=== PATIENT | female | born 1940 | race Caucasian/White ===

== ENCOUNTER 2016-07-09 12:47 | Inpatient (IN) | payer OTHER, MEDICARE ==
[2016-07-09 12:55] VITALS: BMI 32.5
--- NOTE | 2016-07-09 14:01 | PDOC ---
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 HISTORY OF PRESENT ILLNESS: The patient is also c/o lower extremity swelling and admits she can no longer lay flat to sleep. She denies ARAGON, dizziness, f/c, cough, hemoptysis, n/v/d, palpitations, CP, abd pain, back pain, hematuria, dysuria. PCP is Dr. Cate Acosta Facilities Plant Engineer is Dr. Allen. Vital signs on arrival are notable for pulse of 102 with O2 sat of 95% on RA. REVIEW OF SYSTEMS: GENERAL/CONSTITUTIONAL: No fever/chills. No weakness. No weight change. HEAD, EYES, EARS, NOSE AND THROAT: No change in vision. No ear pain or discharge. No sore throat. CARDIOVASCULAR: +SOB. No chest pain. RESPIRATORY: No cough, wheezing, or hemoptysis. GASTROINTESTINAL: No abd pain, nausea, vomiting, diarrhea. GENITOURINARY: No dysuria, frequency, or change in urination. MUSCULOSKELETAL: +lower extremity swelling. No neck or back pain. SKIN: No rash or easy bruising. NEUROLOGIC: No headache, vertigo, loss of consciousness, or loss of sensation. PHYSICAL EXAM: GENERAL: The patient is awake, alert, and fully oriented, in no acute distress. She is short of breath as she speaks, speaking 3-4 words per breath. HEAD: Normal with no signs of trauma. ENT: Pupils equal, round and reactive to light, extraocular movements intact, sclera anicteric, conjunctiva clear. Neck supple. LUNGS: expiratory wheezing left posterior tran. No crackles. No rhonchi. Normal excursion. No respiratory distress or use of accessory muscles. CV: RRR, S1/S2, no MRG. Cap refill < 2 sec. ABDOMEN: Soft, non-distended, non-tender even to deep palpation, no hepatomegaly or splenomegaly, no masses. EXTREMITIES: Normal range of motion. 2+ pitting edema b/l LEs. NEUROLOGICAL: Normal speech, normal gait. CN II-XII grossly intact. PSYCH: Normal mood, normal affect. SKIN: Warm, dry, normal turgor, no rashes or lesions noted. Past History - Past Medical History Allergies/Adverse Reactions: Allergies Allergy/AdvReac Type Severity Reaction Status Date / Time No Known Allergies Allergy Verified 07/09/16 12:51 Home Medications: Ambulatory Orders Alprazolam [Xanax] 0.25 mg PO HS PRN #0 tablet 07/05/15 Apixaban [Eliquis] 5 mg PO BID #60 tablet 07/05/15 Ergocalciferol (Vitamin D2) [Vitamin D] 50,000 unit PO DAILY #0 07/05/15 Erlotinib HCl [Tarceva] 150 mg PO DAILY #0 07/05/15 Escitalopram Oxalate [Lexapro -] 5 mg PO DAILY #0 tablet 07/05/15 Eszopiclone [Lunesta -] 3 mg PO DAILY #30 tab 07/05/15 Lisinopril [Prinivil] 2.5 mg PO DAILY #90 tablet 07/05/15 Metoprolol Succinate [Toprol XL -] 25 mg PO DAILY #0 tab.sr.24h 07/05/15 Anemia: No Asthma: No Cancer: Yes (LUNG CA, treated only with by mouth chemotherapy) Cardiac Disorders: Yes (AFib; H/O [place] 2001; rheumatic fever causing mitral valve stenosis that was r) CVA: No COPD: No CHF: No Dementia: No Diabetes: No GI Disorders: No Disorders: No HTN: No Hypercholesterolemia: Yes Liver Disease: No Seizures: No Thyroid Disease: Yes (BENIGN TUMOR) - Surgical History Abdominal Surgery: Yes (HERNIA LEFT INGUINAL REPAIR) Appendectomy: No Cardiac Surgery: Yes (mitral valve "opening") Cholecystectomy: No Lung Surgery: No Neurologic Surgery: No Orthopedic Surgery: No (COMPRESSION FX LUMBAR) - Psycho/Social/Smoking Cessation Hx Anxiety: No Suicidal Ideation: No Smoking Status: No Smoking History: Never smoked Have you smoked in the past 12 months: No Number of Cigarettes Smoked Daily: 0 If you are a former smoker, when did you quit?: 34YRS AGO Information on smoking cessation initiated: No Hx Alcohol Use: No Drug/Substance Use Hx: No Substance Use Type: None Hx Substance Use Treatment: No *Physical Exam - Vital Signs Last Vital Signs Temp Pulse Resp BP Pulse Ox 97.6 F 102 H 18 135/64 95 07/09/16 12:52 07/09/16 12:52 07/09/16 12:52 07/09/16 12:52 07/09/16 12:52 Heart Score/ECG Review - History History: Slightly suspicious - Electrocardiogram EKG: Normal - Age Age: >/= 65 - Risk Factors Risk Factors Heart Score: Yes Hx Hypertension, Yes Hx Diabetes, Yes Smoking History Based on the list above the patient has:: >/=3 risk factors or Hx atherosclerotic disease - Troponin Troponin: </= normal limit - Score Heart Score - Total: 4 - ECG Intrepretation Comment:: Twelve-lead EKG was performed and reviewed by Dr. Gu. There is atrial fibrillation. Impression: Abnormal twelve-lead EKG ED Treatment Course - LABORATORY CBC & Chemistry Diagram: 07/09/16 14:15 07/09/16 14:15 Medical Decision Making - Medical Decision Making A/P: 76 y/o afebrile female with increased SOB on exertion for the past few weeks. Suspect CHF exacerbation. Plan is as follows: 1. Labs 2. EKG 3. CXR 4. Duoneb BNP = 2700 No prior history of CHF. Ordered 40mg IV lasix Will admit for new onset CHF. Patient and family made aware of the plan. Crow Giles, covering for Dr. Cate Acosta, called for admission. Spoke with Dr. Giles who accepts admission. Paged Dr. Allen for Tele admission SPoke with Dr. Delgado and he states he will see the patient *DC/Admit/Observation/Transfer Diagnosis at time of Disposition: CHF exacerbation Qualifiers: Congestive heart failure type: unspecified congestive heart failure type Qualified Code(s): I50.9 - Heart failure, unspecified - Discharge Dispostion Admit: Yes - Referrals Referrals: Cate Acosta MD [Primary Care Provider] -
[2016-07-09] MEDS ORDERED: ALBUTEROL SO4 2.5/IPRATROPIUM 0.5 INH SOL 3 ML VIAL.NEB. NEB ONE ×2 (14:09→15:03)
[2016-07-09 14:28] LABS: BASOPHIL 0.5 % (0-2.0); EOSINOPHIL 1.4 % (0-4.5); MCHC 33.6 g/dl (32.0-36.0); MEAN CELL VOLUME 95.4 fl (80-96); MEAN PLT VOLUME 7.6 fl (7.5-11.1); NEUTROPHILS 71.7 % (42.8-82.8); PLATELET COUNT 251 K/MM3 (134-434); RDW 13.3 % (11.6-15.6); WHITE BLOOD COUNT 7.2 K/mm3 (4.0-10.0)
--- NOTE | 2016-07-09 14:40 | PDOC ---
[id number] 135/64 95 07/09/16 12:52 07/09/16 12:52 07/09/16 12:52 07/09/16 12:52 07/09/16 12:52 ED Treatment Course - LABORATORY CBC & Chemistry Diagram: 07/11/16 05:35 07/12/16 05:35 Medical Decision Making - Medical Decision Making 07/09/16 14:40 Patient seen and evaluated with the nurse practitioner. I agree with the overall evaluation, assessment, and management with the following summary of visit: 76-year-old female with history of lung CA and hypertension presents with progressive shortness of breath. Workup as outlined, likely admission. *DC/Admit/Observation/Transfer Diagnosis at time of Disposition: CHF exacerbation Qualifiers: Congestive heart failure type: systolic Qualified Code(s): I50.23 - Acute on chronic systolic (congestive) heart failure - Discharge Dispostion Disposition: HOME Condition at time of disposition: Improved - Prescriptions
[2016-07-09 14:53] LABS: ALBUMIN 3.6 g/dl (3.4-5.0); ANION GAP 9 (8-16); BILIRUBIN,TOTAL 0.7 mg/dL (0.2-1.0); CALCIUM 8.7 mg/dL (8.5-10.1); CO2 24 mmol/L (21-32); CREATININE 0.6 mg/dL (0.55-1.02); GLUCOSE,RANDOM 92 mg/dL (74-106); SGOT/AST 31 U/L (15-37); SGPT/ALT 42 U/L (12-78); TOT PROT 6.6 g/dl (6.4-8.2)
[2016-07-09 14:56] LABS: ALK PHOS 58 U/L (45-117); TROPONIN I < 0.02 ng/ml (0.00-0.05)
[2016-07-09] MEDS ORDERED: FUROSEMIDE 40 MG/4 ML INJECTABLE VIAL IVPUSH ONE (14:59)
[2016-07-09] MEDS ORDERED: FUROSEMIDE 40 MG/4 ML INJECTABLE VIAL ONE (15:03)
[2016-07-09] MEDS ORDERED: ALPRAZolam 0.25 MG TABLET PO PRN (15:21)
--- NOTE | 2016-07-09 16:11 | EKG ---
Test Reason : Blood Pressure : / mmHG Vent. Rate : 083 BPM Atrial Rate : 064 BPM P-R Int : 000 ms QRS Dur : 090 ms QT Int : 386 ms P-R-T Axes : 000 038 031 degrees QTc Int : 453 ms ATRIAL FIBRILLATION ABNORMAL ECG WHEN COMPARED WITH ECG OF 02-JUL-2015 18:53, NO SIGNIFICANT CHANGE WAS FOUND Confirmed by CHANA PAPPAS MD ([id number]) on 07/09/2016 4:10:38 PM Referred By: Confirmed By:CHANA PAPPAS MD
--- NOTE | 2016-07-09 17:10 | CON.CARD ---
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 HISTORY OF PRESENT ILLNESS: The patient is also c/o lower extremity swelling and admits she can no longer lay flat to sleep. She denies ARAGON, dizziness, f/c, cough, hemoptysis, n/v/d, palpitations, CP, abd pain, back pain, hematuria, dysuria. PCP is Dr. Cate Acosta Stretching Machine Tender Frame is Dr. Allen. PMH coronary angiogram and ?MV balloon valvuloplasty for MS 2007 at [facility] (Dr Rubio) AF; underwent electrical cardioversion ([facility]) bilateral cataracts CHF depression, exacerbated after Dx of lung CA Hx ? 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 No: Alzheimer's, CVA, Dementia, Migraine, Multiple Sclerosis, Peripheral Neuropathy, Parkinson's, Seizure, Syncope, Vertigo, Other Cardio/Vascular: Yes: AFIB, Aortic Insufficiency, HTN, Hyperlipdemia, Mitral Stenosis - Alcohol/Substance Use Hx Alcohol Use: No - Smoking History Smoking history: Never smoked Have you smoked in the past 12 months: No Aproximately how many cigarettes per day: 0 If you are a former smoker, when did you quit?: 34YRS AGO Home Medications - Allergies Allergies/Adverse Reactions: Allergies Allergy/AdvReac Type Severity Reaction Status Date / Time No Known Allergies Allergy Verified 07/09/16 12:51 - Home Medications Home Medications: Ambulatory Orders Alprazolam [Xanax] 0.25 mg PO HS PRN #0 tablet 07/05/15 Apixaban [Eliquis] 5 mg PO BID #60 tablet 07/05/15 Ergocalciferol (Vitamin D2) [Vitamin D] 50,000 unit PO DAILY #0 07/05/15 Erlotinib HCl [Tarceva] 150 mg PO DAILY #0 07/05/15 Escitalopram Oxalate [Lexapro -] 5 mg PO DAILY #0 tablet 07/05/15 Eszopiclone [Lunesta -] 3 mg PO DAILY #30 tab 07/05/15 Lisinopril [Prinivil] 2.5 mg PO DAILY #90 tablet 07/05/15 Metoprolol Succinate [Toprol XL -] 25 mg PO DAILY #0 tab.sr.24h 07/05/15 Review of Systems - Review of Systems Constitutional: reports: No Symptoms Eyes: reports: No Symptoms HENT: reports: No Symptoms Neck: reports: No Symptoms Cardiovascular: reports: No Symptoms Respiratory: reports: SOB, SOB on Exertion Gastrointestinal: reports: No Symptoms Genitourinary: reports: No Symptoms Breasts: reports: No Symptoms Reported Musculoskeletal: reports: No Symptoms Integumentary: reports: No Symptoms Neurological: reports: No Symptoms Endocrine: reports: No Symptoms Hematology/Lymphatic: reports: No Symptoms Psychiatric: reports: No Symptoms Vital Signs: Vital Signs Temperature 97.6 F 07/09/16 12:52 Pulse Rate 102 H 07/09/16 12:52 Respiratory Rate 18 07/09/16 12:52 Blood Pressure 135/64 07/09/16 12:52 O2 Sat by Pulse Oximetry (%) 95 07/09/16 12:52 Constitutional: Yes: Well Nourished, No Distress, Calm Eyes: Yes: WNL, Conjunctiva Clear, EOM Intact HENT: Yes: WNL, Atraumatic, Normocephalic Neck: Yes: WNL, Supple, Trachea Midline Respiratory: Yes: WNL, Regular, CTA Bilaterally Gastrointestinal: Yes: WNL, Normal Bowel Sounds Renal/: Yes: WNL Cardiovascular: Yes: WNL, Regular Rate and Rhythm Musculoskeletal: Yes: WNL Extremities: Yes: WNL Integumentary: Yes: WNL Neurological: Yes: WNL, Alert, Oriented ...Motor Strength: WNL Psychiatric: Yes: WNL, Alert, Oriented Imaging - Results Chest X-ray: Image Reviewed (cm no i/e) EKG: Image Reviewed (af) Assessment/Plan coronary angiogram and ?MV balloon valvuloplasty for MS 2006 at [facility] (Dr Rubio) AF; underwent electrical cardioversion ([facility]) bilateral cataracts CHF depression, exacerbated after Dx of lung CA Hx ? 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
--- NOTE | 2016-07-09 17:10 | HP ---
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 The patient is also c/o lower extremity swelling and admits she can no longer lay flat to sleep. She denies ARAGON, dizziness, f/c, cough, hemoptysis, n/v/d, palpitations, CP, abd pain, back pain, hematuria, dysuria. Pt given lasix in er Pt feels better Being admitted to tele Pt seen in tele Chart reviewed Sitting in chair. denies cp. no abd pain. no headche/ dizziness no u/b trouble. 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 No: Alzheimer's, CVA, Dementia, Migraine, Multiple Sclerosis, Peripheral Neuropathy, Parkinson's, Seizure, Syncope, Vertigo, Other Cardiovascular: Yes: AFIB, Aortic Insufficiency, HTN, Hyperlipdemia, Mitral Stenosis Heme/Onc: Yes: Cancer (lung ca) - Smoking History Smoking history: Never smoked Have you smoked in the past 12 months: No Aproximately how many cigarettes per day: 0 If you are a former smoker, when did you quit?: 34YRS AGO - Alcohol/Substance Use Hx Alcohol Use: No Home Medications - Allergies Allergies/Adverse Reactions: Allergies Allergy/AdvReac Type Severity Reaction Status Date / Time No Known Allergies Allergy Verified 07/09/16 12:51 - Home Medications Home Medications: Ambulatory Orders Alprazolam [Xanax] 0.25 mg PO HS PRN #0 tablet 07/05/15 Apixaban [Eliquis] 5 mg PO BID #60 tablet 07/05/15 Ergocalciferol (Vitamin D2) [Vitamin D] 50,000 unit PO DAILY #0 07/05/15 Erlotinib HCl [Tarceva] 150 mg PO DAILY #0 07/05/15 Escitalopram Oxalate [Lexapro -] 5 mg PO DAILY #0 tablet 07/05/15 Eszopiclone [Lunesta -] 3 mg PO DAILY #30 tab 07/05/15 Lisinopril [Prinivil] 2.5 mg PO DAILY #90 tablet 07/05/15 Metoprolol Succinate [Toprol XL -] 25 mg PO DAILY #0 tab.sr.24h 07/05/15 Family Disease History - Family Disease History Family History: Unremarkable Review of Systems Unable to obtain ROS, reason: see HPI Physical Examination Vital Signs: Vital Signs Temperature 97.6 F 07/09/16 12:52 Pulse Rate 102 H 07/09/16 12:52 Respiratory Rate 18 07/09/16 12:52 Blood Pressure 135/64 07/09/16 12:52 O2 Sat by Pulse Oximetry (%) 95 07/09/16 12:52 Constitutional: Yes: No Distress, Calm Eyes: Yes: Conjunctiva Clear Neck: Yes: Supple Cardiovascular: Yes: Pulse Irregular Respiratory: Yes: Diminished (AT BASES) Gastrointestinal: Yes: Normal Bowel Sounds, Soft Edema: LLE: 2+, RLE: 2+ Neurological: Yes: Alert Psychiatric: Yes: Alert Imaging - Results Chest X-ray: Report Reviewed EKG: Report Reviewed Problem List - Problems (1) Afib Code(s): I48.91 - UNSPECIFIED ATRIAL FIBRILLATION (2) CHF exacerbation Code(s): I50.9 - HEART FAILURE, UNSPECIFIED Qualifiers: Congestive heart failure type: unspecified congestive heart failure type Qualified Code(s): I50.9 - Heart failure, unspecified (3) Lung cancer Code(s): C34.90 - MALIGNANT NEOPLASM OF UNSP PART OF UNSP BRONCHUS OR LUNG Assessment/Plan New Onset Chf Afib. Admit to tele Clinically stable Continue i/v lasix. echo Daily weight Meds reviewed monitor i/o Cardiology to follow Heart rate under control will follow
[2016-07-09] MEDS ORDERED: ZOLPIDEM TARTRATE 5 MG TABLET PO PRN (22:00)
[2016-07-09] MEDS: APIXABAN 5 MG TABLET PO SCH (22:15)
[2016-07-10 08:13] LABS: BASOPHIL 0.5 % (0-2.0); MCHC 33.2 g/dl (32.0-36.0); MEAN CELL VOLUME 96.3 fl (80-96); MEAN PLT VOLUME 7.9 fl (7.5-11.1); NEUTROPHILS 62.6 % (42.8-82.8); PLATELET COUNT 237 K/MM3 (134-434); RDW 13.4 % (11.6-15.6); WHITE BLOOD COUNT 6.4 K/mm3 (4.0-10.0)
[2016-07-10 08:44] LABS: CALCIUM 8.6 mg/dL (8.5-10.1)
[2016-07-10 08:49] LABS: ALBUMIN 3.4 g/dl (3.4-5.0); ALK PHOS 55 U/L (45-117); ANION GAP 6 (8-16); BILIRUBIN,TOTAL 0.9 mg/dL (0.2-1.0); CHOLESTEROL 157 mg/dL (50-200); CO2 29 mmol/L (21-32); CREATININE 0.6 mg/dL (0.55-1.02); GLUCOSE,RANDOM 89 mg/dL (74-106); LDL CHOLESTEROL (ONLY SJRH) 112 mg/dL (5-100); SGOT/AST 22 U/L (15-37); SGPT/ALT 37 U/L (12-78)
[2016-07-10] MEDS ORDERED: ESZOPICLONE 3 MG PO SCH (10:00)
[2016-07-10] MEDS ORDERED: LISINOPRIL 5 MG TABLET (FP) ONE (10:34)
[2016-07-10] MEDS ORDERED: POTASSIUM CHLORIDE TABS 10 MEQ TABLET.ER (FP) ONE (10:34)
[2016-07-10] MEDS ORDERED: METOPROLOL SUCCINATE 50 MG TAB.SR.24H (FP) ONE (10:34)
[2016-07-10] MEDS ORDERED: ESCITALOPRAM OXALATE 10 MG TABLET (FP) ONE (10:35)
[2016-07-10] MEDS ORDERED: FUROSEMIDE 40 MG/4 ML INJECTABLE VIAL ONE (10:35)
[2016-07-10] MEDS: METOPROLOL SUCCINATE 25 MG TAB.SR.24H (FP) PO SCH (10:40)
[2016-07-10] MEDS: POTASSIUM CHLORIDE TABS 10 MEQ TABLET.ER (FP) PO SCH (10:40)
[2016-07-10] MEDS: FUROSEMIDE 40 MG/4 ML INJECTABLE VIAL IVPB SCH (10:40)
[2016-07-10] MEDS: APIXABAN 5 MG TABLET PO SCH ×2 (10:40→21:02)
[2016-07-10] MEDS: ESCITALOPRAM OXALATE 10 MG TABLET (FP) PO SCH (10:40)
--- NOTE | 2016-07-10 10:48 | PN ---
Progress Note, Physician Chief Complaint: Events noted No distress SOB improved - Current Medication List Current Medications: Active Medications Alprazolam (Xanax -) 0.25 mg PO HS PRN PRN Reason: ANXIETY Apixaban (Eliquis -) 5 mg PO BID [facility] Last Admin: 07/09/16 22:15 Dose: 5 mg Ergocalciferol (Drisdol -) 50,000 unit PO DAILY [facility] Escitalopram Oxalate (Lexapro -) 5 mg PO DAILY [facility] Furosemide (Lasix Injection -) 40 mg IVPB DAILY [facility] Lisinopril (Prinivil) 2.5 mg PO DAILY [facility] Metoprolol Succinate (Toprol Xl -) 25 mg PO DAILY [facility] Non-Formulary Medication (Erlotinib Hcl [Tarceva]) 150 mg PO DAILY [facility] Potassium Chloride (K-Dur -) 10 meq PO DAILY [facility] Zolpidem Tartrate (Ambien -) 5 mg PO HS PRN - Objective Vital Signs: Vital Signs Temperature 98.1 F 07/10/16 06:00 Pulse Rate 68 07/10/16 06:00 Respiratory Rate 20 07/10/16 06:00 Blood Pressure 112/71 07/10/16 06:00 O2 Sat by Pulse Oximetry (%) 100 07/10/16 06:00 Constitutional: Yes: No Distress, Calm Cardiovascular: Yes: Pulse Irregular, Murmur Respiratory: Yes: Diminished, Rales Gastrointestinal: Yes: Normal Bowel Sounds, Soft. No: Distention, Tenderness Edema: Yes Edema: LLE: 2+, RLE: 2+ Psychiatric: Yes: Alert, Oriented Labs: CBC, BMP 07/10/16 07:15 07/10/16 07:15 Problem List - Problems (1) Afib Code(s): I48.91 - UNSPECIFIED ATRIAL FIBRILLATION Qualifiers: Atrial fibrillation type: chronic Qualified Code(s): I48.2 - Chronic atrial fibrillation (2) CHF exacerbation Code(s): I50.9 - HEART FAILURE, UNSPECIFIED Qualifiers: Congestive heart failure type: systolic Qualified Code(s): I50.23 - Acute on chronic systolic (congestive) heart failure (3) Lung cancer Code(s): C34.90 - MALIGNANT NEOPLASM OF UNSP PART OF UNSP BRONCHUS OR LUNG Assessment/Plan PLAN -- continue with anticoagulation -- on IV Lasix -- monitor BUN/creat -- Cardiology eval appreciated --check Echo -- OOB -- improving clinically
[2016-07-10] MEDS: LISINOPRIL 5 MG TABLET (FP) PO SCH (11:06)
--- NOTE | 2016-07-10 16:10 | PN ---
Progress Note, Physician Chief Complaint: Pt feels better, but still congest; dyspneic with mild exertion. 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 HISTORY OF PRESENT ILLNESS: The patient is also c/o lower extremity swelling and admits she can no longer lay flat to sleep. She denies ARAGON, dizziness, f/c, cough, hemoptysis, n/v/d, palpitations, CP, abd pain, back pain, hematuria, dysuria. PCP is Dr. Cate Acosta Relay Dispatcher is Dr. Mclain. Vital signs on arrival are notable for pulse of 102 with O2 sat of 95% on RA. - Current Medication List Current Medications: Active Medications Alprazolam (Xanax -) 0.25 mg PO HS PRN PRN Reason: ANXIETY Apixaban (Eliquis -) 5 mg PO BID [facility] Last Admin: 07/10/16 10:40 Dose: 5 mg Ergocalciferol (Drisdol -) 50,000 unit PO DAILY [facility] Escitalopram Oxalate (Lexapro -) 5 mg PO DAILY [facility] Last Admin: 07/10/16 10:40 Dose: 5 mg Furosemide (Lasix Injection -) 40 mg IVPB DAILY [facility] Last Admin: 07/10/16 10:40 Dose: 40 mg Lisinopril (Prinivil) 2.5 mg PO DAILY [facility] Last Admin: 07/10/16 11:06 Dose: Not Given Metoprolol Succinate (Toprol Xl -) 25 mg PO DAILY [facility] Last Admin: 07/10/16 10:40 Dose: 25 mg Non-Formulary Medication (Erlotinib Hcl [Tarceva]) 150 mg PO DAILY [facility] Potassium Chloride (K-Dur -) 10 meq PO DAILY [facility] Last Admin: 07/10/16 10:40 Dose: 10 meq Zolpidem Tartrate (Ambien -) 5 mg PO HS PRN - Objective Vital Signs: Vital Signs Temperature 97.7 F 07/10/16 13:52 Pulse Rate 81 07/10/16 13:52 Respiratory Rate 20 07/10/16 13:52 Blood Pressure 107/78 07/10/16 13:52 O2 Sat by Pulse Oximetry (%) 95 07/10/16 13:58 Constitutional: Yes: Calm Eyes: Yes: WNL HENT: Yes: WNL Neck: Yes: Supple Cardiovascular: Yes: Pulse Irregular, JVD, S1 (varies in intensity) Respiratory: Yes: Diminished Gastrointestinal: Yes: Soft ...Rectal Exam: Yes: Deferred Genitourinary: No: Anuria Breast(s): Yes: WNL Musculoskeletal: Yes: Muscle Weakness Extremities: Yes: Cool Edema: No Peripheral Pulses WNL: Yes Neurological: Yes: Alert, Oriented, Weakness Psychiatric: Yes: Alert, Oriented Labs: CBC, BMP 07/10/16 07:15 07/10/16 07:15 Abnormal Lab Results 07/10/16 07/10/16 07:15 07:15 MCV 96.3 H Chloride 109 H Anion Gap 6 L Total Protein 6.0 L Total LDL Cholesterol 112 H HDL Cholesterol 39 L - ....Imaging Chest X-ray: Image Reviewed (no acute pathology) Cat Scan: Image Reviewed (lesion (malignancy) slightly smaller;) EKG: Image Reviewed (AF) Problem List - Problems (1) Afib Assessment/Plan: On metoprolol ER for HR control. On Apixaban for anticoagulation. Code(s): I48.91 - UNSPECIFIED ATRIAL FIBRILLATION Qualifiers: Atrial fibrillation type: chronic Qualified Code(s): I48.2 - Chronic atrial fibrillation (2) Chronic systolic CHF (congestive heart failure) Assessment/Plan: ECHO: mildly reduced LVEF; severe LAE; moderate ; severe MS (functional: MAC) ; moderately severe MR; moderate TR, with severe pulmonary HTN. 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 Code(s): C34.90 - MALIGNANT NEOPLASM OF UNSP PART OF UNSP BRONCHUS OR LUNG (5) Mitral stenosis Assessment/Plan: severe MS (functional: MAC); moderately severe MR; severe LAE; moderate ; severe pulmonary HTN; mildly reduced LVEF (ECHO 07/10/2016). Mitral stenosis appears to have progressed (moderate MS in 2014). If symptoms persist despite optimization of medications and diet, would need to consider surgical repair or replacement of mitral valve, with evaluation of aortic valve as well (moderate , with reduced LVEF). However, pt's overall health prognosis , especially given known lung CA, needs careful evaluation prior to thinking of this course. Code(s): I05.0 - RHEUMATIC MITRAL STENOSIS
[2016-07-10] MEDS ORDERED: PT OWN MED DRAWER 7, Y5N ONE (17:35)
[2016-07-10] MEDS: TARCEVA PO SCH (18:09)
[2016-07-11 07:03] LABS: MCH 32.3 pg (25.7-33.7); MCHC 33.6 g/dl (32.0-36.0); MEAN CELL VOLUME 96.1 fl (80-96); PLATELET COUNT 234 K/MM3 (134-434); RDW 13.5 % (11.6-15.6); WHITE BLOOD COUNT 6.7 K/mm3 (4.0-10.0)
[2016-07-11 07:46] LABS: CALCIUM 8.4 mg/dL (8.5-10.1); CREATININE 0.7 mg/dL (0.55-1.02); MAGNESIUM 2.1 mg/dL (1.8-2.4)
[2016-07-11] MEDS: APIXABAN 5 MG TABLET PO SCH ×2 (10:03→21:04)
[2016-07-11] MEDS: POTASSIUM CHLORIDE TABS 10 MEQ TABLET.ER (FP) PO SCH (10:03)
[2016-07-11] MEDS: METOPROLOL SUCCINATE 25 MG TAB.SR.24H (FP) PO SCH (10:03)
[2016-07-11] MEDS: FUROSEMIDE 40 MG/4 ML INJECTABLE VIAL IVPB SCH (10:03)
[2016-07-11] MEDS: LISINOPRIL 5 MG TABLET (FP) PO SCH (10:04)
[2016-07-11] MEDS: ESCITALOPRAM OXALATE 10 MG TABLET (FP) PO SCH (10:04)
[2016-07-11] MEDS: TARCEVA PO SCH (10:04)
--- NOTE | 2016-07-11 10:12 | PN ---
Progress Note, Physician Chief Complaint: Events noted No distress SOB improved feeling better gets anxious at times - Current Medication List Current Medications: Active Medications Alprazolam (Xanax -) 0.25 mg PO HS PRN PRN Reason: ANXIETY Apixaban (Eliquis -) 5 mg PO BID [facility] Last Admin: 07/11/16 10:03 Dose: 5 mg Ergocalciferol (Drisdol -) 50,000 unit PO DAILY [facility] Escitalopram Oxalate (Lexapro -) 5 mg PO DAILY [facility] Last Admin: 07/11/16 10:04 Dose: 5 mg Furosemide (Lasix Injection -) 40 mg IVPB DAILY [facility] Last Admin: 07/11/16 10:03 Dose: 40 mg Lisinopril (Prinivil) 2.5 mg PO DAILY [facility] Last Admin: 07/11/16 10:04 Dose: 2.5 mg Metoprolol Succinate (Toprol Xl -) 25 mg PO DAILY [facility] Last Admin: 07/11/16 10:03 Dose: 25 mg Tarceva 100 Mg Tab - (Patient Own Med) 100 mg PO DAILY [facility] Last Admin: 07/11/16 10:04 Dose: 100 mg Potassium Chloride (K-Dur -) 10 meq PO DAILY [facility] Last Admin: 07/11/16 10:03 Dose: 10 meq Zolpidem Tartrate (Ambien -) 5 mg PO HS PRN - Objective Vital Signs: Vital Signs Temperature 98.0 F 07/11/16 06:00 Pulse Rate 78 07/11/16 06:00 Respiratory Rate 20 07/11/16 06:00 Blood Pressure 117/74 07/11/16 06:00 O2 Sat by Pulse Oximetry (%) 96 07/10/16 21:00 Constitutional: Yes: No Distress Cardiovascular: Yes: Pulse Irregular, Murmur Respiratory: Yes: Diminished Gastrointestinal: Yes: Normal Bowel Sounds, Soft. No: Distention, Tenderness Edema: Yes (decreased) Labs: CBC, BMP 07/11/16 05:35 07/11/16 05:35 Problem List - Problems (1) Afib Code(s): I48.91 - UNSPECIFIED ATRIAL FIBRILLATION Qualifiers: Atrial fibrillation type: chronic Qualified Code(s): I48.2 - Chronic atrial fibrillation (2) CHF exacerbation Code(s): I50.9 - HEART FAILURE, UNSPECIFIED Qualifiers: Congestive heart failure type: systolic Qualified Code(s): I50.23 - Acute on chronic systolic (congestive) heart failure (3) Lung cancer Code(s): C34.90 - MALIGNANT NEOPLASM OF UNSP PART OF UNSP BRONCHUS OR LUNG Assessment/Plan PLAN -- continue with anticoagulation -- on IV Lasix -- monitor BUN/creat -- Cardiology eval appreciated -- Echo discussed with pt -- OOB -- improving clinically -- possible dc tomorrow
--- NOTE | 2016-07-11 10:47 | PN ---
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 HISTORY OF PRESENT ILLNESS: The patient is also c/o lower extremity swelling and admits she can no longer lay flat to sleep. She denies ARAGON, dizziness, f/c, cough, hemoptysis, n/v/d, palpitations, CP, abd pain, back pain, hematuria, dysuria. PCP is Dr. Cate Acosta Freelance Interpreter/Translator is Dr. Allen. [facility] coronary angiogram and ?MV balloon valvuloplasty for MS 2007 at [facility] (Dr Rubio) AF; underwent electrical cardioversion ([facility]) bilateral cataracts CHF depression, exacerbated after Dx of lung CA Hx ? 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; on chemotherapy obese osteoporosis; vertebral fracture - Current Medication List Current Medications: Active Medications Alprazolam (Xanax -) 0.25 mg PO HS PRN PRN Reason: ANXIETY Apixaban (Eliquis -) 5 mg PO BID [facility] Last Admin: 07/11/16 10:03 Dose: 5 mg Escitalopram Oxalate (Lexapro -) 5 mg PO DAILY [facility] Last Admin: 07/11/16 10:04 Dose: 5 mg Furosemide (Lasix Injection -) 40 mg IVPB DAILY [facility] Last Admin: 07/11/16 10:03 Dose: 40 mg Lisinopril (Prinivil) 2.5 mg PO DAILY [facility] Last Admin: 07/11/16 10:04 Dose: 2.5 mg Metoprolol Succinate (Toprol Xl -) 25 mg PO DAILY [facility] Last Admin: 07/11/16 10:03 Dose: 25 mg Tarceva 100 Mg Tab - (Patient Own Med) 100 mg PO DAILY [facility] Last Admin: 07/11/16 10:04 Dose: 100 mg Potassium Chloride (K-Dur -) 10 meq PO DAILY [facility] Last Admin: 07/11/16 10:03 Dose: 10 meq Zolpidem Tartrate (Ambien -) 5 mg PO HS PRN - Objective Vital Signs: Vital Signs Temperature 97.8 F 07/11/16 10:00 Pulse Rate 89 07/11/16 10:00 Respiratory Rate 20 07/11/16 10:00 Blood Pressure 129/66 07/11/16 10:00 O2 Sat by Pulse Oximetry (%) 92 L 07/11/16 09:00 Eyes: Yes: WNL, Conjunctiva Clear, EOM Intact HENT: Yes: WNL, Atraumatic, Normocephalic Neck: Yes: WNL, Supple, Trachea Midline Cardiovascular: Yes: WNL, Regular Rate and Rhythm Respiratory: Yes: WNL, Regular, CTA Bilaterally Gastrointestinal: Yes: WNL, Normal Bowel Sounds Genitourinary: Yes: WNL Musculoskeletal: Yes: WNL Extremities: Yes: WNL Edema: No Integumentary: Yes: WNL Neurological: Yes: WNL, Alert, Oriented ...Motor Strength: WNL Psychiatric: Yes: WNL Labs: CBC, BMP 07/11/16 05:35 07/11/16 05:35 Assessment/Plan - Problems (1) Afib Assessment/Plan: On metoprolol ER for HR control. On Apixaban for anticoagulation. Code(s): I48.91 - UNSPECIFIED ATRIAL FIBRILLATION Qualifiers: Atrial fibrillation type: chronic Qualified Code(s): I48.2 - Chronic atrial fibrillation (2) Chronic systolic CHF (congestive heart failure) Assessment/Plan: ECHO: mildly reduced LVEF; severe LAE; moderate ; severe MS (functional: MAC) ; moderately severe MR; moderate TR, with severe pulmonary HTN. Code(s): I50.22 - CHRONIC SYSTOLIC (CONGESTIVE) HEART FAILURE (3) Hyperlipidemia Code(s): E78.5 - HYPERLIPIDEMIA, UNSPECIFIED (4) Lung cancer Assessment/Plan: F/u with die maker trim and oncologist. Code(s): C34.90 - MALIGNANT NEOPLASM OF UNSP PART OF UNSP BRONCHUS OR LUNG (5) Mitral stenosis Assessment/Plan: severe MS (functional: MAC); moderately severe MR; severe LAE; moderate ; severe pulmonary HTN; mildly reduced LVEF (ECHO 07/10/2016). Mitral stenosis appears to have progressed (moderate MS in 2014). If symptoms persist despite optimization of medications and diet, would need to consider surgical repair or replacement of mitral valve, with evaluation of aortic valve as well (moderate , with reduced LVEF). However, pt's overall health prognosis , especially given known lung CA, needs careful evaluation prior to thinking of this course. Code(s): I05.0 - RHEUMATIC MITRAL STENOSIS
[2016-07-11 11:34] LABS: URINE APPEARANCE CLEAR; URINE BILIRUBIN NEGATIVE (NEGATIVE); URINE COLOR COLORLESS; URINE GLUCOSE (UA) NEGATIVE (NEGATIVE); URINE KETONE NEGATIVE (NEGATIVE); URINE LEUK ESTERASE NEGATIVE (NEGATIVE); URINE NITRITE NEGATIVE (NEGATIVE); URINE PROTEIN NEGATIVE (NEGATIVE); URINE UROBILINOGEN NEGATIVE E.U./dl (0.2-1.0)
[2016-07-11 11:35] LABS: URINE BLOOD 2+ (NEGATIVE)
[2016-07-11 11:36] LABS: URINE HYALINE CAST 3 /lpf; URINE RBC <1 /hpf (0-3); URINE WBC 3 /hpf (3-5)
[2016-07-11] MEDS: ERGOCALCIFEROL (VITAMIN D2) 50,000 UNIT CAPSULE (FP) PO SCH (20:54)
[2016-07-12 07:52] LABS: CALCIUM 8.7 mg/dL (8.5-10.1); CREATININE 0.6 mg/dL (0.55-1.02)
[2016-07-12] MEDS: TARCEVA PO SCH (09:08)
[2016-07-12] MEDS: FUROSEMIDE 40 MG/4 ML INJECTABLE VIAL IVPB SCH (09:09)
[2016-07-12] MEDS: APIXABAN 5 MG TABLET PO SCH ×2 (09:09→20:59)
[2016-07-12] MEDS: POTASSIUM CHLORIDE TABS 10 MEQ TABLET.ER (FP) PO SCH (09:09)
[2016-07-12] MEDS: ESCITALOPRAM OXALATE 10 MG TABLET (FP) PO SCH (09:10)
[2016-07-12] MEDS: LISINOPRIL 5 MG TABLET (FP) PO SCH (09:10)
[2016-07-12] MEDS: METOPROLOL SUCCINATE 25 MG TAB.SR.24H (FP) PO SCH (09:10)
[2016-07-12] MEDS: CEFTRIAXONE 50 ML IVPB SCH (10:41)
--- NOTE | 2016-07-12 10:55 | PN ---
Progress Note (short form) - Note Progress Note: No distress feels better No cough or SOB Vital Signs - 24 hr 07/11/16 07/11/16 07/11/16 14:35 18:25 21:00 Temperature 97.5 F L 98.1 F 98.1 F Pulse Rate 90 84 82 Respiratory 20 20 18 Rate Blood Pressure 117/76 113/64 115/72 O2 Sat by Pulse 95 Oximetry (%) 07/12/16 07/12/16 02:17 06:00 Temperature 97.3 F L 97.8 F Pulse Rate 88 64 Respiratory 18 18 Rate Blood Pressure 133/85 121/76 O2 Sat by Pulse Oximetry (%) Current Medications Generic Name Dose Route Start Last Admin Trade Name Freq PRN Reason Stop Dose Admin Alprazolam 0.25 mg 07/09/16 15:21 Xanax - PO HS PRN ANXIETY Apixaban 5 mg 07/09/16 22:00 07/12/16 09:09 Eliquis - PO 5 mg BID [facility] Administration Escitalopram Oxalate 5 mg 07/10/16 10:00 07/12/16 09:10 Lexapro - PO 5 mg DAILY [facility] Administration Furosemide 40 mg 07/10/16 10:00 07/12/16 09:09 Lasix Injection - IVPB 40 mg DAILY [facility] Administration Ceftriaxone Sodium 50 mls @ 100 mls/hr 07/12/16 10:00 07/12/16 10:41 Rocephin 1gm Ivpb (Pre-Docked) IVPB 100 mls/hr DAILY [facility] Administration Lisinopril 2.5 mg 07/10/16 10:00 07/12/16 09:10 Prinivil PO 2.5 mg DAILY [facility] Administration Metoprolol Succinate 25 mg 07/10/16 10:00 07/12/16 09:10 Toprol Xl - PO 25 mg DAILY [facility] Administration Tarceva 100 Mg Tab - 100 mg 07/10/16 16:45 07/12/16 09:08 Patient Own Med PO Not Given DAILY [facility] Potassium Chloride 10 meq 07/10/16 10:00 07/12/16 09:09 K-Dur - PO 10 meq DAILY [facility] Administration Zolpidem Tartrate 5 mg 07/09/16 22:00 Ambien - PO HS PRN Laboratory Results - last 24 hr 07/11/16 07/12/16 10:44 05:35 Sodium 143 Potassium 4.0 Chloride 107 Carbon Dioxide 25 Anion Gap 11 BUN 17 D Creatinine 0.6 Random Glucose 89 Calcium 8.7 Urine Color Colorless Urine Appearance Clear Urine pH 6.0 Ur Specific [place] 1.003 Urine Protein Negative Urine Glucose (UA) Negative Urine Ketones Negative Urine Blood 2+ H Urine Nitrite Negative Urine Bilirubin Negative Urine Urobilinogen Negative Ur Leukocyte Esterase Negative Urine RBC <1 Urine WBC 3 Ur Epithelial Cells Rare Hyaline Casts 3 S1 S2 Irregular Lungs clear Abd- soft, NT Decreased edema, wrinkling skin PLAN -- continue with Lasix -- Urine culture noted- will treat as she has slight burning when she urinates -- renal function stable -- dc planning Problem List - Problems (1) Afib Code(s): I48.91 - UNSPECIFIED ATRIAL FIBRILLATION Qualifiers: Atrial fibrillation type: chronic Qualified Code(s): I48.2 - Chronic atrial fibrillation (2) CHF exacerbation Code(s): I50.9 - HEART FAILURE, UNSPECIFIED Qualifiers: Congestive heart failure type: systolic Qualified Code(s): I50.23 - Acute on chronic systolic (congestive) heart failure (3) Lung cancer Code(s): C34.90 - MALIGNANT NEOPLASM OF UNSP PART OF UNSP BRONCHUS OR LUNG
[2016-07-13] MEDS ORDERED: PT OWN MED DRAWER 7, Y5N ONE (06:05)
[2016-07-13 06:54] VITALS: TEMP 97.9
[2016-07-13] MEDS ORDERED: TARCEVA PO SCH (07:00)
--- NOTE | 2016-07-13 08:54 | PN ---
Progress Note, Physician Chief Complaint: Pt A&Ox3; sitting up at bedside; no chest pain; able to converse without respiratory distress. 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 HISTORY OF PRESENT ILLNESS: The patient is also c/o lower extremity swelling and admits she can no longer lay flat to sleep. She denies ARAGON, dizziness, f/c, cough, hemoptysis, n/v/d, palpitations, CP, abd pain, back pain, hematuria, dysuria. PCP is Dr. Cate Acosta Finishing Room Operator is Dr. Mclain. Vital signs on arrival are notable for pulse of 102 with O2 sat of 95% on RA. - Current Medication List Current Medications: Active Medications Alprazolam (Xanax -) 0.25 mg PO HS PRN PRN Reason: ANXIETY Apixaban (Eliquis -) 5 mg PO BID [facility] Last Admin: 07/12/16 20:59 Dose: 5 mg Escitalopram Oxalate (Lexapro -) 5 mg PO DAILY [facility] Last Admin: 07/12/16 09:10 Dose: 5 mg Furosemide (Lasix Injection -) 40 mg IVPB DAILY [facility] Last Admin: 07/12/16 09:09 Dose: 40 mg Ceftriaxone Sodium (Rocephin 1gm Ivpb (Pre-Docked)) 50 mls @ 100 mls/hr IVPB DAILY [facility] Last Admin: 07/12/16 10:41 Dose: 100 mls/hr Lisinopril (Prinivil) 2.5 mg PO DAILY [facility] Last Admin: 07/12/16 09:10 Dose: 2.5 mg Metoprolol Succinate (Toprol Xl -) 25 mg PO DAILY [facility] Last Admin: 07/12/16 09:10 Dose: 25 mg Tarceva 100 Mg Tab - (Patient Own Med) 100 mg PO DAILY@0700 [facility] Last Admin: 07/13/16 06:01 Dose: 100 mg Potassium Chloride (K-Dur -) 10 meq PO DAILY [facility] Last Admin: 07/12/16 09:09 Dose: 10 meq Zolpidem Tartrate (Ambien -) 5 mg PO HS PRN - Objective Vital Signs: Vital Signs Temperature 97.9 F 07/13/16 06:00 Pulse Rate 71 07/13/16 06:00 Respiratory Rate 18 07/13/16 06:00 Blood Pressure 114/60 07/13/16 06:00 O2 Sat by Pulse Oximetry (%) 96 07/12/16 21:00 Constitutional: Yes: Calm Eyes: Yes: WNL HENT: Yes: WNL Neck: Yes: WNL Cardiovascular: Yes: Pulse Irregular, Murmur (2/6 KADY, RSB-->base), S1 (varies in intensity) Respiratory: Yes: Regular Gastrointestinal: Yes: Soft ...Rectal Exam: Yes: Deferred Genitourinary: No: Anuria Breast(s): Yes: WNL Musculoskeletal: Yes: Muscle Weakness Extremities: Yes: WNL Edema: No Peripheral Pulses WNL: Yes Integumentary: Yes: WNL Neurological: Yes: Alert, Oriented, Weakness Psychiatric: Yes: Alert, Oriented Labs: CBC, BMP 07/11/16 05:35 07/12/16 05:35 Problem List - Problems (1) Afib Assessment/Plan: On metoprolol ER for HR control. On Apixaban for anticoagulation. Code(s): I48.91 - UNSPECIFIED ATRIAL FIBRILLATION Qualifiers: Atrial fibrillation type: chronic Qualified Code(s): I48.2 - Chronic atrial fibrillation (2) Chronic systolic CHF (congestive heart failure) Assessment/Plan: ECHO: mildly reduced LVEF; severe LAE; moderate ; severe MS (functional: MAC) ; moderately severe MR; moderate TR, with severe pulmonary HTN. On metoprolol, lisinopril, and furosemide. F/u BUN/cr, daily weight, Is and Os, electrolytes. Code(s): I50.22 - CHRONIC SYSTOLIC (CONGESTIVE) HEART FAILURE (3) Hyperlipidemia Code(s): E78.5 - HYPERLIPIDEMIA, UNSPECIFIED (4) Lung cancer Assessment/Plan: F/u with straightening press operator and oncologist. Code(s): C34.90 - MALIGNANT NEOPLASM OF UNSP PART OF UNSP BRONCHUS OR LUNG (5) Mitral stenosis Assessment/Plan: severe MS (functional: MAC); moderately severe MR; severe LAE; moderate ; severe pulmonary HTN; mildly reduced LVEF (ECHO 07/10/2016). Mitral stenosis appears to have progressed (moderate MS in 2015). If symptoms persist despite optimization of medications and diet, would need to consider surgical repair or replacement of mitral valve, with evaluation of aortic valve as well (moderate , with reduced LVEF). However, pt's overall health prognosis , especially given known lung CA, needs careful evaluation prior to thinking of this course. Code(s): I05.0 - RHEUMATIC MITRAL STENOSIS
[2016-07-13] MEDS: CEFTRIAXONE 50 ML IVPB SCH (09:10)
[2016-07-13] MEDS: POTASSIUM CHLORIDE TABS 10 MEQ TABLET.ER (FP) PO SCH (09:14)
[2016-07-13] MEDS: FUROSEMIDE 40 MG/4 ML INJECTABLE VIAL IVPB SCH (09:14)
[2016-07-13] MEDS: ESCITALOPRAM OXALATE 10 MG TABLET (FP) PO SCH (09:14)
[2016-07-13] MEDS: APIXABAN 5 MG TABLET PO SCH (09:14)
[2016-07-13] MEDS: METOPROLOL SUCCINATE 25 MG TAB.SR.24H (FP) PO SCH (09:14)
[2016-07-13] MEDS: LISINOPRIL 5 MG TABLET (FP) PO SCH (09:14)
[2016-07-13 09:20] VITALS: BP 118/61; PULSE 81
[2016-07-13] MEDS ORDERED: NITROFURANTOIN MACROCRYSTAL 50 MG CAPSULE (FP) PO SCH ×2 (10:00)
--- NOTE | 2016-07-13 10:54 | DS ---
Physical Examination Vital Signs: Vital Signs Temperature 97.9 F 07/13/16 06:00 Pulse Rate 81 07/13/16 09:20 Respiratory Rate 20 07/13/16 09:20 Blood Pressure 118/61 07/13/16 09:20 O2 Sat by Pulse Oximetry (%) 96 07/12/16 21:00 Labs: CBC, BMP 07/11/16 05:35 07/12/16 05:35 <Jessica Giles - Last Filed: 07/13/16 10:53> Vital Signs: Vital Signs Temperature 97.9 F 07/13/16 06:00 Pulse Rate 81 07/13/16 09:20 Respiratory Rate 20 07/13/16 09:20 Blood Pressure 118/61 07/13/16 09:20 O2 Sat by Pulse Oximetry (%) 96 07/12/16 21:00 Findings/Remarks: Patient feels much better Sitting in the chair Chart reviewed Denies cp or SOB Denies urinary burning Constitutional: Yes: No Distress, Calm Eyes: Yes: Conjunctiva Clear Neck: Yes: Supple Cardiovascular: Yes: Pulse Irregular Respiratory: Yes: CTA Bilaterally Gastrointestinal: Yes: Soft Edema: No Neurological: Yes: Alert Labs: CBC, BMP 07/11/16 05:35 07/12/16 05:35 <Ana Paula Mireles - Last Filed: 07/13/16 11:01> Discharge Summary Reason For Visit: CONGESTIVE HEART FAILURE EXACERBATION Current Active Problems Afib (Acute) CHF exacerbation (Acute) CVA (cerebral vascular accident) (Acute) Chronic systolic CHF (congestive heart failure) (Acute) Hematoma (Acute) Hyperlipidemia (Acute) Lung cancer (Acute) Mitral stenosis (Acute) Subtherapeutic anticoagulation (Acute) Subtherapeutic international normalized ratio (INR) (Acute) TIA (transient ischemic attack) (Acute) - Home Medications Comprehensive Discharge Medication List: Ambulatory Orders Alprazolam [Xanax] 0.25 mg PO HS PRN 07/09/16 Apixaban [Eliquis] 5 mg PO BID 07/09/16 Cholecalciferol (Vitamin D3) [Vitamin D3] 5,000 unit PO DAILY 07/09/16 Erlotinib HCl [Tarceva] 100 mg PO DAILY 07/09/16 Escitalopram Oxalate [Lexapro -] 5 mg PO DAILY 07/09/16 Metoprolol Succinate [Toprol XL -] 50 mg PO DAILY 07/09/16 Furosemide [Lasix] 40 mg PO DAILY #60 tablet 07/12/16 Potassium Chloride 20 meq PO DAILY #60 tablet.er 07/12/16 Apixaban [Eliquis -] 5 mg PO BID tablet 07/13/16 Erlotinib HCl [Tarceva] 100 mg PO DAILY 07/13/16 Escitalopram Oxalate [Lexapro -] 5 mg PO DAILY tablet 07/13/16 Lisinopril [Prinivil] 2.5 mg PO DAILY tablet 07/13/16 Metoprolol Succinate [Toprol XL -] 25 mg PO DAILY tab.sr.24h 07/13/16 Nitrofurantoin Macrocrystal [Macrodantin -] 100 mg PO BID #10 capsule 07/13/16 <Jessica Giles - Last Filed: 07/13/16 10:53> Reason For Visit: SOB Current Active Problems Afib (Acute) CHF exacerbation (Acute) CVA (cerebral vascular accident) (Acute) Chronic systolic CHF (congestive heart failure) (Acute) Hematoma (Acute) Hyperlipidemia (Acute) Lung cancer (Acute) Mitral stenosis (Acute) Subtherapeutic anticoagulation (Acute) Subtherapeutic international normalized ratio (INR) (Acute) TIA (transient ischemic attack) (Acute) Hospital Course: 76 y/o afebrile white female with PMH HTN, lung CA, systolic CHF, 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 coli esbl Patient now stable to be discharged Patient needs close follow up in office by us as well as Dr. Lin She may need matrial valve replacement in near future Patient also need to follow up with her oncologist All above discussed with pt who agrees the same Will dx home today Meds reconciled and updated Abx called into the pharmacy Also discussed with nursing staff Discharge time and examining documented and coordinated here of 30 minutes. - Home Medications Comprehensive Discharge Medication List: Ambulatory Orders Alprazolam [Xanax] 0.25 mg PO HS PRN 07/09/16 Apixaban [Eliquis] 5 mg PO BID 07/09/16 Cholecalciferol (Vitamin D3) [Vitamin D3] 5,000 unit PO DAILY 07/09/16 Erlotinib HCl [Tarceva] 100 mg PO DAILY 07/09/16 Escitalopram Oxalate [Lexapro -] 5 mg PO DAILY 07/09/16 Metoprolol Succinate [Toprol XL -] 50 mg PO DAILY 07/09/16 Furosemide [Lasix] 40 mg PO DAILY #60 tablet 07/12/16 Potassium Chloride 20 meq PO DAILY #60 tablet.er 07/12/16 Apixaban [Eliquis -] 5 mg PO BID tablet 07/13/16 Erlotinib HCl [Tarceva] 100 mg PO DAILY 07/13/16 Escitalopram Oxalate [Lexapro -] 5 mg PO DAILY tablet 07/13/16 Lisinopril [Prinivil] 2.5 mg PO DAILY tablet 07/13/16 Metoprolol Succinate [Toprol XL -] 25 mg PO DAILY tab.sr.24h 07/13/16 Nitrofurantoin Macrocrystal [Macrodantin -] 100 mg PO BID #10 capsule 07/13/16 <Ana Paula Mireles - Last Filed: 07/13/16 11:01> Condition: Improved - Instructions Referrals: Cate Acosta MD [Primary Care Provider] - Disposition: HOME
--- NOTE | 2016-07-13 12:00 | PN ---
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 HISTORY OF PRESENT ILLNESS: The patient is also c/o lower extremity swelling and admits she can no longer lay flat to sleep. She denies ARAGON, dizziness, f/c, cough, hemoptysis, n/v/d, palpitations, CP, abd pain, back pain, hematuria, dysuria. PCP is Dr. Cate Acosta Director Information Security is Dr. Allen. [facility] coronary angiogram and ?MV balloon valvuloplasty for MS 2007 at [facility] (Dr Rubio) AF; underwent electrical cardioversion ([facility]) bilateral cataracts CHF depression, exacerbated after Dx of lung CA Hx ? 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; on chemotherapy obese osteoporosis; vertebral fracture - Current Medication List Current Medications: Active Medications Alprazolam (Xanax -) 0.25 mg PO HS PRN PRN Reason: ANXIETY Apixaban (Eliquis -) 5 mg PO BID [facility] Last Admin: 07/13/16 09:14 Dose: 5 mg Escitalopram Oxalate (Lexapro -) 5 mg PO DAILY [facility] Last Admin: 07/13/16 09:14 Dose: 5 mg Furosemide (Lasix Injection -) 40 mg IVPB DAILY [facility] Last Admin: 07/13/16 09:14 Dose: 40 mg Lisinopril (Prinivil) 2.5 mg PO DAILY [facility] Last Admin: 07/13/16 09:14 Dose: 2.5 mg Metoprolol Succinate (Toprol Xl -) 25 mg PO DAILY [facility] Last Admin: 07/13/16 09:14 Dose: 25 mg Nitrofurantoin Macrocrystals (Macrodantin -) 100 mg PO BID [facility] Tarceva 100 Mg Tab - (Patient Own Med) 100 mg PO DAILY@0700 [facility] Last Admin: 07/13/16 06:01 Dose: 100 mg Potassium Chloride (K-Dur -) 10 meq PO DAILY [facility] Last Admin: 07/13/16 09:14 Dose: 10 meq Zolpidem Tartrate (Ambien -) 5 mg PO HS PRN - Objective Vital Signs: Vital Signs Temperature 97.9 F 07/13/16 06:00 Pulse Rate 81 07/13/16 09:20 Respiratory Rate 20 07/13/16 09:20 Blood Pressure 118/61 07/13/16 09:20 O2 Sat by Pulse Oximetry (%) 96 07/12/16 21:00 Eyes: Yes: WNL, Conjunctiva Clear, EOM Intact HENT: Yes: WNL, Atraumatic, Normocephalic Neck: Yes: WNL, Supple, Trachea Midline Cardiovascular: Yes: Pulse Irregular, S1, S2 Respiratory: Yes: WNL, Regular, CTA Bilaterally Gastrointestinal: Yes: WNL, Normal Bowel Sounds Genitourinary: Yes: WNL Musculoskeletal: Yes: WNL Extremities: Yes: WNL Edema: No Integumentary: Yes: WNL Neurological: Yes: WNL, Alert, Oriented ...Motor Strength: WNL Psychiatric: Yes: WNL Labs: CBC, BMP 07/11/16 05:35 07/12/16 05:35 Assessment/Plan (1) Afib Assessment/Plan: On metoprolol ER for HR control. On Apixaban for anticoagulation. Code(s): I48.91 - UNSPECIFIED ATRIAL FIBRILLATION Qualifiers: Atrial fibrillation type: chronic Qualified Code(s): I48.2 - Chronic atrial fibrillation (2) Chronic systolic CHF (congestive heart failure) Assessment/Plan: ECHO: mildly reduced LVEF; severe LAE; moderate ; severe MS (functional: MAC) ; moderately severe MR; moderate TR, with severe pulmonary HTN. On metoprolol, lisinopril, and furosemide. F/u BUN/cr, daily weight, Is and Os, electrolytes. Code(s): I50.22 - CHRONIC SYSTOLIC (CONGESTIVE) HEART FAILURE (3) Hyperlipidemia Code(s): E78.5 - HYPERLIPIDEMIA, UNSPECIFIED (4) Lung cancer Assessment/Plan: F/u with bundle sorter and oncologist. Code(s): C34.90 - MALIGNANT NEOPLASM OF UNSP PART OF UNSP BRONCHUS OR LUNG (5) Mitral stenosis Assessment/Plan: severe MS (functional: MAC); moderately severe MR; severe LAE; moderate ; severe pulmonary HTN; mildly reduced LVEF (ECHO 07/10/2016). Mitral stenosis appears to have progressed (moderate MS in 2015). If symptoms persist despite optimization of medications and diet, would need to consider surgical repair or replacement of mitral valve, with evaluation of aortic valve as well (moderate , with reduced LVEF). However, pt's overall health prognosis , especially given known lung CA, needs careful evaluation prior to thinking of this course. Code(s): I05.0 - RHEUMATIC MITRAL STENOSIS
== END 2016-07-13 14:21 | disposition home or self-care (01) | DRG 292 ==
LOC: JER 12:47 → JERBED 15:47 → J4S 07-10 13:44
PROVIDERS: ADMIT Internal Medicine; ATTEND Internal Medicine
DX: I11.0 Hypertensive heart disease with heart failure (principal); C34.90 Malignant neoplasm of unspecified part of unspecified bronchus or lung; N39.0 Urinary tract infection, site not specified; I50.23 Acute on chronic systolic (congestive) heart failure; Z79.01 Long term (current) use of anticoagulants; F32.9 Major depressive disorder, single episode, unspecified; M81.0 Age-related osteoporosis without current pathological fracture; H26.9 Unspecified cataract; E66.9 Obesity, unspecified; I48.2 Chronic atrial fibrillation; I35.0 Nonrheumatic aortic (valve) stenosis; I05.0 Rheumatic mitral stenosis; E78.5 Hyperlipidemia, unspecified; Z86.73 Personal history of transient ischemic attack (TIA), and cerebral infarction without residual deficits; I27.2 Other secondary pulmonary hypertension; B96.20 Unspecified Escherichia coli [E. coli] as the cause of diseases classified elsewhere; Z68.32 Body mass index [BMI] 32.0-32.9, adult
CPT/HCPCS: 36415; 71020-TC; 80048; 80053; 80061; 81003; 81015; 82550; 83721; 83735; 83880; 84484; 85025; 85027; 87086; 87186; 93005; 93010; 93306-TC; 94010; 97116-GP; 97161-GP; 99284-25

== ENCOUNTER 2018-03-01 09:50 | Inpatient (IN) | payer OTHER, MEDICARE ==
[2018-03-01 09:56] VITALS: BMI 30.9
--- NOTE | 2018-03-01 10:20 | PDOC ---
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 Patient endorses associated increased leg swelling. Denies recent travel, unilateral leg swelling, history of blood clots. Endorses taking her medications. Denies modifying factors for her chest pain. Endorses anxiety. Past History - Past Medical History Allergies/Adverse Reactions: Allergies Allergy/AdvReac Type Severity Reaction Status Date / Time No Known Allergies Allergy Verified 03/01/18 09:56 Home Medications: Ambulatory Orders Alprazolam [Xanax] 0.125 mg PO HS PRN 07/09/16 Cholecalciferol (Vitamin D3) [Vitamin D3] 5,000 unit PO DAILY 07/09/16 Erlotinib HCl [Tarceva] 100 mg PO DAILY 07/09/16 Apixaban [Eliquis -] 5 mg PO BID tablet 07/13/16 Escitalopram Oxalate [Lexapro -] 5 mg PO DAILY tablet 07/13/16 Metoprolol Succinate [Toprol XL -] 25 mg PO DAILY tab.sr.24h 07/13/16 Spironolactone 12.5 mg PO DAILY 03/01/18 Anemia: No Asthma: No Cancer: Yes (breast/LUNG CA, chemotherapy) Cardiac Disorders: Yes (AFib; H/O VT 2001; rheumatic fever causing mitral valve stenosis that was r) CVA: No COPD: No CHF: No Dementia: No Diabetes: Yes GI Disorders: No Disorders: No HTN: Yes Hypercholesterolemia: Yes Liver Disease: No Seizures: No Thyroid Disease: Yes (BENIGN TUMOR) - Surgical History Abdominal Surgery: Yes (HERNIA LEFT INGUINAL REPAIR) Appendectomy: No Cardiac Surgery: Yes (mitral valve "opening") Cholecystectomy: No Lung Surgery: No Neurologic Surgery: No Orthopedic Surgery: No (COMPRESSION FX LUMBAR) - Suicide/Smoking/Psychosocial Hx Smoking Status: No Smoking History: Former smoker Have you smoked in the past 12 months: No Number of Cigarettes Smoked Daily: 0 If you are a former smoker, when did you quit?: 34YRS AGO Information on smoking cessation initiated: No Hx Alcohol Use: No Drug/Substance Use Hx: No Substance Use Type: None Hx Substance Use Treatment: No Review of Systems - Review of Systems Comments:: 03/01/18 10:53 GENERAL/CONSTITUTIONAL: No fever or chills. No weakness. HEAD, EYES, EARS, NOSE AND THROAT: No change in vision. No sore throat. CARDIOVASCULAR: +chest pain +shortness of breath RESPIRATORY: No cough, wheezing, or hemoptysis. GASTROINTESTINAL: No nausea, vomiting, diarrhea or constipation. GENITOURINARY: No dysuria, frequency, or change in urination. MUSCULOSKELETAL: No joint pain, +leg edema. No neck or back pain. SKIN: No rash NEUROLOGIC: No headache, vertigo, loss of consciousness, or change in strength/ sensation. ENDOCRINE: No increased thirst. No abnormal weight change HEMATOLOGIC/LYMPHATIC: No anemia, easy bleeding, or history of blood clots. ALLERGIC/IMMUNOLOGIC: No hives or skin allergy. *Physical Exam - Vital Signs Last Vital Signs Temp Pulse Resp BP Pulse Ox 98.8 F 101 H 18 116/60 95 03/01/18 09:52 03/01/18 09:52 03/01/18 09:52 03/01/18 09:52 03/01/18 09:52 - Physical Exam Comments: 03/01/18 10:54 GENERAL: Awake, alert, and fully oriented, in no acute distress HEAD: No signs of trauma, normocephalic, atraumatic EYES: PERRLA, EOMI, sclera anicteric, conjunctiva clear ENT: Auricles normal inspection, hearing grossly normal, nares patent, oropharynx clear without exudates. Moist mucosa NECK: Normal ROM, supple, no lymphadenopathy, JVD, or masses LUNGS: No distress, speaks full sentences, clear to auscultation bilaterally HEART: Irregular rate, blowing murmur, tachycardic, peripheral pulses normal and equal bilaterally. ABDOMEN: Soft, nontender, normoactive bowel sounds. No guarding, no rebound. No masses EXTREMITIES: Normal inspection, Normal range of motion, 2+ edema. No clubbing or cyanosis. NEUROLOGICAL: Cranial nerves II through XII grossly intact. Normal speech, normal gait, no focal sensorimotor deficits SKIN: Warm, Dry, normal turgor, no rashes or lesions noted. ED Treatment Course - LABORATORY CBC & Chemistry Diagram: 03/01/18 10:37 03/01/18 10:37 Medical Decision Making - Medical Decision Making 03/01/18 10:55 Patient is 77F with history of HTN, lung ca, afib, MV stenosis, aortic insufficiency, TIA here today with chest pain, leg swelling and shortness of breath. DDx includes, but is not limited to: CHF exacerbation, PE, ACS. Will evaluate with cardiac labs with BNP. Will image with cxr and CTA PE. Likely admission given comorbidities. EKG shows afib with rvr with rate of 101. No st elevations/depressions. Two PVCs. Nonspecific st abnormalities in V4-V6. Normal axis. Normal QRS/QTc intervals. 03/01/18 13:54 CBC, CMP reassuring. BNP elevated. CXR shows similar prior lung mass. CTA shows no clot or pneumonia. Trop undetectable. Placed in tele obs after discussion with Dr Giles. *DC/Admit/Observation/Transfer Diagnosis at time of Disposition: CHF exacerbation - Discharge Dispostion Condition at time of disposition: Stable Decision to Admit order: Yes - Referrals - Patient Instructions - Post Discharge Activity
--- NOTE | 2018-03-01 10:32 | PDOC ---
Attending Attestation - Resident Resident Name: OzzieKyle - ED Attending Attestation I have performed the following: I have examined & evaluated the patient, The case was reviewed & discussed with the resident, I agree w/resident's findings & plan, Exceptions are as noted - HPI HPI: 03/01/18 10:21 77yo F hx lung ca on daily oral chemo, AF on eliquis, MV stenosis 2/2 rHD, TIA, CHF, AI presents with 4 days of progressive SOB, chest pressure, VALDOVINOS. COmpliant with meds. - Physicial Exam PE: 03/01/18 10:22 agree with resident exam - Medical Decision Making 03/01/18 10:32 77yo F MMP including lung ca, CHF, AF, MS, AI presents to the ED with CP, SOB. Vitals with tachycardia, O2 sat 95%. EKG with AF w RVR, no LAMONT. DDx includes PE vs ACS vs CHF exac. Plan -labs -CTA chest -tele -admit 03/01/18 12:56 Case discussed in detail with admitting physician including history, physical exam and ancillary studies. Admitting physician has assumed care for the patient, will follow all pending diagnostics and will complete the evaluation and treatment. Heart Score/ECG Review #1 03/01/18 10:24 Twelve-lead EKG was performed and reviewed by me. Atrial fibrillation with rapid ventricular response, rate 101. Normal axis. No ST elevations. +PVCs
[2018-03-01 10:43] LABS: BASO % 0.5 % (0-2.0); EOS % 1.8 % (0-4.5); HEMATOCRIT 43.8 % (32.4-45.2); HEMOGLOBIN 14.4 GM/dL (10.7-15.3); LYMPH % 13.5 % (8-40); MCH 31.2 pg (25.7-33.7); MCHC 32.9 g/dl (32.0-36.0); MEAN CELL VOLUME 94.8 fl (80-96); MEAN PLT VOLUME 7.4 fl (7.5-11.1); MONO % 5.8 % (3.8-10.2); NEUT % 78.4 % (42.8-82.8); PLATELET COUNT 266 K/MM3 (134-434); RBC 4.62 M/mm3 (3.60-5.2); RDW 13.6 % (11.6-15.6); WHITE BLOOD COUNT 7.1 K/mm3 (4.0-10.0)
[2018-03-01 11:00] LABS: INR 1.69 (0.83-1.09); PROTHROMBIN TIME (PATIENT) 19.1 SEC (9.7-13.0)
[2018-03-01 11:27] LABS: ALBUMIN 3.5 g/dl (3.4-5.0); ANION GAP 8 MMOL/L (8-16); BILIRUBIN,TOTAL 1.5 mg/dL (0.2-1.0); BLOOD UREA NITROGEN 11 mg/dL (7-18); CALCIUM 8.8 mg/dL (8.5-10.1); CHLORIDE 107 mmol/L (98-107); CO2 25 mmol/L (21-32); CREATININE 0.7 mg/dL (0.55-1.3); GLUCOSE,RANDOM 102 mg/dL (74-106); MAGNESIUM 1.9 mg/dL (1.8-2.4); POTASSIUM 3.9 mmol/L (3.5-5.1); SGOT/AST 18 U/L (15-37); SGPT/ALT 22 U/L (13-61); SODIUM 140 mmol/L (136-145); TOT PROT 6.7 g/dl (6.4-8.2)
[2018-03-01 11:30] LABS: ALK PHOS 62 U/L (45-117)
[2018-03-01] MEDS ORDERED: ASPIRIN 81 MG CHEWABLE TABLETS PO ONE (11:55)
[2018-03-01] MEDS ORDERED: ASPIRIN 81 MG CHEWABLE TABLETS ONE (12:02)
[2018-03-01] MEDS ORDERED: ACETAMINOPHEN 325 MG TABLET (FP) PO PRN (14:40)
--- NOTE | 2018-03-01 14:47 | HP ---
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 No: Alzheimer's, CVA, Dementia, Migraine, Multiple Sclerosis, Peripheral Neuropathy, Parkinson's, Seizure, Syncope, Vertigo, Other Cardiovascular: Yes: AFIB, Aortic Insufficiency, HTN, Hyperlipdemia, Mitral Stenosis Heme/Onc: Yes: Cancer (lung ca) - Smoking History Smoking history: Former smoker Have you smoked in the past 12 months: No Aproximately how many cigarettes per day: 0 If you are a former smoker, when did you quit?: 34YRS AGO - Alcohol/Substance Use Hx Alcohol Use: No Home Medications - Allergies Allergies/Adverse Reactions: Allergies Allergy/AdvReac Type Severity Reaction Status Date / Time No Known Allergies Allergy Verified 03/01/18 09:56 - Home Medications Home Medications: Ambulatory Orders Alprazolam [Xanax] 0.125 mg PO HS PRN 07/09/16 Cholecalciferol (Vitamin D3) [Vitamin D3] 5,000 unit PO DAILY 07/09/16 Erlotinib HCl [Tarceva] 100 mg PO DAILY 07/09/16 Apixaban [Eliquis -] 5 mg PO BID tablet 07/13/16 Escitalopram Oxalate [Lexapro -] 5 mg PO DAILY tablet 07/13/16 Metoprolol Succinate [Toprol XL -] 25 mg PO DAILY tab.sr.24h 07/13/16 Spironolactone 12.5 mg PO DAILY 03/01/18 Physical Examination Vital Signs: Vital Signs Temperature 98.2 F 03/01/18 13:58 Pulse Rate 91 H 03/01/18 13:58 Respiratory Rate 17 03/01/18 13:58 Blood Pressure 119/71 03/01/18 13:58 O2 Sat by Pulse Oximetry (%) 95 03/01/18 13:58 Labs: CBC, BMP 03/01/18 10:37 03/01/18 10:37
[2018-03-01] MEDS ORDERED: FUROSEMIDE 40 MG/4 ML INJECTABLE VIAL ONE (15:13)
[2018-03-01] MEDS: FUROSEMIDE 40 MG/4 ML INJECTABLE VIAL IVPUSH SCH (15:19)
--- NOTE | 2018-03-01 18:13 | HP ---
DATE OF ADMISSION: DATE OF DICTATION: 03/01/2018 HISTORY: This patient is a 77-year-old female with extensive past medical history of lung cancer on Tresiba, hypertension, atrial fibrillation, mitral valve stenosis, continued rheumatic fever, TIA, aortic insufficiency, history of left breast cancer status post lumpectomy as well as CHF who is being admitted hospital secondary to shortness of breath. The patient reported getting short of breath for the last 3-4 days slowly worsening and more with lying down. The patient denies any chest pain but complains of substernal chest pressure off and on. The patient denies any recent travel. Denies any fever or chills. MEDICATIONS: At home reviewed. As listed in the emergency room. ALLERGIES: The patient has no known allergies. FAMILY HISTORY: Nothing contributory. PERSONAL HISTORY: The patient does not smoke or drink. REVIEW OF SYSTEMS: As mentioned above. Shortness of breath and positive chest pressure. Denies headache, dizziness, urinary or bowel trouble. PHYSICAL EXAMINATION: General: The patient is seen by me in the emergency room alert, oriented, and comfortable. Mildly short of breath. Denies chest pain. Vital Signs: Stable. Blood pressure 104/78, pulse 80, respirations 14. She is afebrile. Neck: Supple. There is no JVD. Lungs: Diminished at the bases. Heart: Sounds regular. Abdomen: Soft, nontender. Extremities: Have +2 edema. Neurologic: Alert and awake. DIAGNOSTIC DATA: Blood work reviewed. CBC, essentially normal. INR 1.69. Electrolytes essentially okay except total bilirubin 0.5. Troponin negative. BNP 2112. Chest x-ray: Short, questionable right perihilar infiltrate and fullness of the right infrahilar area. Patient also had chest CTA done, which shows no evidence of PE, but it was significant for mediastinal and right hilar lymphadenopathy with extension to right lower lobe. There was no evidence of any acute infiltrate or pleural effusions. Cardiomegaly also noted. ASSESSMENT AND PLAN: Patient is a 77-year-old female with extensive past medical history who is being admitted to telemetry for shortness of breath likely due to congestive heart failure exacerbation. Plan is IV Lasix. Monitor on telemetry. Continue other medications. Cardiology to evaluate. Echocardiogram. Further recommendations will be guided by clinical course. SHALONDA GILBERT M.D. SHAHRIAR/[id number]
[2018-03-01] MEDS: APIXABAN 5 MG TABLET PO SCH (21:52)
[2018-03-01 23:54] LABS: URINE APPEARANCE CLEAR; URINE BILIRUBIN NEGATIVE (<2.0 mg/dL); URINE COLOR LTYELLOW; URINE GLUCOSE (UA) NEGATIVE (NEGATIVE); URINE KETONE NEGATIVE (NEGATIVE); URINE LEUK ESTERASE 2+ (NEGATIVE); URINE NITRITE NEGATIVE (NEGATIVE); URINE PROTEIN NEGATIVE (NEGATIVE); URINE UROBILINOGEN NEGATIVE mg/dL (0.2-1.0)
[2018-03-01 23:56] LABS: EPI CELLS RARE /HPF (FEW); URINE BACTERIA FEW /hpf (NONE SEEN); URINE MUCUS RARE
[2018-03-02] MEDS: ALPRAZolam 0.25 MG TABLET PO PRN ×2 (01:27→22:54)
--- NOTE | 2018-03-02 09:00 | CON.CARD ---
Consult Consult Specialty:: Cardiology - History of Present Illness History of Present Illness: 77yo F MMP including lung ca, CHF, AF, MS, AI presents to the ED with CP, SOB. Vitals with tachycardia, O2 sat 95%. EKG with AF w RVR, no LAMONT. DDx includes PE vs ACS vs CHF exac. 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 AF; underwent electrical cardioversion ([facility]) Mild systolic CHF Severe mitral stenosis (ECHO 09/07/2016 at [facility]: mildly decreased LVEF; mild LVH; severely thickened MV, with severe mitral stenosis (MS); moderately severe MR and AR; moderate ; moderate pulmonary HTN). bilateral cataracts depression, exacerbated after Dx of lung CA; now with deaths of two daughters. Hx ? 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 No: Alzheimer's, CVA, Dementia, Migraine, Multiple Sclerosis, Peripheral Neuropathy, Parkinson's, Seizure, Syncope, Vertigo, Other Cardio/Vascular: Yes: AFIB, Aortic Insufficiency, HTN, Hyperlipdemia, Mitral Stenosis ...: No - Alcohol/Substance Use Hx Alcohol Use: No - Smoking History Smoking history: Former smoker Have you smoked in the past 12 months: No Aproximately how many cigarettes per day: 0 If you are a former smoker, when did you quit?: 34YRS AGO Home Medications - Allergies Allergies/Adverse Reactions: Allergies Allergy/AdvReac Type Severity Reaction Status Date / Time No Known Allergies Allergy Verified 03/01/18 09:56 - Home Medications Home Medications: Ambulatory Orders Alprazolam [Xanax] 0.125 mg PO HS PRN 07/09/16 Cholecalciferol (Vitamin D3) [Vitamin D3] 5,000 unit PO DAILY 07/09/16 Erlotinib HCl [Tarceva] 100 mg PO DAILY 07/09/16 Apixaban [Eliquis -] 5 mg PO BID tablet 07/13/16 Escitalopram Oxalate [Lexapro -] 5 mg PO DAILY tablet 07/13/16 Metoprolol Succinate [Toprol XL -] 25 mg PO DAILY tab.sr.24h 07/13/16 Spironolactone 12.5 mg PO DAILY 03/01/18 Review of Systems - Review of Systems Constitutional: reports: No Symptoms Eyes: reports: No Symptoms HENT: reports: No Symptoms Neck: reports: No Symptoms Cardiovascular: reports: Edema, Shortness of Breath Respiratory: reports: SOB Gastrointestinal: reports: No Symptoms Genitourinary: reports: No Symptoms Breasts: reports: No Symptoms Reported Musculoskeletal: reports: No Symptoms Integumentary: reports: No Symptoms Neurological: reports: No Symptoms Endocrine: reports: No Symptoms Hematology/Lymphatic: reports: No Symptoms Psychiatric: reports: No Symptoms Vital Signs: Vital Signs Temperature 98.1 F 03/02/18 06:00 Pulse Rate 66 03/02/18 06:00 Respiratory Rate 15 03/02/18 06:00 Blood Pressure 119/68 03/02/18 06:00 O2 Sat by Pulse Oximetry (%) 94 L 03/02/18 06:00 Constitutional: Yes: Well Nourished, No Distress, Calm Eyes: Yes: WNL, Conjunctiva Clear, EOM Intact HENT: Yes: WNL, Atraumatic, Normocephalic Neck: Yes: WNL, Supple, Trachea Midline Respiratory: Yes: WNL, Regular, CTA Bilaterally Gastrointestinal: Yes: WNL, Normal Bowel Sounds Renal/: Yes: WNL Cardiovascular: Yes: WNL, Regular Rate and Rhythm Musculoskeletal: Yes: WNL Extremities: Yes: WNL Edema: Yes Integumentary: Yes: WNL Neurological: Yes: WNL, Alert, Oriented ...Motor Strength: WNL Psychiatric: Yes: WNL, Alert, Oriented - Other Data Labs, Other Data: CBC, BMP 03/01/18 10:37 03/01/18 10:37 INR, PTT INR 1.69 (0.83-1.09) H 03/01/18 10:30 Troponin, BNP 03/01/18 10:37 Troponin I < 0.02 B-Natriuretic Peptide 2112.60 H Troponin, BNP 03/01/18 10:37 Troponin I < 0.02 B-Natriuretic Peptide 2112.60 H Imaging - Results Chest X-ray: Image Reviewed (perihilar fullnes) EKG: Image Reviewed (af rep abn) Problem List - Problems (1) CHF exacerbation Code(s): I50.9 - HEART FAILURE, UNSPECIFIED Qualifiers: (2) Afib Code(s): I48.91 - UNSPECIFIED ATRIAL FIBRILLATION Qualifiers: Atrial fibrillation type: chronic Qualified Code(s): I48.2 - Chronic atrial fibrillation (3) CVA (cerebral vascular accident) Code(s): I63.9 - CEREBRAL INFARCTION, UNSPECIFIED (4) Chronic systolic CHF (congestive heart failure) Code(s): I50.22 - CHRONIC SYSTOLIC (CONGESTIVE) HEART FAILURE (5) Hematoma Code(s): T14.8 - OTHER INJURY OF UNSPECIFIED BODY REGION * DO NOT USE * (6) Hyperlipidemia Code(s): E78.5 - HYPERLIPIDEMIA, UNSPECIFIED (7) Lung cancer Code(s): C34.90 - MALIGNANT NEOPLASM OF UNSP PART OF UNSP BRONCHUS OR LUNG (8) Mitral stenosis Code(s): I05.0 - RHEUMATIC MITRAL STENOSIS (9) Sprain of right thumb Code(s): S63.601A - UNSPECIFIED SPRAIN OF RIGHT THUMB, INITIAL ENCOUNTER Qualifiers: Encounter type: initial encounter Qualified Code(s): S63.601A - Unspecified sprain of right thumb, initial encounter (10) Subtherapeutic anticoagulation Code(s): Z51.81 - ENCOUNTER FOR THERAPEUTIC DRUG LEVEL MONITORING; Z79.01 - VALET (CURRENT) USE OF ANTICOAGULANTS (11) Subtherapeutic international normalized ratio (INR) Code(s): R79.1 - ABNORMAL COAGULATION PROFILE (12) TIA (transient ischemic attack) Code(s): G45.9 - TRANSIENT CEREBRAL ISCHEMIC ATTACK, UNSPECIFIED Assessment/Plan lung ca severe MS nl ef AF admitted with decompensated CHF Plan telemetry IV lasix cont AC oncology f/u
[2018-03-02] MEDS: CHOLECALCIFEROL (VITAMIN D3) 1,000 UNIT TABLET (FP) PO SCH (09:50)
[2018-03-02] MEDS: metoPROLOL SUCCINATE 25 MG TAB.SR.24H (FP) PO SCH (09:50)
[2018-03-02] MEDS: APIXABAN 5 MG TABLET PO SCH ×2 (09:51→20:59)
[2018-03-02] MEDS: ESCITALOPRAM OXALATE 10 MG TABLET (FP) PO SCH (09:51)
[2018-03-02] MEDS: ERLOTINIB HCL 100 MG PO SCH (09:51)
[2018-03-02] MEDS: SPIRONOLACTONE 25 MG TABLET (FP) PO SCH (09:52)
[2018-03-02] MEDS: FUROSEMIDE 40 MG/4 ML INJECTABLE VIAL IVPUSH SCH (12:27)
--- NOTE | 2018-03-02 15:15 | PN ---
Progress Note, Physician History of Present Illness: pt seen/ examined in tele feels same no distress still says get sob. cardiology consult noted - Current Medication List Current Medications: Active Medications Acetaminophen (Tylenol -) 650 mg PO Q4H PRN PRN Reason: PAIN LEVEL 6-10 Alprazolam (Xanax -) 0.125 mg PO HS PRN PRN Reason: ANXIETY Last Admin: 03/02/18 01:27 Dose: 0.125 mg Apixaban (Eliquis -) 5 mg PO BID [facility] Last Admin: 03/02/18 09:51 Dose: 5 mg Cholecalciferol (Vitamin D3 -) 5,000 unit PO DAILY [facility] Last Admin: 03/02/18 09:50 Dose: 5,000 unit Escitalopram Oxalate (Lexapro -) 5 mg PO DAILY [facility] Last Admin: 03/02/18 09:51 Dose: 5 mg Furosemide (Lasix Injection -) 40 mg IVPUSH DAILY [facility] Last Admin: 03/02/18 12:27 Dose: 40 mg Metoprolol Succinate (Toprol Xl -) 25 mg PO DAILY [facility] Last Admin: 03/02/18 09:50 Dose: 25 mg Non-Formulary Medication (Erlotinib Hcl [Tarceva]) 100 mg PO DAILY [facility] Last Admin: 03/02/18 09:51 Dose: 100 mg Spironolactone (Aldactone -) 12.5 mg PO DAILY [facility] Last Admin: 03/02/18 09:52 Dose: 12.5 mg - Objective Vital Signs: Vital Signs Temperature 98.2 F 03/02/18 14:01 Pulse Rate 74 03/02/18 14:01 Respiratory Rate 20 03/02/18 14:01 Blood Pressure 125/70 03/02/18 14:01 O2 Sat by Pulse Oximetry (%) 94 L 03/02/18 06:00 Constitutional: Yes: No Distress, Calm Eyes: Yes: Conjunctiva Clear Neck: Yes: Supple Cardiovascular: Yes: Regular Rate and Rhythm, Murmur Respiratory: Yes: Diminished Gastrointestinal: Yes: Soft Edema: LLE: 1+, RLE: 1+ Neurological: Yes: Alert Psychiatric: Yes: Alert Labs: CBC, BMP 03/01/18 10:37 03/01/18 10:37 INR, PTT INR 1.69 (0.83-1.09) H 03/01/18 10:30 Problem List - Problems (1) Breast cancer Code(s): C50.919 - MALIGNANT NEOPLASM OF UNSP SITE OF UNSPECIFIED FEMALE BREAST (2) CHF exacerbation Code(s): I50.9 - HEART FAILURE, UNSPECIFIED Qualifiers: (3) Afib Code(s): I48.91 - UNSPECIFIED ATRIAL FIBRILLATION Qualifiers: Atrial fibrillation type: chronic Qualified Code(s): I48.2 - Chronic atrial fibrillation (4) Chronic systolic CHF (congestive heart failure) Code(s): I50.22 - CHRONIC SYSTOLIC (CONGESTIVE) HEART FAILURE (5) Lung cancer Code(s): C34.90 - MALIGNANT NEOPLASM OF UNSP PART OF UNSP BRONCHUS OR LUNG Assessment/Plan continue present care i/v lasix monitor on tele echo will follow
--- NOTE | 2018-03-02 21:37 | EKG ---
Test Reason : Blood Pressure : / mmHG Vent. Rate : 101 BPM Atrial Rate : 136 BPM P-R Int : 000 ms QRS Dur : 082 ms QT Int : 354 ms P-R-T Axes : 000 042 049 degrees QTc Int : 459 ms ATRIAL FIBRILLATION WITH RAPID VENTRICULAR RESPONSE WITH PREMATURE VENTRICULAR OR ABERRANTLY CONDUCTED COMPLEXES NONSPECIFIC ST AND T WAVE ABNORMALITY ABNORMAL ECG WHEN COMPARED WITH ECG OF 09-JUL-2016 14:26, NO SIGNIFICANT CHANGE WAS FOUND Confirmed by ERNESTINA SHUKLA MD ([id number]) on 03/02/2018 9:37:35 PM Referred By: Confirmed By:ERNESTINA SHUKLA MD
[2018-03-03 06:34] LABS: BASO % 0.7 % (0-2.0); EOS % 5.5 % (0-4.5); HEMATOCRIT 41.8 % (32.4-45.2); HEMOGLOBIN 13.8 GM/dL (10.7-15.3); LYMPH % 26.2 % (8-40); MCH 31.2 pg (25.7-33.7); MEAN CELL VOLUME 94.7 fl (80-96); MEAN PLT VOLUME 7.7 fl (7.5-11.1); NEUT % 58.6 % (42.8-82.8); PLATELET COUNT 234 K/MM3 (134-434); RBC 4.42 M/mm3 (3.60-5.2); RDW 13.4 % (11.6-15.6); WHITE BLOOD COUNT 6.7 K/mm3 (4.0-10.0)
[2018-03-03 06:52] LABS: ALBUMIN 3.2 g/dl (3.4-5.0); ALK PHOS 50 U/L (45-117); ANION GAP 9 MMOL/L (8-16); BILIRUBIN,TOTAL 0.9 mg/dL (0.2-1.0); BLOOD UREA NITROGEN 14 mg/dL (7-18); CALCIUM 8.7 mg/dL (8.5-10.1); CHLORIDE 106 mmol/L (98-107); CHOLESTEROL 154 mg/dL (50-200); CO2 27 mmol/L (21-32); CREATININE 0.5 mg/dL (0.55-1.3); GLUCOSE,RANDOM 90 mg/dL (74-106); HDL CHOLESTEROL 40 mg/dL (40-60); POTASSIUM 3.8 mmol/L (3.5-5.1); SGOT/AST 19 U/L (15-37); SGPT/ALT 20 U/L (13-61); SODIUM 142 mmol/L (136-145); TRIGLYCERIDES 79 mg/dL (0-150)
[2018-03-03] MEDS: SPIRONOLACTONE 25 MG TABLET (FP) PO SCH (09:47)
[2018-03-03] MEDS: CHOLECALCIFEROL (VITAMIN D3) 1,000 UNIT TABLET (FP) PO SCH (09:48)
[2018-03-03] MEDS: ESCITALOPRAM OXALATE 10 MG TABLET (FP) PO SCH (09:48)
[2018-03-03] MEDS: metoPROLOL SUCCINATE 25 MG TAB.SR.24H (FP) PO SCH (09:48)
[2018-03-03] MEDS: FUROSEMIDE 40 MG/4 ML INJECTABLE VIAL IVPUSH SCH (09:51)
[2018-03-03] MEDS: APIXABAN 5 MG TABLET PO SCH ×2 (09:51→21:38)
[2018-03-03] MEDS: ERLOTINIB HCL 100 MG PO SCH ×2 (09:51→09:53)
--- NOTE | 2018-03-03 11:18 | PN ---
Progress Note, Physician History of Present Illness: 77yo F MMP including lung ca, CHF, AF, MS, AI presents to the ED with CP, SOB. Vitals with tachycardia, O2 sat 95%. EKG with AF w RVR, no LAMONT. DDx includes PE vs ACS vs CHF exac. 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 AF; underwent electrical cardioversion ([facility]) Mild systolic CHF Severe mitral stenosis (ECHO 09/07/2016 at [facility]: mildly decreased LVEF; mild LVH; severely thickened MV, with severe mitral stenosis (MS); moderately severe MR and AR; moderate ; moderate pulmonary HTN). bilateral cataracts depression, exacerbated after Dx of lung CA; now with deaths of two daughters. Hx ? rheumatic heart disease as a "little girl"; started acting up in her 60s [place] 2001 obese osteoporosis; vertebral fracture Social History: occasional acloholic drink sedentary for the past 2 years Risk Factors: hyperlipidemia hypertension lung CA postmenopausal smoking (former) Past Medications: digoxin 125 mcg Tab 125 mcg Oral Tablet qd 01/19/14 Tarceva 150 mg Tab 150 mg Oral Tablet qd 10/01/12 Toprol XL 50 mg Tab 50 mg Oral Tablet Extended Release qd 04/28/13 - Current Medication List Current Medications: Active Medications Acetaminophen (Tylenol -) 650 mg PO Q4H PRN PRN Reason: PAIN LEVEL 6-10 Alprazolam (Xanax -) 0.125 mg PO HS PRN PRN Reason: ANXIETY Last Admin: 03/02/18 22:54 Dose: 0.125 mg Apixaban (Eliquis -) 5 mg PO BID [facility] Last Admin: 03/03/18 09:51 Dose: 5 mg Cholecalciferol (Vitamin D3 -) 5,000 unit PO DAILY [facility] Last Admin: 03/03/18 09:48 Dose: 5,000 unit Escitalopram Oxalate (Lexapro -) 5 mg PO DAILY [facility] Last Admin: 03/03/18 09:48 Dose: 5 mg Furosemide (Lasix Injection -) 40 mg IVPUSH DAILY [facility] Last Admin: 03/03/18 09:51 Dose: 40 mg Metoprolol Succinate (Toprol Xl -) 25 mg PO DAILY [facility] Last Admin: 03/03/18 09:48 Dose: 25 mg Non-Formulary Medication (Erlotinib Hcl [Tarceva]) 100 mg PO DAILY [facility] Last Admin: 03/03/18 09:53 Dose: 100 mg Spironolactone (Aldactone -) 12.5 mg PO DAILY [facility] Last Admin: 03/03/18 09:47 Dose: 12.5 mg - Objective Vital Signs: Vital Signs Temperature 98.1 F 03/03/18 05:00 Pulse Rate 77 03/03/18 05:00 Respiratory Rate 16 03/03/18 05:00 Blood Pressure 111/69 03/03/18 05:00 O2 Sat by Pulse Oximetry (%) 96 03/02/18 20:30 Eyes: Yes: WNL, Conjunctiva Clear, EOM Intact HENT: Yes: WNL, Atraumatic, Normocephalic Neck: Yes: WNL, Supple, Trachea Midline Cardiovascular: Yes: WNL, Regular Rate and Rhythm Respiratory: Yes: WNL, Regular, CTA Bilaterally Gastrointestinal: Yes: WNL, Normal Bowel Sounds Genitourinary: Yes: WNL Musculoskeletal: Yes: WNL Extremities: Yes: WNL Edema: Yes Integumentary: Yes: WNL Neurological: Yes: WNL, Alert, Oriented ...Motor Strength: WNL Psychiatric: Yes: WNL Labs: CBC, BMP 03/03/18 05:30 03/03/18 05:30 INR, PTT INR 1.69 (0.83-1.09) H 03/01/18 10:30 Problem List - Problems (1) CHF exacerbation Code(s): I50.9 - HEART FAILURE, UNSPECIFIED Qualifiers: (2) Afib Code(s): I48.91 - UNSPECIFIED ATRIAL FIBRILLATION Qualifiers: Atrial fibrillation type: chronic Qualified Code(s): I48.2 - Chronic atrial fibrillation (3) CVA (cerebral vascular accident) Code(s): I63.9 - CEREBRAL INFARCTION, UNSPECIFIED (4) Chronic systolic CHF (congestive heart failure) Code(s): I50.22 - CHRONIC SYSTOLIC (CONGESTIVE) HEART FAILURE (5) Hematoma Code(s): T14.8 - OTHER INJURY OF UNSPECIFIED BODY REGION * DO NOT USE * (6) Hyperlipidemia Code(s): E78.5 - HYPERLIPIDEMIA, UNSPECIFIED (7) Lung cancer Code(s): C34.90 - MALIGNANT NEOPLASM OF UNSP PART OF UNSP BRONCHUS OR LUNG (8) Mitral stenosis Code(s): I05.0 - RHEUMATIC MITRAL STENOSIS (9) Sprain of right thumb Code(s): S63.601A - UNSPECIFIED SPRAIN OF RIGHT THUMB, INITIAL ENCOUNTER Qualifiers: Encounter type: initial encounter Qualified Code(s): S63.601A - Unspecified sprain of right thumb, initial encounter (10) Subtherapeutic anticoagulation Code(s): Z51.81 - ENCOUNTER FOR THERAPEUTIC DRUG LEVEL MONITORING; Z79.01 - AIRLINE MANAGER (CURRENT) USE OF ANTICOAGULANTS (11) Subtherapeutic international normalized ratio (INR) Code(s): R79.1 - ABNORMAL COAGULATION PROFILE (12) TIA (transient ischemic attack) Code(s): G45.9 - TRANSIENT CEREBRAL ISCHEMIC ATTACK, UNSPECIFIED Assessment/Plan lung ca severe MS nl ef AF admitted with decompensated CHF Plan telemetry IV lasix cont AC oncology f/u
--- NOTE | 2018-03-03 13:17 | PN ---
Progress Note (short form) - Note Progress Note: pt seen/ examined awake / comfortable anxious no distress but says not 100 percent better denies cp afebrile no u/b trouble Vital Signs Temp 98.1 F 03/03/18 05:00 Pulse 77 03/03/18 05:00 Resp 16 03/03/18 05:00 BP 111/69 03/03/18 05:00 Pulse Ox 96 03/02/18 20:30 Intake & Output 03/02/18 03/03/18 03/03/18 23:59 11:59 23:59 Intake Total 610 160 Balance 610 160 Intake: IV 10 10 Saline lock 10 10 Oral 600 150 Other: Voiding Method Toilet # Unmeasured Voids Void 2 1 Bowel Movement No Active Medications Acetaminophen (Tylenol -) 650 mg PO Q4H PRN PRN Reason: PAIN LEVEL 6-10 Alprazolam (Xanax -) 0.125 mg PO HS PRN PRN Reason: ANXIETY Last Admin: 03/02/18 22:54 Dose: 0.125 mg Apixaban (Eliquis -) 5 mg PO BID [facility] Last Admin: 03/03/18 09:51 Dose: 5 mg Cholecalciferol (Vitamin D3 -) 5,000 unit PO DAILY [facility] Last Admin: 03/03/18 09:48 Dose: 5,000 unit Escitalopram Oxalate (Lexapro -) 5 mg PO DAILY [facility] Last Admin: 03/03/18 09:48 Dose: 5 mg Furosemide (Lasix Injection -) 40 mg IVPUSH DAILY [facility] Last Admin: 03/03/18 09:51 Dose: 40 mg Metoprolol Succinate (Toprol Xl -) 25 mg PO DAILY [facility] Last Admin: 03/03/18 09:48 Dose: 25 mg Non-Formulary Medication (Erlotinib Hcl [Tarceva]) 100 mg PO DAILY [facility] Last Admin: 03/03/18 09:53 Dose: 100 mg Spironolactone (Aldactone -) 12.5 mg PO DAILY [facility] Last Admin: 03/03/18 09:47 Dose: 12.5 mg CBC, BMP 03/03/18 05:30 03/03/18 05:30 Microbiology 03/01/18 23:41 Urine Culture - Preliminary Urine - Urine Clean Catch Non Lactose Fermenting Gnb physical Exam Constitutional: Yes: No Distress, Anxious Eyes: Yes: Conjunctiva Clear Neck: Yes: Supple Cardiovascular: Yes: Regular Rate and Rhythm, Murmur Respiratory: Yes: Diminished Gastrointestinal: Yes: Soft Edema:Trace Neurological: Yes: Alert/ non focal . Psychiatric: Yes: Alert Assessment/Plan clinically better continue present care i/v lasix cardiology following anticipate d/c by tomorrow-- Dont want to go today u/c - growing gm -ve -- likley colonization -- will not treat discussed with nursing staff also Problem List - Problems (1) Breast cancer Code(s): C50.919 - MALIGNANT NEOPLASM OF UNSP SITE OF UNSPECIFIED FEMALE BREAST (2) CHF exacerbation Code(s): I50.9 - HEART FAILURE, UNSPECIFIED Qualifiers: (3) Afib Code(s): I48.91 - UNSPECIFIED ATRIAL FIBRILLATION Qualifiers: Atrial fibrillation type: chronic Qualified Code(s): I48.2 - Chronic atrial fibrillation (4) Chronic systolic CHF (congestive heart failure) Code(s): I50.22 - CHRONIC SYSTOLIC (CONGESTIVE) HEART FAILURE (5) Lung cancer Code(s): C34.90 - MALIGNANT NEOPLASM OF UNSP PART OF UNSP BRONCHUS OR LUNG
--- NOTE | 2018-03-03 13:25 | ECHO ---
Name: MARY ELLEN WILLARD Exam:Adult Echocardiogram Study Date: 03/03/2018 08:42 AM Age: 77 yrs Reason For Study: CHF Height: 64 in Weight: 180 lb BSA: 1.9 m2 MMode/2D Measurements & Calculations IVSd: 1.1 cm Ao root diam: 2.9 cm LVIDd: 5.7 cm LA dimension: 6.2 cm LVIDs: 3.2 cm LVPWd: 0.97 cm EDV(Teich): 163.1 ml LVOT diam: 2.0 cm ESV(Teich): 40.6 ml LAV (MOD-bp): 233.0 ml Doppler Measurements & Calculations Ao V2 max: 258.4 cm/sec AI max kain: 461.5 cm/sec Ao max P.7 mmHg AI max P.2 mmHg Ao V2 mean: 188.1 cm/sec Ao mean P.2 mmHg AI dec slope: 300.7 cm/sec2 Ao V2 VTI: 58.1 cm BRETT(I,D): 0.64 cm2 AI P1/2t: 449.5 msec BRETT(V,D): 0.79 cm2 LV V1 max P.6 mmHg MR max kain: 627.1 cm/sec LV V1 mean P.91 mmHg MR max P.8 mmHg LV V1 max: 64.0 cm/sec LV V1 mean: 44.1 cm/sec LV V1 VTI: 11.7 cm SV(LVOT): 37.0 ml TR max kain: 279.4 cm/sec TR max P.3 mmHg Med Peak E' Kain: 4.5 cm/sec Lat Peak E' Kain: 5.2 cm/sec Procedure A complete two-dimensional transthoracic echocardiogram was performed (2D, M-mode, Doppler and color flow Doppler). Left Ventricle The left ventricle is normal in size. Left ventricular systolic function is mildly reduced. Ejection Fraction = 45-50%. There is mild anterior wall hypokinesis. There is basal anterolateral wall mild hypokinesis . There is mid to mid anterolateral wall mild hypokinesis. There is apical lateral wall mild hypokinesis. The re are regional wall motion abnormalities as specified. Right Ventricle The right ventricle is not well visualized. Atria The left atrium is severely dilated. The right atrium is mildly dilated. Mitral Valve There is mild mitral annular calcification. There is mild mitral valve prolapse. Prolapse of the ante rior mitral leaflet. There is moderate mitral regurgitation. Tricuspid Valve The tricuspid valve is normal in structure and function. There is moderate tricuspid regurgitation. P ulmonary artery systolic pressure is at least 44 mmHg assuming RA pressure of 8 mmHg. Aortic Valve There is moderate aortic valve thickening. Moderate to severe valvular aortic stenosis. DI (dimension less index) is 0.21. The calculated aortic valve area using the continuity equation is 0.8 cm2. Mild aorti c regurgitation. Pulmonic Valve The pulmonic valve is not well visualized. Great Vessels The aortic root is normal size. Pericardium/Pleura There is no pericardial effusion. Interpretation Summary The left ventricle is normal in size. Left ventricular systolic function is mildly reduced. There are regional wall motion abnormalities as specified. Ejection Fraction = 45-50%. The left atrium is severely dilated. The right atrium is mildly dilated. There is mild mitral annular calcification. There is mild mitral valve prolapse. Prolapse of the anterior mitral leaflet. There is moderate mitral regurgitation. There is moderate tricuspid regurgitation. Pulmonary artery systolic pressure is at least 44 mmHg assuming RA pressure of 8 mmHg There is moderate aortic valve thickening. Moderate to severe valvular aortic stenosis. DI (dimensionless index) is 0.21 The calculated aortic valve area using the continuity equation is 0.8 cm2. Mild aortic regurgitation. There is no pericardial effusion. Chapito Carranza MD 03/03/2018 01:25 PM
[2018-03-03] MEDS: ALPRAZolam 0.25 MG TABLET PO PRN (23:55)
--- NOTE | 2018-03-04 10:16 | PN ---
Progress Note, Physician History of Present Illness: Patient is a 77 white woman with history of lung ca (on Tarceva), HTN, afib (on eliquis), MV stenosis 2/2 rheumatic fever-->balloon valvuloplasty in ?2009, [place] ;aortic insufficiency, systolic (mild) CHF, TIA, here today complaining of shortness of breath with associated of substernal chest "pressure ". Patient endorses associated increased leg swelling. Denies recent travel, unilateral leg swelling, or history of blood clots. Endorses taking her medications. Denies modifying factors for her chest pain. Endorses anxiety. - Current Medication List Current Medications: Active Medications Acetaminophen (Tylenol -) 650 mg PO Q4H PRN PRN Reason: PAIN LEVEL 6-10 Alprazolam (Xanax -) 0.125 mg PO HS PRN PRN Reason: ANXIETY Last Admin: 03/03/18 23:55 Dose: 0.125 mg Apixaban (Eliquis -) 5 mg PO BID [facility] Last Admin: 03/03/18 21:38 Dose: 5 mg Cholecalciferol (Vitamin D3 -) 5,000 unit PO DAILY [facility] Last Admin: 03/03/18 09:48 Dose: 5,000 unit Escitalopram Oxalate (Lexapro -) 5 mg PO DAILY [facility] Last Admin: 03/03/18 09:48 Dose: 5 mg Furosemide (Lasix Injection -) 40 mg IVPUSH DAILY [facility] Last Admin: 03/03/18 09:51 Dose: 40 mg Metoprolol Succinate (Toprol Xl -) 25 mg PO DAILY [facility] Last Admin: 03/03/18 09:48 Dose: 25 mg Non-Formulary Medication (Erlotinib Hcl [Tarceva]) 100 mg PO DAILY [facility] Last Admin: 03/03/18 09:53 Dose: 100 mg Spironolactone (Aldactone -) 12.5 mg PO DAILY [facility] Last Admin: 03/03/18 09:47 Dose: 12.5 mg - Objective Vital Signs: Vital Signs Temperature 98.9 F 03/03/18 22:00 Pulse Rate 77 03/03/18 22:00 Respiratory Rate 17 03/03/18 22:00 Blood Pressure 141/82 03/03/18 22:00 O2 Sat by Pulse Oximetry (%) 97 03/03/18 22:00 Constitutional: Yes: Anxious Eyes: Yes: WNL HENT: Yes: WNL Labs: CBC, BMP 03/03/18 05:30 03/03/18 05:30 INR, PTT INR 1.69 (0.83-1.09) H 03/01/18 10:30 Problem List - Problems (1) Breast cancer Code(s): C50.919 - MALIGNANT NEOPLASM OF UNSP SITE OF UNSPECIFIED FEMALE BREAST (2) Afib Code(s): I48.91 - UNSPECIFIED ATRIAL FIBRILLATION Qualifiers: Atrial fibrillation type: chronic Qualified Code(s): I48.2 - Chronic atrial fibrillation (3) Chronic systolic CHF (congestive heart failure) Code(s): I50.22 - CHRONIC SYSTOLIC (CONGESTIVE) HEART FAILURE (4) Hyperlipidemia Code(s): E78.5 - HYPERLIPIDEMIA, UNSPECIFIED (5) Mitral stenosis Assessment/Plan: s/p MV balloon valvuloplasty ?2008. ECHO mildly reduced LVEF; moderate mS; moderately severe . Pt expressed reluctance to be seen for possible further repair (or replacement) of mitral valve, and possible aortic valve replacement. She has now agreed to be reevaluated at [facility]. Upon discharge, she will be followed up at our office next Saturday, and tentatively planned for coronary angiogram and study by valvuar team later in the week at [facility] (discussed with Dr. Field, interventionjalist ). Code(s): I05.0 - RHEUMATIC MITRAL STENOSIS (6) Aortic stenosis Assessment/Plan: moderately severe on ECHO, with Code(s): I35.0 - NONRHEUMATIC AORTIC (VALVE) STENOSIS
[2018-03-04] MEDS: FUROSEMIDE 40 MG/4 ML INJECTABLE VIAL IVPUSH SCH (10:17)
[2018-03-04] MEDS: CHOLECALCIFEROL (VITAMIN D3) 1,000 UNIT TABLET (FP) PO SCH (10:17)
[2018-03-04] MEDS: SPIRONOLACTONE 25 MG TABLET (FP) PO SCH (10:17)
[2018-03-04] MEDS: ERLOTINIB HCL 100 MG PO SCH (10:18)
[2018-03-04] MEDS: ESCITALOPRAM OXALATE 10 MG TABLET (FP) PO SCH (10:18)
[2018-03-04] MEDS: metoPROLOL SUCCINATE 25 MG TAB.SR.24H (FP) PO SCH (10:18)
[2018-03-04] MEDS: APIXABAN 5 MG TABLET PO SCH (10:18)
--- NOTE | 2018-03-04 10:24 | DS ---
Physical Examination Vital Signs: Vital Signs Temperature 98.9 F 03/03/18 22:00 Pulse Rate 77 03/03/18 22:00 Respiratory Rate 17 03/03/18 22:00 Blood Pressure 141/82 03/03/18 22:00 O2 Sat by Pulse Oximetry (%) 97 03/03/18 22:00 Constitutional: Yes: No Distress, Calm Cardiovascular: Yes: Regular Rate and Rhythm, Murmur Respiratory: Yes: CTA Bilaterally Gastrointestinal: Yes: Normal Bowel Sounds, Soft. No: Tenderness Edema: No Labs: CBC, BMP 03/03/18 05:30 03/03/18 05:30 Discharge Summary Reason For Visit: ACUTE CHF Current Active Problems Breast cancer (Acute) CHF exacerbation (Acute) Hospital Course: Admitted for CHF decompensation - has severe Seen by Cardiology received IV lasix UA and culture noted-- colonized likely Pt is stable for dc home-- she will be following with Cardiology as outpt for EP studies for plan for valvuloplasty Condition: Stable - Instructions Referrals: Cate Acosta MD [Primary Care Provider] - Disposition: HOME - Home Medications Comprehensive Discharge Medication List: Ambulatory Orders Alprazolam [Xanax] 0.125 mg PO HS PRN 07/09/16 Cholecalciferol (Vitamin D3) [Vitamin D3] 5,000 unit PO DAILY 07/09/16 Erlotinib HCl [Tarceva] 100 mg PO DAILY 07/09/16 Apixaban [Eliquis -] 5 mg PO BID tablet 07/13/16 Escitalopram Oxalate [Lexapro -] 5 mg PO DAILY tablet 07/13/16 Metoprolol Succinate [Toprol XL -] 25 mg PO DAILY tab.sr.24h 07/13/16 Spironolactone 12.5 mg PO DAILY 03/01/18
[2018-03-04 12:22] VITALS: BP 141/74; PULSE 84; TEMP 98.7
== END 2018-03-04 16:34 | disposition home or self-care (01) | DRG 292 ==
LOC: JER 09:50 → JERBED 12:52 → J4W 15:50 → OBSVTOIN 03-03 13:00
PROVIDERS: ADMIT Internal Medicine; ATTEND Internal Medicine
DX: I11.0 Hypertensive heart disease with heart failure (principal); C34.92 Malignant neoplasm of unspecified part of left bronchus or lung; C34.91 Malignant neoplasm of unspecified part of right bronchus or lung; I50.23 Acute on chronic systolic (congestive) heart failure; Z79.01 Long term (current) use of anticoagulants; Z86.73 Personal history of transient ischemic attack (TIA), and cerebral infarction without residual deficits; Z87.891 Personal history of nicotine dependence; I05.0 Rheumatic mitral stenosis; C50.919 Malignant neoplasm of unspecified site of unspecified female breast; I27.20 Pulmonary hypertension, unspecified; I48.2 Chronic atrial fibrillation; I35.0 Nonrheumatic aortic (valve) stenosis
CPT/HCPCS: 36415; 71045-TC-FY; 71275-TC; 80053; 80061; 81003; 81015; 82550; 83721; 83735; 83880; 84443; 84484; 85025; 85610; 87086; 87186; 93005; 93010; 93306-TC; 99285-25; G0378

== ENCOUNTER 2018-04-19 08:01 | Emergency (ER) | payer OTHER, MEDICARE ==
[2018-04-19 08:13] VITALS: BP 142/80; PULSE 100; TEMP 98.5; BMI 30.9
[2018-04-19 09:09] LABS: BASO % 0.5 % (0-2.0); EOS % 2.2 % (0-4.5); HEMATOCRIT 43.5 % (32.4-45.2); HEMOGLOBIN 14.7 GM/dL (10.7-15.3); LYMPH % 11.4 % (8-40); MCH 31.9 pg (25.7-33.7); MCHC 33.8 g/dl (32.0-36.0); MEAN CELL VOLUME 94.2 fl (80-96); MEAN PLT VOLUME 7.8 fl (7.5-11.1); MONO % 6.2 % (3.8-10.2); NEUT % 79.7 % (42.8-82.8); PLATELET COUNT 299 K/MM3 (134-434); RBC 4.62 M/mm3 (3.60-5.2); RDW 13.6 % (11.6-15.6); WHITE BLOOD COUNT 7.7 K/mm3 (4.0-10.0)
--- NOTE | 2018-04-19 09:16 | PDOC ---
History of Present Illness - General Chief Complaint: Lightheaded Stated Complaint: WEAKNESS & SOB Time Seen by Provider: 04/19/18 08:35 History Source: Patient Exam Limitations: No Limitations - History of Present Illness Initial Comments: 04/19/18 09:10 77 yo female pmh lung cancer (on oral chemo) A fib on eliquis, MV stenosis secondary to RHD, multiple TIA/strokes, and CHF presents to the ED with sudden onset dizziness that began last night at 7 pm. Pt states while resting at home she became dizzy and felt as though the room was spinning around her with associated nausea no vomiting. Profound dizziness lasted 2 hours and currently symptoms are resolving. Pt states she recently saw Dr. Soto (ENT) for ear pain and also had a viral illness. Denies ARAGON, changes in vision current N/V/F/C, one sided weakness or sensory changes. Past History - Past Medical History Allergies/Adverse Reactions: Allergies Allergy/AdvReac Type Severity Reaction Status Date / Time No Known Allergies Allergy Verified 03/01/18 09:56 Home Medications: Ambulatory Orders Alprazolam [Xanax] 0.125 mg PO HS PRN 07/09/16 Cholecalciferol (Vitamin D3) [Vitamin D3] 5,000 unit PO DAILY 07/09/16 Erlotinib HCl [Tarceva] 100 mg PO DAILY 07/09/16 Apixaban [Eliquis -] 5 mg PO BID tablet 07/13/16 Escitalopram Oxalate [Lexapro -] 5 mg PO DAILY tablet 07/13/16 Metoprolol Succinate [Toprol XL -] 25 mg PO DAILY tab.sr.24h 07/13/16 Furosemide [Lasix] 40 mg PO DAILY #60 tablet 03/04/18 Potassium Chloride 20 meq PO DAILY #30 tablet.er 03/04/18 Meclizine HCl [Antivert -] 12.5 mg PO TID #21 tablet 04/19/18 Anemia: No Asthma: No Cancer: Yes (breast/LUNG CA, chemotherapy) Cardiac Disorders: Yes (AFib; H/O [place] 2001; rheumatic fever causing mitral valve stenosis that was r) CVA: No COPD: No CHF: No Dementia: No Diabetes: Yes GI Disorders: No Disorders: No HTN: Yes Hypercholesterolemia: Yes Liver Disease: No Seizures: No Thyroid Disease: Yes (BENIGN TUMOR) - Surgical History Abdominal Surgery: Yes (HERNIA LEFT INGUINAL REPAIR) Appendectomy: No Cardiac Surgery: Yes (mitral valve "opening") Cholecystectomy: No Lung Surgery: No Neurologic Surgery: No Orthopedic Surgery: No (COMPRESSION FX LUMBAR) - Suicide/Smoking/Psychosocial Hx Smoking Status: No Smoking History: Former smoker Have you smoked in the past 12 months: No Number of Cigarettes Smoked Daily: 0 If you are a former smoker, when did you quit?: 34YRS AGO Information on smoking cessation initiated: No Hx Alcohol Use: No Drug/Substance Use Hx: No Substance Use Type: None Hx Substance Use Treatment: No Review of Systems - Review of Systems Constitutional: No: Chills, Fever Respiratory: No: Shortness of Breath Cardiac (ROS): Yes: Edema (chronic), Lightheadedness (resolving). No: Chest Pain ABD/GI: No: Constipated, Diarrhea, Nausea, Vomiting : No: Burning, Dysuria Musculoskeletal: No: Back Pain Neurological: Yes: Unsteady Gait (resolving), Dizziness (resolving). No: Headache, Numbness, Paresthesia, Weakness *Physical Exam - Vital Signs Last Vital Signs Temp Pulse Resp BP Pulse Ox 98.5 F 100 H 20 142/80 95 04/19/18 08:06 04/19/18 08:06 04/19/18 08:06 04/19/18 08:06 04/19/18 08:06 - Physical Exam General Appearance: Yes: Nourished, Appropriately Dressed. No: Apparent Distress HEENT: positive: EOMI, AIYANA. negative: TM Bulging Respiratory/Chest: positive: Lungs Clear, Normal Breath Sounds. negative: Crackles, Rales, Rhonchi, Wheezing Cardiovascular: positive: Regular Rhythm, S1, S2, Edema (chronic non pitting). negative: JVD, Murmur Vascular Pulses: Dorsalis-Pedis (R): 3+, Doralis-Pedis (L): 3+ Gastrointestinal/Abdominal: positive: Normal Bowel Sounds, Flat, Soft. negative : Pulsatile Mass, Guarding, Rebound, Tenderness Extremity: positive: Normal Capillary Refill Integumentary: positive: Normal Color, Dry, Warm Neurologic: positive: foil operator II-XII NML intact, Fully Oriented, Alert, Normal Mood/ Affect, Normal Response, Motor Strength 5/5, Other. negative: Facial Droop, Sensory Deficit, Confused, Disoriented ED Treatment Course - LABORATORY CBC & Chemistry Diagram: 04/19/18 08:56 04/19/18 08:56 - RADIOLOGY Radiology Studies Ordered: Category Date Time Status CHEST PA & LAT [RAD] Stat Radiology 04/19/18 08:55 Ordered Medical Decision Making - Medical Decision Making 04/19/18 11:05 77 yo female pmh multiple TAS and strokes presents to the ED with sudden onset dizziness which is resolving currently. Described as room spinning around her. Not reproducible with position change DDX: BP vertigo, stroke/tia Head CT negative for acute intracranial path 04/19/18 11:[address] Cate Acosta due to pts hx of strokes and a fib and she agrees the pts presentation fits vertigo rather than stroke ad would like her sent home on meclizine 12.5 mg daily and a follow up in office on Saturday. *DC/Admit/Observation/Transfer Diagnosis at time of Disposition: Vertigo - Discharge Dispostion Disposition: HOME Condition at time of disposition: Stable Decision to Admit order: No - Referrals Referrals: Cate Acosta MD [Primary Care Provider] - - Patient Instructions Printed Discharge Instructions: DI for Vertigo Additional Instructions: Please follow up with your Primary Care Doctor on Saturday. Please return to the emergency room for new or worsening symptoms including but not limited to: changes in vision, changes in speech, one sided numbness or weakness. Please take meclizine 12.5 mg 3 times a day for the next week. Thank you - Post Discharge Activity
[2018-04-19 09:30] LABS: ALBUMIN 3.5 g/dl (3.4-5.0); ALK PHOS 69 U/L (45-117); ANION GAP 11 MMOL/L (8-16); BILIRUBIN,TOTAL 2.2 mg/dL (0.2-1); BLOOD UREA NITROGEN 14 mg/dL (7-18); CALCIUM 9.2 mg/dL (8.5-10.1); CHLORIDE 106 mmol/L (98-107); CO2 23 mmol/L (21-32); CREATININE 0.6 mg/dL (0.55-1.3); GLUCOSE,RANDOM 103 mg/dL (74-106); SGOT/AST 18 U/L (15-37); SGPT/ALT 24 U/L (13-61); SODIUM 141 mmol/L (136-145); TOT PROT 6.7 g/dl (6.4-8.2)
[2018-04-19 09:33] LABS: INR 1.34 (0.83-1.09); PROTHROMBIN TIME (PATIENT) 15.9 SEC (9.7-13.0)
[2018-04-19 09:36] LABS: ACTIVATED PTT 33.6 SECONDS (25.2-36.5)
[2018-04-19 10:07] LABS: URINE APPEARANCE CLEAR; URINE BILIRUBIN NEGATIVE (<2.0 mg/dL); URINE COLOR LTYELLOW; URINE GLUCOSE (UA) NEGATIVE (NEGATIVE); URINE KETONE TRACE (NEGATIVE); URINE LEUK ESTERASE TRACE (NEGATIVE); URINE NITRITE NEGATIVE (NEGATIVE); URINE PROTEIN NEGATIVE (NEGATIVE); URINE UROBILINOGEN NEGATIVE mg/dL (0.2-1.0)
[2018-04-19 10:18] LABS: URINE MUCUS RARE
--- NOTE | 2018-04-19 12:34 | EKG ---
Test Reason : Blood Pressure : / mmHG Vent. Rate : 087 BPM Atrial Rate : 092 BPM P-R Int : 000 ms QRS Dur : 084 ms QT Int : 372 ms P-R-T Axes : 000 057 052 degrees QTc Int : 447 ms ATRIAL FIBRILLATION NONSPECIFIC ST ABNORMALITY ABNORMAL ECG WHEN COMPARED WITH ECG OF 01-MAR-2018 10:04, NONSPECIFIC T WAVE ABNORMALITY NO LONGER EVIDENT IN ANTERIOR LEADS Confirmed by RODNEY BAUM MD ([id number]) on 04/19/2018 12:33:42 PM Referred By: Confirmed By:RODNEY BAUM MD
== END 2018-04-19 12:24 | disposition home or self-care (01) ==
LOC: JER 08:01
DX: H81.10 Benign paroxysmal vertigo, unspecified ear (principal); I25.2 Old myocardial infarction; I48.91 Unspecified atrial fibrillation; Z79.01 Long term (current) use of anticoagulants; I05.0 Rheumatic mitral stenosis; I50.9 Heart failure, unspecified; Z86.73 Personal history of transient ischemic attack (TIA), and cerebral infarction without residual deficits; Z85.3 Personal history of malignant neoplasm of breast; Z85.118 Personal history of other malignant neoplasm of bronchus and lung
CPT/HCPCS: 36415; 70450-TC; 71046-TC-FY; 80053; 81003; 81015; 82550; 84484; 85025; 85610; 85730; 87086; 93005; 93010; 99284-25

== ENCOUNTER 2018-06-28 07:49 | Emergency (ER) | payer OTHER, MEDICARE ==
[2018-06-28 07:58] VITALS: BP 126/66; PULSE 115; TEMP 97.6; BMI 28.3
[2018-06-28] MEDS ORDERED: ONDANSETRON 4 MG/2 ML VIAL ONE (08:35)
[2018-06-28 09:16] LABS: BASO % 0.5 % (0-2.0); EOS % 1.6 % (0-4.5); HEMATOCRIT 40.7 % (32.4-45.2); LYMPH % 10.4 % (8-40); MCHC 34.3 g/dl (32.0-36.0); MEAN CELL VOLUME 93.2 fl (80-96); MEAN PLT VOLUME 8.7 fl (7.5-11.1); MONO % 6.7 % (3.8-10.2); NEUT % 80.8 % (42.8-82.8); PLATELET COUNT 197 K/MM3 (134-434); RBC 4.37 M/mm3 (3.60-5.2); RDW 13.9 % (11.6-15.6); WHITE BLOOD COUNT 7.8 K/mm3 (4.0-10.0)
[2018-06-28] MEDS ORDERED: FAMOTIDINE 20 MG/50 ML IVPB 20 MG/50 ML MG IVPB ONE ×2 (09:23→09:40)
[2018-06-28] MEDS ORDERED: MAG HYDROX/AL HYDROX/SIMETH 30 ML UNIT-DOSE CUP PO ONE (09:23)
[2018-06-28] MEDS ORDERED: ACETAMINOPHEN 1000 MG/100 ML VIAL (NON FORMULARY) IVPB ONE (09:23)
--- NOTE | 2018-06-28 09:27 | PDOC ---
History of Present Illness - General Chief Complaint: Pain, Acute Stated Complaint: ABDOMINAL PAIN Time Seen by Provider: 06/28/18 08:16 History Source: Patient Exam Limitations: No Limitations - History of Present Illness Initial Comments: 06/28/18 09:22 78 year old female with past medical history of lung cancer on daily oral chemotherapy, CHF, afib on eliquis, , MV stenosis, TIA, diverticulosis, L abd/ groin hernia repair p/w L sided abdominal pain and nausea x 4 days. Reports that she has been having this constant pressure pain in the LUQ and LLQ aquadrant. No fevers or vomiting. However, with nausea and decreased appetite. States eating makes symptoms worse. No diarrhea, dysuria. Pt does not remember last time she had diverticulitis. However, because pain is persistent, pt came into the ER for an evaluation. Past History - Past Medical History Allergies/Adverse Reactions: Allergies Allergy/AdvReac Type Severity Reaction Status Date / Time No Known Allergies Allergy Verified 06/28/18 07:54 Home Medications: Ambulatory Orders Alprazolam [Xanax] 0.125 mg PO HS PRN 07/09/16 Cholecalciferol (Vitamin D3) [Vitamin D3] 5,000 unit PO DAILY 07/09/16 Erlotinib HCl [Tarceva] 100 mg PO DAILY 07/09/16 Apixaban [Eliquis -] 5 mg PO BID tablet 07/13/16 Escitalopram Oxalate [Lexapro -] 5 mg PO DAILY tablet 07/13/16 Metoprolol Succinate [Toprol XL -] 25 mg PO DAILY tab.sr.24h 07/13/16 Furosemide [Lasix] 40 mg PO DAILY #60 tablet 03/04/18 Potassium Chloride 20 meq PO DAILY #30 tablet.er 03/04/18 Meclizine HCl [Antivert -] 12.5 mg PO TID #21 tablet 04/19/18 Famotidine [Pepcid] 20 mg PO BID PRN #20 tablet 06/28/18 Ondansetron HCl [Zofran] 4 mg PO Q8H PRN #15 tablet 06/28/18 Anemia: No Asthma: No Cancer: Yes (breast/LUNG CA, chemotherapy) Cardiac Disorders: Yes (AFib; H/O [place] 2001; rheumatic fever causing mitral valve stenosis that was r) CVA: No COPD: No CHF: No Dementia: No Diabetes: Yes GI Disorders: No Disorders: No HTN: Yes Hypercholesterolemia: Yes Liver Disease: No Seizures: No Thyroid Disease: Yes (BENIGN TUMOR) - Surgical History Abdominal Surgery: Yes (HERNIA LEFT INGUINAL REPAIR) Appendectomy: No Cardiac Surgery: Yes (mitral valve "opening") Cholecystectomy: No Lung Surgery: No Neurologic Surgery: No Orthopedic Surgery: No (COMPRESSION FX LUMBAR) - Suicide/Smoking/Psychosocial Hx Smoking Status: No Smoking History: Never smoked Have you smoked in the past 12 months: No Number of Cigarettes Smoked Daily: 0 If you are a former smoker, when did you quit?: 34YRS AGO Information on smoking cessation initiated: No Hx Alcohol Use: No Drug/Substance Use Hx: No Substance Use Type: None Hx Substance Use Treatment: No Review of Systems - Review of Systems Able to Perform ROS?: Yes Comments:: 06/28/18 09:25 GENERAL/CONSTITUTIONAL: [No fever or chills. No weakness. No weight change.] HEAD, EYES, EARS, NOSE AND THROAT: [No change in vision. No ear pain or discharge. No sore throat.] CARDIOVASCULAR: [No chest pain or shortness of breath.] RESPIRATORY: [No cough, wheezing, or hemoptysis.] GASTROINTESTINAL: [No vomiting, diarrhea or constipation. No rectal bleeding.] + nausea and left sided abdominal pain GENITOURINARY: [No dysuria, frequency, or change in urination.] MUSCULOSKELETAL: [No joint or muscle swelling or pain. No neck or back pain.] SKIN AND BREASTS: [No rash or easy bruising.] NEUROLOGIC: [No headache, vertigo, loss of consciousness, or loss of sensation.] PSYCHIATRIC: [No depression or anxiety.] ENDOCRINE: [No increased thirst. No abnormal weight change.] HEMATOLOGIC/LYMPHATIC: [No anemia, easy bleeding, or history of blood clots.] ALLERGIC/IMMUNOLOGIC: [No hives or skin allergy. No latex allergy.] *Physical Exam - Vital Signs Last Vital Signs Temp Pulse Resp BP Pulse Ox 97.6 F 115 H 17 126/66 94 L 06/28/18 07:55 06/28/18 07:55 06/28/18 07:55 06/28/18 07:55 06/28/18 07:55 - Physical Exam Comments: 06/28/18 09:27 GENERAL: Awake, alert, and fully oriented, in no acute distress HEAD: No signs of trauma EYES: EOMI, sclera anicteric, conjunctiva clear ENT: Auricles normal inspection, hearing grossly normal, nares patent, Moist mucosa NECK: Normal ROM, supple LUNGS: Breath sounds equal, clear to auscultation bilaterally. No wheezes, and no crackles HEART: Irregularly irregular, normal S1 and S2, no murmurs, rubs or gallops ABDOMEN: Soft, No guarding, no rebound. No masses. TTP LUQ, Left mid, LLQ. EXTREMITIES: Normal range of motion, no edema. No clubbing or cyanosis. No cords, erythema, or tenderness NEUROLOGICAL: Cranial nerves II through XII grossly intact. Normal speech SKIN: Warm, Dry, normal turgor, no rashes or lesions noted. Moderate Sedation - Procedure Monitoring Vital Signs: Procedure Monitoring Vital Signs Temperature 97.6 F 06/28/18 07:55 Pulse Rate 115 H 06/28/18 07:55 Respiratory Rate 17 06/28/18 07:55 Blood Pressure 126/66 06/28/18 07:55 O2 Sat by Pulse Oximetry (%) 94 L 06/28/18 07:55 Heart Score/ECG Review #1 ECG reviewed & interpreted by me at: 09:10 06/28/18 09:40 afib 100, no std/brain, normal axis, normal intervals, QTC 459 msec ED Treatment Course - LABORATORY CBC & Chemistry Diagram: 06/28/18 09:00 06/28/18 09:00 Medical Decision Making - Medical Decision Making 06/28/18 09:35 Vital Signs Temp Pulse Resp BP Pulse Ox 97.6 F 115 H 17 126/66 94 L 06/28/18 07:55 06/28/18 07:55 06/28/18 07:55 06/28/18 07:55 06/28/18 07:55 Left sided abdominal pain. R/o diverticulitis, colitis, bowel obstruction, gastritis, gastroenteritis, cystitis. Labs, UA, CT abdomen and pelvis. Reassess. 06/28/18 11:49 CBC, BMP 06/28/18 09:00 06/28/18 09:00 CMP Sodium 138 mmol/L (136-145) 06/28/18 09:00 Potassium 4.0 mmol/L (3.5-5.1) 06/28/18 09:00 Chloride 106 mmol/L (98-107) 06/28/18 09:00 Carbon Dioxide 22 mmol/L (21-32) 06/28/18 09:00 Anion Gap 10 MMOL/L (8-16) 06/28/18 09:00 BUN 11 mg/dL (7-18) 06/28/18 09:00 Creatinine 0.6 mg/dL (0.55-1.3) 06/28/18 09:00 Creat Clearance w eGFR > 60 (>60) 06/28/18 09:00 Random Glucose 107 mg/dL (74-106) H 06/28/18 09:00 Calcium 9.4 mg/dL (8.5-10.1) 06/28/18 09:00 Total Bilirubin 1.2 mg/dL (0.2-1) H 06/28/18 09:00 AST 22 U/L (15-37) 06/28/18 09:00 ALT 25 U/L (13-61) 06/28/18 09:00 Alkaline Phosphatase 60 U/L (45-117) 06/28/18 09:00 Creatine Kinase 39 IU/L (26-192) 06/28/18 09:00 Troponin I < 0.02 ng/ml (0.00-0.05) 06/28/18 09:00 Total Protein 6.5 g/dl (6.4-8.2) 06/28/18 09:00 Albumin 3.3 g/dl (3.4-5.0) L 06/28/18 09:00 Lipase 142 U/L (73-393) 06/28/18 09:00 UA not sent, but patient denies dysuria. CT scan shows gallstones but no other findings. Pt reports feeling significant relief from GERD medicatoins. I suspect that this is gastritis. I did inform the patient of her "probable gallstones" diagnosis. Pt had no RUQ pain. I do not think that this is acute cholecystitis. Instructed her to follow up with General surgery, GI, and her PMD. Pt verbalizes understanding and agrees with plan. I discussed the physical exam findings, ancillary test results and final diagnoses with the patient. I answered all of the patient's questions. The patient was satisfied with the care received and felt comfortable with the discharge plan and treatment plan. The patient will call their primary care physician within 24 hours to arrange follow-up and will return to the Emergency Department with any new, persistant or worsening symptoms. *DC/Admit/Observation/Transfer Diagnosis at time of Disposition: Gastritis Qualifiers: Gastritis type: unspecified gastritis Chronicity: acute Gastritis bleeding: without bleeding Qualified Code(s): K29.00 - Acute gastritis without bleeding - Discharge Dispostion Disposition: HOME Condition at time of disposition: Improved Decision to Admit order: No - Prescriptions Prescriptions: Famotidine [Pepcid] 20 mg PO BID PRN #20 tablet PRN Reason: GERD Ondansetron HCl [Zofran] 4 mg PO Q8H PRN #15 tablet PRN Reason: Nausea - Referrals Referrals: Cate Acosta MD [Primary Care Provider] - Dannie Casey DO [Staff Physician] - Nima Mar [Staff Physician] - - Patient Instructions Printed Discharge Instructions: [place] Diet, DI for Gastritis Additional Instructions: Please follow up with your doctor. You have probable gallstones. This will need to be followed up by a general surgeon. We think that this might be gastritis. Take pepcid every 12 hours as needed for GERD. You may take a tablet of zofran every 8 hours as needed. Follow up with your doctor. - Post Discharge Activity
[2018-06-28 09:28] LABS: ALBUMIN 3.3 g/dl (3.4-5.0); ALK PHOS 60 U/L (45-117); ANION GAP 10 MMOL/L (8-16); BILIRUBIN,TOTAL 1.2 mg/dL (0.2-1); BLOOD UREA NITROGEN 11 mg/dL (7-18); CALCIUM 9.4 mg/dL (8.5-10.1); CHLORIDE 106 mmol/L (98-107); CO2 22 mmol/L (21-32); CREATININE 0.6 mg/dL (0.55-1.3); GLUCOSE,RANDOM 107 mg/dL (74-106); LIPASE 142 U/L (73-393); SGOT/AST 22 U/L (15-37); SGPT/ALT 25 U/L (13-61); SODIUM 138 mmol/L (136-145); TOT PROT 6.5 g/dl (6.4-8.2)
[2018-06-28] MEDS ORDERED: ONDANSETRON 4 MG/2 ML VIAL IVPB ONE (09:38)
[2018-06-28] MEDS ORDERED: ACETAMINOPHEN INJECTION 100 ML IVPB ONE (09:39)
[2018-06-28] MEDS ORDERED: MAG HYDROX/AL HYDROX/SIMETH 30 ML UNIT-DOSE CUP ONE (09:39)
[2018-06-28 09:41] LABS: INR 1.96 (0.83-1.09); PROTHROMBIN TIME (PATIENT) 23.3 SEC (9.7-13.0)
[2018-06-28 09:43] LABS: ACTIVATED PTT 43.3 SECONDS (25.2-36.5)
--- NOTE | 2018-06-28 10:29 | EKG ---
Test Reason : Blood Pressure : / mmHG Vent. Rate : 100 BPM Atrial Rate : 102 BPM P-R Int : 000 ms QRS Dur : 080 ms QT Int : 356 ms P-R-T Axes : 000 048 033 degrees QTc Int : 459 ms POOR DATA QUALITY, INTERPRETATION MAY BE ADVERSELY AFFECTED ATRIAL FIBRILLATION ABNORMAL ECG WHEN COMPARED WITH ECG OF 19-APR-2018 08:29, T WAVE AMPLITUDE HAS DECREASED IN ANTEROLATERAL LEADS Confirmed by ALLEY SMITH, JESSICA ([id number]) on 06/28/2018 10:29:30 AM Referred By: Confirmed By:JESSICA HAGER MD
--- NOTE | 2018-06-28 10:31 | CON.CARD ---
Consult Consult Specialty:: Cardiology Reason for Consultation:: af - History of Present Illness History of Present Illness: 78 year old female with past medical history of lung cancer on daily oral chemotherapy, CHF, afib on eliquis, , MV stenosis, TIA, diverticulosis, L abd/ groin hernia repair p/w L sided abdominal pain and nausea x 4 days. Reports that she has been having this constant pressure pain in the LUQ and LLQ aquadrant. No fevers or vomiting. However, with nausea and decreased appetite. States eating makes symptoms worse. No diarrhea, dysuria. Pt does not remember last time she had diverticulitis. However, because pain is persistent, pt came into the ER for an evaluation. PMH Former Smoker: quit (as of 2011) 34 yrs ago Surgical History: coronary angiogram and MV balloon valvuloplasty for MS [address] 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 AF; underwent electrical cardioversion ([facility]) Mild systolic CHF Severe mitral stenosis (ECHO 09/07/2016 at [place]: mildly decreased LVEF; mild LVH; severely thickened MV, with severe mitral stenosis (MS); moderately severe MR and AR; moderate ; moderate pulmonary HTN). bilateral cataracts depression, exacerbated after Dx of lung CA; now with deaths of two daughters. Hx ? 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 No: Alzheimer's, CVA, Dementia, Migraine, Multiple Sclerosis, Peripheral Neuropathy, Parkinson's, Seizure, Syncope, Vertigo, Other Cardio/Vascular: Yes: AFIB, Aortic Insufficiency, HTN, Hyperlipdemia, Mitral Stenosis - Alcohol/Substance Use Hx Alcohol Use: No - Smoking History Smoking history: Never smoked Have you smoked in the past 12 months: No Aproximately how many cigarettes per day: 0 If you are a former smoker, when did you quit?: 34YRS AGO Home Medications - Allergies Allergies/Adverse Reactions: Allergies Allergy/AdvReac Type Severity Reaction Status Date / Time No Known Allergies Allergy Verified 06/28/18 07:54 - Home Medications Home Medications: Ambulatory Orders Alprazolam [Xanax] 0.125 mg PO HS PRN 07/09/16 Cholecalciferol (Vitamin D3) [Vitamin D3] 5,000 unit PO DAILY 07/09/16 Erlotinib HCl [Tarceva] 100 mg PO DAILY 07/09/16 Apixaban [Eliquis -] 5 mg PO BID tablet 07/13/16 Escitalopram Oxalate [Lexapro -] 5 mg PO DAILY tablet 07/13/16 Metoprolol Succinate [Toprol XL -] 25 mg PO DAILY tab.sr.24h 07/13/16 Furosemide [Lasix] 40 mg PO DAILY #60 tablet 03/04/18 Potassium Chloride 20 meq PO DAILY #30 tablet.er 03/04/18 Meclizine HCl [Antivert -] 12.5 mg PO TID #21 tablet 04/19/18 Review of Systems - Review of Systems Constitutional: reports: No Symptoms Eyes: reports: No Symptoms HENT: reports: No Symptoms Neck: reports: No Symptoms Cardiovascular: reports: No Symptoms Respiratory: reports: No Symptoms Gastrointestinal: reports: Abdominal Pain Genitourinary: reports: No Symptoms Breasts: reports: No Symptoms Reported Musculoskeletal: reports: No Symptoms Integumentary: reports: No Symptoms Neurological: reports: No Symptoms Endocrine: reports: No Symptoms Hematology/Lymphatic: reports: No Symptoms Psychiatric: reports: No Symptoms Vital Signs: Vital Signs Temperature 97.6 F 06/28/18 07:55 Pulse Rate 115 H 06/28/18 07:55 Respiratory Rate 17 06/28/18 07:55 Blood Pressure 126/66 06/28/18 07:55 O2 Sat by Pulse Oximetry (%) 94 L 06/28/18 07:55 Constitutional: Yes: Well Nourished, No Distress, Calm Eyes: Yes: WNL, Conjunctiva Clear, EOM Intact HENT: Yes: WNL, Atraumatic, Normocephalic Neck: Yes: WNL, Supple, Trachea Midline Respiratory: Yes: WNL, Regular, CTA Bilaterally Gastrointestinal: Yes: WNL, Normal Bowel Sounds Renal/: Yes: WNL Cardiovascular: Yes: Pulse Irregular Musculoskeletal: Yes: WNL Extremities: Yes: WNL Integumentary: Yes: WNL Neurological: Yes: WNL, Alert, Oriented ...Motor Strength: WNL Psychiatric: Yes: WNL, Alert, Oriented - Other Data Labs, Other Data: CBC, BMP 06/28/18 09:00 06/28/18 09:00 INR, PTT INR 1.96 (0.83-1.09) H 06/28/18 09:00 Troponin, BNP 06/28/18 09:00 Troponin I < 0.02 Troponin, BNP 06/28/18 09:00 Troponin I < 0.02 Imaging - Results Chest X-ray: Pending EKG: Image Reviewed (af rep abn) Problem List - Problems (1) Afib Code(s): I48.91 - UNSPECIFIED ATRIAL FIBRILLATION Qualifiers: (2) Aortic stenosis Code(s): I35.0 - NONRHEUMATIC AORTIC (VALVE) STENOSIS (3) Breast cancer Code(s): C50.919 - MALIGNANT NEOPLASM OF UNSP SITE OF UNSPECIFIED FEMALE BREAST (4) CHF exacerbation Code(s): I50.9 - HEART FAILURE, UNSPECIFIED Qualifiers: (5) CVA (cerebral vascular accident) Code(s): I63.9 - CEREBRAL INFARCTION, UNSPECIFIED (6) Chronic systolic CHF (congestive heart failure) Code(s): I50.22 - CHRONIC SYSTOLIC (CONGESTIVE) HEART FAILURE (7) Hematoma Code(s): T14.8 - OTHER INJURY OF UNSPECIFIED BODY REGION * DO NOT USE * (8) Hyperlipidemia Code(s): E78.5 - HYPERLIPIDEMIA, UNSPECIFIED (9) Lung cancer Code(s): C34.90 - MALIGNANT NEOPLASM OF UNSP PART OF UNSP BRONCHUS OR LUNG (10) Mitral stenosis Code(s): I05.0 - RHEUMATIC MITRAL STENOSIS (11) Sprain of right thumb Code(s): S63.601A - UNSPECIFIED SPRAIN OF RIGHT THUMB, INITIAL ENCOUNTER (12) Subtherapeutic anticoagulation Code(s): Z51.81 - ENCOUNTER FOR THERAPEUTIC DRUG LEVEL MONITORING; Z79.01 - HORTICULTURAL AGENT (CURRENT) USE OF ANTICOAGULANTS (13) Subtherapeutic international normalized ratio (INR) Code(s): R79.1 - ABNORMAL COAGULATION PROFILE (14) TIA (transient ischemic attack) Code(s): G45.9 - TRANSIENT CEREBRAL ISCHEMIC ATTACK, UNSPECIFIED (15) Vertigo Code(s): R42 - DIZZINESS AND GIDDINESS Assessment/Plan ABD pain r/o diverticulitis Lung cancer (non-small cell adenocarcinoma of bilateral lungs; underwent chemotherapy; on Tarsiva). AF; underwent electrical cardioversion ([facility]) Mild systolic CHF Severe mitral stenosis (ECHO 09/07/2016 at [place]: mildly decreased LVEF; mild LVH; severely thickened MV, with severe mitral stenosis (MS); moderately severe MR and AR; moderate ; moderate pulmonary HTN). bilateral cataracts depression, exacerbated after Dx of lung CA; now with deaths of two daughters. Hx ? rheumatic heart disease as a "little girl"; started acting up in her 60s [place] 2001 obese Plan GI eval AF cont ac and rate controll chf stable will f/u
== END 2018-06-28 12:16 | disposition home or self-care (01) ==
LOC: JER 07:49
PROC: 3E033GC Introduction of Other Therapeutic Substance into Peripheral Vein, Percutaneous Approach (ICD-10-PCS; principal; 2018-06-28)
PROC: 3E033GC Introduction of Other Therapeutic Substance into Peripheral Vein, Percutaneous Approach (ICD-10-PCS; 2018-06-28)
PROC: 3E033NZ Introduction of Analgesics, Hypnotics, Sedatives into Peripheral Vein, Percutaneous Approach (ICD-10-PCS; 2018-06-28)
DX: K29.70 Gastritis, unspecified, without bleeding (principal); I48.91 Unspecified atrial fibrillation; I35.0 Nonrheumatic aortic (valve) stenosis; I50.9 Heart failure, unspecified; I50.22 Chronic systolic (congestive) heart failure; E78.5 Hyperlipidemia, unspecified; C50.919 Malignant neoplasm of unspecified site of unspecified female breast; C34.90 Malignant neoplasm of unspecified part of unspecified bronchus or lung; I05.0 Rheumatic mitral stenosis; Z51.81 Encounter for therapeutic drug level monitoring; Z79.01 Long term (current) use of anticoagulants; Z86.73 Personal history of transient ischemic attack (TIA), and cerebral infarction without residual deficits; I11.0 Hypertensive heart disease with heart failure
CPT/HCPCS: 36415; 74177-TC; 80053; 82550; 83690; 84484; 85025; 85610; 85730; 93005; 93010; 96365; 96375; 99283-25; J0131

== ENCOUNTER 2018-10-22 10:58 | Emergency (ER) | payer OTHER, MEDICARE ==
[2018-10-22 11:10] VITALS: BMI 30.2
[2018-10-22 12:23] VITALS: PULSE 92
[2018-10-22 13:09] LABS: BASO % 0.4 % (0-2.0); EOS % 0.8 % (0-4.5); HEMATOCRIT 41.7 % (32.4-45.2); HEMOGLOBIN 13.8 GM/dL (10.7-15.3); MCH 30.9 pg (25.7-33.7); MCHC 33.2 g/dl (32.0-36.0); MEAN CELL VOLUME 93.1 fl (80-96); MEAN PLT VOLUME 7.7 fl (7.5-11.1); MONO % 4.5 % (3.8-10.2); NEUT % 82.3 % (42.8-82.8); PLATELET COUNT 230 K/MM3 (134-434); RBC 4.48 M/mm3 (3.60-5.2); WHITE BLOOD COUNT 7.9 K/mm3 (4.0-10.0)
[2018-10-22 13:37] LABS: ALBUMIN 3.5 g/dl (3.4-5.0); ALK PHOS 67 U/L (45-117); ANION GAP 6 MMOL/L (8-16); BILIRUBIN,TOTAL 1.1 mg/dL (0.2-1); BLOOD UREA NITROGEN 9 mg/dL (7-18); CALCIUM 9.1 mg/dL (8.5-10.1); CHLORIDE 105 mmol/L (98-107); CO2 24 mmol/L (21-32); CREATININE 0.6 mg/dL (0.55-1.3); GLUCOSE,RANDOM 99 mg/dL (74-106); N-TERMINAL BNP 2293.6 pg/ml (5-450); POTASSIUM 4.1 mmol/L (3.5-5.1); SGOT/AST 16 U/L (15-37); SGPT/ALT 22 U/L (13-61); SODIUM 135 mmol/L (136-145); TOT PROT 6.8 g/dl (6.4-8.2)
--- NOTE | 2018-10-22 14:02 | PDOC ---
History of Present Illness - General Chief Complaint: Blood Pressure Problem Stated Complaint: HYPERTENSION Time Seen by Provider: 10/22/18 12:18 History Source: Patient Exam Limitations: Clinical Condition - History of Present Illness Initial Comments: 10/22/18 13:54 Patient with history of hypertension, mitral valve stenosis, A. fib and CHF present with complaint of " with feeling all over the body"for 3 days. Patient reported going to urgent care today for symptoms and was feeling anxious and started having elevated blood pressure at the urgent an was told by urgent care to come to the ER. Patient reported feeling of malaise and fatigue.Patient denies chest pain, shortness of breath, dizziness, palpitation, abdominal pain, nausea or vomiting. Denies any other symptoms Timing/Duration: other (3 days) Past History - Past Medical History Allergies/Adverse Reactions: Allergies Allergy/AdvReac Type Severity Reaction Status Date / Time No Known Allergies Allergy Verified 10/22/18 11:06 Home Medications: Ambulatory Orders Alprazolam [Xanax] 0.125 mg PO HS PRN 07/09/16 Cholecalciferol (Vitamin D3) [Vitamin D3] 5,000 unit PO DAILY 07/09/16 Erlotinib HCl [Tarceva] 100 mg PO DAILY 07/09/16 Apixaban [Eliquis -] 5 mg PO BID tablet 07/13/16 Escitalopram Oxalate [Lexapro -] 5 mg PO DAILY tablet 07/13/16 Metoprolol Succinate [Toprol XL -] 25 mg PO DAILY tab.sr.24h 07/13/16 Furosemide [Lasix] 40 mg PO DAILY #60 tablet 03/04/18 Potassium Chloride 20 meq PO DAILY #30 tablet.er 03/04/18 Meclizine HCl [Antivert -] 12.5 mg PO TID #21 tablet 04/19/18 Famotidine [Pepcid] 20 mg PO BID PRN #20 tablet 06/28/18 Anemia: No Asthma: No Cancer: Yes (breast/LUNG CA, chemotherapy) Cardiac Disorders: Yes (AFib; H/O [place] 2001; rheumatic fever causing mitral valve stenosis that was r) CVA: No COPD: No CHF: No Dementia: No Diabetes: Yes GI Disorders: No Disorders: No HTN: Yes Hypercholesterolemia: Yes Liver Disease: No Seizures: No Thyroid Disease: Yes (BENIGN TUMOR) - Surgical History Abdominal Surgery: Yes (HERNIA LEFT INGUINAL REPAIR) Appendectomy: No Cardiac Surgery: Yes (mitral valve "opening") Cholecystectomy: No Lung Surgery: No Neurologic Surgery: No Orthopedic Surgery: No (COMPRESSION FX LUMBAR) - Suicide/Smoking/Psychosocial Hx Smoking Status: No Smoking History: Never smoked Have you smoked in the past 12 months: No Number of Cigarettes Smoked Daily: 0 If you are a former smoker, when did you quit?: 34YRS AGO Hx Alcohol Use: No Drug/Substance Use Hx: No Substance Use Type: None Hx Substance Use Treatment: No Review of Systems - Review of Systems Able to Perform ROS?: Yes Is the patient limited Bengali proficient: No Constitutional: Yes: Malaise. No: Chills, Fever, Weakness HEENTM: No: Symptoms Reported, See HPI, Eye Pain, Blurred Vision, Tearing, Recent change in vision, Double Vision, Cataracts, Ear Pain, Ocular Prothesis, Ear Discharge, Nose Pain, Nose Congestion, Tinnitus, Nose Bleeding, Hearing Loss , Throat Pain, Throat Swelling, Mouth Pain, Dental Problems, Difficulty Swallowing, Mouth Swelling, Other Respiratory: No: Symptoms reported, See HPI, Cough, Orthopnea, Shortness of Breath, SOB with Exertion, SOB at Rest, Stridor, Wheezing, Productive cough, Hemoptysis, Other Cardiac (ROS): No: Symptoms Reported, See HPI, Chest Pain, Edema, Irregular Heart Rate, Lightheadedness, Palpitations, Syncope, Chest Tightness, Other ABD/GI: No: Symptoms Reported, See HPI, Abdominal Distended, Abd. Pain w/ defecation, Blood Streaked Bowels, Constipated, Diarrhea, Difficulty Swallowing , Nausea, Poor Appetite, Poor Fluid Intake, Rectal Bleeding, Vomiting, Indigestion, Abdominal cramping, Tarry Stools, Other Neurological: Yes: Weakness. No: Headache, Numbness, Paresthesia, Dizziness All Other Systems: Reviewed and Negative *Physical Exam - Vital Signs Last Vital Signs Temp Pulse Resp BP Pulse Ox 98.1 F 92 H 20 104/72 95 10/22/18 11:06 10/22/18 12:22 10/22/18 11:06 10/22/18 11:06 10/22/18 12:22 - Physical Exam Comments: 10/22/18 14:03 GENERAL: Well developed, well nourished. Awake and alert. No acute distress. HEENT: Normocephalic, atraumatic. PERRLA, EOMI. No conjunctival pallor. Sclera are non-icteric. Moist mucous membranes. Oropharynx is clear. NECK: Supple. Full ROM. CARDIOVASCULAR: Regular rate and rhythm. No murmurs, rubs, or gallops. Distal pulses are 2+ and symmetric. PULMONARY: No evidence of respiratory distress. Lungs clear to auscultation bilaterally. No wheezing, rales or rhonchi. ABDOMINAL: Soft. Non-tender. Non-distended. No rebound or guarding. No organomegaly. Normoactive bowel sounds. MUSCULOSKELETAL Normal range of motion at all joints. EXTREMITIES: No cyanosis. No clubbing. mild b/l peripheral edema. No calf tenderness. SKIN: Warm and dry. Normal capillary refill. No rashes. . NEUROLOGICAL: Alert, awake, appropriate. Gait is normal without ataxia. PSYCHIATRIC: Cooperative. Good eye contact. Appropriate mood General Appearance: Yes: Nourished, Appropriately Dressed. No: Apparent Distress ED Treatment Course - LABORATORY CBC & Chemistry Diagram: 10/22/18 13:00 10/22/18 13:00 - ADDITIONAL ORDERS Additional order review: Laboratory Results 10/22/18 13:00 Sodium 135 L Potassium 4.1 Chloride 105 Carbon Dioxide 24 Anion Gap 6 L BUN 9 Creatinine 0.6 Est GFR (CKD-EPI)AfAm 100.48 Est GFR (CKD-EPI)NonAf 86.69 Random Glucose 99 Calcium 9.1 Total Bilirubin 1.1 H AST 16 ALT 22 Alkaline Phosphatase 67 Creatine Kinase 27 Troponin I < 0.02 B-Natriuretic Peptide 2293.6 H Total Protein 6.8 Albumin 3.5 10/22/18 13:00 RBC 4.48 MCV 93.1 MCHC 33.2 RDW 14.0 MPV 7.7 Neutrophils % 82.3 Lymphocytes % 12.0 Monocytes % 4.5 Eosinophils % 0.8 Basophils % 0.4 - RADIOLOGY Radiology Studies Ordered: Category Date Time Status CHEST PA & LAT [RAD] Stat Radiology 10/22/18 12:41 Taken Medical Decision Making - Medical Decision Making 10/22/18 13:58 Patient with history of hypertension, mitral valve stenosis, A. fib and CHF present with complaint of " with feeling all over the body"for 3 days. Patient reported going to urgent care today for symptoms and was feeling anxious and started having elevated blood pressure at the urgent an was told by urgent care to come to the ER. Patient reported feeling of malaise and fatigue.Patient denies chest pain, shortness of breath, dizziness, palpitation, abdominal pain, nausea or vomiting. Denies any other symptoms Exam unremarkable with normal BPs in ED. normal cardio and abdominal exam. lungs CTAB. Symptoms likely from CHF exacerbations, vs anemia vs malaise from inadequate sleep CBC,CMP , BNP labs ordered. CXR ordered. UA, UCx ordered. reassess after labs and imaging 10/22/18 15:19 CBC and CMP lab with no acute findings. BNP of 2200, no previous lab to compare to. CXR shows chest mass which patient is aware and being followed up in [facility]. Patient being followed up cardialogist for CHF. Patient with no acute symptoms now and stable for outpatient follow-up for CHF management. CXR shows no effusion. Patient called cardiology office and will follow-up. Case discussed with Dr. Mcguire who agrees with plan *DC/Admit/Observation/Transfer Diagnosis at time of Disposition: Chronic systolic CHF (congestive heart failure), Malaise and fatigue Mitral stenosis Qualifiers: Cardiac valve disease etiology: rheumatic Qualified Code(s): I05.0 - Rheumatic mitral stenosis Afib Qualifiers: Atrial fibrillation type: chronic Qualified Code(s): I48.2 - Chronic atrial fibrillation - Discharge Dispostion Disposition: HOME Condition at time of disposition: Stable Decision to Admit order: No - Referrals Referrals: Cate Acosta MD [Primary Care Provider] - - Patient Instructions Printed Discharge Instructions: DI for Heart Failure, DI for Mitral Stenosis, How to Monitor Your Blood Pressure at Home Additional Instructions: Your labs and chest x-rays shows no acute finding. no fluid in lungs on x-ray. Follow-up with [facility] as scheduled for cancer management. Follow-up with your tobacco sweeper as soon as possible for possible worsening congestive heart failure management - Post Discharge Activity
[2018-10-22 15:09] VITALS: BP 125/78; TEMP 98.4
--- NOTE | 2018-10-22 15:36 | EKG ---
Test Reason : Blood Pressure : / mmHG Vent. Rate : 088 BPM Atrial Rate : 084 BPM P-R Int : 000 ms QRS Dur : 102 ms QT Int : 388 ms P-R-T Axes : 000 066 059 degrees QTc Int : 469 ms ATRIAL FIBRILLATION ABNORMAL ECG WHEN COMPARED WITH ECG OF 28-JUN-2018 09:08, NO SIGNIFICANT CHANGE WAS FOUND Confirmed by JESSICA HAGER MD ([id number]) on 10/22/2018 3:36:04 PM Referred By: Confirmed By:JESSICA HAGER MD
[2018-10-22 15:37] LABS: PH,URINE 6.5 (5.0-8.0); URINE APPEARANCE CLEAR; URINE BILIRUBIN NEGATIVE (NEGATIVE); URINE COLOR YELLOW; URINE GLUCOSE (UA) NEGATIVE (NEGATIVE); URINE KETONE NEGATIVE (NEGATIVE); URINE LEUK ESTERASE 1+ (NEGATIVE); URINE NITRITE NEGATIVE (NEGATIVE); URINE PROTEIN NEGATIVE (NEGATIVE); URINE UROBILINOGEN 0.2 mg/dL (0.2-1.0)
--- NOTE | 2018-10-22 15:40 | CON.CARD ---
Consult Consult Specialty:: Cardiology - History of Present Illness History of Present Illness: Patient with history of hypertension, mitral valve stenosis, A. fib and CHF present with complaint of " with feeling all over the body"for 3 days. Patient reported going to urgent care today for symptoms and was feeling anxious and started having elevated blood pressure at the urgent an was told by urgent care to come to the ER. Patient reported feeling of malaise and fatigue.Patient denies chest pain, shortness of breath, dizziness, palpitation, abdominal pain, nausea or vomiting. Denies any other symptoms Timing/Duration: other (3 days) PMH Former Smoker: quit (as of 2011) 34 yrs ago Surgical History: coronary angiogram and MV balloon valvuloplasty for MS 2006 at [facility] (Dr Rubio) Left breast surgery AF: s/p ablation Rx Medical History: Lung cancer (non-small cell adenocarcinoma of bilateral lungs; underwent chemotherapy; on Tarsiva). AF; underwent electrical cardioversion ([facility]) Mild systolic CHF Severe mitral stenosis (ECHO 09/07/2016 at [place]: mildly decreased LVEF; mild LVH; severely thickened MV, with severe mitral stenosis (MS); moderately severe MR and AR; moderate ; moderate pulmonary HTN). bilateral cataracts depression, exacerbated after Dx of lung CA; now with deaths of two daughters. Hx ? 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 No: Alzheimer's, CVA, Dementia, Migraine, Multiple Sclerosis, Peripheral Neuropathy, Parkinson's, Seizure, Syncope, Vertigo, Other Cardio/Vascular: Yes: AFIB, Aortic Insufficiency, HTN, Hyperlipdemia, Mitral Stenosis - Alcohol/Substance Use Hx Alcohol Use: No - Smoking History Smoking history: Never smoked Have you smoked in the past 12 months: No Aproximately how many cigarettes per day: 0 If you are a former smoker, when did you quit?: 34YRS AGO Home Medications - Allergies Allergies/Adverse Reactions: Allergies Allergy/AdvReac Type Severity Reaction Status Date / Time No Known Allergies Allergy Verified 10/22/18 11:06 - Home Medications Home Medications: Ambulatory Orders Alprazolam [Xanax] 0.125 mg PO HS PRN 07/09/16 Cholecalciferol (Vitamin D3) [Vitamin D3] 5,000 unit PO DAILY 07/09/16 Erlotinib HCl [Tarceva] 100 mg PO DAILY 07/09/16 Apixaban [Eliquis -] 5 mg PO BID tablet 07/13/16 Escitalopram Oxalate [Lexapro -] 5 mg PO DAILY tablet 07/13/16 Metoprolol Succinate [Toprol XL -] 25 mg PO DAILY tab.sr.24h 07/13/16 Furosemide [Lasix] 40 mg PO DAILY #60 tablet 03/04/18 Potassium Chloride 20 meq PO DAILY #30 tablet.er 03/04/18 Meclizine HCl [Antivert -] 12.5 mg PO TID #21 tablet 04/19/18 Famotidine [Pepcid] 20 mg PO BID PRN #20 tablet 06/28/18 Review of Systems - Review of Systems Constitutional: reports: No Symptoms Eyes: reports: No Symptoms HENT: reports: No Symptoms Neck: reports: No Symptoms Cardiovascular: reports: No Symptoms Gastrointestinal: reports: No Symptoms Genitourinary: reports: No Symptoms Breasts: reports: No Symptoms Reported Musculoskeletal: reports: No Symptoms Integumentary: reports: No Symptoms Neurological: reports: No Symptoms Endocrine: reports: No Symptoms Hematology/Lymphatic: reports: No Symptoms Psychiatric: reports: No Symptoms Vital Signs: Vital Signs Temperature 98.4 F 10/22/18 15:06 Pulse Rate 92 H 10/22/18 15:06 Respiratory Rate 20 10/22/18 15:06 Blood Pressure 125/78 10/22/18 15:06 O2 Sat by Pulse Oximetry (%) 95 10/22/18 12:22 Constitutional: Yes: Well Nourished, No Distress, Calm Eyes: Yes: WNL, Conjunctiva Clear, EOM Intact HENT: Yes: WNL, Atraumatic, Normocephalic Neck: Yes: WNL, Supple, Trachea Midline Respiratory: Yes: WNL, Regular, CTA Bilaterally Gastrointestinal: Yes: WNL, Normal Bowel Sounds Renal/: Yes: WNL Cardiovascular: Yes: WNL, Regular Rate and Rhythm Musculoskeletal: Yes: WNL Extremities: Yes: WNL Integumentary: Yes: WNL Neurological: Yes: WNL, Alert, Oriented ...Motor Strength: WNL Psychiatric: Yes: WNL, Alert, Oriented - Other Data Labs, Other Data: CBC, BMP 10/22/18 13:00 10/22/18 13:00 Troponin, BNP 10/22/18 13:00 Troponin I < 0.02 B-Natriuretic Peptide 2293.6 H Troponin, BNP 10/22/18 13:00 Troponin I < 0.02 B-Natriuretic Peptide 2293.6 H Imaging - Results Chest X-ray: Image Reviewed (no i/e) EKG: Image Reviewed (af rep abn) Problem List - Problems (1) Afib Code(s): I48.91 - UNSPECIFIED ATRIAL FIBRILLATION Qualifiers: Atrial fibrillation type: chronic Qualified Code(s): I48.2 - Chronic atrial fibrillation (2) Aortic stenosis Code(s): I35.0 - NONRHEUMATIC AORTIC (VALVE) STENOSIS (3) Breast cancer Code(s): C50.919 - MALIGNANT NEOPLASM OF UNSP SITE OF UNSPECIFIED FEMALE BREAST (4) CHF exacerbation Code(s): I50.9 - HEART FAILURE, UNSPECIFIED Qualifiers: (5) CVA (cerebral vascular accident) Code(s): I63.9 - CEREBRAL INFARCTION, UNSPECIFIED (6) Chronic systolic CHF (congestive heart failure) Code(s): I50.22 - CHRONIC SYSTOLIC (CONGESTIVE) HEART FAILURE (7) Gastritis Code(s): K29.70 - GASTRITIS, UNSPECIFIED, WITHOUT BLEEDING Qualifiers: Gastritis type: unspecified gastritis Chronicity: acute Gastritis bleeding: without bleeding Qualified Code(s): K29.00 - Acute gastritis without bleeding (8) Hematoma Code(s): T14.8 - OTHER INJURY OF UNSPECIFIED BODY REGION * DO NOT USE * (9) Hyperlipidemia Code(s): E78.5 - HYPERLIPIDEMIA, UNSPECIFIED (10) Lung cancer Code(s): C34.90 - MALIGNANT NEOPLASM OF UNSP PART OF UNSP BRONCHUS OR LUNG (11) Malaise and fatigue Code(s): R53.81 - OTHER MALAISE; R53.83 - OTHER FATIGUE (12) Mitral stenosis Code(s): I05.0 - RHEUMATIC MITRAL STENOSIS Qualifiers: Cardiac valve disease etiology: rheumatic Qualified Code(s): I05.0 - Rheumatic mitral stenosis (13) Sprain of right thumb Code(s): S63.601A - UNSPECIFIED SPRAIN OF RIGHT THUMB, INITIAL ENCOUNTER (14) Subtherapeutic anticoagulation Code(s): Z51.81 - ENCOUNTER FOR THERAPEUTIC DRUG LEVEL MONITORING; Z79.01 - LONGTERM (CURRENT) USE OF ANTICOAGULANTS (15) Subtherapeutic international normalized ratio (INR) Code(s): R79.1 - ABNORMAL COAGULATION PROFILE (16) TIA (transient ischemic attack) Code(s): G45.9 - TRANSIENT CEREBRAL ISCHEMIC ATTACK, UNSPECIFIED (17) Vertigo Code(s): R42 - DIZZINESS AND GIDDINESS Assessment/Plan hypertension, mitral valve stenosis, A. fib and CHF present with complaint of " with feeling all over the body"for 3 days cardiac bryant stable will f/u as outp
[2018-10-22 19:10] LABS: URINE RBC 0-2 /hpf (0-4)
[2018-10-22 19:11] LABS: EPI CELLS RARE /HPF (0-5/HPF); URINE BACTERIA RARE /hpf (NEGATIVE); URINE CRYSTALS RARE CALCIUM OXALATE /hpf
[2018-10-22 19:12] LABS: URINE CASTS NONE SEEN /lpf (0-8)
== END 2018-10-22 15:00 | disposition home or self-care (01) ==
LOC: JER 10:58
DX: R53.83 Other fatigue (principal); I25.10 Atherosclerotic heart disease of native coronary artery without angina pectoris; I11.0 Hypertensive heart disease with heart failure; I50.22 Chronic systolic (congestive) heart failure; I48.2 Chronic atrial fibrillation; Z79.01 Long term (current) use of anticoagulants; I05.0 Rheumatic mitral stenosis; R79.1 Abnormal coagulation profile; Z51.81 Encounter for therapeutic drug level monitoring; Z86.73 Personal history of transient ischemic attack (TIA), and cerebral infarction without residual deficits
CPT/HCPCS: 36415; 71046-TC-FY; 80053; 81003; 82550; 83880; 84484; 85025; 87086; 93005; 93010; 99283-25

== ENCOUNTER 2019-03-15 14:58 | Inpatient (IN) | payer OTHER, MEDICARE ==
--- NOTE | 2019-03-15 16:49 | PDOC ---
Attending Attestation - Resident Resident Name: Johnnie Chavarria - ED Attending Attestation I have performed the following: I have examined & evaluated the patient, The case was reviewed & discussed with the resident, I agree w/resident's findings & plan, Exceptions are as noted - HPI HPI: 03/15/19 17:12 78yo female with hx of lung ca recently stopped chemo and transferring to our oncology team with increasing sob. No cough. NO fevers. No wt loss. NO cp. States she feels sob at home, but in the ER states symptoms have improved. Pt speaking in full sentences. NAD. Pt also with hx of chf and states legs have been swollen with nonpitting edema since December. No calf pain. - Physicial Exam PE: 03/15/19 17:14 Gen: aaox3, nad heart: +s1s2 reg lungs: wheezing to b/l lower lung tran, no rales or rhonchi abd: soft, nt/nd +bs ext: swelling that is nonpitting to the LE, no calf ttp - Medical Decision Making 03/15/19 17:14 a/p: 78yo female with hx of lung ca with sob -currently asymptomatic in the ER -pt without cp -no cough -slight wheeze -lung ultrasound does not show b lines -will send labs, bnp, trop -will obtain ekg, cxr -will monitor and reassess -pulse ox 97% RA in the room 03/15/19 18:06 bnp 3000 cxr does not show acute infiltrate or pna or pleural effusion trop neg will give xopenex and iv dose lasix 03/15/19 18:17 pt desat with ambulation pt with elevated bnp will admit for CHF and copd exacerbation 03/15/19 18:[address] Acosta microblog sent to [facility] for admission 03/15/19 18:33 resident discussed the case with [facility] who accepts pt to service for copd and chf Heart Score/ECG Review - ECG Intrepretation Comment:: 03/15/19 17:26 afib at 76, nl axis, no acute st/t wave findings
--- NOTE | 2019-03-15 17:18 | PDOC ---
History of Present Illness - General Chief Complaint: Shortness of Breath Stated Complaint: SOB Time Seen by Provider: 03/15/19 16:24 - History of Present Illness Initial Comments: The pt is a 78F w/ a history of lung cancer who recently DCed CTX, a-fib ( eliquis), HF, s/p heart valve dilation (does not recall which valve) who presents for evaluation of 2 days of shortness of breath that started at rest, has been exertional, feels improved today/resolved in the ED, was not associated with fever, cough, or chest pain. The pt also reports BLE swelling that has been present/stable since December. 03/15/19 17:10 Past History - Past Medical History Allergies/Adverse Reactions: Allergies Allergy/AdvReac Type Severity Reaction Status Date / Time No Known Allergies Allergy Verified 03/15/19 15:03 Home Medications: Ambulatory Orders Alprazolam [Xanax] 0.125 mg PO HS PRN 07/09/16 Cholecalciferol (Vitamin D3) [Vitamin D3] 5,000 unit PO DAILY 07/09/16 Apixaban [Eliquis -] 5 mg PO BID tablet 07/13/16 Escitalopram Oxalate [Lexapro -] 5 mg PO DAILY tablet 07/13/16 Metoprolol Succinate [Toprol XL -] 25 mg PO DAILY tab.sr.24h 07/13/16 Meclizine HCl [Antivert -] 12.5 mg PO TID #21 tablet 04/19/18 Famotidine [Pepcid] 20 mg PO BID PRN #20 tablet 06/28/18 Anemia: No Asthma: No Cancer: Yes (breast/LUNG CA, chemotherapy) Cardiac Disorders: Yes (AFib; H/O CA 2001; rheumatic fever causing mitral valve stenosis that was r) CVA: No COPD: No CHF: No Dementia: No Diabetes: Yes GI Disorders: No Disorders: No HTN: Yes Hypercholesterolemia: Yes Liver Disease: No Seizures: No Thyroid Disease: Yes (BENIGN TUMOR) - Surgical History Abdominal Surgery: Yes (HERNIA LEFT INGUINAL REPAIR) Appendectomy: No Cardiac Surgery: Yes (mitral valve "opening") Cholecystectomy: No Lung Surgery: No Neurologic Surgery: No Orthopedic Surgery: No (COMPRESSION FX LUMBAR) - Psycho Social/Smoking Cessation Hx Smoking Status: No Smoking History: Never smoked Have you smoked in the past 12 months: No Number of Cigarettes Smoked Daily: 0 If you are a former smoker, when did you quit?: 34YRS AGO Hx Alcohol Use: No Drug/Substance Use Hx: No Substance Use Type: None Hx Substance Use Treatment: No Review of Systems - Review of Systems Able to Perform ROS?: Yes Comments:: GENERAL/CONSTITUTIONAL: No fever or chills. No weakness HEAD, EYES, EARS, NOSE AND THROAT: No change in vision. No change in hearing. No sore throat CARDIOVASCULAR: No chest pain RESPIRATORY: Denies cough GASTROINTESTINAL: No nausea, vomiting, diarrhea or constipation GENITOURINARY: No dysuria, frequency MUSCULOSKELETAL: No joint or muscle swelling or pain. No neck or back pain SKIN: No rash NEUROLOGIC: No headache, vertigo, loss of consciousness, or change in strength/ sensation ENDOCRINE: No increased thirst. No abnormal weight change HEMATOLOGIC/LYMPHATIC: No anemia, +Eliquis ALLERGIC/IMMUNOLOGIC: No hives or skin allergy 03/15/19 17:28 Is the patient limited Turkish proficient: No *Physical Exam - Vital Signs Last Vital Signs Temp Pulse Resp BP Pulse Ox 97.7 F 80 20 124/83 96 03/15/19 15:00 03/15/19 16:52 03/15/19 16:52 03/15/19 16:52 03/15/19 16:54 - Physical Exam Comments: GENERAL: Awake, alert, and oriented to person/place/time, in no acute distress HEAD: No signs of trauma, normocephalic, atraumatic EYES: PERRLA, EOMI, sclera anicteric, conjunctiva clear ENT: Hearing grossly normal, nares patent, oropharynx clear without exudates. Moist mucosa LUNGS: No distress, speaks in full sentences, mild expiratory wheezing appreciated b/l at mid and bases HEART: Regular rate and rhythm, normal S1 and S2, no murmurs appreciated, peripheral pulses normal and equal bilaterally ABDOMEN: Soft, nontender, normoactive bowel sounds. No guarding, no rebound EXTREMITIES: Normal inspection, Normal range of motion. BLE non-pitting edema NEUROLOGICAL: Cranial nerves II through XII grossly intact. Normal speech, normal gait, no focal sensorimotor deficits SKIN: Warm, Dry 03/15/19 17:18 ED Treatment Course - LABORATORY CBC & Chemistry Diagram: 03/15/19 17:00 03/15/19 17:00 - RADIOLOGY Radiology Studies Ordered: Category Date Time Status CHEST PA & LAT [RAD] Stat Radiology 03/15/19 16:51 Ordered Medical Decision Making - Medical Decision Making The pt is a 78F w/ a history of lung cancer, reported HF, s/p heart valve dilation who presents for evaluation of 2 days of improving SOB and VALDOVINOS w/o fever/cough/chest pain Ddx: HF/HF exacerbation, worsening tumor burden, consider but not likely PNA, PE , not likely PNX ED Course Pt saturating well on RA IV placed POCUS w/o b-lines -Pt refuses nebs for wheezing given SE of palpitations and increased anxiety CXR ECG Will reassess 03/15/19 17:20 No anemia No leukocytosis Lytes wnl No TIMI Trop I neg BNP elevated Will given Lasix and Xopenex for CHF and wheeze respectively Plan for admission for CHF and COPD exacerbation Pt signed out to [facility] admitting Dispo: Admit 03/15/19 19:08 Discharge - Discharge Information Problems reviewed: Yes Clinical Impression/Diagnosis: CHF exacerbation Qualifiers: Heart failure type: systolic Qualified Code(s): I50.23 - Acute on chronic systolic (congestive) heart failure Aortic stenosis Qualifiers: Cardiac valve disease etiology: etiology unspecified Qualified Code(s): I35.0 - Nonrheumatic aortic (valve) stenosis Afib Qualifiers: Atrial fibrillation type: chronic Qualified Code(s): I48.2 - Chronic atrial fibrillation COPD (chronic obstructive pulmonary disease) Qualifiers: COPD type: unspecified COPD Qualified Code(s): J44.9 - Chronic obstructive pulmonary disease, unspecified Condition: Stable - Admission Yes - Follow up/Referral Referrals: Cate Acosta MD [Primary Care Provider] - - Patient Discharge Instructions - Post Discharge Activity
[2019-03-15 17:31] LABS: BASO % 0.6 % (0-2.0); EOS % 1.4 % (0-4.5); HEMOGLOBIN 14.5 GM/dL (10.7-15.3); LYMPH % 18.7 % (8-40); MCH 31.7 pg (25.7-33.7); MCHC 33.7 g/dl (32.0-36.0); MEAN CELL VOLUME 93.9 fl (80-96); MEAN PLT VOLUME 8.1 fl (7.5-11.1); MONO % 7.6 % (3.8-10.2); NEUT % 71.7 % (42.8-82.8); PLATELET COUNT 276 K/MM3 (134-434); RBC 4.58 M/mm3 (3.60-5.2); RDW 14.3 % (11.6-15.6); WHITE BLOOD COUNT 8.8 K/mm3 (4.0-10.0)
[2019-03-15 17:44] LABS: INR 1.55 (0.83-1.09); PROTHROMBIN TIME (PATIENT) 18.4 SEC (9.7-13.0)
[2019-03-15 17:50] LABS: EPI CELLS 0.6 /HPF (0-5/HPF); HYALINE CASTS 0 /lpf (0-8); URINE APPEARANCE CLEAR; URINE BACTERIA 0.7 /hpf (NEGATIVE); URINE BILIRUBIN NEGATIVE (NEGATIVE); URINE COLOR YELLOW; URINE GLUCOSE (UA) NEGATIVE (NEGATIVE); URINE KETONE NEGATIVE (NEGATIVE); URINE LEUK ESTERASE TRACE (NEGATIVE); URINE NITRITE NEGATIVE (NEGATIVE); URINE PROTEIN NEGATIVE (NEGATIVE); URINE RBC 0 /hpf (0-4); URINE UROBILINOGEN 0.2 mg/dL (0.2-1.0); URINE WBC 3 /hpf (0-5)
[2019-03-15] MEDS ORDERED: LEVALBUTEROL HCL 0.31 MG/3 ML VIAL.NEB IH ONE (17:53)
[2019-03-15 18:02] LABS: ALBUMIN 3.6 g/dl (3.4-5.0); ALK PHOS 75 U/L (45-117); ANION GAP 8 MMOL/L (8-16); BILIRUBIN,TOTAL 1.5 mg/dL (0.2-1); BLOOD UREA NITROGEN 14.3 mg/dL (7-18); CALCIUM 8.8 mg/dL (8.5-10.1); CHLORIDE 107 mmol/L (98-107); CO2 24 mmol/L (21-32); CREATININE 0.6 mg/dL (0.55-1.3); GLUCOSE,RANDOM 99 mg/dL (74-106); MAGNESIUM 2.1 mg/dL (1.8-2.4); POTASSIUM 4.9 mmol/L (3.5-5.1); SGOT/AST 39 U/L (15-37); SGPT/ALT 43 U/L (13-61); SODIUM 139 mmol/L (136-145); TOT PROT 6.8 g/dl (6.4-8.2)
[2019-03-15] MEDS ORDERED: FUROSEMIDE 40 MG/4 ML INJECTABLE VIAL IVPUSH ONE (18:17)
[2019-03-15] MEDS ORDERED: FUROSEMIDE 40 MG/4 ML INJECTABLE VIAL ONE (18:26)
--- NOTE | 2019-03-15 20:03 | HP ---
Admitting History and Physical - Primary Care Physician PCP: Cate Acosta - Admission Chief Complaint: SOB, B/L LE Edema History of Present Illness: This is a 78 y/o woman with a PMHx of Afib (on Eliquis), CHF (EF 50%), NE (2001) , Mitral Stenosis (s/p Balloon Valvulopathy), HLD, Lung Ca (Stopped Chemo), Breast Ca, OA, Vertebral Fx, Former Smoker. Who presents to the ED with progressive SOB at rest and VALDOVINOS x 2 days. Patient reports having increased difficulty at home due to her increased SOB. Patient also reports bilateral lower extremity swelling since last December. Patient denies CP, palpitations, calf tenderness. 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 No: Alzheimer's, CVA, Dementia, Migraine, Multiple Sclerosis, Peripheral Neuropathy, Parkinson's, Seizure, Syncope, Vertigo, Other Cardiovascular: Yes: AFIB, Aortic Insufficiency, CHF, HTN, Hyperlipdemia, NE, Mitral Stenosis Pulmonary: Yes: Cancer Gastrointestinal: Yes: Gastritis Reproductive: Yes: Other (Breast cCa) Heme/Onc: Yes: Cancer (lung ca) Musculoskeletal: Yes: Osteoarthritis - Past Surgical History Past Surgical History: Yes: Hernia Repair Additional Past Surgical History: MV Balloon Valvulopasty Breast Biopsy Partial Thyroidectomy Coronary Angiogram Vein Sx s/p Ablation for Afib - Smoking History Smoking history: Former smoker Have you smoked in the past 12 months: No Aproximately how many cigarettes per day: 0 If you are a former smoker, when did you quit?: 34YRS AGO - Alcohol/Substance Use Hx Alcohol Use: No History of Substance Use: reports: None - Social History Usual Living Arrangement: Yes: Alone Do you think of yourself as: Straight/Heterosexual ADL: Independent History of Recent Travel: No Home Medications - Allergies Allergies/Adverse Reactions: Allergies Allergy/AdvReac Type Severity Reaction Status Date / Time No Known Allergies Allergy Verified 03/15/19 15:03 - Home Medications Home Medications: Ambulatory Orders Alprazolam [Xanax] 0.125 mg PO HS PRN 07/09/16 Cholecalciferol (Vitamin D3) [Vitamin D3] 5,000 unit PO DAILY 07/09/16 Apixaban [Eliquis -] 5 mg PO BID tablet 07/13/16 Escitalopram Oxalate [Lexapro -] 5 mg PO DAILY tablet 07/13/16 Metoprolol Succinate [Toprol XL -] 25 mg PO DAILY tab.sr.24h 07/13/16 Meclizine HCl [Antivert -] 12.5 mg PO TID #21 tablet 04/19/18 Famotidine [Pepcid] 20 mg PO BID PRN #20 tablet 06/28/18 Family Medical History Family Hx Cardiac Disorders: Mother Family Hx Diabetes: Mother, Brother Review of Systems - Review of Systems Constitutional: reports: No Symptoms Eyes: reports: No Symptoms HENT: reports: No Symptoms Neck: reports: No Symptoms Cardiovascular: reports: Edema, Shortness of Breath Respiratory: reports: SOB, SOB on Exertion Gastrointestinal: reports: No Symptoms Genitourinary: reports: No Symptoms Breasts: reports: No Symptoms Reported Musculoskeletal: reports: No Symptoms Integumentary: reports: No Symptoms Neurological: reports: No Symptoms Endocrine: reports: No Symptoms Hematology/Lymphatic: reports: No Symptoms Psychiatric: reports: No Symptoms Pain Intensity: 0 Physical Examination Vital Signs: Vital Signs Temperature 98.3 F 03/15/19 19:20 Pulse Rate 77 03/15/19 19:20 Respiratory Rate 17 03/15/19 19:20 Blood Pressure 120/88 03/15/19 19:20 O2 Sat by Pulse Oximetry (%) 97 03/15/19 19:20 Constitutional: Yes: Well Nourished, No Distress, Calm, Obese Eyes: Yes: WNL, Conjunctiva Clear, EOM Intact, PERRL HENT: Yes: WNL, Atraumatic, Normocephalic Neck: Yes: WNL, Supple, Trachea Midline Cardiovascular: Yes: Pulse Irregular, S1, S2 Respiratory: Yes: Diminished, SOB, SOB on Exertion Gastrointestinal: Yes: WNL, Normal Bowel Sounds, Soft, Abdomen, Obese ...Rectal Exam: Yes: Deferred Renal/: Yes: WNL Breast(s): Yes: WNL Musculoskeletal: Yes: WNL Extremities: Yes: WNL Edema: Yes Edema: LLE: 1+, RLE: 1+ Peripheral Pulses WNL: Yes Integumentary: Yes: WNL Neurological: Yes: WNL, Alert, Oriented, Cran Nerves II-XII Intact ...Motor Strength: WNL Psychiatric: Yes: WNL, Alert, Oriented Labs: CBC, BMP 03/15/19 17:00 03/15/19 17:00 Laboratory Results - last 24 hr 03/15/19 03/15/19 03/15/19 17:00 17:00 17:00 WBC 8.8 RBC 4.58 Hgb 14.5 Hct 43.0 MCV 93.9 MCH 31.7 MCHC 33.7 RDW 14.3 Plt Count 276 MPV 8.1 Absolute Neuts (auto) 6.3 Neutrophils % 71.7 Lymphocytes % 18.7 D Monocytes % 7.6 Eosinophils % 1.4 Basophils % 0.6 Nucleated RBC % 0 PT with INR INR Sodium 139 Potassium 4.9 Chloride 107 Carbon Dioxide 24 Anion Gap 8 BUN 14.3 Creatinine 0.6 Est GFR (CKD-EPI)AfAm 100.48 Est GFR (CKD-EPI)NonAf 86.69 Random Glucose 99 Calcium 8.8 Magnesium 2.1 Total Bilirubin 1.5 H AST 39 H ALT 43 Alkaline Phosphatase 75 Troponin I < 0.02 B-Natriuretic Peptide 3116.4 H Total Protein 6.8 Albumin 3.6 Urine Color Urine Appearance Urine pH Ur Specific [place] Urine Protein Urine Glucose (UA) Urine Ketones Urine Blood Urine Nitrite Urine Bilirubin Urine Urobilinogen Ur Leukocyte Esterase Urine WBC (Auto) Urine RBC (Auto) Urine Casts (Auto) U Epithel Cells (Auto) Urine Bacteria (Auto) 03/15/19 03/15/19 17:00 17:00 WBC RBC Hgb Hct MCV MCH MCHC RDW Plt Count MPV Absolute Neuts (auto) Neutrophils % Lymphocytes % Monocytes % Eosinophils % Basophils % Nucleated RBC % PT with INR 18.40 H INR 1.55 H Sodium Potassium Chloride Carbon Dioxide Anion Gap BUN Creatinine Est GFR (CKD-EPI)AfAm Est GFR (CKD-EPI)NonAf Random Glucose Calcium Magnesium Total Bilirubin AST ALT Alkaline Phosphatase Troponin I B-Natriuretic Peptide Total Protein Albumin Urine Color Yellow Urine Appearance Clear Urine pH 6.0 Ur Specific [place] 1.009 L Urine Protein Negative Urine Glucose (UA) Negative Urine Ketones Negative Urine Blood Negative Urine Nitrite Negative Urine Bilirubin Negative Urine Urobilinogen 0.2 Ur Leukocyte Esterase Trace Urine WBC (Auto) 3 Urine RBC (Auto) 0 Urine Casts (Auto) 0 U Epithel Cells (Auto) 0.6 Urine Bacteria (Auto) 0.7 Intake & Output 03/12/19 03/13/19 03/14/19 03/15/19 23:59 23:59 23:59 23:59 Weight 80.286 kg Current Medications Generic Name Dose Route Start Last Admin Trade Name Freq PRN Reason Stop Dose Admin Alprazolam 0.125 mg 03/15/19 21:18 Xanax - PO DAILY PRN ANXIETY Apixaban 5 mg 03/16/19 10:00 Eliquis - PO BID PALAK Cholecalciferol 1,000 unit 03/16/19 10:00 Vitamin D3 - PO DAILY APLAK Escitalopram Oxalate 5 mg 03/16/19 10:00 Lexapro - PO DAILY PALAK Furosemide 40 mg 03/16/19 10:00 Lasix Injection - IVPUSH DAILY PALAK Levalbuterol HCl 0.31 mg 03/15/19 21:24 Xopenex IH Q8H PRN ASTHMA Metoprolol Succinate 25 mg 03/16/19 10:00 Toprol Xl - PO DAILY PALAK Non-Formulary Medication 20 mg 03/15/19 21:18 Famotidine [Pepcid] PO BID PRN GERD Imaging - Results Chest X-ray: Image Reviewed EKG: Image Reviewed Problem List - Problems (1) CHF exacerbation Assessment/Plan: Admit to Telemetry Continue Cardiac monitoring Troponin neg Chest Xray image- pulm vascular congestion, increased interstitial markings Lasix given in ED, will continue Strict INOs Daily weights Appreciate Cardiology consult Code(s): I50.9 - HEART FAILURE, UNSPECIFIED Qualifiers: Heart failure type: systolic Qualified Code(s): I50.23 - Acute on chronic systolic (congestive) heart failure (2) COPD (chronic obstructive pulmonary disease) Assessment/Plan: Former smoker Chest Xray image reviewed Xopenex neb given in ED with improvement, will continue Patient adamantly declines Albuterol neb due to tachycardia Solumederol ordered, will continue with taper Appreciate Pulmonology consult O2 Code(s): J44.9 - CHRONIC OBSTRUCTIVE PULMONARY DISEASE, UNSPECIFIED Qualifiers: COPD type: unspecified COPD Qualified Code(s): J44.9 - Chronic obstructive pulmonary disease, unspecified (3) Afib Assessment/Plan: s/p Ablation EKG reviewed- Afib rate control [id number] Continue Eliquis Code(s): I48.91 - UNSPECIFIED ATRIAL FIBRILLATION Qualifiers: Atrial fibrillation type: chronic Qualified Code(s): I48.2 - Chronic atrial fibrillation (4) Osteoarthritis Assessment/Plan: Continue Vitamin D3 Tylenol prn Code(s): M19.90 - UNSPECIFIED OSTEOARTHRITIS, UNSPECIFIED SITE (5) Mitral stenosis Assessment/Plan: s/p Balloon Valvuloplasty Code(s): I05.0 - RHEUMATIC MITRAL STENOSIS Qualifiers: Cardiac valve disease etiology: rheumatic Qualified Code(s): I05.0 - Rheumatic mitral stenosis (6) Lung cancer Assessment/Plan: s/p Chemotherapy f/u with Oncology upon d/c Code(s): C34.90 - MALIGNANT NEOPLASM OF UNSP PART OF UNSP BRONCHUS OR LUNG (7) TIA (transient ischemic attack) Assessment/Plan: Stable Continue Eliquis Code(s): G45.9 - TRANSIENT CEREBRAL ISCHEMIC ATTACK, UNSPECIFIED (8) Hyperlipidemia Assessment/Plan: Continue Low Cholesterol Diet Code(s): E78.5 - HYPERLIPIDEMIA, UNSPECIFIED (9) Anxiety Assessment/Plan: stable Continue Xanax Code(s): F41.9 - ANXIETY DISORDER, UNSPECIFIED Assessment/Plan This is a 78 y/o woman with a PMHx of Afib (on Eliquis), CHF (EF 50%), NE (2001) , Mitral Stenosis (s/p Balloon Valvulopathy), HLD, Lung Ca (Stopped Chemo), Breast Ca, OA, Vertebral Fx, Former Smoker. Admitted to Telemetry for Acute on Chronic CHF Exacerbation, COPD for further evaluation of their emergent condition. Plan: See Problem List FEN Fluid Restriction 1L Replete lytes prn Low Na Diet DVT ppx OOB SCDs Continue Eliquis Dispo: Requires Inpatient Care Visit type - Emergency Visit Emergency Visit: Yes ED Registration Date: 03/15/19 Care time: The patient presented to the Emergency Department on the above date and was hospitalized for further evaluation of their emergent condition. - New Patient This patient is new to me today: Yes Date on this admission: 03/15/19 - Critical Care Critical Care patient: No
[2019-03-15] MEDS ORDERED: PATIENT'S OWN MEDICATION (NON-FORMULARY) (Famotidine [Pepcid] 20 MG) PO PRN (21:18)
[2019-03-15] MEDS ORDERED: methylPREDNISolone NA SUCC 125 MG/2 ML VIAL IVPUSH ONE (21:30)
[2019-03-15 21:39] VITALS: BMI 29.7
[2019-03-16] MEDS: ALPRAZolam 0.25 MG TABLET PO PRN (02:06)
[2019-03-16 08:18] LABS: BASO % 0.2 % (0-2.0); HEMATOCRIT 41.5 % (32.4-45.2); LYMPH % 12.5 % (8-40); MCH 31.3 pg (25.7-33.7); MCHC 33.7 g/dl (32.0-36.0); MEAN CELL VOLUME 92.8 fl (80-96); MEAN PLT VOLUME 7.9 fl (7.5-11.1); MONO % 1.2 % (3.8-10.2); NEUT % 86.1 % (42.8-82.8); PLATELET COUNT 257 K/MM3 (134-434); RBC 4.48 M/mm3 (3.60-5.2); RDW 14.5 % (11.6-15.6); WHITE BLOOD COUNT 4.6 K/mm3 (4.0-10.0)
--- NOTE | 2019-03-16 08:26 | CON.CARD ---
Consult Consult Specialty:: Cardiology Reason for Consultation:: sob - History of Present Illness History of Present Illness: This is a 78 y/o woman with a PMHx of Afib (on Eliquis), CHF (EF 50%), [place] (2001) , Mitral Stenosis (s/p Balloon Valvulopathy), HLD, Lung Ca (Stopped Chemo), Breast Ca, OA, Vertebral Fx, Former Smoker. Who presents to the ED with progressive SOB at rest and VALDOVINOS x 2 days. Patient reports having increased difficulty at home due to her increased SOB. Patient also reports bilateral lower extremity swelling since last December. Patient denies CP, palpitations, calf tenderness. 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 No: Alzheimer's, CVA, Dementia, Migraine, Multiple Sclerosis, Peripheral Neuropathy, Parkinson's, Seizure, Syncope, Vertigo, Other Cardio/Vascular: Yes: AFIB, Aortic Insufficiency, CHF, HTN, Hyperlipdemia, SD, Mitral Stenosis Pulmonary: Yes: Cancer Gastrointestinal: Yes: Gastritis ...: No Musculoskeletal: Yes: Osteoarthritis Endocrine: Yes: Diabetes Mellitus - Past Surgical History Past Surgical History: Yes: Hernia Repair - Alcohol/Substance Use Hx Alcohol Use: No History of Substance Use: reports: None - Smoking History Smoking history: Former smoker Have you smoked in the past 12 months: No Aproximately how many cigarettes per day: 0 If you are a former smoker, when did you quit?: 34YRS AGO - Social History ADL: Independent History of Recent Travel: No Home Medications - Allergies Allergies/Adverse Reactions: Allergies Allergy/AdvReac Type Severity Reaction Status Date / Time No Known Allergies Allergy Verified 03/15/19 15:03 - Home Medications Home Medications: Ambulatory Orders Alprazolam [Xanax] 0.125 mg PO HS PRN 07/09/16 Cholecalciferol (Vitamin D3) [Vitamin D3] 5,000 unit PO DAILY 07/09/16 Apixaban [Eliquis -] 5 mg PO BID tablet 07/13/16 Escitalopram Oxalate [Lexapro -] 5 mg PO DAILY tablet 07/13/16 Metoprolol Succinate [Toprol XL -] 25 mg PO DAILY tab.sr.24h 07/13/16 Meclizine HCl [Antivert -] 12.5 mg PO TID #21 tablet 04/19/18 Famotidine [Pepcid] 20 mg PO BID PRN #20 tablet 06/28/18 Review of Systems - Review of Systems Constitutional: reports: No Symptoms Eyes: reports: No Symptoms HENT: reports: No Symptoms Neck: reports: No Symptoms Cardiovascular: reports: Edema, Shortness of Breath Respiratory: reports: SOB, SOB on Exertion Gastrointestinal: reports: No Symptoms Genitourinary: reports: No Symptoms Breasts: reports: No Symptoms Reported Musculoskeletal: reports: No Symptoms Integumentary: reports: No Symptoms Neurological: reports: No Symptoms Endocrine: reports: No Symptoms Hematology/Lymphatic: reports: No Symptoms Psychiatric: reports: No Symptoms Vital Signs: Vital Signs Temperature 98.0 F 03/16/19 06:00 Pulse Rate 83 03/16/19 06:00 Respiratory Rate 18 03/16/19 06:00 Blood Pressure 115/63 03/16/19 06:00 O2 Sat by Pulse Oximetry (%) 95 03/15/19 21:00 Constitutional: Yes: Well Nourished, No Distress, Calm Eyes: Yes: WNL, Conjunctiva Clear, EOM Intact HENT: Yes: WNL, Atraumatic, Normocephalic Neck: Yes: WNL, Supple, Trachea Midline Respiratory: Yes: WNL, Regular, CTA Bilaterally Gastrointestinal: Yes: WNL, Normal Bowel Sounds Renal/: Yes: WNL Cardiovascular: Yes: Pulse Irregular Musculoskeletal: Yes: WNL Extremities: Yes: WNL Edema: Yes Edema: LLE: 2+, RLE: 2+ Integumentary: Yes: WNL Neurological: Yes: WNL, Alert, Oriented ...Motor Strength: WNL Psychiatric: Yes: WNL, Alert, Oriented - Other Data Labs, Other Data: INR, PTT INR 1.55 (0.83-1.09) H 03/15/19 17:00 Troponin, BNP 03/15/19 03/15/19 17:00 17:00 Troponin I < 0.02 B-Natriuretic Peptide 3116.4 H Troponin, BNP 03/15/19 03/15/19 17:00 17:00 Troponin I < 0.02 B-Natriuretic Peptide 3116.4 H Imaging - Results Chest X-ray: Image Reviewed (no i/e) EKG: Image Reviewed (af) Problem List - Problems (1) Afib Code(s): I48.91 - UNSPECIFIED ATRIAL FIBRILLATION Qualifiers: Atrial fibrillation type: chronic Qualified Code(s): I48.2 - Chronic atrial fibrillation (2) Anxiety Code(s): F41.9 - ANXIETY DISORDER, UNSPECIFIED (3) Aortic stenosis Code(s): I35.0 - NONRHEUMATIC AORTIC (VALVE) STENOSIS Qualifiers: Cardiac valve disease etiology: etiology unspecified Qualified Code(s): I35.0 - Nonrheumatic aortic (valve) stenosis (4) CHF exacerbation Code(s): I50.9 - HEART FAILURE, UNSPECIFIED Qualifiers: Heart failure type: systolic Qualified Code(s): I50.23 - Acute on chronic systolic (congestive) heart failure (5) COPD (chronic obstructive pulmonary disease) Code(s): J44.9 - CHRONIC OBSTRUCTIVE PULMONARY DISEASE, UNSPECIFIED Qualifiers: COPD type: unspecified COPD Qualified Code(s): J44.9 - Chronic obstructive pulmonary disease, unspecified (6) Diabetes mellitus Code(s): E11.9 - TYPE 2 DIABETES MELLITUS WITHOUT COMPLICATIONS (7) Osteoarthritis Code(s): M19.90 - UNSPECIFIED OSTEOARTHRITIS, UNSPECIFIED SITE (8) Breast cancer Code(s): C50.919 - MALIGNANT NEOPLASM OF UNSP SITE OF UNSPECIFIED FEMALE BREAST (9) CVA (cerebral vascular accident) Code(s): I63.9 - CEREBRAL INFARCTION, UNSPECIFIED (10) Chronic systolic CHF (congestive heart failure) Code(s): I50.22 - CHRONIC SYSTOLIC (CONGESTIVE) HEART FAILURE (11) Gastritis Code(s): K29.70 - GASTRITIS, UNSPECIFIED, WITHOUT BLEEDING Qualifiers: Gastritis type: unspecified gastritis Chronicity: acute Gastritis bleeding: without bleeding Qualified Code(s): K29.00 - Acute gastritis without bleeding (12) Hematoma Code(s): T14.8 - OTHER INJURY OF UNSPECIFIED BODY REGION * DO NOT USE * (13) Hyperlipidemia Code(s): E78.5 - HYPERLIPIDEMIA, UNSPECIFIED (14) Lung cancer Code(s): C34.90 - MALIGNANT NEOPLASM OF UNSP PART OF UNSP BRONCHUS OR LUNG (15) Malaise and fatigue Code(s): R53.81 - OTHER MALAISE; R53.83 - OTHER FATIGUE (16) Mitral stenosis Code(s): I05.0 - RHEUMATIC MITRAL STENOSIS Qualifiers: Cardiac valve disease etiology: rheumatic Qualified Code(s): I05.0 - Rheumatic mitral stenosis (17) Sprain of right thumb Code(s): S63.601A - UNSPECIFIED SPRAIN OF RIGHT THUMB, INITIAL ENCOUNTER (18) Subtherapeutic anticoagulation Code(s): Z51.81 - ENCOUNTER FOR THERAPEUTIC DRUG LEVEL MONITORING; 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 Who presents to the ED with progressive SOB at rest and VALDOVINOS x 2 days. Plan agree with IV lasix cont AC cont rate control and telemetry
[2019-03-16 08:58] LABS: BLOOD UREA NITROGEN 16.9 mg/dL (7-18); CREATININE 0.6 mg/dL (0.55-1.3); POTASSIUM 4.2 mmol/L (3.5-5.1)
[2019-03-16] MEDS: APIXABAN 5 MG TABLET PO SCH ×2 (09:29→21:37)
[2019-03-16] MEDS: ESCITALOPRAM OXALATE 10 MG TABLET (FP) PO SCH (09:30)
[2019-03-16] MEDS: RANITIDINE HCL 150 MG TABLET (FP) PO SCH ×2 (09:31→21:37)
[2019-03-16] MEDS: metoPROLOL SUCCINATE 25 MG TAB.SR.24H (FP) PO SCH (09:32)
[2019-03-16] MEDS: CHOLECALCIFEROL (VIT D3) 1,000 UNIT (25 MCG) TABLET PO SCH (09:32)
[2019-03-16] MEDS: FUROSEMIDE 40 MG/4 ML INJECTABLE VIAL IVPUSH SCH (09:32)
--- NOTE | 2019-03-16 09:41 | CONSULT ---
Consult Consult Specialty:: Pulmonology Referred by:: Nidhi Barcenas Reason for Consultation:: COPD - History of Present Illness Chief Complaint: Worsening SOB and VALDOVINOS x 2 days History of Present Illness: Pt is is a 78 y/o woman with a PMHx of Afib (on Eliquis), CHF (EF 50%), [place] ( 2001), Mitral Stenosis (s/p Balloon Valvulopathy), HTN, TIA, DM, gastritis, HLD , Lung Ca (Stopped Chemo), Breast Ca, OA, Vertebral Fx, Former Smoke presenting with SOB and VALDOVINOS for 2 days. Pt reports gradual VALDOVINOS for the past 6 months with b /l LE edema, and orthopnea and PND. Pt does not use oxygen at home and denies prior COPD hx. Reports PNA about 7 years ago prior to her diagnosis of lung cancer. No chest pain, no nasal congestion, no fevers, no sore throat. Pt denies sick contact, up to date on vaccination, received flu vaccine last week. Pt denies increased salt intake or change in diet, cooks for herself at home. She communicated with her PCP Dr Cate Acosta and was asked to come to hospital. In ED- found to have BNP- in 3000s last BNP in , CXR-showed vascular congestive changes. Received diuretics in ED with good urinary output and has improvement in her breathing- was off NC when I saw her. 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 No: Alzheimer's, CVA, Dementia, Migraine, Multiple Sclerosis, Peripheral Neuropathy, Parkinson's, Seizure, Syncope, Vertigo, Other Cardio/Vascular: Yes: AFIB, Aortic Insufficiency, CHF, HTN, Hyperlipdemia, [place], Mitral Stenosis Pulmonary: Yes: Cancer Gastrointestinal: Yes: Gastritis ...: No Musculoskeletal: Yes: Osteoarthritis Endocrine: Yes: Diabetes Mellitus - Past Surgical History Past Surgical History: Yes: Hernia Repair - Alcohol/Substance Use Hx Alcohol Use: No History of Substance Use: reports: None - Smoking History Smoking history: Former smoker Have you smoked in the past 12 months: No Aproximately how many cigarettes per day: 0 If you are a former smoker, when did you quit?: 34YRS AGO - Social History ADL: Independent History of Recent Travel: No Home Medications - Allergies Allergies/Adverse Reactions: Allergies Allergy/AdvReac Type Severity Reaction Status Date / Time No Known Allergies Allergy Verified 03/15/19 15:03 - Home Medications Home Medications: Ambulatory Orders Alprazolam [Xanax] 0.125 mg PO HS PRN 07/09/16 Cholecalciferol (Vitamin D3) [Vitamin D3] 5,000 unit PO DAILY 07/09/16 Apixaban [Eliquis -] 5 mg PO BID tablet 07/13/16 Escitalopram Oxalate [Lexapro -] 5 mg PO DAILY tablet 07/13/16 Metoprolol Succinate [Toprol XL -] 25 mg PO DAILY tab.sr.24h 07/13/16 Meclizine HCl [Antivert -] 12.5 mg PO TID #21 tablet 04/19/18 Famotidine [Pepcid] 20 mg PO BID PRN #20 tablet 06/28/18 Family Medical History Family Hx Cancer: Daughter Review of Systems - Review of Systems Constitutional: denies: Chills, Diaphoresis, Fever, Loss of Appetite HENT: denies: Throat Pain Neck: denies: Stiffness Cardiovascular: reports: Edema, Shortness of Breath. denies: Chest Pain, Palpitations Respiratory: reports: SOB, SOB on Exertion. denies: Cough, Wheezing Gastrointestinal: denies: Abdominal Pain Genitourinary: reports: Dysuria. denies: Burning Musculoskeletal: reports: Back Pain Neurological: denies: Change in LOC, Change in Speech, Confusion, Dizziness, Tremors Physical Exam Vital Signs: Vital Signs Temperature 98.0 F 03/16/19 06:00 Pulse Rate 83 03/16/19 06:00 Respiratory Rate 18 03/16/19 06:00 Blood Pressure 115/63 03/16/19 06:00 O2 Sat by Pulse Oximetry (%) 95 03/15/19 21:00 Constitutional: Yes: No Distress, Calm Eyes: Yes: Conjunctiva Clear, EOM Intact. No: Sclera Icterus HENT: No: Nasal Congestion, Thrush Neck: Yes: Supple Cardiovascular: Yes: Pulse Irregular, Murmur (RSB, LSB, 3/6, non radiating), S1 , S2 Respiratory: Yes: Diminished. No: SOB Gastrointestinal: Yes: Normal Bowel Sounds. No: Tenderness Musculoskeletal: No: Joint Stiffness, Joint Swelling Edema: Yes Edema: LLE: 2+, RLE: 2+ Neurological: Yes: Alert, Oriented. No: Aphasia, Asterixis, Confusion, Lethargy , Seizure, Tremors ...Motor Strength: WNL Psychiatric: Yes: Alert, Oriented Labs: CBC, BMP 03/16/19 06:52 03/16/19 06:52 Imaging - Results Chest X-ray: Report Reviewed, Image Reviewed Assessment/Plan Ambulatory Orders Alprazolam [Xanax] 0.125 mg PO HS PRN 07/09/16 Cholecalciferol (Vitamin D3) [Vitamin D3] 5,000 unit PO DAILY 07/09/16 Apixaban [Eliquis -] 5 mg PO BID tablet 07/13/16 Escitalopram Oxalate [Lexapro -] 5 mg PO DAILY tablet 07/13/16 Metoprolol Succinate [Toprol XL -] 25 mg PO DAILY tab.sr.24h 07/13/16 Meclizine HCl [Antivert -] 12.5 mg PO TID #21 tablet 04/19/18 Famotidine [Pepcid] 20 mg PO BID PRN #20 tablet 06/28/18 Current Medications Alprazolam (Xanax -) 0.125 mg PO DAILY PRN PRN Reason: ANXIETY Last Admin: 03/16/19 02:06 Dose: 0.125 mg Apixaban (Eliquis -) 5 mg PO BID [facility] Last Admin: 03/16/19 09:29 Dose: 5 mg Cholecalciferol (Vitamin D3 -) 1,000 unit PO DAILY [facility] Last Admin: 03/16/19 09:32 Dose: Not Given Escitalopram Oxalate (Lexapro -) 5 mg PO DAILY [facility] Last Admin: 03/16/19 09:30 Dose: 5 mg Furosemide (Lasix Injection -) 40 mg IVPUSH DAILY [facility] Last Admin: 03/16/19 09:32 Dose: 40 mg Levalbuterol HCl (Xopenex) 0.31 mg IH RTID PRN PRN Reason: ASTHMA Methylprednisolone Sodium Succinate (Solu-Medrol -) 40 mg IVPUSH Q8H-IV [facility] Last Admin: 03/16/19 09:33 Dose: 40 mg Metoprolol Succinate (Toprol Xl -) 25 mg PO DAILY [facility] Last Admin: 03/16/19 09:32 Dose: 25 mg Ranitidine HCl (Zantac -) 150 mg PO BID [facility] Last Admin: 03/16/19 09:31 Dose: Not Given Zolpidem Tartrate (Ambien -) 5 mg PO HS PRN PRN Reason: INSOMNIA ECHO: 02/2018- EF 45-50%, Mod- severe , Mild AR, LA severe diation, RA mildly dilated, Mild MV prolapse, Ant mitral leaflet prolapse, mod MR, mod TR, [id number] Assessment/Plan Pt is is a 78 y/o woman with a PMHx of Afib (on Eliquis), CHF (EF 50%), [place] ( 2001), Mitral Stenosis (s/p Balloon Valvulopathy), HTN, TIA, DM, gastritis, HLD , Lung Ca (Stopped Chemo), Breast Ca, OA, Vertebral Fx, Former Smoke presenting with SOB and VALDOVINOS, found to have congestive changes on CXR, responding to diuretic therapy Afib (on Eliquis), CHF (EF 45- 50%), [place] (2001), Mitral Stenosis (s/p Balloon Valvulopathy), HLD, Lung Ca s/p Chemo, L Breast Ca s/p lumpectomy , OA, Vertebral/pelvic Fx s/p osteoporosis, Former Smoke PH SOB and VALDOVINOS Plan: Acute hypoxic respiratory failure secondary to acute HFrEF, pt improving with diuresis Salt restriction Strict ins and Outs Cont diuresis with Lasix Cont oxygen therapy as needed to keep sats >90% Cont levalbuterol Stop solumed Start PO prednisone 40mg daily for a short course (5 day stop) to prevent extra sodium retention and worsening CHF exacerbation Cont other mx per primary team D/W Dr Momo Nava MD PGY 3 Visit type - Emergency Visit Emergency Visit: Yes ED Registration Date: 03/15/19 Care time: The patient presented to the Emergency Department on the above date and was hospitalized for further evaluation of their emergent condition. - New Patient This patient is new to me today: Yes Date on this admission: 03/16/19 - Critical Care Critical Care patient: No ATTENDING PHYSICIAN STATEMENT I saw and evaluated the patient. I reviewed the resident's note and discussed the case with the resident. I agree with the resident's findings and plan as documented. SUBJECTIVE: OBJECTIVE: ASSESSMENT AND PLAN:
[2019-03-16] MEDS ORDERED: methylPREDNISolone NA SUCC 40 MG/1 ML VIAL IVPUSH SCH (10:00)
[2019-03-16] MEDS ORDERED: predniSONE 20 MG TABLET (UD) PO SCH (12:00)
--- NOTE | 2019-03-16 12:15 | PN ---
Teaching Attending Note Name of Resident: Ignacia Nava ATTENDING PHYSICIAN STATEMENT I saw and evaluated the patient. I reviewed the resident's note and discussed the case with the resident. I agree with the resident's findings and plan as documented. SUBJECTIVE: 78 F, Afib (on Eliquis), CHF (EF 50%), [place] (2001), Mitral Stenosis (s/p Balloon Valvulopathy), HTN, TIA, DM, gastritis, HLD, Lung CA, (details unclear) Breast CA, OA, Vertebral Fx, and former smoker. Admitted via the ER due to progressive SOB and VALDOVINOS for 2 days. She does also report gradual VALDOVINOS for the past 6 months with bilateral LE edema, orthopnea, and PND. No clear history consistent with OSAS. No travel history or sick contacts. Intake & Output 03/13/19 03/14/19 03/15/19 03/16/19 23:59 23:59 23:59 23:59 Intake Total 120 720 Balance 120 720 Weight 173 lb 8 oz 173 lb 4.992 oz Last Vital Signs Temp Pulse Resp BP Pulse Ox 97.7 F 98 H 18 110/69 96 03/16/19 09:45 03/16/19 09:45 03/16/19 09:45 03/16/19 09:45 03/16/19 09:46 Active Medications Alprazolam (Xanax -) 0.125 mg PO DAILY PRN PRN Reason: ANXIETY Last Admin: 03/16/19 02:06 Dose: 0.125 mg Apixaban (Eliquis -) 5 mg PO BID [facility] Last Admin: 03/16/19 09:29 Dose: 5 mg Cholecalciferol (Vitamin D3 -) 1,000 unit PO DAILY [facility] Last Admin: 03/16/19 09:32 Dose: Not Given Escitalopram Oxalate (Lexapro -) 5 mg PO DAILY [facility] Last Admin: 03/16/19 09:30 Dose: 5 mg Furosemide (Lasix Injection -) 40 mg IVPUSH DAILY [facility] Last Admin: 03/16/19 09:32 Dose: 40 mg Levalbuterol HCl (Xopenex) 0.31 mg IH RTID PRN PRN Reason: ASTHMA Metoprolol Succinate (Toprol Xl -) 25 mg PO DAILY [facility] Last Admin: 03/16/19 09:32 Dose: 25 mg Prednisone (Deltasone -) 40 mg PO DAILY [facility] Ranitidine HCl (Zantac -) 150 mg PO BID [facility] Last Admin: 03/16/19 09:31 Dose: Not Given Zolpidem Tartrate (Ambien -) 5 mg PO HS PRN PRN Reason: INSOMNIA Constitutional: Yes: No Distress Eyes: Yes: Conjunctiva Clear, EOM Intact. No: Sclera Icterus HENT: No: Nasal Congestion, Thrush Neck: Yes: Supple Cardiovascular: Yes: Pulse Irregular, Murmur (RSB, LSB, 3/6, non radiating), S1 , S2 Respiratory: Yes: Diminished. No: SOB Gastrointestinal: Yes: Normal Bowel Sounds. No: Tenderness Musculoskeletal: No: Joint Stiffness, Joint Swelling Edema: Yes Edema: LLE: 2+, RLE: 2+ Neurological: Yes: Alert, Oriented. No: Aphasia, Asterixis, Confusion, Lethargy , Seizure, Tremors ...Motor Strength: WNL Psychiatric: Yes: Alert, Oriented Labs: Assessment/Plan Suspected CHF Low clinical suspicion of AE of COPD R/O COPD Do not suspect PNA Afib (on Eliquis), CHF (EF 45- 50%), [place] (2001), Mitral Stenosis (s/p Balloon Valvulopathy), HLD, Lung Ca s/p Chemo, L Breast Ca s/p lumpectomy , OA, Vertebral/pelvic Fx s/p osteoporosis, Former Smoke PH Plan: Lasix Salt restriction Strict I & O Daily weights Supplemental O2 as needed PFTs as an outpatient BD TX PRN No smoking Short course of Prednisone Will follow Dr Barr
--- NOTE | 2019-03-16 13:01 | PN ---
Progress Note (short form) - Note Progress Note: pt seen/ examined chart reviewed sitting in chair feels better decreased sob denies cp denies cough Vital Signs Temp 97.7 F 03/16/19 09:45 Pulse 98 H 03/16/19 09:45 Resp 18 03/16/19 09:45 BP 110/69 03/16/19 09:45 Pulse Ox 96 03/16/19 09:46 Intake & Output 03/15/19 03/16/19 03/16/19 23:59 11:59 23:59 Intake Total 120 720 Balance 120 720 Weight 173 lb 8 oz 173 lb 4.992 oz Intake: IV 0 Saline Lock 0 IVPB 0 Oral 120 720 Other: Voiding Method Toilet Toilet # Unmeasured Voids Void 3 Bowel Movement No No Height 5 ft 4 in Body Mass Index (BMI) 29.7 Weight Measurement Method Standing Scale Active Medications Alprazolam (Xanax -) 0.125 mg PO DAILY PRN PRN Reason: ANXIETY Last Admin: 03/16/19 02:06 Dose: 0.125 mg Apixaban (Eliquis -) 5 mg PO BID [facility] Last Admin: 03/16/19 09:29 Dose: 5 mg Cholecalciferol (Vitamin D3 -) 1,000 unit PO DAILY [facility] Last Admin: 03/16/19 09:32 Dose: Not Given Escitalopram Oxalate (Lexapro -) 5 mg PO DAILY [facility] Last Admin: 03/16/19 09:30 Dose: 5 mg Furosemide (Lasix Injection -) 40 mg IVPUSH DAILY [facility] Last Admin: 03/16/19 09:32 Dose: 40 mg Levalbuterol HCl (Xopenex) 0.31 mg IH RTID PRN PRN Reason: ASTHMA Metoprolol Succinate (Toprol Xl -) 25 mg PO DAILY [facility] Last Admin: 03/16/19 09:32 Dose: 25 mg Prednisone (Deltasone -) 40 mg PO DAILY [facility] Last Admin: 03/16/19 12:33 Dose: Not Given Ranitidine HCl (Zantac -) 150 mg PO BID [facility] Last Admin: 03/16/19 09:31 Dose: Not Given Zolpidem Tartrate (Ambien -) 5 mg PO HS PRN PRN Reason: INSOMNIA CBC, BMP 03/16/19 06:52 03/16/19 06:52 Abnormal Lab Results 03/15/19 03/15/19 03/15/19 17:00 17:00 17:00 Neutrophils % Monocytes % PT with INR 18.40 H INR 1.55 H Chloride Random Glucose Total Bilirubin 1.5 H AST 39 H B-Natriuretic Peptide 3116.4 H Ur Specific [place] 03/15/19 03/16/19 03/16/19 17:00 06:52 06:52 Neutrophils % 86.1 H D Monocytes % 1.2 L D PT with INR INR Chloride 108 H Random Glucose 134 H Total Bilirubin AST B-Natriuretic Peptide Ur Specific [place] 1.009 L Physical Exam Awake/ comfortable S1 S2 Irregular lungs -- Diminished at bases Abd-soft, no edema PLAN Exam consistent with chf exac. No evidence of copd exac continue i/v lasix d/c prednisone monitor lytes cardiology to follow monitor bgm will follow Problem List - Problems (1) Afib Code(s): I48.91 - UNSPECIFIED ATRIAL FIBRILLATION Qualifiers: Atrial fibrillation type: chronic Qualified Code(s): I48.2 - Chronic atrial fibrillation (2) Anxiety Code(s): F41.9 - ANXIETY DISORDER, UNSPECIFIED (3) Aortic stenosis Code(s): I35.0 - NONRHEUMATIC AORTIC (VALVE) STENOSIS Qualifiers: Cardiac valve disease etiology: etiology unspecified Qualified Code(s): I35.0 - Nonrheumatic aortic (valve) stenosis (4) CHF exacerbation Code(s): I50.9 - HEART FAILURE, UNSPECIFIED Qualifiers: Heart failure type: systolic Qualified Code(s): I50.23 - Acute on chronic systolic (congestive) heart failure (5) Diabetes mellitus Code(s): E11.9 - TYPE 2 DIABETES MELLITUS WITHOUT COMPLICATIONS (6) Lung cancer Code(s): C34.90 - MALIGNANT NEOPLASM OF UNSP PART OF UNSP BRONCHUS OR LUNG
--- NOTE | 2019-03-16 13:16 | EKG ---
Test Reason : Blood Pressure : / mmHG Vent. Rate : 077 BPM Atrial Rate : 084 BPM P-R Int : 000 ms QRS Dur : 088 ms QT Int : 396 ms P-R-T Axes : 000 055 048 degrees QTc Int : 448 ms ATRIAL FIBRILLATION WITH PREMATURE VENTRICULAR OR ABERRANTLY CONDUCTED COMPLEXES ABNORMAL ECG WHEN COMPARED WITH ECG OF 22-OCT-2018 12:01, PREMATURE VENTRICULAR COMPLEXES NOW SEEN Confirmed by ANGIE DAVIS MD ([id number]) on 03/16/2019 1:16:17 PM Referred By: Confirmed By:ANGIE DAVIS MD
[2019-03-16] MEDS ORDERED: ZOLPIDEM TARTRATE 5 MG TABLET PO PRN (22:00)
[2019-03-17] MEDS ORDERED: PT OWN MED DRAWER 7, Y5N ONE (08:05)
[2019-03-17] MEDS: LEVALBUTEROL HCL 0.31 MG/3 ML VIAL.NEB IH PRN (08:23)
[2019-03-17] MEDS: ESCITALOPRAM OXALATE 10 MG TABLET (FP) PO SCH (09:10)
[2019-03-17] MEDS: metoPROLOL SUCCINATE 25 MG TAB.SR.24H (FP) PO SCH (09:11)
[2019-03-17] MEDS: RANITIDINE HCL 150 MG TABLET (FP) PO SCH ×2 (09:11→21:34)
[2019-03-17] MEDS: FUROSEMIDE 40 MG/4 ML INJECTABLE VIAL IVPUSH SCH (09:12)
[2019-03-17] MEDS: CHOLECALCIFEROL (VIT D3) 1,000 UNIT (25 MCG) TABLET PO SCH (09:12)
[2019-03-17] MEDS: APIXABAN 5 MG TABLET PO SCH ×2 (09:12→21:33)
[2019-03-17] MEDS ORDERED: predniSONE 20 MG TABLET (UD) PO SCH (10:00)
--- NOTE | 2019-03-17 11:07 | PN ---
Progress Note (short form) - Note Progress Note: breathing better has leg swelling no pain Vital Signs - 24 hr 03/16/19 03/16/19 03/16/19 14:48 17:59 21:00 Temperature 98.7 F 98.1 F Pulse Rate 87 78 Respiratory 16 18 18 Rate Blood Pressure 123/80 122/67 O2 Sat by Pulse 96 Oximetry (%) 03/16/19 03/17/19 03/17/19 21:40 02:00 06:00 Temperature 98.1 F 98.1 F 98.2 F Pulse Rate 85 72 75 Respiratory 18 18 16 Rate Blood Pressure 130/54 L 106/52 L 115/70 O2 Sat by Pulse Oximetry (%) 03/17/19 03/17/19 08:50 09:00 Temperature Pulse Rate 85 Respiratory 18 Rate Blood Pressure 120/87 O2 Sat by Pulse 96 Oximetry (%) Current Medications Generic Name Dose Route Start Last Admin Trade Name Freq PRN Reason Stop Dose Admin Alprazolam 0.125 mg 03/15/19 21:18 03/16/19 02:06 Xanax - PO 0.125 mg DAILY PRN Administration ANXIETY Apixaban 5 mg 03/16/19 10:00 03/17/19 09:12 Eliquis - PO 5 mg BID [facility] Administration Cholecalciferol 1,000 unit 03/16/19 10:00 03/17/19 09:12 Vitamin D3 - PO 1,000 unit DAILY [facility] Administration Escitalopram Oxalate 5 mg 03/16/19 10:00 03/17/19 09:10 Lexapro - PO 5 mg DAILY [facility] Administration Furosemide 40 mg 03/16/19 10:00 03/17/19 09:12 Lasix Injection - IVPUSH 40 mg DAILY [facility] Administration Levalbuterol HCl 0.31 mg 03/15/19 20:00 03/17/19 08:23 Xopenex IH 0.31 mg RTID PRN Administration ASTHMA Metoprolol Succinate 25 mg 03/16/19 10:00 03/17/19 09:11 Toprol Xl - PO 25 mg DAILY [facility] Administration Ranitidine HCl 150 mg 03/16/19 10:00 03/17/19 09:11 Zantac - PO Not Given BID [facility] Zolpidem Tartrate 5 mg 03/16/19 22:00 Ambien - PO HS PRN INSOMNIA Intake & Output 03/14/19 03/15/19 03/16/19 03/17/19 23:59 23:59 23:59 23:59 Intake Total 120 1340 450 Balance 120 1340 450 Weight 173 lb 8 oz 173 lb 4.992 oz 175 lb 2 oz S1 S2 Irregular Lungs decreased no crackles+ Abd- soft, NT 2 + edema B/L PLAN IV lasix monitor renal function daily advised fluid restriction nebs as needed daily OOB continue with Eliquis Problem List - Problems (1) Afib Code(s): I48.91 - UNSPECIFIED ATRIAL FIBRILLATION Qualifiers: Atrial fibrillation type: chronic Qualified Code(s): I48.2 - Chronic atrial fibrillation (2) Anxiety Code(s): F41.9 - ANXIETY DISORDER, UNSPECIFIED (3) Aortic stenosis Code(s): I35.0 - NONRHEUMATIC AORTIC (VALVE) STENOSIS Qualifiers: Cardiac valve disease etiology: etiology unspecified Qualified Code(s): I35.0 - Nonrheumatic aortic (valve) stenosis (4) CHF exacerbation Code(s): I50.9 - HEART FAILURE, UNSPECIFIED Qualifiers: Heart failure type: systolic Qualified Code(s): I50.23 - Acute on chronic systolic (congestive) heart failure (5) COPD (chronic obstructive pulmonary disease) Code(s): J44.9 - CHRONIC OBSTRUCTIVE PULMONARY DISEASE, UNSPECIFIED Qualifiers: COPD type: unspecified COPD Qualified Code(s): J44.9 - Chronic obstructive pulmonary disease, unspecified (6) Diabetes mellitus Code(s): E11.9 - TYPE 2 DIABETES MELLITUS WITHOUT COMPLICATIONS
[2019-03-17] MEDS ORDERED: IPRATROPIUM BR 0.02% 0.5 MG/2.5 ML VIAL.NEB. NEB PRN (11:08)
--- NOTE | 2019-03-17 11:58 | PN ---
Progress Note, Physician History of Present Illness: PULMONARY ALERT,OOB-CHAIR, FEELING BETTER LESS DYSPNEIC - Current Medication List Current Medications: Active Medications Alprazolam (Xanax -) 0.125 mg PO DAILY PRN PRN Reason: ANXIETY Last Admin: 03/16/19 02:06 Dose: 0.125 mg Apixaban (Eliquis -) 5 mg PO BID [facility] Last Admin: 03/17/19 09:12 Dose: 5 mg Cholecalciferol (Vitamin D3 -) 1,000 unit PO DAILY [facility] Last Admin: 03/17/19 09:12 Dose: 1,000 unit Escitalopram Oxalate (Lexapro -) 5 mg PO DAILY [facility] Last Admin: 03/17/19 09:10 Dose: 5 mg Furosemide (Lasix Injection -) 40 mg IVPUSH DAILY [facility] Last Admin: 03/17/19 09:12 Dose: 40 mg Ipratropium [place] (Atrovent 0.02% Nebulizer -) 1 amp NEB Q6H PRN PRN Reason: DYSPEPSIA Stop: 03/24/19 11:08 Levalbuterol HCl (Xopenex) 0.31 mg IH RTID PRN PRN Reason: ASTHMA Last Admin: 03/17/19 08:23 Dose: 0.31 mg Metoprolol Succinate (Toprol Xl -) 25 mg PO DAILY [facility] Last Admin: 03/17/19 09:11 Dose: 25 mg Ranitidine HCl (Zantac -) 150 mg PO BID [facility] Last Admin: 03/17/19 09:11 Dose: Not Given Zolpidem Tartrate (Ambien -) 5 mg PO HS PRN PRN Reason: INSOMNIA - Objective Vital Signs: Vital Signs Temperature 98.2 F 03/17/19 06:00 Pulse Rate 85 03/17/19 08:50 Respiratory Rate 18 03/17/19 08:50 Blood Pressure 120/87 03/17/19 08:50 O2 Sat by Pulse Oximetry (%) 96 03/17/19 09:00 Constitutional: Yes: Well Nourished, Calm Eyes: Yes: WNL HENT: Yes: WNL Neck: Yes: WNL Cardiovascular: Yes: Pulse Irregular, S1, S2 Respiratory: Yes: Rales (BIBASAILR RALES) Gastrointestinal: Yes: Normal Bowel Sounds, Soft Extremities: Yes: WNL Edema: Yes Labs: CBC, BMP Problem List - Problems (1) Afib Code(s): I48.91 - UNSPECIFIED ATRIAL FIBRILLATION Qualifiers: Atrial fibrillation type: chronic Qualified Code(s): I48.2 - Chronic atrial fibrillation (2) Aortic stenosis Code(s): I35.0 - NONRHEUMATIC AORTIC (VALVE) STENOSIS Qualifiers: Cardiac valve disease etiology: etiology unspecified Qualified Code(s): I35.0 - Nonrheumatic aortic (valve) stenosis (3) CHF exacerbation Code(s): I50.9 - HEART FAILURE, UNSPECIFIED Qualifiers: Heart failure type: systolic Qualified Code(s): I50.23 - Acute on chronic systolic (congestive) heart failure (4) COPD (chronic obstructive pulmonary disease) Code(s): J44.9 - CHRONIC OBSTRUCTIVE PULMONARY DISEASE, UNSPECIFIED Qualifiers: COPD type: unspecified COPD Qualified Code(s): J44.9 - Chronic obstructive pulmonary disease, unspecified (5) Breast cancer Code(s): C50.919 - MALIGNANT NEOPLASM OF UNSP SITE OF UNSPECIFIED FEMALE BREAST (6) CVA (cerebral vascular accident) Code(s): I63.9 - CEREBRAL INFARCTION, UNSPECIFIED (7) Lung cancer Code(s): C34.90 - MALIGNANT NEOPLASM OF UNSP PART OF UNSP BRONCHUS OR LUNG Assessment/Plan Assessment/Plan Suspected CHF Low clinical suspicion of AE of COPD R/O COPD Do not suspect PNA Afib (on Eliquis), CHF (EF 45- 50%), [place] (2001), Mitral Stenosis (s/p Balloon Valvulopathy), HLD, Lung Ca s/p Chemo, L Breast Ca s/p lumpectomy , OA, Vertebral/pelvic Fx s/p osteoporosis, Former Smoke Plan: Lasix Salt restriction Strict I & O Daily weights Supplemental O2 as needed PFTs as an outpatient BD [place] PRN No smoking DR MANUEL
--- NOTE | 2019-03-17 18:34 | PN ---
Progress Note, Physician Chief Complaint: Pt A&OX3; sitting in chair; no chest pain, dyspnea, dizziness, or palpitations. Anxious. History of Present Illness: Ms. Bob is a 78 yr old white female with PM hx of lung ca (recently stopped chemotherapy), systolic/diastolic CHF with severe mitral stenosis, moderate aortic stenosis, moderate MR and TR, markedly dilated LA (s/p coronary angiogram and balloon mitral vavluloplasty at [facility] 2006 ; pt has repeatedly refused further valve procedures or angiograms), PAF, who is now admitted with increasing sob. No cough. No fevers. No wt loss. No chest pain. States she feels sob at home, but in the ER states symptoms have improved. Pt speaking in full sentences. She is not in acute distress. Pt also with hx of chf and states legs have been swollen with nonpitting edema since December. No calf pain. - Current Medication List Current Medications: Active Medications Alprazolam (Xanax -) 0.125 mg PO DAILY PRN PRN Reason: ANXIETY Last Admin: 03/16/19 02:06 Dose: 0.125 mg Apixaban (Eliquis -) 5 mg PO BID [facility] Last Admin: 03/17/19 09:12 Dose: 5 mg Cholecalciferol (Vitamin D3 -) 1,000 unit PO DAILY [facility] Last Admin: 03/17/19 09:12 Dose: 1,000 unit Escitalopram Oxalate (Lexapro -) 5 mg PO DAILY [facility] Last Admin: 03/17/19 09:10 Dose: 5 mg Furosemide (Lasix Injection -) 40 mg IVPUSH DAILY [facility] Last Admin: 03/17/19 09:12 Dose: 40 mg Ipratropium [place] (Atrovent 0.02% Nebulizer -) 1 amp NEB Q6H PRN PRN Reason: DYSPEPSIA Stop: 03/24/19 11:08 Levalbuterol HCl (Xopenex) 0.31 mg IH RTID PRN PRN Reason: ASTHMA Last Admin: 03/17/19 08:23 Dose: 0.31 mg Metoprolol Succinate (Toprol Xl -) 25 mg PO DAILY [facility] Last Admin: 03/17/19 09:11 Dose: 25 mg Ranitidine HCl (Zantac -) 150 mg PO BID [facility] Last Admin: 03/17/19 09:11 Dose: Not Given Zolpidem Tartrate (Ambien -) 5 mg PO HS PRN PRN Reason: INSOMNIA - Objective Vital Signs: Vital Signs Temperature 98.9 F 03/17/19 13:40 Pulse Rate 61 03/17/19 13:40 Respiratory Rate 18 03/17/19 13:40 Blood Pressure 107/68 03/17/19 13:40 O2 Sat by Pulse Oximetry (%) 96 03/17/19 09:00 Constitutional: Yes: Anxious Eyes: Yes: WNL HENT: Yes: WNL Cardiovascular: Yes: S1, S2 Respiratory: Yes: Regular Gastrointestinal: Yes: Soft ...Rectal Exam: Yes: Deferred Genitourinary: No: Anuria Breast(s): Yes: WNL Musculoskeletal: Yes: Muscle Weakness Extremities: Yes: Cool Edema: Yes Edema: LLE: 1+, RLE: 1+ Peripheral Pulses WNL: Yes Integumentary: Yes: Venous Stasis Changes Neurological: Yes: Alert, Oriented, Weakness Psychiatric: Yes: Alert, Oriented, Other (anxiety) Labs: CBC, BMP 03/16/19 06:52 03/16/19 06:52 INR, PTT INR 1.55 (0.83-1.09) H 03/15/19 17:00 - ....Imaging Chest X-ray: Image Reviewed (no acute pathology) EKG: Image Reviewed (AF) Problem List - Problems (1) Anxiety Assessment/Plan: on alprazolam Code(s): F41.9 - ANXIETY DISORDER, UNSPECIFIED (2) Aortic stenosis Code(s): I35.0 - NONRHEUMATIC AORTIC (VALVE) STENOSIS Qualifiers: Cardiac valve disease etiology: etiology unspecified Qualified Code(s): I35.0 - Nonrheumatic aortic (valve) stenosis (3) Diabetes mellitus Code(s): E11.9 - TYPE 2 DIABETES MELLITUS WITHOUT COMPLICATIONS (4) Mitral stenosis Assessment/Plan: Pt has been resistant to further evaluation of valve abnormalities or coronary angiogram. The possible relation of worsening dyspnea, CHF to valve status was discussed again; she will consider seeing TAVR team at [facility] as outpatient. F/u ECHO for LVEF, valve status, chamber sizes, regional wall motion. Code(s): I05.0 - RHEUMATIC MITRAL STENOSIS Qualifiers: Cardiac valve disease etiology: rheumatic Qualified Code(s): I05.0 - Rheumatic mitral stenosis (5) Afib Assessment/Plan: On metoprolol ER for HR control. On apixaban for anticoagulation. F/u ECHO for LVEF, chamber sizes, valve status. Code(s): I48.91 - UNSPECIFIED ATRIAL FIBRILLATION Qualifiers: Atrial fibrillation type: chronic (6) CHF (congestive heart failure) Assessment/Plan: No JVD Elevatd BNP; chronic bilateral LE edema now decreasing in severity. CXR: no acute pathology. Not dyspneic. On metoprolol, spironolactone; presently on IV furosemide F/u ECHO for LVEF (hx reduced LVEF noted in 2017 ECHO that has shown improvement to low-normal), chamber sizes, valve status (hx AF, significant aortic and mitral stenoses/regurgitation). F/u BUN/Cr, electrolytes, daily weight, Is and Os. Code(s): I50.9 - HEART FAILURE, UNSPECIFIED (7) Hyperlipidemia Assessment/Plan: f/u lipid profile Code(s): E78.5 - HYPERLIPIDEMIA, UNSPECIFIED (8) Lung cancer Assessment/Plan: f/u with PMD, oncologist Code(s): C34.90 - MALIGNANT NEOPLASM OF UNSP PART OF UNSP BRONCHUS OR LUNG
[2019-03-17] MEDS ORDERED: SENNOSIDES 8.6MG TABLET (FP) PO PRN (20:55)
[2019-03-18 07:37] LABS: BASO % 0.2 % (0-2.0); EOS % 0.9 % (0-4.5); HEMATOCRIT 43.1 % (32.4-45.2); HEMOGLOBIN 13.9 GM/dL (10.7-15.3); LYMPH % 15.7 % (8-40); MCH 30.6 pg (25.7-33.7); MCHC 32.3 g/dl (32.0-36.0); MEAN CELL VOLUME 94.9 fl (80-96); MEAN PLT VOLUME 8.1 fl (7.5-11.1); MONO % 8.5 % (3.8-10.2); NEUT % 74.7 % (42.8-82.8); PLATELET COUNT 281 K/MM3 (134-434); RBC 4.54 M/mm3 (3.60-5.2); RDW 14.7 % (11.6-15.6)
[2019-03-18 08:10] LABS: CALCIUM 8.9 mg/dL (8.5-10.1); CREATININE 0.7 mg/dL (0.55-1.3); POTASSIUM 4.1 mmol/L (3.5-5.1)
[2019-03-18] MEDS: LEVALBUTEROL HCL 0.31 MG/3 ML VIAL.NEB IH PRN (08:53)
[2019-03-18] MEDS: ESCITALOPRAM OXALATE 10 MG TABLET (FP) PO SCH (09:00)
[2019-03-18] MEDS: metoPROLOL SUCCINATE 25 MG TAB.SR.24H (FP) PO SCH (09:01)
[2019-03-18] MEDS: FUROSEMIDE 40 MG/4 ML INJECTABLE VIAL IVPUSH SCH (09:01)
[2019-03-18] MEDS: APIXABAN 5 MG TABLET PO SCH ×2 (09:01→21:45)
[2019-03-18] MEDS: CHOLECALCIFEROL (VIT D3) 1,000 UNIT (25 MCG) TABLET PO SCH (09:01)
[2019-03-18] MEDS: RANITIDINE HCL 150 MG TABLET (FP) PO SCH ×2 (09:07→22:00)
--- NOTE | 2019-03-18 10:57 | PN ---
Progress Note, Physician History of Present Illness: This is a 78 y/o woman with a PMHx of Afib (on Eliquis), CHF (EF 50%), [place] (2001) , Mitral Stenosis (s/p Balloon Valvulopathy), HLD, Lung Ca (Stopped Chemo), Breast Ca, OA, Vertebral Fx, Former Smoker. Who presents to the ED with progressive SOB at rest and VALDOVINOS x 2 days. Patient reports having increased difficulty at home due to her increased SOB. Patient also reports bilateral lower extremity swelling since last December. Patient denies CP, palpitations, calf tenderness. Patient denies fever, chills, dizziness, ARAGON, AP, N/V/D, constipation , dysuria ER course was noted for: (1) BNP 3116 (2) Chest Xray image- pulm vascular congestion, increased interstitial markings - Current Medication List Current Medications: Active Medications Alprazolam (Xanax -) 0.125 mg PO DAILY PRN PRN Reason: ANXIETY Last Admin: 03/16/19 02:06 Dose: 0.125 mg Apixaban (Eliquis -) 5 mg PO BID [facility] Last Admin: 03/18/19 09:01 Dose: 5 mg Cholecalciferol (Vitamin D3 -) 1,000 unit PO DAILY [facility] Last Admin: 03/18/19 09:01 Dose: 1,000 unit Escitalopram Oxalate (Lexapro -) 5 mg PO DAILY [facility] Last Admin: 03/18/19 09:00 Dose: 5 mg Furosemide (Lasix Injection -) 40 mg IVPUSH DAILY [facility] Last Admin: 03/18/19 09:01 Dose: 40 mg Ipratropium [place] (Atrovent 0.02% Nebulizer -) 1 amp NEB Q6H PRN PRN Reason: DYSPEPSIA Stop: 03/24/19 11:08 Levalbuterol HCl (Xopenex) 0.31 mg IH RTID PRN PRN Reason: ASTHMA Last Admin: 03/18/19 08:53 Dose: 0.31 mg Metoprolol Succinate (Toprol Xl -) 25 mg PO DAILY [facility] Last Admin: 03/18/19 09:01 Dose: 25 mg Ranitidine HCl (Zantac -) 150 mg PO BID [facility] Last Admin: 03/18/19 09:07 Dose: Not Given Senna (Senna -) 2 tab PO HS PRN PRN Reason: CONSTIPATION Last Admin: 03/17/19 21:34 Dose: 2 tab Zolpidem Tartrate (Ambien -) 5 mg PO HS PRN PRN Reason: INSOMNIA - Objective Vital Signs: Vital Signs Temperature 98.0 F 03/18/19 07:45 Pulse Rate 74 03/18/19 07:45 Respiratory Rate 18 03/18/19 07:45 Blood Pressure 104/58 L 03/18/19 07:45 O2 Sat by Pulse Oximetry (%) 96 03/17/19 09:00 Eyes: Yes: WNL, Conjunctiva Clear, EOM Intact HENT: Yes: WNL, Atraumatic, Normocephalic Neck: Yes: WNL, Supple, Trachea Midline Cardiovascular: Yes: Pulse Irregular, Murmur, S1, S2 Respiratory: Yes: WNL, Regular, CTA Bilaterally Gastrointestinal: Yes: WNL, Normal Bowel Sounds Genitourinary: Yes: WNL Musculoskeletal: Yes: WNL Extremities: Yes: WNL Edema: No Integumentary: Yes: WNL Neurological: Yes: WNL, Alert, Oriented ...Motor Strength: WNL Psychiatric: Yes: WNL Labs: CBC, BMP 03/18/19 06:28 03/18/19 06:45 INR, PTT INR 1.55 (0.83-1.09) H 03/15/19 17:00 Problem List - Problems (1) Afib Code(s): I48.91 - UNSPECIFIED ATRIAL FIBRILLATION Qualifiers: Atrial fibrillation type: chronic (2) Anxiety Code(s): F41.9 - ANXIETY DISORDER, UNSPECIFIED (3) Aortic stenosis Code(s): I35.0 - NONRHEUMATIC AORTIC (VALVE) STENOSIS Qualifiers: Cardiac valve disease etiology: etiology unspecified Qualified Code(s): I35.0 - Nonrheumatic aortic (valve) stenosis (4) CHF exacerbation Code(s): I50.9 - HEART FAILURE, UNSPECIFIED Qualifiers: Heart failure type: systolic Qualified Code(s): I50.23 - Acute on chronic systolic (congestive) heart failure (5) COPD (chronic obstructive pulmonary disease) Code(s): J44.9 - CHRONIC OBSTRUCTIVE PULMONARY DISEASE, UNSPECIFIED Qualifiers: COPD type: unspecified COPD Qualified Code(s): J44.9 - Chronic obstructive pulmonary disease, unspecified (6) Diabetes mellitus Code(s): E11.9 - TYPE 2 DIABETES MELLITUS WITHOUT COMPLICATIONS (7) Osteoarthritis Code(s): M19.90 - UNSPECIFIED OSTEOARTHRITIS, UNSPECIFIED SITE (8) Breast cancer Code(s): C50.919 - MALIGNANT NEOPLASM OF UNSP SITE OF UNSPECIFIED FEMALE BREAST (9) CVA (cerebral vascular accident) Code(s): I63.9 - CEREBRAL INFARCTION, UNSPECIFIED (10) Chronic systolic CHF (congestive heart failure) Code(s): I50.22 - CHRONIC SYSTOLIC (CONGESTIVE) HEART FAILURE (11) Gastritis Code(s): K29.70 - GASTRITIS, UNSPECIFIED, WITHOUT BLEEDING Qualifiers: Gastritis type: unspecified gastritis Chronicity: acute Gastritis bleeding: without bleeding Qualified Code(s): K29.00 - Acute gastritis without bleeding (12) Hematoma Code(s): T14.8 - OTHER INJURY OF UNSPECIFIED BODY REGION * DO NOT USE * (13) Hyperlipidemia Code(s): E78.5 - HYPERLIPIDEMIA, UNSPECIFIED (14) Lung cancer Code(s): C34.90 - MALIGNANT NEOPLASM OF UNSP PART OF UNSP BRONCHUS OR LUNG (15) Malaise and fatigue Code(s): R53.81 - OTHER MALAISE; R53.83 - OTHER FATIGUE (16) Mitral stenosis Code(s): I05.0 - RHEUMATIC MITRAL STENOSIS Qualifiers: Cardiac valve disease etiology: rheumatic Qualified Code(s): I05.0 - Rheumatic mitral stenosis (17) Sprain of right thumb Code(s): S63.601A - UNSPECIFIED SPRAIN OF RIGHT THUMB, INITIAL ENCOUNTER (18) Subtherapeutic anticoagulation Code(s): Z51.81 - ENCOUNTER FOR THERAPEUTIC DRUG LEVEL MONITORING; Z79.01 - ORCHESTRA DIRECTOR (CURRENT) USE OF ANTICOAGULANTS (19) Subtherapeutic international normalized ratio (INR) Code(s): R79.1 - ABNORMAL COAGULATION PROFILE (20) TIA (transient ischemic attack) Code(s): G45.9 - TRANSIENT CEREBRAL ISCHEMIC ATTACK, UNSPECIFIED (21) Vertigo Code(s): R42 - DIZZINESS AND GIDDINESS Assessment/Plan - Problems (1) Anxiety Assessment/Plan: on alprazolam Code(s): F41.9 - ANXIETY DISORDER, UNSPECIFIED (2) Aortic stenosis Code(s): I35.0 - NONRHEUMATIC AORTIC (VALVE) STENOSIS Qualifiers: Cardiac valve disease etiology: etiology unspecified Qualified Code(s): I35.0 - Nonrheumatic aortic (valve) stenosis (3) Diabetes mellitus Code(s): E11.9 - TYPE 2 DIABETES MELLITUS WITHOUT COMPLICATIONS (4) Mitral stenosis Assessment/Plan: Pt has been resistant to further evaluation of valve abnormalities or coronary angiogram. The possible relation of worsening dyspnea, CHF to valve status was discussed again; she will consider seeing TAVR team at [facility] as outpatient. F/u ECHO for LVEF, valve status, chamber sizes, regional wall motion. Code(s): I05.0 - RHEUMATIC MITRAL STENOSIS Qualifiers: Cardiac valve disease etiology: rheumatic Qualified Code(s): I05.0 - Rheumatic mitral stenosis (5) Afib Assessment/Plan: On metoprolol ER for HR control. On apixaban for anticoagulation. F/u ECHO for LVEF, chamber sizes, valve status. Code(s): I48.91 - UNSPECIFIED ATRIAL FIBRILLATION Qualifiers: Atrial fibrillation type: chronic (6) CHF (congestive heart failure) Assessment/Plan: No JVD Elevatd BNP; chronic bilateral LE edema now decreasing in severity. CXR: no acute pathology. Not dyspneic. On metoprolol, spironolactone; presently on IV furosemide F/u ECHO for LVEF (hx reduced LVEF noted in 2017 ECHO that has shown improvement to low-normal), chamber sizes, valve status (hx AF, significant aortic and mitral stenoses/regurgitation). F/u BUN/Cr, electrolytes, daily weight, Is and Os. Code(s): I50.9 - HEART FAILURE, UNSPECIFIED (7) Hyperlipidemia Assessment/Plan: f/u lipid profile Code(s): E78.5 - HYPERLIPIDEMIA, UNSPECIFIED (8) Lung cancer Assessment/Plan: f/u with PMD, oncologist Code(s): C34.90 - MALIGNANT NEOPLASM OF UNSP PART OF UNSP BRONCHUS OR LUNG
--- NOTE | 2019-03-18 11:35 | PN ---
Progress Note (short form) - Note Progress Note: breathing better leg edema improving Vital Signs - 24 hr 03/17/19 03/17/19 03/17/19 13:40 18:00 22:00 Temperature 98.9 F 98.3 F 98.6 F Pulse Rate 61 63 88 Respiratory 18 18 18 Rate Blood Pressure 107/68 121/73 111/58 L 03/18/19 03/18/19 03/18/19 01:38 06:00 07:45 Temperature 98.4 F 98.0 F Pulse Rate 78 90 74 Respiratory 18 18 18 Rate Blood Pressure 111/58 L 125/82 104/58 L Current Medications Generic Name Dose Route Start Last Admin Trade Name Freq PRN Reason Stop Dose Admin Alprazolam 0.125 mg 03/15/19 21:18 03/16/19 02:06 Xanax - PO 0.125 mg DAILY PRN Administration ANXIETY Apixaban 5 mg 03/16/19 10:00 03/18/19 09:01 Eliquis - PO 5 mg BID [facility] Administration Cholecalciferol 1,000 unit 03/16/19 10:00 03/18/19 09:01 Vitamin D3 - PO 1,000 unit DAILY [facility] Administration Escitalopram Oxalate 5 mg 03/16/19 10:00 03/18/19 09:00 Lexapro - PO 5 mg DAILY [facility] Administration Furosemide 40 mg 03/16/19 10:00 03/18/19 09:01 Lasix Injection - IVPUSH 40 mg DAILY [facility] Administration Ipratropium [place] 1 amp 03/17/19 11:08 Atrovent 0.02% Nebulizer - NEB 03/24/19 11:08 Q6H PRN DYSPEPSIA Levalbuterol HCl 0.31 mg 03/15/19 20:00 03/18/19 08:53 Xopenex IH 0.31 mg RTID PRN Administration ASTHMA Metoprolol Succinate 25 mg 03/16/19 10:00 03/18/19 09:01 Toprol Xl - PO 25 mg DAILY [facility] Administration Ranitidine HCl 150 mg 03/16/19 10:00 03/18/19 09:07 Zantac - PO Not Given BID [facility] Senna 2 tab 03/17/19 20:55 03/17/19 21:34 Senna - PO 2 tab HS PRN Administration CONSTIPATION Zolpidem Tartrate 5 mg 03/16/19 22:00 Ambien - PO HS PRN INSOMNIA Laboratory Results - last 24 hr 03/18/19 03/18/19 06:28 06:45 WBC 9.0 RBC 4.54 Hgb 13.9 Hct 43.1 MCV 94.9 MCH 30.6 MCHC 32.3 RDW 14.7 Plt Count 281 MPV 8.1 Absolute Neuts (auto) 6.7 Neutrophils % 74.7 Lymphocytes % 15.7 D Monocytes % 8.5 D Eosinophils % 0.9 D Basophils % 0.2 Nucleated RBC % 0 Sodium 142 Potassium 4.1 Chloride 107 Carbon Dioxide 28 Anion Gap 6 L BUN 25.0 H Creatinine 0.7 Est GFR (CKD-EPI)AfAm 95.51 Est GFR (CKD-EPI)NonAf 82.41 Random Glucose 93 Calcium 8.9 S1 S2 Irregular Lungs decreased no crackles+ Abd- soft, NT 2 + edema B/L PLAN IV lasix monitor renal function daily advised fluid restriction nebs as needed daily OOB continue with Eliquis echo done today Problem List - Problems (1) Afib Code(s): I48.91 - UNSPECIFIED ATRIAL FIBRILLATION Qualifiers: Atrial fibrillation type: chronic (2) Anxiety Code(s): F41.9 - ANXIETY DISORDER, UNSPECIFIED (3) Aortic stenosis Code(s): I35.0 - NONRHEUMATIC AORTIC (VALVE) STENOSIS Qualifiers: Cardiac valve disease etiology: etiology unspecified Qualified Code(s): I35.0 - Nonrheumatic aortic (valve) stenosis (4) CHF exacerbation Code(s): I50.9 - HEART FAILURE, UNSPECIFIED Qualifiers: Heart failure type: systolic Qualified Code(s): I50.23 - Acute on chronic systolic (congestive) heart failure (5) COPD (chronic obstructive pulmonary disease) Code(s): J44.9 - CHRONIC OBSTRUCTIVE PULMONARY DISEASE, UNSPECIFIED Qualifiers: COPD type: unspecified COPD Qualified Code(s): J44.9 - Chronic obstructive pulmonary disease, unspecified (6) Diabetes mellitus Code(s): E11.9 - TYPE 2 DIABETES MELLITUS WITHOUT COMPLICATIONS
--- NOTE | 2019-03-18 12:35 | PN ---
Progress Note, Physician History of Present Illness: pulmonary alert,feeling better,less dyspneic - Current Medication List Current Medications: Active Medications Alprazolam (Xanax -) 0.125 mg PO DAILY PRN PRN Reason: ANXIETY Last Admin: 03/16/19 02:06 Dose: 0.125 mg Apixaban (Eliquis -) 5 mg PO BID [facility] Last Admin: 03/18/19 09:01 Dose: 5 mg Cholecalciferol (Vitamin D3 -) 1,000 unit PO DAILY [facility] Last Admin: 03/18/19 09:01 Dose: 1,000 unit Escitalopram Oxalate (Lexapro -) 5 mg PO DAILY [facility] Last Admin: 03/18/19 09:00 Dose: 5 mg Furosemide (Lasix Injection -) 40 mg IVPUSH DAILY [facility] Last Admin: 03/18/19 09:01 Dose: 40 mg Ipratropium [place] (Atrovent 0.02% Nebulizer -) 1 amp NEB Q6H PRN PRN Reason: DYSPEPSIA Stop: 03/24/19 11:08 Levalbuterol HCl (Xopenex) 0.31 mg IH RTID PRN PRN Reason: ASTHMA Last Admin: 03/18/19 08:53 Dose: 0.31 mg Metoprolol Succinate (Toprol Xl -) 25 mg PO DAILY [facility] Last Admin: 03/18/19 09:01 Dose: 25 mg Ranitidine HCl (Zantac -) 150 mg PO BID [facility] Last Admin: 03/18/19 09:07 Dose: Not Given Senna (Senna -) 2 tab PO HS PRN PRN Reason: CONSTIPATION Last Admin: 03/17/19 21:34 Dose: 2 tab Zolpidem Tartrate (Ambien -) 5 mg PO HS PRN PRN Reason: INSOMNIA - Objective Vital Signs: Vital Signs Temperature 98.0 F 03/18/19 07:45 Pulse Rate 74 03/18/19 07:45 Respiratory Rate 18 03/18/19 07:45 Blood Pressure 104/58 L 03/18/19 07:45 O2 Sat by Pulse Oximetry (%) 96 03/17/19 09:00 Constitutional: Yes: Well Nourished, Calm Eyes: Yes: WNL HENT: Yes: Nasal Congestion Neck: Yes: WNL Cardiovascular: Yes: Pulse Irregular, S1, S2 Respiratory: Yes: Diminished Gastrointestinal: Yes: Normal Bowel Sounds, Soft Extremities: Yes: WNL Edema: Yes Labs: CBC, BMP 03/18/19 06:28 03/18/19 06:45 INR, PTT INR 1.55 (0.83-1.09) H 03/15/19 17:00 Problem List - Problems (1) Afib Code(s): I48.91 - UNSPECIFIED ATRIAL FIBRILLATION Qualifiers: Atrial fibrillation type: chronic (2) Aortic stenosis Code(s): I35.0 - NONRHEUMATIC AORTIC (VALVE) STENOSIS Qualifiers: Cardiac valve disease etiology: etiology unspecified Qualified Code(s): I35.0 - Nonrheumatic aortic (valve) stenosis (3) CHF exacerbation Code(s): I50.9 - HEART FAILURE, UNSPECIFIED Qualifiers: Heart failure type: systolic Qualified Code(s): I50.23 - Acute on chronic systolic (congestive) heart failure (4) COPD (chronic obstructive pulmonary disease) Code(s): J44.9 - CHRONIC OBSTRUCTIVE PULMONARY DISEASE, UNSPECIFIED Qualifiers: COPD type: unspecified COPD Qualified Code(s): J44.9 - Chronic obstructive pulmonary disease, unspecified (5) Breast cancer Code(s): C50.919 - MALIGNANT NEOPLASM OF UNSP SITE OF UNSPECIFIED FEMALE BREAST (6) CVA (cerebral vascular accident) Code(s): I63.9 - CEREBRAL INFARCTION, UNSPECIFIED (7) Lung cancer Code(s): C34.90 - MALIGNANT NEOPLASM OF UNSP PART OF UNSP BRONCHUS OR LUNG Assessment/Plan Assessment/Plan Suspected CHF Low clinical suspicion of AE of COPD R/O COPD Do not suspect PNA Afib (on Eliquis), CHF (EF 45- 50%), [place] (2001), Mitral Stenosis (s/p Balloon Valvulopathy), HLD, Lung Ca s/p Chemo, L Breast Ca s/p lumpectomy , OA, Vertebral/pelvic Fx s/p osteoporosis, Former Smoke Plan: Lasix Salt restriction Strict I & O Daily weights Supplemental O2 as needed PFTs as an outpatient BD [place] PRN No smoking DR MANUEL
--- NOTE | 2019-03-18 13:50 | ECHO ---
Name: MARY ELLEN WILLARD Exam:Adult Echocardiogram Study Date: 03/18/2019 10:41 AM Age: 78 yrs Reason For Study: AORTIC AND MITRAL STENOSIS CHF Height: 64 in Weight: 175 lb BSA: 1.8 m2 MMode/2D Measurements & Calculations IVSd: 1.0 cm Ao root diam: 2.6 cm LVIDd: 5.8 cm LA dimension: 6.6 cm LVIDs: 4.4 cm LVPWd: 0.93 cm EDV(Teich): 165.0 ml LVOT diam: 2.0 cm ESV(Teich): 87.0 ml LAV (MOD-bp): 330.0 ml Doppler Measurements & Calculations MV P1/2t max ortiz: 254.2 cm/sec MVA(VTI): 2.8 cm2 MV P1/2t: 226.2 msec MV V2 max: 282.3 cm/sec MV max P.9 mmHg MVA(P1/2t): 0.97 cm2 MV V2 mean: 178.4 cm/sec MV dec slope: 329.1 cm/sec2 MV mean P.2 mmHg MV V2 VTI: 93.6 cm Ao V2 max: 343.7 cm/sec AI max ortiz: 264.0 cm/sec Ao max P.3 mmHg AI max P.3 mmHg Ao V2 mean: 253.2 cm/sec Ao mean P.2 mmHg AI dec slope: 207.8 cm/sec2 Ao V2 VTI: 88.8 cm BRETT(I,D): 2.9 cm2 AI P1/2t: 372.0 msec BRETT(V,D): 3.0 cm2 LV V1 max P.2 mmHg MR max ortiz: 504.1 cm/sec LV V1 mean P.7 mmHg MR max P.6 mmHg LV V1 max: 320.9 cm/sec LV V1 mean: 240.1 cm/sec LV V1 VTI: 81.2 cm SV(LVOT): 258.2 ml TR max ortiz: 275.0 cm/sec TR max P.3 mmHg Procedure A two-dimensional transthoracic echocardiogram with color flow and Doppler was performed. Left Ventricle The left ventricle is mildly dilated. Left ventricular systolic function is mildly reduced. There is mild global hypokinesis of the left ventricle. Regional wall motion abnormalities cannot be excluded due t o limited visualization. Right Ventricle The right ventricle is normal in size and function. Atria The left atrium is severely dilated. The right atrium is severely dilated. The interatrial septum bow s toward right atrium consistent with elevated left atrial pressure. Mitral Valve There is moderate to severe mitral valve thickening. There is severe mitral annular calcification. Th ere is severe mitral stenosis. There is moderate mitral regurgitation. Tricuspid Valve There is mild tricuspid valve thickening. There is no tricuspid stenosis. There is severe tricuspid regurgitation. Right ventricular systolic pressure is normal. Aortic Valve The aortic valve is not well visualized. Moderate to severe valvular aortic stenosis. Mild aortic regurgitation. Pulmonic Valve The pulmonic valve is not well visualized. Great Vessels The aortic root is normal size. Pericardium/Pleura There is no pericardial effusion. Interpretation Summary The left ventricle is mildly dilated. Left ventricular systolic function is mildly reduced. The left atrium is severely dilated. The right atrium is severely dilated. There is moderate to severe mitral valve thickening. There is severe tricuspid regurgitation. Right ventricular systolic pressure is normal. Moderate to severe valvular aortic stenosis. There is severe mitral stenosis. There is severe mitral annular calcification. There is moderate mitral regurgitation. The interatrial septum bows toward right atrium consistent with elevated left atrial pressure. Mild aortic regurgitation. There is mild global hypokinesis of the left ventricle. Regional wall motion abnormalities cannot be excluded due to limited visualization. MD Colton Delgado 03/18/2019 01:49 PM
[2019-03-19] MEDS: metoPROLOL SUCCINATE 25 MG TAB.SR.24H (FP) PO SCH (10:20)
[2019-03-19] MEDS: RANITIDINE HCL 150 MG TABLET (FP) PO SCH ×2 (10:20→22:08)
[2019-03-19] MEDS: ESCITALOPRAM OXALATE 10 MG TABLET (FP) PO SCH (10:21)
[2019-03-19] MEDS: APIXABAN 5 MG TABLET PO SCH ×2 (10:21→22:12)
[2019-03-19] MEDS: FUROSEMIDE 40 MG/4 ML INJECTABLE VIAL IVPUSH SCH (10:22)
[2019-03-19] MEDS: CHOLECALCIFEROL (VIT D3) 1,000 UNIT (25 MCG) TABLET PO SCH (10:22)
--- NOTE | 2019-03-19 10:57 | PN ---
Progress Note (short form) - Note Progress Note: breathing better leg edema improving she is ambulating without SOB Vital Signs - 24 hr 03/18/19 03/18/19 03/18/19 15:00 16:47 21:00 Temperature 98.4 F 98.0 F Pulse Rate 72 71 Respiratory 18 16 16 Rate Blood Pressure 98/58 L 119/63 O2 Sat by Pulse 96 Oximetry (%) 03/18/19 03/19/19 03/19/19 21:49 02:00 06:00 Temperature 97.6 F 97.9 F Pulse Rate 85 79 73 Respiratory 16 18 18 Rate Blood Pressure 106/60 106/68 117/73 O2 Sat by Pulse Oximetry (%) 03/19/19 10:37 Temperature 97.9 F Pulse Rate 73 Respiratory 18 Rate Blood Pressure 119/66 O2 Sat by Pulse Oximetry (%) Current Medications Generic Name Dose Route Start Last Admin Trade Name Freq PRN Reason Stop Dose Admin Alprazolam 0.125 mg 03/15/19 21:18 03/16/19 02:06 Xanax - PO 0.125 mg DAILY PRN Administration ANXIETY Apixaban 5 mg 03/16/19 10:00 03/19/19 10:21 Eliquis - PO 5 mg BID PALAK Administration Cholecalciferol 1,000 unit 03/16/19 10:00 03/19/19 10:22 Vitamin D3 - PO 1,000 unit DAILY PALAK Administration Escitalopram Oxalate 5 mg 03/16/19 10:00 03/19/19 10:21 Lexapro - PO 5 mg DAILY PALAK Administration Furosemide 40 mg 03/16/19 10:00 03/19/19 10:22 Lasix Injection - IVPUSH 40 mg DAILY PALAK Administration Ipratropium [place] 1 amp 03/17/19 11:08 Atrovent 0.02% Nebulizer - NEB 03/24/19 11:08 Q6H PRN DYSPEPSIA Levalbuterol HCl 0.31 mg 03/15/19 20:00 03/18/19 08:53 Xopenex IH 0.31 mg RTID PRN Administration ASTHMA Metoprolol Succinate 25 mg 03/16/19 10:00 03/19/19 10:20 Toprol Xl - PO 25 mg DAILY PALAK Administration Ranitidine HCl 150 mg 03/16/19 10:00 03/19/19 10:20 Zantac - PO Not Given BID PALAK Senna 2 tab 03/17/19 20:55 03/17/19 21:34 Senna - PO 2 tab HS PRN Administration CONSTIPATION Zolpidem Tartrate 5 mg 03/16/19 22:00 Ambien - PO HS PRN INSOMNIA Intake & Output 03/16/19 03/17/19 03/18/19 03/19/19 23:59 23:59 23:59 23:59 Intake Total 1833 826 5357 150 Output Total 300 1700 400 Balance 1340 660 -680 -250 Weight 173 lb 4.992 oz 175 lb 2 oz 175 lb 175 lb 9.6 oz S1 S2 Irregular Lungs clear no crackles+ Abd- soft, NT decreased edema B/L PLAN IV lasix-->change to po torsemide She tell sme that she c/o pain and cramps on po Lasix at home monitor renal function daily advised fluid restriction nebs as needed daily OOB continue with Eliquis echo done --->mildly reduced LV systolic function DC in AM if better Problem List - Problems (1) Afib Code(s): I48.91 - UNSPECIFIED ATRIAL FIBRILLATION (2) Anxiety Code(s): F41.9 - ANXIETY DISORDER, UNSPECIFIED (3) Aortic stenosis Code(s): I35.0 - NONRHEUMATIC AORTIC (VALVE) STENOSIS Qualifiers: Qualified Code(s): I35.0 - Nonrheumatic aortic (valve) stenosis (4) CHF exacerbation Code(s): I50.9 - HEART FAILURE, UNSPECIFIED Qualifiers: Qualified Code(s): I50.23 - Acute on chronic systolic (congestive) heart failure (5) COPD (chronic obstructive pulmonary disease) Code(s): J44.9 - CHRONIC OBSTRUCTIVE PULMONARY DISEASE, UNSPECIFIED Qualifiers: Qualified Code(s): J44.9 - Chronic obstructive pulmonary disease, unspecified (6) Diabetes mellitus Code(s): E11.9 - TYPE 2 DIABETES MELLITUS WITHOUT COMPLICATIONS
--- NOTE | 2019-03-19 11:04 | PN ---
Progress Note (short form) - Note Progress Note: OOB to chair. Breathing feels better. Less SOB. Some improvement in peripheral edema. Intake & Output 03/16/19 03/17/19 03/18/19 03/19/19 23:59 23:59 23:59 23:59 Intake Total 8303 792 5952 150 Output Total 300 1700 400 Balance 1340 660 -680 -250 Weight 173 lb 4.992 oz 175 lb 2 oz 175 lb 175 lb 9.6 oz Last Vital Signs Temp Pulse Resp BP Pulse Ox 97.9 F 73 18 119/66 96 03/19/19 10:37 03/19/19 10:37 03/19/19 10:37 03/19/19 10:37 03/18/19 21:00 Active Medications Alprazolam (Xanax -) 0.125 mg PO DAILY PRN PRN Reason: ANXIETY Last Admin: 03/16/19 02:06 Dose: 0.125 mg Apixaban (Eliquis -) 5 mg PO BID [facility] Last Admin: 03/19/19 10:21 Dose: 5 mg Cholecalciferol (Vitamin D3 -) 1,000 unit PO DAILY [facility] Last Admin: 03/19/19 10:22 Dose: 1,000 unit Escitalopram Oxalate (Lexapro -) 5 mg PO DAILY [facility] Last Admin: 03/19/19 10:21 Dose: 5 mg Furosemide (Lasix Injection -) 40 mg IVPUSH DAILY [facility] Last Admin: 03/19/19 10:22 Dose: 40 mg Ipratropium Calvin (Atrovent 0.02% Nebulizer -) 1 amp NEB Q6H PRN PRN Reason: DYSPEPSIA Stop: 03/24/19 11:08 Levalbuterol HCl (Xopenex) 0.31 mg IH RTID PRN PRN Reason: ASTHMA Last Admin: 03/18/19 08:53 Dose: 0.31 mg Metoprolol Succinate (Toprol Xl -) 25 mg PO DAILY [facility] Last Admin: 03/19/19 10:20 Dose: 25 mg Ranitidine HCl (Zantac -) 150 mg PO BID [facility] Last Admin: 03/19/19 10:20 Dose: Not Given Senna (Senna -) 2 tab PO HS PRN PRN Reason: CONSTIPATION Last Admin: 03/17/19 21:34 Dose: 2 tab Zolpidem Tartrate (Ambien -) 5 mg PO HS PRN PRN Reason: INSOMNIA Constitutional: Yes: Awake and alert, NAD Eyes: Yes: WNL HENT: Yes: Nasal Congestion Neck: Yes: WNL Cardiovascular: Yes: Pulse Irregular, S1, S2 Respiratory: Yes: Diminished Gastrointestinal: Yes: Normal Bowel Sounds, Soft Extremities: Yes: WNL Edema: Yes Labs: Problem List - Problems (1) Afib Code(s): I48.91 - UNSPECIFIED ATRIAL FIBRILLATION Qualifiers: Atrial fibrillation type: chronic (2) Aortic stenosis Code(s): I35.0 - NONRHEUMATIC AORTIC (VALVE) STENOSIS Qualifiers: Cardiac valve disease etiology: etiology unspecified Qualified Code(s): I35.0 - Nonrheumatic aortic (valve) stenosis (3) CHF exacerbation Code(s): I50.9 - HEART FAILURE, UNSPECIFIED Qualifiers: Heart failure type: systolic Qualified Code(s): I50.23 - Acute on chronic systolic (congestive) heart failure (4) COPD (chronic obstructive pulmonary disease) Code(s): J44.9 - CHRONIC OBSTRUCTIVE PULMONARY DISEASE, UNSPECIFIED Qualifiers: COPD type: unspecified COPD Qualified Code(s): J44.9 - Chronic obstructive pulmonary disease, unspecified (5) Breast cancer Code(s): C50.919 - MALIGNANT NEOPLASM OF UNSP SITE OF UNSPECIFIED FEMALE BREAST (6) CVA (cerebral vascular accident) Code(s): I63.9 - CEREBRAL INFARCTION, UNSPECIFIED (7) Lung cancer Code(s): C34.90 - MALIGNANT NEOPLASM OF UNSP PART OF UNSP BRONCHUS OR LUNG Assessment/Plan Suspected CHF Low clinical suspicion of AE of COPD R/O COPD Do not suspect PNA Afib (on Eliquis), CHF (EF 45- 50%), [place] (2001), Mitral Stenosis (s/p Balloon Valvulopathy), HLD, Lung Ca s/p Chemo, L Breast Ca s/p lumpectomy , OA, Vertebral/pelvic Fx s/p osteoporosis, Former Smoke Plan: Lasix Salt restriction Strict I & O Daily weights Supplemental O2 as needed PFTs as an outpatient BD TX PRN No smoking Dr Barr
[2019-03-19] MEDS ORDERED: ACETAMINOPHEN 325 MG TABLET (FP) PO PRN (15:23)
[2019-03-19] MEDS: ALPRAZolam 0.25 MG TABLET PO PRN (22:12)
[2019-03-20] MEDS: RANITIDINE HCL 150 MG TABLET (FP) PO SCH ×2 (02:59→10:28)
[2019-03-20] MEDS ORDERED: TORSEMIDE 20 MG TABLET (FP) PO SCH (10:00)
[2019-03-20] MEDS: ESCITALOPRAM OXALATE 10 MG TABLET (FP) PO SCH (10:27)
--- NOTE | 2019-03-20 10:27 | DS ---
Physical Examination Vital Signs: Vital Signs Temperature 98 F 03/20/19 08:51 Pulse Rate 74 03/20/19 08:51 Respiratory Rate 18 03/20/19 08:51 Blood Pressure 118/64 03/20/19 08:51 O2 Sat by Pulse Oximetry (%) 94 L 03/20/19 08:52 Findings/Remarks: pt seen/ examined chart reviewed awake/ comfortable sitting in chair Breathing stable Denies Cp. Constitutional: Yes: No Distress, Calm Eyes: Yes: Conjunctiva Clear Neck: Yes: Supple Cardiovascular: Yes: Pulse Irregular, Murmur Respiratory: Yes: CTA Bilaterally Gastrointestinal: Yes: Soft Edema: No Neurological: Yes: Alert Psychiatric: Yes: Alert Labs: CBC, BMP 03/18/19 06:28 03/18/19 06:45 Discharge Summary Problems reviewed: Yes Reason For Visit: CHROIC CRISTAL HEART FAILURE/ATRIAL FIB/COPD Current Active Problems Afib (Acute) Anxiety (Acute) Aortic stenosis (Acute) CHF (congestive heart failure) (Acute) CHF exacerbation (Acute) COPD (chronic obstructive pulmonary disease) (Acute) Diabetes mellitus (Acute) Osteoarthritis (Acute) Hospital Course: admitted for chf exac treated with diuretics much better echo-- Severe aortic/ Mitral Valvular disease Cardiology followed Refuses any intervention overall much better stable for d/c but condition gaurded meds reconcilled d/w rn f/u in office one week Pt in agreement Condition: Guarded - Instructions Disposition: HOME - Home Medications Comprehensive Discharge Medication List: Ambulatory Orders Alprazolam [Xanax] 0.125 mg PO HS PRN 07/09/16 Cholecalciferol (Vitamin D3) [Vitamin D3] 5,000 unit PO DAILY 07/09/16 Apixaban [Eliquis -] 5 mg PO BID tablet 07/13/16 Escitalopram Oxalate [Lexapro -] 5 mg PO DAILY tablet 07/13/16 Metoprolol Succinate [Toprol XL -] 25 mg PO DAILY tab.sr.24h 07/13/16 Meclizine HCl [Antivert -] 12.5 mg PO TID #21 tablet 04/19/18 Famotidine [Pepcid] 20 mg PO BID PRN #20 tablet 06/28/18 Acetaminophen [Tylenol .Regular Strength -] 650 mg PO Q6H PRN tablet 03/20/19 Levalbuterol HCl [Xopenex] 0.31 mg IH RTID PRN vial.neb 03/20/19 Sennosides [Senna -] 2 tab PO HS PRN tablet 03/20/19 Torsemide [Demadex -] 60 mg PO DAILY 30 Days #30 tablet 03/20/19
[2019-03-20] MEDS: metoPROLOL SUCCINATE 25 MG TAB.SR.24H (FP) PO SCH (10:29)
[2019-03-20] MEDS: APIXABAN 5 MG TABLET PO SCH (10:29)
[2019-03-20] MEDS: CHOLECALCIFEROL (VIT D3) 1,000 UNIT (25 MCG) TABLET PO SCH (10:29)
--- NOTE | 2019-03-20 10:48 | PN ---
Progress Note (short form) - Note Progress Note: PULMONARY VSS/AFEBRILE NO COMPLAINTS SLATED FOR HOME TODAY OOB TO CHAIR/SPO2 95% R/A ANICTERIC CLEAR B/L LUNG BAEZ S1S2 IRREG BS+ SOFT NONTENDER MINIMAL ANKLE EDEMA LABS/MEDS/NOTES IMAGES REVIEWED CHF improved Low clinical suspicion of AE of COPD Afib (on Eliquis), CHF (EF 45- 50%), [place] (2001), Mitral Stenosis (s/p Balloon Valvulopathy), HLD, Lung Ca s/p Chemo, L Breast Ca s/p lumpectomy , OA, Vertebral/pelvic Fx s/p osteoporosis, Former Smoker Plan: Lasix Salt restriction Daily weights Supplemental O2 as needed PFTs as an outpatient BD TX PRN No smoking No objection to discharge Josh MORELOS MD
[2019-03-20 16:09] VITALS: BP 107/65; PULSE 64; TEMP 98.3
== END 2019-03-20 18:09 | disposition home or self-care (01) | DRG 306 ==
LOC: JER 14:58 → JERBED 18:33 → J4S 20:28
PROVIDERS: ADMIT Internal Medicine; ATTEND Internal Medicine
DX: I08.0 Rheumatic disorders of both mitral and aortic valves (principal); I50.23 Acute on chronic systolic (congestive) heart failure; J44.1 Chronic obstructive pulmonary disease with (acute) exacerbation; C34.90 Malignant neoplasm of unspecified part of unspecified bronchus or lung; I48.20 Chronic atrial fibrillation, unspecified; J44.9 Chronic obstructive pulmonary disease, unspecified; F41.9 Anxiety disorder, unspecified; E78.5 Hyperlipidemia, unspecified; M19.90 Unspecified osteoarthritis, unspecified site; E11.9 Type 2 diabetes mellitus without complications
CPT/HCPCS: 36415; 71046-TC-FY; 80048; 80053; 81003; 81241; 83735; 83880; 84484; 85025; 85610; 93005; 93010; 93306-TC; 97116-GP; 97161-GP; 99285-25

== ENCOUNTER 2019-07-24 23:00 | Inpatient (IN) | payer OTHER, MEDICARE ==
--- NOTE | 2019-07-24 23:48 | PDOC ---
History of Present Illness - General Chief Complaint: Congestive Heart Failure Stated Complaint: SOB Time Seen by Provider: 07/24/19 23:48 History Source: Patient Exam Limitations: No Limitations - History of Present Illness Initial Comments: 07/25/19 00:06 79yF w PMHx lung cancer (completed chemo), a-fib (on eliquis), CHF, aortic/ mitral valve disease presenting w 1d white productive cough, nasal congestion, chills, SOB, and 1w worsening BLE swelling. Didn't take lasix today, been taking amoxicillin at home. Denies fever, nausea/vomiting, chest pain, urinary/ bowel mvmt changes. Past History - Past Medical History Allergies/Adverse Reactions: Allergies Allergy/AdvReac Type Severity Reaction Status Date / Time No Known Allergies Allergy Verified 07/24/19 23:41 Home Medications: Ambulatory Orders Alprazolam [Xanax] 0.125 mg PO HS PRN 07/09/16 Cholecalciferol (Vitamin D3) [Vitamin D3] 5,000 unit PO DAILY 07/09/16 Apixaban [Eliquis -] 5 mg PO BID tablet 07/13/16 Escitalopram Oxalate [Lexapro -] 5 mg PO DAILY tablet 07/13/16 Metoprolol Succinate [Toprol XL -] 25 mg PO DAILY tab.sr.24h 07/13/16 Meclizine HCl [Antivert -] 12.5 mg PO TID #21 tablet 04/19/18 Famotidine [Pepcid] 20 mg PO BID PRN #20 tablet 06/28/18 Acetaminophen [Tylenol .Regular Strength -] 650 mg PO Q6H PRN tablet 03/20/19 Levalbuterol HCl [Xopenex] 0.31 mg IH RTID PRN vial.neb 03/20/19 Sennosides [Senna -] 2 tab PO HS PRN tablet 03/20/19 Torsemide [Demadex -] 60 mg PO DAILY 30 Days #30 tablet 03/20/19 Anemia: No Asthma: No Cancer: Yes (breast/LUNG CA, chemotherapy) Cardiac Disorders: Yes (AFib; H/O RI 2001; rheumatic fever causing mitral valve stenosis that was r) CVA: Yes COPD: Yes CHF: Yes Dementia: No Diabetes: No GI Disorders: Yes (Gastritis) Disorders: No HTN: No Hypercholesterolemia: Yes Liver Disease: No Seizures: No Thyroid Disease: Yes (BENIGN TUMOR) - Surgical History Abdominal Surgery: Yes (HERNIA LEFT INGUINAL REPAIR) Appendectomy: No Cardiac Surgery: Yes (mitral valve "opening") Cholecystectomy: No Lung Surgery: No Neurologic Surgery: No Orthopedic Surgery: No (COMPRESSION FX LUMBAR) - Psycho Social/Smoking Cessation Hx Smoking Status: No Smoking History: Former smoker Have you smoked in the past 12 months: No Number of Cigarettes Smoked Daily: 0 If you are a former smoker, when did you quit?: 40 years ago Information on smoking cessation initiated: No Hx Alcohol Use: No Drug/Substance Use Hx: No Substance Use Type: None Hx Substance Use Treatment: No Review of Systems - Review of Systems Constitutional: Yes: Chills. No: Fever HEENTM: Yes: Nose Congestion. No: Eye Pain, Throat Pain Respiratory: Yes: Cough, Shortness of Breath Cardiac (ROS): No: Chest Pain, Palpitations ABD/GI: No: Abdominal Distended, Constipated, Diarrhea, Nausea, Vomiting : No: Burning, Dysuria Musculoskeletal: No: Back Pain, Joint Pain Integumentary: No: Bruising, Flushing Neurological: No: Headache, Seizure Psychiatric: No: Anxiety, Depression Endocrine: No: Intolerance to Cold, Intolerance to Heat Hematologic/Lymphatic: No: Anemia, Blood Clots *Physical Exam - Vital Signs Last Vital Signs Temp Pulse Resp BP Pulse Ox 98.0 F 98 H 22 H 94/53 L 95 07/24/19 23:36 07/24/19 23:36 07/24/19 23:36 07/24/19 23:36 07/24/19 23:36 - Physical Exam General Appearance: Yes: Nourished, Appropriately Dressed, Mild Distress HEENT: positive: EOMI, AIYANA, Normal Voice, Hearing Grossly Normal. negative: Scleral Icterus (R), Scleral Icterus (L) Respiratory/Chest: positive: Rapid RR, Crackles (uli lower lungs). negative: Chest Tender, Rhonchi, Stridor, Wheezing Cardiovascular: positive: Regular Rhythm, Regular Rate, S1, S2. 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 negative: Confused, Disoriented ED Treatment Course - LABORATORY CBC & Chemistry Diagram: 07/25/19 00:40 07/25/19 00:40 Medical Decision Making - Medical Decision Making 07/25/19 00:07 CXR - uli pulm congestion, possible LLL consolidation EKG - afib w RVR, HR 101, QTc 417, no ST changes WBC 16 w left shift, BNP 2900 --- 79yF w PMHx lung cancer (completed chemo), a-fib (on eliquis), CHF, aortic/ mitral valve disease presenting w 1d white productive cough, nasal congestion, chills, SOB, and 1w worsening BLE swelling d/t CHF exacerbation and LLL CAP. Low concern for flu (neg) vs ACS (neg trop) Given 40 lasix, aizthromycin, rocephin. On 4L NC Admitted tele Dr Ariza for CHF exacerbation, PNA, acute respiratory failure requiring supplemental O2 PCP Dave Discharge - Discharge Information Problems reviewed: Yes Clinical Impression/Diagnosis: CHF exacerbation Qualifiers: Heart failure type: unspecified Qualified Code(s): I50.9 - Heart failure, unspecified CAP (community acquired pneumonia) Qualifiers: Laterality: left Lung location: lower lobe of lung Qualified Code(s): J18.9 - Pneumonia, unspecified organism Acute respiratory failure Qualifiers: Respiratory failure complication: hypoxia Qualified Code(s): J96.01 - Acute respiratory failure with hypoxia Condition: Improved - Follow up/Referral Referrals: Cate Acosta MD [Primary Care Provider] - - Patient Discharge Instructions - Post Discharge Activity
[2019-07-24] MEDS ORDERED: FUROSEMIDE 40 MG/4 ML INJECTABLE VIAL IVPUSH ONE (23:58)
--- NOTE | 2019-07-25 00:07 | PDOC ---
Attending Attestation - Resident Resident Name: WendyEdward - ED Attending Attestation I have performed the following: I have examined & evaluated the patient, The case was reviewed & discussed with the resident, I agree w/resident's findings & plan - HPI HPI: 07/25/19 01:24 Pt comes with sob, she has a hx of CHF. Afebrile but she has been taking amoxicillin at home She has cough and cold and flu like symptoms also. - Physicial Exam PE: 07/25/19 01:25 Lungs decreased BS bilaterally, but air exchange can be appreciated. Heart S1S2 irregularly irregular Abd soft NT ND + BS no flank pain Pt has pitting edema of her legs bilaterally Pt has no neuro deficits. She is able to ambulate to and from the bathroom. - Medical Decision Making 07/25/19 01:06 FLU negative; WBC is 16 with left shift. Pt has no fever, she took amoxil at home. She will be placed on ceftriaxone and zithromax here, as she has increased markings on her CXR. 07/25/19 01:24 BNP 2900s
[2019-07-25] MEDS ORDERED: FUROSEMIDE 40 MG/4 ML INJECTABLE VIAL ONE (00:41)
[2019-07-25 00:49] LABS: BASO % 0.6 % (0-2.0); EOS % 0.3 % (0-4.5); HEMATOCRIT 42.8 % (32.4-45.2); HEMOGLOBIN 14.3 GM/dL (10.7-15.3); LYMPH % 5.6 % (8-40); MCH 31.9 pg (25.7-33.7); MCHC 33.4 g/dl (32.0-36.0); MEAN CELL VOLUME 95.5 fl (80-96); MEAN PLT VOLUME 7.8 fl (7.5-11.1); MONO % 4.1 % (3.8-10.2); NEUT % 89.4 % (42.8-82.8); PLATELET COUNT 264 K/MM3 (134-434); RBC 4.48 M/mm3 (3.60-5.2); RDW 14.1 % (11.6-15.6)
[2019-07-25] MEDS ORDERED: CEFTRIAXONE 1 GM in DEXTROSE 5%-WATER - 100 ML IVPB ONE (00:55)
[2019-07-25] MEDS ORDERED: AZITHROMYCIN IVPB 500 MG in DEXTROSE 5%-WATER - 250 ML IVPB ONE (00:56)
[2019-07-25] MEDS ORDERED: CEFTRIAXONE 1 GM/50 ML BAG ONE (01:06)
[2019-07-25] MEDS ORDERED: AZITHROMYCIN IVPB 500 MG/250 ML BAG IVPB ONE (01:07)
[2019-07-25 01:17] LABS: ALBUMIN 3.5 g/dl (3.4-5.0); BILIRUBIN,TOTAL 0.9 mg/dL (0.2-1); CALCIUM 8.8 mg/dL (8.5-10.1); CREATININE 0.7 mg/dL (0.55-1.3); POTASSIUM 4.4 mmol/L (3.5-5.1); TOT PROT 6.8 g/dl (6.4-8.2)
[2019-07-25 01:19] LABS: N-TERMINAL BNP 2962.9 pg/ml (5-450)
--- NOTE | 2019-07-25 02:32 | HP ---
Admitting History and Physical - Primary Care Physician PCP: Cate Acosta - Admission Chief Complaint: SOB, Cough, Chills, LE Edema History of Present Illness: This is a 79 y/o woman with a significant medical history of Lung Ca (completed chemo >6 mos ago), Afib (on eliquis), CHF, Atrial/Mitral Valve Disease. Who presents to the ED with SOB, productive cough, congestion, chills, and LE edema x 1 week. Patient missed her dose of Lasix., and at times does not take it secondary to feeling dehydrated. Home Appliance Technician: Dr. 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 No: Alzheimer's, CVA, Dementia, Migraine, Multiple Sclerosis, Peripheral Neuropathy, Parkinson's, Seizure, Syncope, Vertigo, Other Cardiovascular: Yes: AFIB, Aortic Insufficiency, CHF, HTN, Hyperlipdemia, [place], Mitral Stenosis Pulmonary: Yes: Cancer Gastrointestinal: Yes: Gastritis Heme/Onc: Yes: Cancer (lung ca) Musculoskeletal: Yes: Osteoarthritis Endocrine: Yes: Diabetes Mellitus - Past Surgical History Past Surgical History: Yes: Hernia Repair - Smoking History Smoking history: Former smoker Have you smoked in the past 12 months: No Aproximately how many cigarettes per day: 0 If you are a former smoker, when did you quit?: 40 years ago - Alcohol/Substance Use Hx Alcohol Use: No History of Substance Use: reports: None - Social History Usual Living Arrangement: Yes: With Child ADL: Independent History of Recent Travel: No Home Medications - Allergies Allergies/Adverse Reactions: Allergies Allergy/AdvReac Type Severity Reaction Status Date / Time No Known Allergies Allergy Verified 07/24/19 23:41 - Home Medications Home Medications: Ambulatory Orders Alprazolam [Xanax] 0.125 mg PO HS PRN 07/09/16 Cholecalciferol (Vitamin D3) [Vitamin D3] 5,000 unit PO DAILY 07/09/16 Apixaban [Eliquis -] 5 mg PO BID tablet 07/13/16 Escitalopram Oxalate [Lexapro -] 5 mg PO DAILY tablet 07/13/16 Metoprolol Succinate [Toprol XL -] 25 mg PO DAILY tab.sr.24h 07/13/16 Meclizine HCl [Antivert -] 12.5 mg PO TID #21 tablet 04/19/18 Famotidine [Pepcid] 20 mg PO BID PRN #20 tablet 06/28/18 Acetaminophen [Tylenol .Regular Strength -] 650 mg PO Q6H PRN tablet 03/20/19 Levalbuterol HCl [Xopenex] 0.31 mg IH RTID PRN vial.neb 03/20/19 Sennosides [Senna -] 2 tab PO HS PRN tablet 03/20/19 Torsemide [Demadex -] 60 mg PO DAILY 30 Days #30 tablet 03/20/19 Family Medical History Family History: Unable to Obtain Review of Systems - Review of Systems Constitutional: reports: Chills, Weakness Eyes: reports: No Symptoms HENT: reports: No Symptoms Neck: reports: No Symptoms Cardiovascular: reports: Edema, Shortness of Breath Respiratory: reports: Cough, SOB, SOB on Exertion Gastrointestinal: reports: No Symptoms Genitourinary: reports: No Symptoms Breasts: reports: No Symptoms Reported Musculoskeletal: reports: No Symptoms Integumentary: reports: No Symptoms Neurological: reports: Weakness Endocrine: reports: No Symptoms Hematology/Lymphatic: reports: No Symptoms Psychiatric: reports: No Symptoms Physical Examination Vital Signs: Vital Signs Temperature 98.0 F 07/24/19 23:36 Pulse Rate 98 H 07/24/19 23:36 Respiratory Rate 22 H 07/24/19 23:36 Blood Pressure 117/43 L 07/25/19 00:46 O2 Sat by Pulse Oximetry (%) 95 07/24/19 23:36 Constitutional: Yes: Anxious, Mild Distress Eyes: Yes: WNL, Conjunctiva Clear, EOM Intact, PERRL HENT: Yes: WNL, Atraumatic, Normocephalic Neck: Yes: WNL, Supple, Trachea Midline Cardiovascular: Yes: Pulse Irregular, Murmur, S1, S2 Respiratory: Yes: Diminished, On Nasal O2, Rhonchi, SOB, SOB on Exertion Gastrointestinal: Yes: WNL, Normal Bowel Sounds, Soft ...Rectal Exam: Yes: Deferred Renal/: Yes: WNL Breast(s): Yes: WNL Musculoskeletal: Yes: WNL Extremities: Yes: WNL Edema: Yes Edema: LLE: 2+, RLE: 2+ Peripheral Pulses WNL: Yes Neurological: Yes: Alert, Oriented, Cran Nerves II-XII Intact ...Motor Strength: WNL Psychiatric: Yes: WNL, Alert, Oriented Labs: CBC, BMP 07/25/19 00:40 07/25/19 00:40 Laboratory Results - last 24 hr 07/25/19 07/25/19 07/25/19 00:04 00:40 00:40 WBC 16.0 H RBC 4.48 Hgb 14.3 Hct 42.8 MCV 95.5 MCH 31.9 MCHC 33.4 RDW 14.1 Plt Count 264 MPV 7.8 Absolute Neuts (auto) 14.3 H Neutrophils % 89.4 H Lymphocytes % 5.6 L D Monocytes % 4.1 Eosinophils % 0.3 Basophils % 0.6 Nucleated RBC % 0 Sodium 141 Potassium 4.4 Chloride 112 H Carbon Dioxide 20 L Anion Gap 9 BUN 19.0 H Creatinine 0.7 Est GFR (CKD-EPI)AfAm 94.84 Est GFR (CKD-EPI)NonAf 81.83 Random Glucose 117 H Calcium 8.8 Total Bilirubin 0.9 AST 32 ALT 30 Alkaline Phosphatase 66 Creatine Kinase Troponin I B-Natriuretic Peptide Total Protein 6.8 Albumin 3.5 Influenza A (Rapid) Negative Influenza B (Rapid) Negative 07/25/19 00:40 WBC RBC Hgb Hct MCV MCH MCHC RDW Plt Count MPV Absolute Neuts (auto) Neutrophils % Lymphocytes % Monocytes % Eosinophils % Basophils % Nucleated RBC % Sodium Potassium Chloride Carbon Dioxide Anion Gap BUN Creatinine Est GFR (CKD-EPI)AfAm Est GFR (CKD-EPI)NonAf Random Glucose Calcium Total Bilirubin AST ALT Alkaline Phosphatase Creatine Kinase 37 Troponin I < 0.02 B-Natriuretic Peptide 2962.9 H Total Protein Albumin Influenza A (Rapid) Influenza B (Rapid) Intake & Output 07/22/19 07/23/19 07/24/19 07/25/19 23:59 23:59 23:59 23:59 Weight 150 kg 78.653 kg Current Medications Generic Name Dose Route Start Last Admin Trade Name Freq PRN Reason Stop Dose Admin Apixaban 5 mg 07/25/19 10:00 Eliquis - PO BID PALAK Escitalopram Oxalate 5 mg 07/25/19 10:00 Lexapro - PO DAILY PALAK Famotidine 20 mg 07/25/19 06:23 Pepcid - PO BID PRN GERD Furosemide 40 mg 07/25/19 10:00 Lasix Injection - IVPUSH DAILY [facility] Azithromycin 500 mg in 250 mls @ 250 mls/hr 07/26/19 10:00 Zithromax 500mg Ivpb (Pre-Docked) IVPB DAILY [facility] Ceftriaxone Sodium 1 gm/ 50 mls @ 200 mls/hr 07/26/19 10:00 Dextrose IVPB DAILY [facility] Protocol Metoprolol Succinate 25 mg 07/25/19 10:00 Toprol Xl - PO DAILY PALAK Senna 2 tab 07/25/19 06:23 Senna - PO HS PRN CONSTIPATION Imaging - Results Chest X-ray: Image Reviewed EKG: Image Reviewed Problem List - Problems (1) Acute on chronic diastolic CHF (congestive heart failure) Assessment/Plan: Likely secondary to missed medications Chest Xray- congestive changes with ?LLL Infiltrate BNP 2962 Lasix given in ED will continue Strict INOs Daily weight Appreciate Cardiology consult Last Echo 03/18/19 report- lv- mildly dilated, lvsf- mildly reduced, la-severely dilated, mod-severe mv thickening, severe tr Continue home meds Monitor CBC, BMP Continue cardiac monitoring Code(s): I50.33 - ACUTE ON CHRONIC DIASTOLIC (CONGESTIVE) HEART FAILURE (2) CAP (community acquired pneumonia) Assessment/Plan: Will treat for CAP CURB65- 3 Blood Cultures-pending Urine Culture-pending Urine Legionella Chest Xray- LLL Infiltrate WBC 16.0 with L shift Rapid Influenza- neg A+B Ceftriaxone, Azithromycin given in ED, will continue Consider ID consult if condition worsens Monitor CBC, BMP Monitor vitals Tylenol prn O2 Code(s): J18.9 - PNEUMONIA, UNSPECIFIED ORGANISM Qualifiers: Laterality: left Lung location: lower lobe of lung Qualified Code(s): J18.9 - Pneumonia, unspecified organism (3) COPD (chronic obstructive pulmonary disease) Assessment/Plan: Will treat for Acute on chronic COPD Flare likely secondary to fluid overload vs pneumonia Chest Xray- reviewed Continue Xopenex Albuterol prn Appreciate Pulm consult O2 Code(s): J44.9 - CHRONIC OBSTRUCTIVE PULMONARY DISEASE, UNSPECIFIED Qualifiers: COPD type: unspecified COPD Qualified Code(s): J44.9 - Chronic obstructive pulmonary disease, unspecified (4) Afib Assessment/Plan: [id number] EKG- reviewed Continue Eliquis, Metoprolol with parameters Monitor vitals Code(s): I48.91 - UNSPECIFIED ATRIAL FIBRILLATION Qualifiers: Atrial fibrillation type: chronic (5) Anxiety Assessment/Plan: Stable Continue Xanax prn Monitor vitals Code(s): F41.9 - ANXIETY DISORDER, UNSPECIFIED (6) Diabetes mellitus Assessment/Plan: stable BGMs ISS No current home meds Monitor BMP Code(s): E11.9 - TYPE 2 DIABETES MELLITUS WITHOUT COMPLICATIONS (7) Lung cancer Assessment/Plan: s/p Chemotherapy completion 6 months ago f/u with Oncology outpatient as indicated Code(s): C34.90 - MALIGNANT NEOPLASM OF UNSP PART OF UNSP BRONCHUS OR LUNG (8) Aortic stenosis Assessment/Plan: stable Continue Lasix, Metoprolol with parameters Monitor vitals Monitor BMP Code(s): I35.0 - NONRHEUMATIC AORTIC (VALVE) STENOSIS Qualifiers: Cardiac valve disease etiology: etiology unspecified Qualified Code(s): I35.0 - Nonrheumatic aortic (valve) stenosis (9) Mitral stenosis Assessment/Plan: s/p mitral balloon valvuloplasty Code(s): I05.0 - RHEUMATIC MITRAL STENOSIS Qualifiers: Cardiac valve disease etiology: rheumatic Qualified Code(s): I05.0 - Rheumatic mitral stenosis Assessment/Plan This is a 79 y/o woman with a significant medical history of Lung Ca (completed chemo >6 mos ago), Afib (on eliquis), CHF, Atrial/Mitral Valve Disease. Admitted to Telemetry for Acute on Chronic CHF, Pneumonia for further evaluation of their emergent condition. Plan: See Problem List FEN Fluid Restriction 1L Replete lytes prn Low Na Diet DVT ppx OOB SCDs Continue Eliquis Dispo: Requires Inpatient Care Visit type - Emergency Visit Emergency Visit: Yes ED Registration Date: 07/25/19 Care time: The patient presented to the Emergency Department on the above date and was hospitalized for further evaluation of their emergent condition. - New Patient This patient is new to me today: Yes Date on this admission: 07/25/19 - Critical Care Critical Care patient: No
[2019-07-25] MEDS ORDERED: FAMOTIDINE 20 MG TABLET PO PRN (06:23)
[2019-07-25] MEDS: metoPROLOL SUCCINATE 25 MG TAB.SR.24H (FP) PO SCH (10:48)
[2019-07-25] MEDS: FUROSEMIDE 40 MG/4 ML INJECTABLE VIAL IVPUSH SCH (10:48)
[2019-07-25] MEDS: APIXABAN 5 MG TABLET PO SCH ×2 (10:48→22:34)
[2019-07-25] MEDS: SENNOSIDES 8.6MG TABLET (FP) PO PRN (10:48)
[2019-07-25] MEDS: ESCITALOPRAM OXALATE 10 MG TABLET PO SCH (10:48)
[2019-07-25] MEDS ORDERED: ALBUTEROL SO4 2.5/IPRATROPIUM 0.5 INH SOL 3 ML VIAL.NEB. NEB PRN (11:02)
--- NOTE | 2019-07-25 11:45 | PN ---
Progress Note (short form) - Note Progress Note: ID consult dictated imp/reccd 2-3 days of cough, runny nose, worsening fatigue brought to ED last night by ambulance wbc 16k cxray- ?retrocardiac infiltrate took amox for one day history afib history lung cancer- has stopped treatment- history breast cancer- s/p lumpectomy probable pneumonia chf exacerbation afib continue rocephin/zithromax cultures urinary antigens chest ct d/w PMD Problem List - Problems (1) CAP (community acquired pneumonia) Code(s): J18.9 - PNEUMONIA, UNSPECIFIED ORGANISM Qualifiers: Laterality: left Lung location: lower lobe of lung Qualified Code(s): J18.9 - Pneumonia, unspecified organism (2) CHF exacerbation Code(s): I50.9 - HEART FAILURE, UNSPECIFIED Qualifiers: Heart failure type: unspecified Qualified Code(s): I50.9 - Heart failure, unspecified (3) Afib Code(s): I48.91 - UNSPECIFIED ATRIAL FIBRILLATION Qualifiers: Atrial fibrillation type: chronic
[2019-07-25] MEDS ORDERED: MAGNESIUM CITRATE 300 ML BOTTLE PO ONE (12:08)
--- NOTE | 2019-07-25 12:08 | PN ---
Progress Note (short form) - Note Progress Note: SOB + Coughing+ feels tired no chest pain events noted Vital Signs - 24 hr 07/24/19 07/25/19 07/25/19 23:36 00:46 04:45 Temperature 98.0 F 99.1 F Pulse Rate 98 H 92 H Respiratory 22 H 20 Rate Blood Pressure 94/53 L 112/66 Blood Pressure 117/43 L [Right Arm] O2 Sat by Pulse 95 96 Oximetry (%) 07/25/19 07/25/19 09:00 10:21 Temperature 98.9 F Pulse Rate 70 Respiratory 20 20 Rate Blood Pressure 102/70 Blood Pressure [Right Arm] O2 Sat by Pulse 93 L Oximetry (%) Current Medications Generic Name Dose Route Start Last Admin Trade Name Freq PRN Reason Stop Dose Admin Albuterol/Ipratropium 1 amp 07/25/19 11:02 Duoneb - NEB Q4H PRN SHORTNESS OF BREATH Apixaban 5 mg 07/25/19 10:00 07/25/19 10:48 Eliquis - PO 5 mg BID PALAK Administration Escitalopram Oxalate 5 mg 07/25/19 10:00 07/25/19 10:48 Lexapro - PO 5 mg DAILY PALAK Administration Famotidine 20 mg 07/25/19 06:23 Pepcid - PO BID PRN GERD Furosemide 40 mg 07/25/19 10:00 07/25/19 10:48 Lasix Injection - IVPUSH 40 mg DAILY PALAK Administration Azithromycin 500 mg in 250 mls @ 250 mls/hr 07/26/19 10:00 Zithromax 500mg Ivpb (Pre-Docked) IVPB DAILY PALAK Ceftriaxone Sodium 1 gm/ 50 mls @ 200 mls/hr 07/26/19 10:00 Dextrose IVPB DAILY [facility] Protocol Meclizine HCl 12.5 mg 07/25/19 12:50 Antivert - PO Q6H PRN VERTIGO Metoprolol Succinate 25 mg 07/25/19 10:00 07/25/19 10:48 Toprol Xl - PO 25 mg DAILY PALAK Administration Senna 2 tab 07/25/19 06:23 07/25/19 10:48 Senna - PO 2 tab HS PRN Administration CONSTIPATION Laboratory Results - last 24 hr 07/25/19 07/25/19 07/25/19 00:04 00:40 00:40 WBC 16.0 H RBC 4.48 Hgb 14.3 Hct 42.8 MCV 95.5 MCH 31.9 MCHC 33.4 RDW 14.1 Plt Count 264 MPV 7.8 Absolute Neuts (auto) 14.3 H Neutrophils % 89.4 H Lymphocytes % 5.6 L D Monocytes % 4.1 Eosinophils % 0.3 Basophils % 0.6 Nucleated RBC % 0 Sodium 141 Potassium 4.4 Chloride 112 H Carbon Dioxide 20 L Anion Gap 9 BUN 19.0 H Creatinine 0.7 Est GFR (CKD-EPI)AfAm 94.84 Est GFR (CKD-EPI)NonAf 81.83 Random Glucose 117 H Calcium 8.8 Total Bilirubin 0.9 AST 32 ALT 30 Alkaline Phosphatase 66 Creatine Kinase Troponin I B-Natriuretic Peptide Total Protein 6.8 Albumin 3.5 Influenza A (Rapid) Negative Influenza B (Rapid) Negative 07/25/19 00:40 WBC RBC Hgb Hct MCV MCH MCHC RDW Plt Count MPV Absolute Neuts (auto) Neutrophils % Lymphocytes % Monocytes % Eosinophils % Basophils % Nucleated RBC % Sodium Potassium Chloride Carbon Dioxide Anion Gap BUN Creatinine Est GFR (CKD-EPI)AfAm Est GFR (CKD-EPI)NonAf Random Glucose Calcium Total Bilirubin AST ALT Alkaline Phosphatase Creatine Kinase 37 Troponin I < 0.02 B-Natriuretic Peptide 2962.9 H Total Protein Albumin Influenza A (Rapid) Influenza B (Rapid) S1 S2 Irregular Lungs crackles + Abd- soft, NT edema++ PLAN ?Pneumonia, bronchitis -- on iv antibiotics -- spoke with ID -- reviewed CXR -- will order CT chest - no contrast -- urine antigens -- Influenza negative Afib -- rate controlled -- on Eliquis CHF -- clinically in failure now -- on lasix iv -- monitor renal function -- spoke with Cardiology Lung CA Breast CA --- she stopped oral chemo about 6 months ago-- does not want to follow up with oncologist at [facility] - she is refusing further chemo for lung CA family aware Problem List - Problems (1) Acute on chronic diastolic CHF (congestive heart failure) Code(s): I50.33 - ACUTE ON CHRONIC DIASTOLIC (CONGESTIVE) HEART FAILURE (2) CAP (community acquired pneumonia) Code(s): J18.9 - PNEUMONIA, UNSPECIFIED ORGANISM Qualifiers: Laterality: left Lung location: lower lobe of lung Qualified Code(s): J18.9 - Pneumonia, unspecified organism (3) Afib Code(s): I48.91 - UNSPECIFIED ATRIAL FIBRILLATION Qualifiers: Atrial fibrillation type: chronic (4) Aortic stenosis Code(s): I35.0 - NONRHEUMATIC AORTIC (VALVE) STENOSIS Qualifiers: Cardiac valve disease etiology: etiology unspecified Qualified Code(s): I35.0 - Nonrheumatic aortic (valve) stenosis (5) CHF (congestive heart failure) Code(s): I50.9 - HEART FAILURE, UNSPECIFIED (6) Lung cancer Code(s): C34.90 - MALIGNANT NEOPLASM OF UNSP PART OF UNSP BRONCHUS OR LUNG
--- NOTE | 2019-07-25 12:18 | CON.CARD ---
Consult Consult Specialty:: cardiology Reason for Consultation:: SOB; hx systolic CHF; severe MS and vavlular disease; AF - History of Present Illness Chief Complaint: Pt A&Ox3; sitting up at bedside; felt weak and was coughing at home; improved now. History of Present Illness: 79 yr old white woman w PMHx lung cancer (completed chemo), a-fib (on eliquis), systolic (mildly reduced LVEF) CHF, severe aortic/mitral valve stenosis (s/p mitral balloon valvuloplasty 2006 at [facility]), anxiety, presenting w 1d white productive cough, nasal congestion, chills, SOB, and 1w worsening BLE swelling. Pt did not take lasix today, been taking amoxicillin at home. Denies fever, nausea/vomiting, chest pain, urinary/bowel mvmt changes. 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 No: Alzheimer's, CVA, Dementia, Migraine, Multiple Sclerosis, Peripheral Neuropathy, Parkinson's, Seizure, Syncope, Vertigo, Other Cardio/Vascular: Yes: AFIB, Aortic Insufficiency, CHF, HTN, Hyperlipdemia, [place], Mitral Stenosis Pulmonary: Yes: Cancer Gastrointestinal: Yes: Gastritis Renal/: No: Renal Failure Reproductive: Yes: Postmenopausal ...: No Heme/Onc: No: Anemia Psych: Yes: Anxiety Musculoskeletal: Yes: Osteoarthritis Endocrine: Yes: Diabetes Mellitus - Past Surgical History Past Surgical History: Yes: Hernia Repair Additional Surgical History: mitral valve balloon valvuloplasty 2006 - Alcohol/Substance Use Hx Alcohol Use: No History of Substance Use: reports: None - Smoking History Smoking history: Former smoker Have you smoked in the past 12 months: No Aproximately how many cigarettes per day: 0 If you are a former smoker, when did you quit?: 40 years ago - Social History ADL: Independent History of Recent Travel: No Home Medications - Allergies Allergies/Adverse Reactions: Allergies Allergy/AdvReac Type Severity Reaction Status Date / Time No Known Allergies Allergy Verified 07/24/19 23:41 - Home Medications Home Medications: Ambulatory Orders Alprazolam [Xanax] 0.125 mg PO HS PRN 07/09/16 Cholecalciferol (Vitamin D3) [Vitamin D3] 5,000 unit PO DAILY 01/23/17 Apixaban [Eliquis -] 5 mg PO BID tablet 07/13/16 Escitalopram Oxalate [Lexapro -] 5 mg PO DAILY tablet 07/13/16 Metoprolol Succinate [Toprol XL -] 25 mg PO DAILY tab.sr.24h 07/13/16 Meclizine HCl [Antivert -] 12.5 mg PO TID #21 tablet 04/19/18 Famotidine [Pepcid] 20 mg PO BID PRN #20 tablet 06/28/18 Acetaminophen [Tylenol .Regular Strength -] 650 mg PO Q6H PRN tablet 03/20/19 Levalbuterol HCl [Xopenex] 0.31 mg IH RTID PRN vial.neb 03/20/19 Sennosides [Senna -] 2 tab PO HS PRN tablet 03/20/19 Torsemide [Demadex -] 60 mg PO DAILY 30 Days #30 tablet 03/20/19 Family Medical History Family History: Denies Review of Systems - Review of Systems Constitutional: reports: No Symptoms Eyes: reports: No Symptoms HENT: reports: No Symptoms Neck: reports: No Symptoms Cardiovascular: reports: No Symptoms, Shortness of Breath Respiratory: reports: SOB Gastrointestinal: reports: No Symptoms Genitourinary: reports: No Symptoms Breasts: reports: No Symptoms Reported Musculoskeletal: reports: No Symptoms Integumentary: reports: No Symptoms Neurological: reports: No Symptoms Endocrine: reports: No Symptoms Hematology/Lymphatic: reports: No Symptoms Psychiatric: reports: Anxiety - Risk Factors Known Risk Factors: Yes: Age, Hypertension, Physical Inactivity, Other (severe mitral and aortic valve stenoses) Vital Signs: Vital Signs Temperature 99.1 F 07/25/19 04:45 Pulse Rate 92 H 07/25/19 04:45 Respiratory Rate 20 07/25/19 04:45 Blood Pressure 112/66 07/25/19 04:45 O2 Sat by Pulse Oximetry (%) 96 07/25/19 04:45 Constitutional: Yes: Calm Eyes: Yes: WNL HENT: Yes: WNL Neck: Yes: WNL Respiratory: Yes: Diminished Gastrointestinal: Yes: WNL Renal/: No: Anuria Cardiovascular: Yes: Tachycardia, Pulse Irregular JVD: No Carotid Bruit: No PMI: Non-Displaced Heart Sounds: Yes: S1 (varies in intensity), S2 Murmur: Yes: Systolic Murmur, Grade 3 Musculoskeletal: Yes: Muscle Weakness Extremities: Yes: Cool Edema: No Peripheral Pulses WNL: Yes Integumentary: Yes: WNL Neurological: Yes: Alert, Oriented, Weakness Psychiatric: Yes: Alert, Oriented - Other Data Labs, Other Data: CBC, BMP 07/25/19 00:40 07/25/19 00:40 Troponin, BNP 07/25/19 00:40 Troponin I < 0.02 B-Natriuretic Peptide 2962.9 H Troponin, BNP 07/25/19 00:40 Troponin I < 0.02 B-Natriuretic Peptide 2962.9 H Ejection Fraction %: LVEF > or = 40 % Imaging - Results Chest X-ray: Image Reviewed EKG: Image Reviewed Problem List - Problems (1) Pneumonia Assessment/Plan: LLL pneumonia. Antibiotics per iD Maintain fluids. Code(s): J18.9 - PNEUMONIA, UNSPECIFIED ORGANISM (2) Acute on chronic diastolic CHF (congestive heart failure) Code(s): I50.33 - ACUTE ON CHRONIC DIASTOLIC (CONGESTIVE) HEART FAILURE (3) Acute respiratory failure Code(s): J96.00 - ACUTE RESPIRATORY FAILURE, UNSP W HYPOXIA OR HYPERCAPNIA Qualifiers: Respiratory failure complication: hypoxia Qualified Code(s): J96.01 - Acute respiratory failure with hypoxia (4) Afib Code(s): I48.91 - UNSPECIFIED ATRIAL FIBRILLATION Qualifiers: Atrial fibrillation type: chronic (5) Anxiety Code(s): F41.9 - ANXIETY DISORDER, UNSPECIFIED (6) Aortic stenosis Assessment/Plan: severe MS; moderately severe ; mildly reduced LVEF on 03/2019 ECHO. Code(s): I35.0 - NONRHEUMATIC AORTIC (VALVE) STENOSIS Qualifiers: Cardiac valve disease etiology: etiology unspecified Qualified Code(s): I35.0 - Nonrheumatic aortic (valve) stenosis (7) Lung cancer Assessment/Plan: F/U with oncologist. Code(s): C34.90 - MALIGNANT NEOPLASM OF UNSP PART OF UNSP BRONCHUS OR LUNG
--- NOTE | 2019-07-25 12:45 | CONS ---
DATE OF CONSULTATION: DATE OF DICTATION: 07/25/2019 This is an 79-year-old woman with a past medical history of lung cancer, atrial fibrillation, and CHF. She presents to the ER with a 2- to 3-day history of cough and runny nose that has been worsening. She developed weakness. She denies having any fevers. She started taking amoxicillin which she has had at home yesterday with no improvement. She called her son, who called EMS and she was brought to the hospital. She notes as well she has had progressive lower extremity edema of her leg. PAST MEDICAL HISTORY: Notable for TIA, atrial fibrillation, aortic insufficiency, CHF, hypertension, hyperlipidemia. She is status post [place], mitral stenosis. She has a history of lung cancer. She was getting on a chemo pill that had stopped working over the summer, and she elected to discontinue her chemotherapy. She has a history of gastritis as well, osteoarthritis, and diabetes. PAST SURGICAL HISTORY: Notable for hernia repair, and she has had a left breast lumpectomy for breast cancer. SOCIAL HISTORY: She is a former smoker. She quit 40 years ago. There is no history of alcohol or substance use. She lives alone. She does not use any oxygen at home. ALLERGIES: She has no known drug allergies. MEDICATIONS: Her medications at home include meclizine, Xopenex inhaler, Pepcid, Lexapro, vitamin D, Eliquis, Xanax, Demadex, senna, and Toprol-XL. She received her influenza vaccine this year, and there is no history of any travel. PHYSICAL EXAMINATION: Vital Signs: Her temperature is 99.1. That is her T-max. Pulse is 92, blood pressure 112/66. Respiratory rate is 20. She is wearing 3 L of oxygen and she is mildly dyspneic. General: She is alert and oriented x3. HEENT: She is normocephalic. Her eyes are anicteric. She has no thrush or pharyngitis. Neck: Supple. Lungs: Her lungs have bibasilar crackles. She has very bronchitic cough with some wheezing when she coughs. Heart: Tachycardic. Abdomen: Soft, nontender. Extremities: Bilateral pretibial edema which is apparently increased from baseline. LABORATORY: Labs are notable for a white count of 16,000, hemoglobin 14.3, platelets of 264. BUN is 19, creatinine 0.7. Urinalysis was not done. Her influenza screen is negative. IMAGING: Chest x-ray is notable for congestive changes with possible left basilar infiltrate. SUMMARY: 1. This is an 79-year-old woman with probable pneumonia in the setting of lung cancer. 2. Congestive heart failure exacerbation. 3. Atrial fibrillation. 4. History of lung cancer. 5. History of breast cancer. She has elected to discontinue any lung cancer treatment per patient. Would continue Rocephin and Zithromax for community-acquired pneumonia. Would follow up cultures, check urinary antigens and obtain a chest CAT scan. This was discussed with Dr. Acosta. KAREN CALDERON M.D. [id number]
[2019-07-25] MEDS ORDERED: MECLIZINE HCL 12.5 MG TABLET PO PRN (12:50)
[2019-07-25] MEDS ORDERED: PT OWN MED DRAWER 7, Y5N ONE (14:08)
--- NOTE | 2019-07-25 14:29 | EKG ---
Test Reason : Blood Pressure : / mmHG Vent. Rate : 101 BPM Atrial Rate : 090 BPM P-R Int : 000 ms QRS Dur : 082 ms QT Int : 322 ms P-R-T Axes : 000 052 041 degrees QTc Int : 417 ms ATRIAL FIBRILLATION WITH RAPID VENTRICULAR RESPONSE MINIMAL VOLTAGE CRITERIA FOR LVH, MAY BE NORMAL VARIANT NONSPECIFIC ST ABNORMALITY ABNORMAL ECG Confirmed by MD ALLAN, HAZEL ([id number]) on 07/25/2019 2:29:17 PM Referred By: Confirmed By:HAZEL LEMUS MD
[2019-07-25 14:30] LABS: PH,URINE 6.5 (5.0-8.0); URINE APPEARANCE CLEAR; URINE BILIRUBIN NEGATIVE (NEGATIVE); URINE COLOR YELLOW; URINE GLUCOSE (UA) NEGATIVE (NEGATIVE); URINE KETONE NEGATIVE (NEGATIVE); URINE LEUK ESTERASE NEGATIVE (NEGATIVE); URINE NITRITE NEGATIVE (NEGATIVE); URINE PROTEIN NEGATIVE (NEGATIVE); URINE UROBILINOGEN 0.2 mg/dL (0.2-1.0)
[2019-07-26 07:00] LABS: BILIRUBIN,TOTAL 0.9 mg/dL (0.2-1); CALCIUM 8.9 mg/dL (8.5-10.1); CREATININE 0.7 mg/dL (0.55-1.3); POTASSIUM 3.7 mmol/L (3.5-5.1); TOT PROT 6.1 g/dl (6.4-8.2)
[2019-07-26 07:02] LABS: BASO % 0.5 % (0-2.0); EOS % 2.8 % (0-4.5); HEMATOCRIT 39.7 % (32.4-45.2); HEMOGLOBIN 13.5 GM/dL (10.7-15.3); LYMPH % 13.3 % (8-40); MCH 32.3 pg (25.7-33.7); MCHC 34.1 g/dl (32.0-36.0); MEAN CELL VOLUME 94.9 fl (80-96); MEAN PLT VOLUME 7.8 fl (7.5-11.1); MONO % 8.2 % (3.8-10.2); NEUT % 75.2 % (42.8-82.8); PLATELET COUNT 243 K/MM3 (134-434); RBC 4.19 M/mm3 (3.60-5.2); WHITE BLOOD COUNT 7.7 K/mm3 (4.0-10.0)
--- NOTE | 2019-07-26 09:26 | PN ---
Progress Note (short form) - Note Progress Note: Coughing+ feels better today Vital Signs - 24 hr 07/25/19 07/25/19 07/26/19 20:49 22:00 01:55 Temperature 98.2 F Pulse Rate 92 H 80 Respiratory 20 20 Rate Blood Pressure 115/65 126/62 O2 Sat by Pulse 97 Oximetry (%) 07/26/19 07/26/19 07/26/19 06:00 09:00 10:00 Temperature 97.8 F Pulse Rate 78 95 H Respiratory 18 18 18 Rate Blood Pressure 122/84 124/88 O2 Sat by Pulse 95 Oximetry (%) 07/26/19 14:00 Temperature 98 F Pulse Rate 85 Respiratory 20 Rate Blood Pressure 113/70 O2 Sat by Pulse Oximetry (%) Current Medications Generic Name Dose Route Start Last Admin Trade Name Freq PRN Reason Stop Dose Admin Albuterol/Ipratropium 1 amp 07/26/19 12:00 07/26/19 20:09 Duoneb - NEB 1 amp RQID PALAK Administration Apixaban 5 mg 07/25/19 10:00 07/26/19 11:04 Eliquis - PO 5 mg BID PALAK Administration Escitalopram Oxalate 5 mg 07/25/19 10:00 07/26/19 11:02 Lexapro - PO 5 mg DAILY [facility] Administration Famotidine 20 mg 07/25/19 06:23 Pepcid - PO BID PRN GERD Furosemide 40 mg 07/25/19 10:00 07/26/19 11:04 Lasix Injection - IVPUSH 40 mg DAILY [facility] Administration Azithromycin 500 mg in 250 mls @ 250 mls/hr 07/26/19 10:00 07/26/19 11:04 Zithromax 500mg Ivpb (Pre-Docked) IVPB 250 mls/hr DAILY [facility] Administration Ceftriaxone Sodium 1 gm/ 50 mls @ 200 mls/hr 07/26/19 10:00 07/26/19 11:04 Dextrose IVPB 200 mls/hr DAILY [facility] Administration Protocol Meclizine HCl 12.5 mg 07/25/19 12:50 07/25/19 14:29 Antivert - PO 12.5 mg Q6H PRN Administration VERTIGO Metoprolol Succinate 25 mg 07/25/19 10:00 07/26/19 11:02 Toprol Xl - PO 25 mg DAILY [facility] Administration Senna 2 tab 02/08/20 06:23 07/25/19 10:48 Senna - PO 2 tab HS PRN Administration CONSTIPATION S1 S2 Irregular Lungs crackles +ronchi B/L Abd- soft, NT edema++ PLAN Pneumoni -- on iv antibiotics -- spoke with ID -- reviewed CXR -- CT chest---LLL pneumonia -- urine antigens negative -- Influenza negative Afib -- rate controlled -- on Eliquis CHF -- clinically in failure now -- on lasix iv -- monitor renal function -- spoke with Cardiology Lung CA Breast CA --- she stopped oral chemo about 6 months ago-- does not want to follow up with oncologist at [facility] - she is refusing further chemo for lung CA family aware Problem List - Problems (1) Acute on chronic diastolic CHF (congestive heart failure) Code(s): I50.33 - ACUTE ON CHRONIC DIASTOLIC (CONGESTIVE) HEART FAILURE (2) CAP (community acquired pneumonia) Code(s): J18.9 - PNEUMONIA, UNSPECIFIED ORGANISM Qualifiers: Laterality: left Lung location: lower lobe of lung Qualified Code(s): J18.9 - Pneumonia, unspecified organism (3) Afib Code(s): I48.91 - UNSPECIFIED ATRIAL FIBRILLATION Qualifiers: Atrial fibrillation type: chronic (4) Aortic stenosis Code(s): I35.0 - NONRHEUMATIC AORTIC (VALVE) STENOSIS Qualifiers: Cardiac valve disease etiology: etiology unspecified Qualified Code(s): I35.0 - Nonrheumatic aortic (valve) stenosis (5) CHF (congestive heart failure) Code(s): I50.9 - HEART FAILURE, UNSPECIFIED (6) Lung cancer Code(s): C34.90 - MALIGNANT NEOPLASM OF UNSP PART OF UNSP BRONCHUS OR LUNG
--- NOTE | 2019-07-26 10:29 | PN ---
Progress Note (short form) - Note Progress Note: Icontinues with harsh congested cough less sob chest ct with LLL infiltrate Vital Signs Period Temp Pulse Resp BP Sys/Cifuentes Pulse Ox Last 24 Hr 98.1 F-98.6 F 78-92 18-20 115-126/62-84 97 cor-rrr lungs bilateral rhonchi and wheeze abd soft,nt ext +edema CBC, BMP 07/26/19 06:09 07/26/19 06:09 Microbiology 07/25/19 12:00 Urine - Urine Clean Catch Urine Culture - Final NO GROWTH OBTAINED 07/25/19 12:00 Urine For Antigen Detection Legionella Antigen - Final 07/25/19 12:00 Urine For Antigen Detection Streptococcus pneumoniae Antigen (M - Final Current Medications Albuterol/Ipratropium (Duoneb -) 1 amp NEB RQID PALAK Apixaban (Eliquis -) 5 mg PO BID [facility] Last Admin: 07/25/19 22:34 Dose: 5 mg Escitalopram Oxalate (Lexapro -) 5 mg PO DAILY [facility] Last Admin: 07/25/19 10:48 Dose: 5 mg Famotidine (Pepcid -) 20 mg PO BID PRN PRN Reason: GERD Furosemide (Lasix Injection -) 40 mg IVPUSH DAILY [facility] Last Admin: 07/25/19 10:48 Dose: 40 mg Azithromycin (Zithromax 500mg Ivpb (Pre-Docked)) 500 mg in 250 mls @ 250 mls/ hr IVPB DAILY [facility] Ceftriaxone Sodium 1 gm/ (Dextrose) 50 mls @ 200 mls/hr IVPB DAILY [facility]; Protocol Meclizine HCl (Antivert -) 12.5 mg PO Q6H PRN PRN Reason: VERTIGO Last Admin: 07/25/19 14:29 Dose: 12.5 mg Metoprolol Succinate (Toprol Xl -) 25 mg PO DAILY [facility] Last Admin: 07/25/19 10:48 Dose: 25 mg Senna (Senna -) 2 tab PO HS PRN PRN Reason: CONSTIPATION Last Admin: 07/25/19 10:48 Dose: 2 tab a/p pneumonia-LLL chf exacerbation afibhistory lung cancer history lumpectomy for breast cancer continue rocephin/zithromax clinically improved Problem List - Problems (1) CAP (community acquired pneumonia) Code(s): J18.9 - PNEUMONIA, UNSPECIFIED ORGANISM Qualifiers: Laterality: left Lung location: lower lobe of lung Qualified Code(s): J18.9 - Pneumonia, unspecified organism (2) CHF exacerbation Code(s): I50.9 - HEART FAILURE, UNSPECIFIED Qualifiers: Heart failure type: unspecified Qualified Code(s): I50.9 - Heart failure, unspecified (3) Afib Code(s): I48.91 - UNSPECIFIED ATRIAL FIBRILLATION Qualifiers: Atrial fibrillation type: chronic
[2019-07-26] MEDS ORDERED: cefTRIAXone SODIUM 1 GM VIAL ONE (10:47)
[2019-07-26] MEDS ORDERED: DEXTROSE 5%-WATER - 50 ML IVPB ONE (10:47)
[2019-07-26] MEDS: ESCITALOPRAM OXALATE 10 MG TABLET PO SCH (11:02)
[2019-07-26] MEDS: metoPROLOL SUCCINATE 25 MG TAB.SR.24H (FP) PO SCH (11:02)
[2019-07-26] MEDS: FUROSEMIDE 40 MG/4 ML INJECTABLE VIAL IVPUSH SCH (11:04)
[2019-07-26] MEDS: AZITHROMYCIN IVPB 500 MG/250 ML BAG IVPB SCH (11:04)
[2019-07-26] MEDS: APIXABAN 5 MG TABLET PO SCH ×2 (11:04→22:41)
[2019-07-26] MEDS: CEFTRIAXONE 1 GM in DEXTROSE 5%-WATER - 50 ML IVPB SCH (11:04)
[2019-07-26] MEDS: ALBUTEROL SO4 2.5/IPRATROPIUM 0.5 INH SOL 3 ML VIAL.NEB. NEB SCH ×3 (11:25→20:09)
--- NOTE | 2019-07-27 08:14 | PN ---
Progress Note, Physician Chief Complaint: Pt A&Ox3; no chest pain; SOB on mild exertion. History of Present Illness: 79 yr old white woman w PMHx lung cancer (completed chemo), a-fib (on eliquis), systolic (mildly reduced LVEF) CHF, severe aortic/mitral valve stenosis (s/p mitral balloon valvuloplasty 2007 at [facility]), anxiety, presenting w 1d white productive cough, nasal congestion, chills, SOB, and 1w worsening BLE swelling. Pt did not take lasix today, been taking amoxicillin at home. Denies fever, nausea/vomiting, chest pain, urinary/bowel mvmt changes. - Current Medication List Current Medications: Active Medications Albuterol/Ipratropium (Duoneb -) 1 amp NEB RQID [facility] Last Admin: 07/26/19 20:09 Dose: 1 amp Apixaban (Eliquis -) 5 mg PO BID [facility] Last Admin: 07/26/19 22:41 Dose: 5 mg Escitalopram Oxalate (Lexapro -) 5 mg PO DAILY [facility] Last Admin: 07/26/19 11:02 Dose: 5 mg Famotidine (Pepcid -) 20 mg PO BID PRN PRN Reason: GERD Furosemide (Lasix Injection -) 40 mg IVPUSH DAILY [facility] Last Admin: 07/26/19 11:04 Dose: 40 mg Azithromycin (Zithromax 500mg Ivpb (Pre-Docked)) 500 mg in 250 mls @ 250 mls/ hr IVPB DAILY [facility] Last Admin: 07/26/19 11:04 Dose: 250 mls/hr Ceftriaxone Sodium 1 gm/ (Dextrose) 50 mls @ 200 mls/hr IVPB DAILY [facility]; Protocol Last Admin: 07/26/19 11:04 Dose: 200 mls/hr Meclizine HCl (Antivert -) 12.5 mg PO Q6H PRN PRN Reason: VERTIGO Last Admin: 07/25/19 14:29 Dose: 12.5 mg Metoprolol Succinate (Toprol Xl -) 25 mg PO DAILY [facility] Last Admin: 07/26/19 11:02 Dose: 25 mg Senna (Senna -) 2 tab PO HS PRN PRN Reason: CONSTIPATION Last Admin: 07/25/19 10:48 Dose: 2 tab - Objective Vital Signs: Vital Signs Temperature 97.9 F 07/27/19 06:00 Pulse Rate 94 H 07/27/19 06:00 Respiratory Rate 20 07/27/19 06:00 Blood Pressure 127/90 07/27/19 06:00 O2 Sat by Pulse Oximetry (%) 98 07/26/19 20:44 Constitutional: Yes: Calm Eyes: Yes: WNL HENT: Yes: WNL Neck: Yes: WNL Cardiovascular: Yes: Pulse Irregular, Murmur (3/6 systolic murmur, RSB-->axilla ; 2/4 diastolic murmur, LSB-->base), S1, S2 Respiratory: Yes: Diminished (left base) Gastrointestinal: Yes: Soft ...Rectal Exam: Yes: Deferred Genitourinary: No: Anuria Musculoskeletal: Yes: Muscle Weakness Extremities: Yes: Cool Edema: No Labs: CBC, BMP 07/26/19 06:09 07/26/19 06:09 Problem List - Problems (1) Pneumonia Assessment/Plan: LLL pneumonia. Antibiotics per iD Maintain fluids. Code(s): J18.9 - PNEUMONIA, UNSPECIFIED ORGANISM (2) Acute on chronic diastolic CHF (congestive heart failure) Code(s): I50.33 - ACUTE ON CHRONIC DIASTOLIC (CONGESTIVE) HEART FAILURE (3) Acute respiratory failure Code(s): J96.00 - ACUTE RESPIRATORY FAILURE, UNSP W HYPOXIA OR HYPERCAPNIA Qualifiers: Respiratory failure complication: hypoxia Qualified Code(s): J96.01 - Acute respiratory failure with hypoxia (4) Afib Code(s): I48.91 - UNSPECIFIED ATRIAL FIBRILLATION Qualifiers: Atrial fibrillation type: chronic (5) Anxiety Code(s): F41.9 - ANXIETY DISORDER, UNSPECIFIED (6) Aortic stenosis Assessment/Plan: severe MS; moderately severe ; mildly reduced LVEF on 03/2019 ECHO. Code(s): I35.0 - NONRHEUMATIC AORTIC (VALVE) STENOSIS Qualifiers: Cardiac valve disease etiology: etiology unspecified Qualified Code(s): I35.0 - Nonrheumatic aortic (valve) stenosis (7) Lung cancer Assessment/Plan: F/U with oncologist. Code(s): C34.90 - MALIGNANT NEOPLASM OF UNSP PART OF UNSP BRONCHUS OR LUNG
[2019-07-27] MEDS: ALBUTEROL SO4 2.5/IPRATROPIUM 0.5 INH SOL 3 ML VIAL.NEB. NEB SCH ×4 (08:18→20:38)
--- NOTE | 2019-07-27 09:13 | PN ---
Progress Note, Physician History of Present Illness: 79 yr old white woman w PMHx lung cancer (completed chemo), a-fib (on eliquis), systolic (mildly reduced LVEF) CHF, severe aortic/mitral valve stenosis (s/p mitral balloon valvuloplasty 2007 at [facility]), anxiety, presenting w 1d white productive cough, nasal congestion, chills, SOB, and 1w worsening BLE swelling. Pt did not take lasix today, been taking amoxicillin at home. Denies fever, nausea/vomiting, chest pain, urinary/bowel mvmt changes. - Current Medication List Current Medications: Active Medications Albuterol/Ipratropium (Duoneb -) 1 amp NEB RQID [facility] Last Admin: 07/27/19 08:18 Dose: 1 amp Apixaban (Eliquis -) 5 mg PO BID [facility] Last Admin: 07/26/19 22:41 Dose: 5 mg Escitalopram Oxalate (Lexapro -) 5 mg PO DAILY [facility] Last Admin: 07/26/19 11:02 Dose: 5 mg Famotidine (Pepcid -) 20 mg PO BID PRN PRN Reason: GERD Furosemide (Lasix Injection -) 40 mg IVPUSH DAILY [facility] Last Admin: 07/26/19 11:04 Dose: 40 mg Azithromycin (Zithromax 500mg Ivpb (Pre-Docked)) 500 mg in 250 mls @ 250 mls/ hr IVPB DAILY [facility] Last Admin: 07/26/19 11:04 Dose: 250 mls/hr Ceftriaxone Sodium 1 gm/ (Dextrose) 50 mls @ 200 mls/hr IVPB DAILY [facility]; Protocol Last Admin: 07/26/19 11:04 Dose: 200 mls/hr Meclizine HCl (Antivert -) 12.5 mg PO Q6H PRN PRN Reason: VERTIGO Last Admin: 07/25/19 14:29 Dose: 12.5 mg Metoprolol Succinate (Toprol Xl -) 25 mg PO DAILY [facility] Last Admin: 07/26/19 11:02 Dose: 25 mg Senna (Senna -) 2 tab PO HS PRN PRN Reason: CONSTIPATION Last Admin: 07/25/19 10:48 Dose: 2 tab - Objective Vital Signs: Vital Signs Temperature 97.9 F 07/27/19 06:00 Pulse Rate 94 H 02/10/20 06:00 Respiratory Rate 20 07/27/19 06:00 Blood Pressure 127/90 07/27/19 06:00 O2 Sat by Pulse Oximetry (%) 98 07/26/19 20:44 Eyes: Yes: WNL, Conjunctiva Clear, EOM Intact HENT: Yes: WNL, Atraumatic, Normocephalic Neck: Yes: WNL, Supple, Trachea Midline Cardiovascular: Yes: WNL, Pulse Irregular, Murmur Respiratory: Yes: WNL, Regular, CTA Bilaterally Gastrointestinal: Yes: WNL, Normal Bowel Sounds Genitourinary: Yes: WNL Musculoskeletal: Yes: WNL Extremities: Yes: WNL Edema: Yes Integumentary: Yes: WNL Neurological: Yes: WNL, Alert, Oriented ...Motor Strength: WNL Psychiatric: Yes: WNL Labs: CBC, BMP 07/26/19 06:09 07/26/19 06:09 Assessment/Plan - Problems (1) Pneumonia Assessment/Plan: LLL pneumonia. Antibiotics per iD Maintain fluids. Code(s): J18.9 - PNEUMONIA, UNSPECIFIED ORGANISM (2) Acute on chronic diastolic CHF (congestive heart failure) Code(s): I50.33 - ACUTE ON CHRONIC DIASTOLIC (CONGESTIVE) HEART FAILURE (3) Acute respiratory failure Code(s): J96.00 - ACUTE RESPIRATORY FAILURE, UNSP W HYPOXIA OR HYPERCAPNIA Qualifiers: Respiratory failure complication: hypoxia Qualified Code(s): J96.01 - Acute respiratory failure with hypoxia (4) Afib Code(s): I48.91 - UNSPECIFIED ATRIAL FIBRILLATION Qualifiers: Atrial fibrillation type: chronic (5) Anxiety Code(s): F41.9 - ANXIETY DISORDER, UNSPECIFIED (6) Aortic stenosis Assessment/Plan: severe MS; moderately severe ; mildly reduced LVEF on 03/2019 ECHO. Code(s): I35.0 - NONRHEUMATIC AORTIC (VALVE) STENOSIS Qualifiers: Cardiac valve disease etiology: etiology unspecified Qualified Code(s): I35.0 - Nonrheumatic aortic (valve) stenosis (7) Lung cancer Assessment/Plan: F/U with oncologist. Code(s): C34.90 - MALIGNANT NEOPLASM OF UNSP PART OF UNSP BRONCHUS OR LUNG
[2019-07-27] MEDS ORDERED: cefTRIAXone SODIUM 1 GM VIAL ONE (09:39)
[2019-07-27] MEDS ORDERED: DEXTROSE 5%-WATER - 50 ML IVPB ONE (09:40)
[2019-07-27] MEDS: FUROSEMIDE 40 MG/4 ML INJECTABLE VIAL IVPUSH SCH (09:56)
[2019-07-27] MEDS: CEFTRIAXONE 1 GM in DEXTROSE 5%-WATER - 50 ML IVPB SCH (09:56)
[2019-07-27] MEDS: metoPROLOL SUCCINATE 25 MG TAB.SR.24H (FP) PO SCH (09:56)
[2019-07-27] MEDS: ESCITALOPRAM OXALATE 10 MG TABLET PO SCH (09:56)
[2019-07-27] MEDS: APIXABAN 5 MG TABLET PO SCH ×2 (09:58→21:11)
--- NOTE | 2019-07-27 11:12 | EKG ---
Test Reason : Blood Pressure : / mmHG Vent. Rate : 095 BPM Atrial Rate : 241 BPM P-R Int : 000 ms QRS Dur : 090 ms QT Int : 354 ms P-R-T Axes : 000 054 048 degrees QTc Int : 444 ms ATRIAL FIBRILLATION WITH PREMATURE VENTRICULAR OR ABERRANTLY CONDUCTED COMPLEXES NONSPECIFIC ST ABNORMALITY ABNORMAL ECG WHEN COMPARED WITH ECG OF 25-JUL-2019 00:21, NO SIGNIFICANT CHANGE WAS FOUND Confirmed by Linda Toro ([id number]) on 07/27/2019 11:11:46 AM Referred By: MAGDALENO ROTH DR Confirmed By:Linda Toro
--- NOTE | 2019-07-27 11:28 | PN ---
Progress Note (short form) - Note Progress Note: pt seen/ examined. chart reviewed. sitting in chair still feels cogested. says had allergic reaction to zithromax--itching--wants to stop it' Vital Signs Temp 97.7 F 07/27/19 09:00 Pulse 101 H 07/27/19 09:00 Resp 20 07/27/19 09:00 BP 116/67 07/27/19 09:00 Pulse Ox 93 L 07/27/19 09:00 Intake & Output 07/26/19 07/26/19 07/27/19 11:59 23:59 11:59 Intake Total 910 Balance 910 Weight 170 lb 3.2 oz 170 lb Intake: IV 20 saline lock 20 IVPB 300 Oral 590 Other: Voiding Method Toilet Toilet Toilet # Unmeasured Voids Void 2 2 3 Bowel Movement No Yes No # Bowel Movements 2 Weight Measurement Method Standing Scale Standing Scale Active Medications Albuterol/Ipratropium (Duoneb -) 1 amp NEB RQID [facility] Last Admin: 07/27/19 08:18 Dose: 1 amp Apixaban (Eliquis -) 5 mg PO BID [facility] Last Admin: 07/27/19 09:58 Dose: 5 mg Escitalopram Oxalate (Lexapro -) 5 mg PO DAILY [facility] Last Admin: 07/27/19 09:56 Dose: 5 mg Famotidine (Pepcid -) 20 mg PO BID PRN PRN Reason: GERD Furosemide (Lasix Injection -) 40 mg IVPUSH DAILY [facility] Last Admin: 07/27/19 09:56 Dose: 40 mg Azithromycin (Zithromax 500mg Ivpb (Pre-Docked)) 500 mg in 250 mls @ 250 mls/ hr IVPB DAILY [facility] Last Admin: 07/26/19 11:04 Dose: 250 mls/hr Ceftriaxone Sodium 1 gm/ (Dextrose) 50 mls @ 200 mls/hr IVPB DAILY [facility]; Protocol Last Admin: 07/27/19 09:56 Dose: 200 mls/hr Meclizine HCl (Antivert -) 12.5 mg PO Q6H PRN PRN Reason: VERTIGO Last Admin: 07/25/19 14:29 Dose: 12.5 mg Metoprolol Succinate (Toprol Xl -) 25 mg PO DAILY [facility] Last Admin: 07/27/19 09:56 Dose: 25 mg Senna (Senna -) 2 tab PO HS PRN PRN Reason: CONSTIPATION Last Admin: 07/25/19 10:48 Dose: 2 tab CBC, BMP 07/26/19 06:09 07/26/19 06:09 ct chest - reviewed Physical Exam awake/ comfortable S1 S2 Irregular Lungs crackles + Abd- soft, NT edema++ PLAN Pneumonia -- on iv antibiotics d/c zithromax Afib -- rate controlled -- on Eliquis CHF -- clinically in failure - Better -- on lasix iv -- monitor renal function -- spoke with Cardiology Lung CA Breast CA --- she stopped oral chemo about 6 months ago-- does not want to follow up with oncologist at [facility] - she is refusing further chemo for lung CA family aware will follow d/w RN also Problem List - Problems (1) Acute on chronic diastolic CHF (congestive heart failure) Code(s): I50.33 - ACUTE ON CHRONIC DIASTOLIC (CONGESTIVE) HEART FAILURE (2) CAP (community acquired pneumonia) Code(s): J18.9 - PNEUMONIA, UNSPECIFIED ORGANISM Qualifiers: Laterality: left Lung location: lower lobe of lung Qualified Code(s): J18.9 - Pneumonia, unspecified organism (3) Afib Code(s): I48.91 - UNSPECIFIED ATRIAL FIBRILLATION Qualifiers: Atrial fibrillation type: chronic (4) Aortic stenosis Code(s): I35.0 - NONRHEUMATIC AORTIC (VALVE) STENOSIS Qualifiers: Cardiac valve disease etiology: etiology unspecified Qualified Code(s): I35.0 - Nonrheumatic aortic (valve) stenosis (5) CHF (congestive heart failure) Code(s): I50.9 - HEART FAILURE, UNSPECIFIED (6) Lung cancer Code(s): C34.90 - MALIGNANT NEOPLASM OF UNSP PART OF UNSP BRONCHUS OR LUNG
--- NOTE | 2019-07-27 17:13 | PN ---
Progress Note (short form) - Note Progress Note: cough intermittently productive reports she got very shaky with zithromax yesterday and it was d/jaime chest ct with LLL infiltrate Vital Signs Period Temp Pulse Resp BP Sys/Cifuentes Pulse Ox Last 24 Hr 97.7 F-98.4 F 75-101 20-20 104-127/60-90 93-98 cor-rrr llungs crackles left base abd soft,nt ext +edema CBC, BMP 07/26/19 06:09 07/26/19 06:09 Microbiology 07/25/19 12:00 Urine - Urine Clean Catch Urine Culture - Final NO GROWTH OBTAINED 07/25/19 12:00 Urine For Antigen Detection Legionella Antigen - Final 07/25/19 12:00 Urine For Antigen Detection Streptococcus pneumoniae Antigen (M - Final Current Medications Albuterol/Ipratropium (Duoneb -) 1 amp NEB RQID [facility] Last Admin: 07/27/19 08:18 Dose: 1 amp Apixaban (Eliquis -) 5 mg PO BID [facility] Last Admin: 07/27/19 09:58 Dose: 5 mg Escitalopram Oxalate (Lexapro -) 5 mg PO DAILY [facility] Last Admin: 07/27/19 09:56 Dose: 5 mg Famotidine (Pepcid -) 20 mg PO BID PRN PRN Reason: GERD Furosemide (Lasix Injection -) 40 mg IVPUSH DAILY [facility] Last Admin: 07/27/19 09:56 Dose: 40 mg Ceftriaxone Sodium 1 gm/ (Dextrose) 50 mls @ 200 mls/hr IVPB DAILY [facility]; Protocol Last Admin: 07/27/19 09:56 Dose: 200 mls/hr Meclizine HCl (Antivert -) 12.5 mg PO Q6H PRN PRN Reason: VERTIGO Last Admin: 07/25/19 14:29 Dose: 12.5 mg Metoprolol Succinate (Toprol Xl -) 25 mg PO DAILY [facility] Last Admin: 07/27/19 09:56 Dose: 25 mg Senna (Senna -) 2 tab PO HS PRN PRN Reason: CONSTIPATION Last Admin: 07/25/19 10:48 Dose: 2 tab a/p pneumonia-LLL chf exacerbation afib history lung cancer history lumpectomy for breast cancer continue rocephin day #3 continue diuresis with lasix Problem List - Problems (1) CAP (community acquired pneumonia) Code(s): J18.9 - PNEUMONIA, UNSPECIFIED ORGANISM Qualifiers: Laterality: left Lung location: lower lobe of lung Qualified Code(s): J18.9 - Pneumonia, unspecified organism (2) CHF exacerbation Code(s): I50.9 - HEART FAILURE, UNSPECIFIED Qualifiers: Heart failure type: unspecified Qualified Code(s): I50.9 - Heart failure, unspecified (3) Afib Code(s): I48.91 - UNSPECIFIED ATRIAL FIBRILLATION Qualifiers: Atrial fibrillation type: chronic
[2019-07-28] MEDS: AZITHROMYCIN IVPB 500 MG/250 ML BAG IVPB SCH (07:57)
[2019-07-28] MEDS: ALBUTEROL SO4 2.5/IPRATROPIUM 0.5 INH SOL 3 ML VIAL.NEB. NEB SCH ×5 (08:47→20:34)
[2019-07-28] MEDS ORDERED: cefTRIAXone SODIUM 1 GM VIAL ONE (09:48)
[2019-07-28] MEDS ORDERED: DEXTROSE 5%-WATER - 50 ML IVPB ONE (09:49)
[2019-07-28] MEDS: CEFTRIAXONE 1 GM in DEXTROSE 5%-WATER - 50 ML IVPB SCH (09:53)
[2019-07-28] MEDS: ESCITALOPRAM OXALATE 10 MG TABLET PO SCH (09:54)
[2019-07-28] MEDS: APIXABAN 5 MG TABLET PO SCH ×2 (09:55→21:07)
[2019-07-28] MEDS: FUROSEMIDE 40 MG/4 ML INJECTABLE VIAL IVPUSH SCH (09:55)
[2019-07-28] MEDS: metoPROLOL SUCCINATE 25 MG TAB.SR.24H (FP) PO SCH (09:55)
[2019-07-28] MEDS: methylPREDNISolone NA SUCC 40 MG/1 ML VIAL IVPUSH SCH ×2 (11:52→18:38)
--- NOTE | 2019-07-28 13:15 | PN ---
Progress Note (short form) - Note Progress Note: Coughing+ sob Vital Signs - 24 hr 07/27/19 07/27/19 07/27/19 14:20 17:00 20:11 Temperature 98.2 F 98.0 F 98.3 F Pulse Rate 91 H 80 84 Respiratory 20 20 20 Rate Blood Pressure 122/75 124/85 125/62 O2 Sat by Pulse 97 Oximetry (%) 07/28/19 07/28/19 07/28/19 01:00 05:00 09:00 Temperature 97.7 F 98.2 F 97.7 F Pulse Rate 89 80 106 H Respiratory 20 20 20 Rate Blood Pressure 139/88 112/68 129/73 O2 Sat by Pulse 98 Oximetry (%) 07/28/19 10:00 Temperature Pulse Rate Respiratory Rate Blood Pressure O2 Sat by Pulse 98 Oximetry (%) Current Medications Generic Name Dose Route Start Last Admin Trade Name Freq PRN Reason Stop Dose Admin Albuterol/Ipratropium 1 amp 07/26/19 12:00 07/28/19 12:25 Duoneb - NEB 1 amp RQID [facility]AK Administration Apixaban 5 mg 07/25/19 10:00 07/28/19 09:55 Eliquis - PO 5 mg BID [facility] Administration Escitalopram Oxalate 5 mg 07/25/19 10:00 07/28/19 09:54 Lexapro - PO 5 mg DAILY [facility] Administration Famotidine 20 mg 07/25/19 06:23 Pepcid - PO BID PRN GERD Furosemide 20 mg 07/28/19 07:45 07/28/19 09:55 Lasix Injection - IVPUSH 20 mg DAILY [facility] Administration Ceftriaxone Sodium 1 gm/ 50 mls @ 200 mls/hr 07/26/19 10:00 07/28/19 09:53 Dextrose IVPB 200 mls/hr DAILY [facility] Administration Protocol Meclizine HCl 12.5 mg 07/25/19 12:50 07/25/19 14:29 Antivert - PO 12.5 mg Q6H PRN Administration VERTIGO Methylprednisolone Sodium Succinate 40 mg 07/28/19 11:00 07/28/19 11:52 Solu-Medrol - IVPUSH 40 mg Q8H-IV [facility] Administration Metoprolol Succinate 25 mg 07/25/19 10:00 07/28/19 09:55 Toprol Xl - PO 25 mg DAILY [facility] Administration Senna 2 tab 07/25/19 06:23 07/25/19 10:48 Senna - PO 2 tab HS PRN Administration CONSTIPATION S1 S2 Irregular Lungs crackles +ronchi B/L Abd- soft, NT edema++ PLAN Pneumonia -- on iv antibiotics -- CT chest---LLL pneumonia -- urine antigens negative -- Influenza negative short course of medrol Afib -- rate controlled -- on Eliquis CHF -- on lasix iv -- monitor renal function Lung CA Breast CA --- she stopped oral chemo about 6 months ago-- does not want to follow up with oncologist at [facility] - she is refusing further chemo for lung CA family aware Problem List - Problems (1) Acute on chronic diastolic CHF (congestive heart failure) Code(s): I50.33 - ACUTE ON CHRONIC DIASTOLIC (CONGESTIVE) HEART FAILURE (2) CAP (community acquired pneumonia) Code(s): J18.9 - PNEUMONIA, UNSPECIFIED ORGANISM Qualifiers: Laterality: left Lung location: lower lobe of lung Qualified Code(s): J18.9 - Pneumonia, unspecified organism (3) Afib Code(s): I48.91 - UNSPECIFIED ATRIAL FIBRILLATION Qualifiers: Atrial fibrillation type: chronic (4) Aortic stenosis Code(s): I35.0 - NONRHEUMATIC AORTIC (VALVE) STENOSIS Qualifiers: Cardiac valve disease etiology: etiology unspecified Qualified Code(s): I35.0 - Nonrheumatic aortic (valve) stenosis (5) CHF (congestive heart failure) Code(s): I50.9 - HEART FAILURE, UNSPECIFIED (6) Lung cancer Code(s): C34.90 - MALIGNANT NEOPLASM OF UNSP PART OF UNSP BRONCHUS OR LUNG
--- NOTE | 2019-07-28 17:42 | PN ---
Progress Note, Physician Chief Complaint: Pt A&Ox3; no chest pain; decreased SOB; c/o dry mouth. History of Present Illness: 79 yr old white woman w PMHx lung cancer (completed chemo), a-fib (on eliquis), systolic (mildly reduced LVEF) CHF, severe aortic/mitral valve stenosis (s/p mitral balloon valvuloplasty 2006 at [facility]), anxiety, presenting w 1d white productive cough, nasal congestion, chills, SOB, and 1w worsening BLE swelling. Pt did not take lasix today, been taking amoxicillin at home. Denies fever, nausea/vomiting, chest pain, urinary/bowel mvmt changes. - Current Medication List Current Medications: Active Medications Albuterol/Ipratropium (Duoneb -) 1 amp NEB RQID [facility] Last Admin: 07/28/19 12:25 Dose: 1 amp Apixaban (Eliquis -) 5 mg PO BID [facility] Last Admin: 07/28/19 09:55 Dose: 5 mg Escitalopram Oxalate (Lexapro -) 5 mg PO DAILY [facility] Last Admin: 07/28/19 09:54 Dose: 5 mg Famotidine (Pepcid -) 20 mg PO BID PRN PRN Reason: GERD Furosemide (Lasix Injection -) 20 mg IVPUSH DAILY [facility] Last Admin: 07/28/19 09:55 Dose: 20 mg Ceftriaxone Sodium 1 gm/ (Dextrose) 50 mls @ 200 mls/hr IVPB DAILY [facility]; Protocol Last Admin: 07/28/19 09:53 Dose: 200 mls/hr Meclizine HCl (Antivert -) 12.5 mg PO Q6H PRN PRN Reason: VERTIGO Last Admin: 07/25/19 14:29 Dose: 12.5 mg Methylprednisolone Sodium Succinate (Solu-Medrol -) 40 mg IVPUSH Q8H-IV [facility] Last Admin: 07/28/19 11:52 Dose: 40 mg Metoprolol Succinate (Toprol Xl -) 25 mg PO DAILY [facility] Last Admin: 07/28/19 09:55 Dose: 25 mg Senna (Senna -) 2 tab PO HS PRN PRN Reason: CONSTIPATION Last Admin: 07/25/19 10:48 Dose: 2 tab - Objective Vital Signs: Vital Signs Temperature 98.5 F 07/28/19 16:02 Pulse Rate 96 H 07/28/19 16:02 Respiratory Rate 20 07/28/19 16:02 Blood Pressure 119/61 07/28/19 16:02 O2 Sat by Pulse Oximetry (%) 98 07/28/19 10:00 Constitutional: Yes: Calm Eyes: Yes: WNL HENT: Yes: WNL Neck: Yes: WNL Cardiovascular: Yes: S1 (varies in intensity), S2 Respiratory: Yes: Regular, Diminished (left base), Rhonchi, SOB on Exertion Gastrointestinal: Yes: Soft ...Rectal Exam: Yes: Deferred Genitourinary: No: Anuria Musculoskeletal: Yes: Muscle Weakness Extremities: Yes: Cool Edema: No Peripheral Pulses WNL: Yes Integumentary: Yes: WNL Neurological: Yes: Alert, Oriented, Weakness Psychiatric: Yes: Alert, Oriented Labs: CBC, BMP 07/26/19 06:09 07/26/19 06:09 - ....Imaging Chest X-ray: Image Reviewed EKG: Image Reviewed Problem List - Problems (1) Pneumonia Assessment/Plan: LLL pneumonia. Antibiotics: on Rocephin. On IV solumedrol. Maintain fluids. Code(s): J18.9 - PNEUMONIA, UNSPECIFIED ORGANISM (2) Acute on chronic diastolic CHF (congestive heart failure) Assessment/Plan: On metoprolol ER. On furosemide (decreased from 40 to 20 mg IVP today). Code(s): I50.33 - ACUTE ON CHRONIC DIASTOLIC (CONGESTIVE) HEART FAILURE (3) Acute respiratory failure Code(s): J96.00 - ACUTE RESPIRATORY FAILURE, UNSP W HYPOXIA OR HYPERCAPNIA Qualifiers: Respiratory failure complication: hypoxia Qualified Code(s): J96.01 - Acute respiratory failure with hypoxia (4) Afib Code(s): I48.91 - UNSPECIFIED ATRIAL FIBRILLATION Qualifiers: Atrial fibrillation type: chronic (5) Anxiety Code(s): F41.9 - ANXIETY DISORDER, UNSPECIFIED (6) Aortic stenosis Code(s): I35.0 - NONRHEUMATIC AORTIC (VALVE) STENOSIS Qualifiers: Cardiac valve disease etiology: etiology unspecified Qualified Code(s): I35.0 - Nonrheumatic aortic (valve) stenosis (7) Lung cancer Code(s): C34.90 - MALIGNANT NEOPLASM OF UNSP PART OF UNSP BRONCHUS OR LUNG
[2019-07-29] MEDS: methylPREDNISolone NA SUCC 40 MG/1 ML VIAL IVPUSH SCH ×3 (03:41→18:05)
[2019-07-29 07:43] LABS: BLOOD UREA NITROGEN 13.1 mg/dL (7-18); CALCIUM 8.8 mg/dL (8.5-10.1); CREATININE 0.6 mg/dL (0.55-1.3); POTASSIUM 3.9 mmol/L (3.5-5.1)
[2019-07-29] MEDS: ALBUTEROL SO4 2.5/IPRATROPIUM 0.5 INH SOL 3 ML VIAL.NEB. NEB SCH ×4 (07:51→20:39)
[2019-07-29] MEDS ORDERED: cefTRIAXone SODIUM 1 GM VIAL ONE (08:26)
[2019-07-29] MEDS ORDERED: DEXTROSE 5%-WATER - 50 ML IVPB ONE (08:26)
[2019-07-29] MEDS: FUROSEMIDE 40 MG/4 ML INJECTABLE VIAL IVPUSH SCH (09:12)
[2019-07-29] MEDS: metoPROLOL SUCCINATE 25 MG TAB.SR.24H (FP) PO SCH (09:12)
[2019-07-29] MEDS: APIXABAN 5 MG TABLET PO SCH ×2 (09:12→21:06)
[2019-07-29] MEDS: CEFTRIAXONE 1 GM in DEXTROSE 5%-WATER - 50 ML IVPB SCH (09:13)
[2019-07-29] MEDS: ESCITALOPRAM OXALATE 10 MG TABLET PO SCH (09:13)
--- NOTE | 2019-07-29 12:21 | PN ---
Progress Note (short form) - Note Progress Note: cough improved on iv steroids Vital Signs Period Temp Pulse Resp BP Sys/Cifuentes Pulse Ox Last 24 Hr 97.7 F-98.6 F 77-96 20-20 105-129/45-70 93-98 cor-rrr lungs crackles left bases abd soft,nt ext no edema CBC, BMP 07/26/19 06:09 07/29/19 05:45 Microbiology 07/25/19 20:59 Blood - Peripheral Venous Blood Culture - Preliminary NO GROWTH OBTAINED AFTER 48 HOURS, INCUBATION TO CONTINUE FOR 3 DAYS. 07/25/19 20:56 Blood - Peripheral Venous Blood Culture - Preliminary NO GROWTH OBTAINED AFTER 48 HOURS, INCUBATION TO CONTINUE FOR 3 DAYS. 07/25/19 12:00 Urine - Urine Clean Catch Urine Culture - Final NO GROWTH OBTAINED 07/25/19 12:00 Urine For Antigen Detection Legionella Antigen - Final 07/25/19 12:00 Urine For Antigen Detection Streptococcus pneumoniae Antigen (M - Final a/p pneumonia-LLL chf exacerbation afib history lung cancer history lumpectomy for breast cancer continue rocephin day #5 improved on steroids/nebs Problem List - Problems (1) CAP (community acquired pneumonia) Code(s): J18.9 - PNEUMONIA, UNSPECIFIED ORGANISM Qualifiers: Laterality: left Lung location: lower lobe of lung Qualified Code(s): J18.9 - Pneumonia, unspecified organism (2) CHF exacerbation Code(s): I50.9 - HEART FAILURE, UNSPECIFIED Qualifiers: Heart failure type: unspecified Qualified Code(s): I50.9 - Heart failure, unspecified (3) Afib Code(s): I48.91 - UNSPECIFIED ATRIAL FIBRILLATION Qualifiers: Atrial fibrillation type: chronic
--- NOTE | 2019-07-29 13:43 | PN ---
Progress Note (short form) - Note Progress Note: Coughing+sounds more dry sob better Vital Signs - 24 hr 07/28/19 07/28/19 07/28/19 16:02 17:00 21:00 Temperature 98.5 F 97.7 F Pulse Rate 96 H 93 H Respiratory 20 20 Rate Blood Pressure 119/61 129/70 O2 Sat by Pulse 98 Oximetry (%) 07/28/19 07/29/19 07/29/19 22:00 02:00 06:00 Temperature 98.1 F 98 F 98 F Pulse Rate 86 80 77 Respiratory 20 20 20 Rate Blood Pressure 123/64 113/68 105/45 L O2 Sat by Pulse Oximetry (%) 07/29/19 07/29/19 09:00 10:00 Temperature 98.6 F Pulse Rate 84 Respiratory 20 20 Rate Blood Pressure 120/58 L O2 Sat by Pulse 93 L Oximetry (%) Current Medications Generic Name Dose Route Start Last Admin Trade Name Freq PRN Reason Stop Dose Admin Albuterol/Ipratropium 1 amp 07/26/19 12:00 07/29/19 07:51 Duoneb - NEB Not Given RQID [facility] Apixaban 5 mg 07/25/19 10:00 07/29/19 09:12 Eliquis - PO 5 mg BID [facility] Administration Escitalopram Oxalate 5 mg 07/25/19 10:00 07/29/19 09:13 Lexapro - PO 5 mg DAILY [facility] Administration Famotidine 20 mg 07/25/19 06:23 Pepcid - PO BID PRN GERD Furosemide 20 mg 07/28/19 07:45 07/29/19 09:12 Lasix Injection - IVPUSH 20 mg DAILY [facility] Administration Ceftriaxone Sodium 1 gm/ 50 mls @ 200 mls/hr 07/26/19 10:00 07/29/19 09:13 Dextrose IVPB 200 mls/hr DAILY [facility] Administration Protocol Meclizine HCl 12.5 mg 07/25/19 12:50 07/25/19 14:29 Antivert - PO 12.5 mg Q6H PRN Administration VERTIGO Methylprednisolone Sodium Succinate 40 mg 07/28/19 11:00 07/29/19 09:12 Solu-Medrol - IVPUSH 40 mg Q8H-IV [facility] Administration Metoprolol Succinate 25 mg 07/25/19 10:00 07/29/19 09:12 Toprol Xl - PO 25 mg DAILY [facility] Administration Senna 2 tab 07/25/19 06:23 07/25/19 10:48 Senna - PO 2 tab HS PRN Administration CONSTIPATION Laboratory Results - last 24 hr 07/29/19 05:45 Sodium 141 Potassium 3.9 Chloride 109 H Carbon Dioxide 25 Anion Gap 7 L BUN 13.1 Creatinine 0.6 Est GFR (CKD-EPI)AfAm 99.77 Est GFR (CKD-EPI)NonAf 86.09 Random Glucose 142 H Calcium 8.8 Intake & Output 07/26/19 07/27/19 07/28/19 07/29/19 23:59 23:59 23:59 23:59 Intake Total 910 570 690 100 Balance 910 570 690 100 Weight 170 lb 3.2 oz 170 lb 171 lb 6.4 oz 172 lb 6.4 oz S1 S2 Irregular Lungs crackles +ronchi B/L Abd- soft, NT edema++ PLAN Pneumonia -- on iv antibiotics -- CT chest---LLL pneumonia -- urine antigens negative -- Influenza negative short course of medrol -- keep same Afib -- rate controlled -- on Eliquis CHF -- on lasix iv -- monitor renal function Lung CA Breast CA --- she stopped oral chemo about 6 months ago-- does not want to follow up with oncologist at [facility] - she is refusing further chemo for lung CA family aware Problem List - Problems (1) Acute on chronic diastolic CHF (congestive heart failure) Code(s): I50.33 - ACUTE ON CHRONIC DIASTOLIC (CONGESTIVE) HEART FAILURE (2) CAP (community acquired pneumonia) Code(s): J18.9 - PNEUMONIA, UNSPECIFIED ORGANISM Qualifiers: Laterality: left Lung location: lower lobe of lung Qualified Code(s): J18.9 - Pneumonia, unspecified organism (3) Afib Code(s): I48.91 - UNSPECIFIED ATRIAL FIBRILLATION Qualifiers: Atrial fibrillation type: chronic (4) Aortic stenosis Code(s): I35.0 - NONRHEUMATIC AORTIC (VALVE) STENOSIS Qualifiers: Cardiac valve disease etiology: etiology unspecified Qualified Code(s): I35.0 - Nonrheumatic aortic (valve) stenosis (5) CHF (congestive heart failure) Code(s): I50.9 - HEART FAILURE, UNSPECIFIED (6) Lung cancer Code(s): C34.90 - MALIGNANT NEOPLASM OF UNSP PART OF UNSP BRONCHUS OR LUNG
--- NOTE | 2019-07-29 13:59 | PN ---
Progress Note, Physician History of Present Illness: 79 yr old white woman w PMHx lung cancer (completed chemo), a-fib (on eliquis), systolic (mildly reduced LVEF) CHF, severe aortic/mitral valve stenosis (s/p mitral balloon valvuloplasty 2007 at [facility]), anxiety, presenting w 1d white productive cough, nasal congestion, chills, SOB, and 1w worsening BLE swelling. Pt did not take lasix today, been taking amoxicillin at home. Denies fever, nausea/vomiting, chest pain, urinary/bowel mvmt changes. - Current Medication List Current Medications: Active Medications Albuterol/Ipratropium (Duoneb -) 1 amp NEB RQID [facility] Last Admin: 07/29/19 07:51 Dose: Not Given Apixaban (Eliquis -) 5 mg PO BID [facility] Last Admin: 07/29/19 09:12 Dose: 5 mg Escitalopram Oxalate (Lexapro -) 5 mg PO DAILY [facility] Last Admin: 07/29/19 09:13 Dose: 5 mg Famotidine (Pepcid -) 20 mg PO BID PRN PRN Reason: GERD Furosemide (Lasix Injection -) 20 mg IVPUSH DAILY [facility] Last Admin: 07/29/19 09:12 Dose: 20 mg Ceftriaxone Sodium 1 gm/ (Dextrose) 50 mls @ 200 mls/hr IVPB DAILY [facility]; Protocol Last Admin: 07/29/19 09:13 Dose: 200 mls/hr Meclizine HCl (Antivert -) 12.5 mg PO Q6H PRN PRN Reason: VERTIGO Last Admin: 07/25/19 14:29 Dose: 12.5 mg Methylprednisolone Sodium Succinate (Solu-Medrol -) 40 mg IVPUSH Q8H-IV [facility] Last Admin: 07/29/19 09:12 Dose: 40 mg Metoprolol Succinate (Toprol Xl -) 25 mg PO DAILY [facility] Last Admin: 07/29/19 09:12 Dose: 25 mg Senna (Senna -) 2 tab PO HS PRN PRN Reason: CONSTIPATION Last Admin: 07/25/19 10:48 Dose: 2 tab Zolpidem Tartrate (Ambien -) 5 mg PO HS PRN PRN Reason: INSOMNIA - Objective Vital Signs: Vital Signs Temperature 98.6 F 07/29/19 10:00 Pulse Rate 84 07/29/19 10:00 Respiratory Rate 20 07/29/19 10:00 Blood Pressure 120/58 L 07/29/19 10:00 O2 Sat by Pulse Oximetry (%) 93 L 07/29/19 09:00 Eyes: Yes: WNL, Conjunctiva Clear, EOM Intact HENT: Yes: WNL, Atraumatic, Normocephalic Neck: Yes: WNL, Supple, Trachea Midline Cardiovascular: Yes: WNL, Regular Rate and Rhythm Respiratory: Yes: Diminished, Rhonchi Gastrointestinal: Yes: WNL, Normal Bowel Sounds Genitourinary: Yes: WNL Musculoskeletal: Yes: WNL Extremities: Yes: WNL Edema: No Integumentary: Yes: WNL Neurological: Yes: WNL, Alert, Oriented ...Motor Strength: WNL Psychiatric: Yes: WNL Labs: CBC, BMP 07/26/19 06:09 07/29/19 05:45 Assessment/Plan - Problems (1) Pneumonia Assessment/Plan: LLL pneumonia. Antibiotics: on Rocephin. On IV solumedrol. Maintain fluids. Code(s): J18.9 - PNEUMONIA, UNSPECIFIED ORGANISM (2) Acute on chronic diastolic CHF (congestive heart failure) Assessment/Plan: On metoprolol ER. On furosemide (decreased from 40 to 20 mg IVP today). Code(s): I50.33 - ACUTE ON CHRONIC DIASTOLIC (CONGESTIVE) HEART FAILURE (3) Acute respiratory failure Code(s): J96.00 - ACUTE RESPIRATORY FAILURE, UNSP W HYPOXIA OR HYPERCAPNIA Qualifiers: Respiratory failure complication: hypoxia Qualified Code(s): J96.01 - Acute respiratory failure with hypoxia (4) Afib Code(s): I48.91 - UNSPECIFIED ATRIAL FIBRILLATION Qualifiers: Atrial fibrillation type: chronic (5) Anxiety Code(s): F41.9 - ANXIETY DISORDER, UNSPECIFIED (6) Aortic stenosis Code(s): I35.0 - NONRHEUMATIC AORTIC (VALVE) STENOSIS Qualifiers: Cardiac valve disease etiology: etiology unspecified Qualified Code(s): I35.0 - Nonrheumatic aortic (valve) stenosis (7) Lung cancer Code(s): C34.90 - MALIGNANT NEOPLASM OF UNSP PART OF UNSP BRONCHUS OR LUNG
--- NOTE | 2019-07-29 16:32 | EKG ---
Test Reason : Blood Pressure : / mmHG Vent. Rate : 082 BPM Atrial Rate : 082 BPM P-R Int : 000 ms QRS Dur : 094 ms QT Int : 396 ms P-R-T Axes : 000 044 044 degrees QTc Int : 462 ms ATRIAL FIBRILLATION WITH PREMATURE VENTRICULAR OR ABERRANTLY CONDUCTED COMPLEXES MINIMAL VOLTAGE CRITERIA FOR LVH, MAY BE NORMAL VARIANT NONSPECIFIC ST ABNORMALITY ABNORMAL ECG WHEN COMPARED WITH ECG OF 27-JUL-2019 09:16, NO SIGNIFICANT CHANGE WAS FOUND Confirmed by MD Bulmaro, Sandeep ([id number]) on 07/29/2019 4:32:18 PM Referred By: Levy CHURCHILL Confirmed By:Sandeep Chamberlain MD
[2019-07-29] MEDS: ZOLPIDEM TARTRATE 5 MG TABLET PO PRN (22:11)
[2019-07-30] MEDS: methylPREDNISolone NA SUCC 40 MG/1 ML VIAL IVPUSH SCH ×3 (01:03→18:37)
[2019-07-30] MEDS: ALBUTEROL SO4 2.5/IPRATROPIUM 0.5 INH SOL 3 ML VIAL.NEB. NEB SCH ×4 (08:00→23:02)
[2019-07-30] MEDS ORDERED: cefTRIAXone SODIUM 1 GM VIAL ONE (09:07)
[2019-07-30] MEDS ORDERED: DEXTROSE 5%-WATER - 50 ML IVPB ONE (09:07)
[2019-07-30] MEDS: FUROSEMIDE 40 MG/4 ML INJECTABLE VIAL IVPUSH SCH (10:04)
[2019-07-30] MEDS: APIXABAN 5 MG TABLET PO SCH ×2 (10:04→22:03)
[2019-07-30] MEDS: CEFTRIAXONE 1 GM in DEXTROSE 5%-WATER - 50 ML IVPB SCH (10:05)
[2019-07-30] MEDS: ESCITALOPRAM OXALATE 10 MG TABLET PO SCH (10:05)
[2019-07-30] MEDS: metoPROLOL SUCCINATE 25 MG TAB.SR.24H (FP) PO SCH (10:05)
--- NOTE | 2019-07-30 13:05 | PN ---
Progress Note (short form) - Note Progress Note: Coughing+ sob better Vital Signs - 24 hr 07/29/19 07/29/19 07/29/19 14:15 17:00 21:00 Temperature 98 F 97.9 F 97.6 F Pulse Rate 89 73 82 Respiratory 20 20 18 Rate Blood Pressure 118/61 116/54 L 124/70 O2 Sat by Pulse 93 L Oximetry (%) 07/29/19 07/30/19 07/30/19 22:00 02:00 06:00 Temperature 98 F 97.8 F Pulse Rate 111 H 88 Respiratory 20 19 Rate Blood Pressure 133/88 142/79 O2 Sat by Pulse 93 L Oximetry (%) 07/30/19 07/30/19 09:00 10:00 Temperature 99.4 F Pulse Rate 102 H Respiratory 20 20 Rate Blood Pressure 133/81 O2 Sat by Pulse 93 L Oximetry (%) Current Medications Generic Name Dose Route Start Last Admin Trade Name Freq PRN Reason Stop Dose Admin Albuterol/Ipratropium 1 amp 07/26/19 12:00 07/30/19 08:00 Duoneb - NEB Not Given RQID [facility] Apixaban 5 mg 07/25/19 10:00 07/30/19 10:04 Eliquis - PO 5 mg BID [facility] Administration Escitalopram Oxalate 5 mg 07/25/19 10:00 07/30/19 10:05 Lexapro - PO 5 mg DAILY [facility] Administration Famotidine 20 mg 07/25/19 06:23 Pepcid - PO BID PRN GERD Furosemide 20 mg 07/28/19 07:45 07/30/19 10:04 Lasix Injection - IVPUSH 20 mg DAILY [facility] Administration Ceftriaxone Sodium 1 gm/ 50 mls @ 200 mls/hr 07/26/19 10:00 07/30/19 10:05 Dextrose IVPB 200 mls/hr DAILY [facility] Administration Protocol Meclizine HCl 12.5 mg 07/25/19 12:50 07/25/19 14:29 Antivert - PO 12.5 mg Q6H PRN Administration VERTIGO Methylprednisolone Sodium Succinate 40 mg 07/28/19 11:00 07/30/19 10:04 Solu-Medrol - IVPUSH 40 mg Q8H-IV [facility] Administration Metoprolol Succinate 25 mg 07/25/19 10:00 07/30/19 10:05 Toprol Xl - PO 25 mg DAILY [facility] Administration Senna 2 tab 07/25/19 06:23 07/25/19 10:48 Senna - PO 2 tab HS PRN Administration CONSTIPATION Zolpidem Tartrate 5 mg 07/29/19 13:43 07/29/19 22:11 Ambien - PO 5 mg HS PRN Administration INSOMNIA S1 S2 Irregular Lungs crackles +ronchi B/L Abd- soft, NT edema++ PLAN Pneumonia -- on iv antibiotics -- CT chest---LLL pneumonia -- urine antigens negative -- Influenza negative short course of medrol --taper add Mucinex Afib -- rate controlled -- on Eliquis CHF -- on lasix iv- decreased -- monitor renal function Lung CA Breast CA --- she stopped oral chemo about 6 months ago-- does not want to follow up with oncologist at [facility] - she is refusing further chemo for lung CA family aware Problem List - Problems (1) Acute on chronic diastolic CHF (congestive heart failure) Code(s): I50.33 - ACUTE ON CHRONIC DIASTOLIC (CONGESTIVE) HEART FAILURE (2) CAP (community acquired pneumonia) Code(s): J18.9 - PNEUMONIA, UNSPECIFIED ORGANISM Qualifiers: Laterality: left Lung location: lower lobe of lung Qualified Code(s): J18.9 - Pneumonia, unspecified organism (3) Afib Code(s): I48.91 - UNSPECIFIED ATRIAL FIBRILLATION Qualifiers: Atrial fibrillation type: chronic (4) Aortic stenosis Code(s): I35.0 - NONRHEUMATIC AORTIC (VALVE) STENOSIS Qualifiers: Cardiac valve disease etiology: etiology unspecified Qualified Code(s): I35.0 - Nonrheumatic aortic (valve) stenosis (5) CHF (congestive heart failure) Code(s): I50.9 - HEART FAILURE, UNSPECIFIED (6) Lung cancer Code(s): C34.90 - MALIGNANT NEOPLASM OF UNSP PART OF UNSP BRONCHUS OR LUNG
--- NOTE | 2019-07-30 18:06 | PN ---
Progress Note (short form) - Note Progress Note: still coughing Vital Signs Period Temp Pulse Resp BP Sys/Cifuentes Pulse Ox Last 24 Hr 97.6 F-99.4 F 82-111 18-20 124-142/70-88 93-93 cor-rrr lungs scattered rhonchi abd soft,nt ext trace pretibial edema CBC, BMP 07/26/19 06:09 07/29/19 05:45 Microbiology 07/25/19 20:59 Blood - Peripheral Venous Blood Culture - Preliminary NO GROWTH OBTAINED AFTER 72 HOURS, INCUBATION TO CONTINUE FOR 2 DAYS. 07/25/19 20:56 Blood - Peripheral Venous Blood Culture - Preliminary NO GROWTH OBTAINED AFTER 72 HOURS, INCUBATION TO CONTINUE FOR 2 DAYS. 07/25/19 12:00 Urine - Urine Clean Catch Urine Culture - Final NO GROWTH OBTAINED 07/25/19 12:00 Urine For Antigen Detection Legionella Antigen - Final 07/25/19 12:00 Urine For Antigen Detection Streptococcus pneumoniae Antigen (M - Final Current Medications Albuterol/Ipratropium (Duoneb -) 1 amp NEB RQID [facility] Last Admin: 07/30/19 16:31 Dose: 1 amp Apixaban (Eliquis -) 5 mg PO BID [facility] Last Admin: 07/30/19 10:04 Dose: 5 mg Escitalopram Oxalate (Lexapro -) 5 mg PO DAILY [facility] Last Admin: 07/30/19 10:05 Dose: 5 mg Famotidine (Pepcid -) 20 mg PO BID PRN PRN Reason: GERD Furosemide (Lasix Injection -) 20 mg IVPUSH DAILY [facility] Last Admin: 07/30/19 10:04 Dose: 20 mg Ceftriaxone Sodium 1 gm/ (Dextrose) 50 mls @ 200 mls/hr IVPB DAILY [facility]; Protocol Last Admin: 07/30/19 10:05 Dose: 200 mls/hr Meclizine HCl (Antivert -) 12.5 mg PO Q6H PRN PRN Reason: VERTIGO Last Admin: 07/25/19 14:29 Dose: 12.5 mg Methylprednisolone Sodium Succinate (Solu-Medrol -) 40 mg IVPUSH Q8H-IV [facility] Last Admin: 07/30/19 10:04 Dose: 40 mg Metoprolol Succinate (Toprol Xl -) 25 mg PO DAILY [facility] Last Admin: 07/30/19 10:05 Dose: 25 mg Senna (Senna -) 2 tab PO HS PRN PRN Reason: CONSTIPATION Last Admin: 07/25/19 10:48 Dose: 2 tab Zolpidem Tartrate (Ambien -) 5 mg PO HS PRN PRN Reason: INSOMNIA Last Admin: 07/29/19 22:11 Dose: 5 mg a/p pneumonia-LLL chf exacerbation afib history lung cancer history lumpectomy for breast cancer continue rocephin day #6 improved on steroids/nebs check labs in am Problem List - Problems (1) CAP (community acquired pneumonia) Code(s): J18.9 - PNEUMONIA, UNSPECIFIED ORGANISM Qualifiers: Laterality: left Lung location: lower lobe of lung Qualified Code(s): J18.9 - Pneumonia, unspecified organism (2) CHF exacerbation Code(s): I50.9 - HEART FAILURE, UNSPECIFIED Qualifiers: Heart failure type: unspecified Qualified Code(s): I50.9 - Heart failure, unspecified (3) Afib Code(s): I48.91 - UNSPECIFIED ATRIAL FIBRILLATION Qualifiers: Atrial fibrillation type: chronic
[2019-07-30] MEDS ORDERED: guaiFENesin 200 MG/10 ML 10 ML UNIT-DOSE CUPS PO ONE (22:44)
--- NOTE | 2019-07-30 23:30 | PN ---
Progress Note, Physician Chief Complaint: Pt A&Ox3; feeling less short of breath; no chest pain. Her legs feel better with compression stockings. History of Present Illness: 79 yr old white woman w PMHx lung cancer (completed chemo), a-fib (on eliquis), systolic (mildly reduced LVEF) CHF, severe aortic/mitral valve stenosis (s/p mitral balloon valvuloplasty 2006 at [facility]), anxiety, presenting w 1d white productive cough, nasal congestion, chills, SOB, and 1w worsening BLE swelling. Pt did not take lasix today, been taking amoxicillin at home. Denies fever, nausea/vomiting, chest pain, urinary/bowel mvmt changes. - Current Medication List Current Medications: Active Medications Albuterol/Ipratropium (Duoneb -) 1 amp NEB RQID [facility] Last Admin: 07/30/19 23:02 Dose: 1 amp Apixaban (Eliquis -) 5 mg PO BID [facility] Last Admin: 07/30/19 22:03 Dose: 5 mg Escitalopram Oxalate (Lexapro -) 5 mg PO DAILY [facility] Last Admin: 07/30/19 10:05 Dose: 5 mg Famotidine (Pepcid -) 20 mg PO BID PRN PRN Reason: GERD Furosemide (Lasix Injection -) 20 mg IVPUSH DAILY [facility] Last Admin: 07/30/19 10:04 Dose: 20 mg Ceftriaxone Sodium 1 gm/ (Dextrose) 50 mls @ 200 mls/hr IVPB DAILY [facility]; Protocol Last Admin: 07/30/19 10:05 Dose: 200 mls/hr Meclizine HCl (Antivert -) 12.5 mg PO Q6H PRN PRN Reason: VERTIGO Last Admin: 07/25/19 14:29 Dose: 12.5 mg Methylprednisolone Sodium Succinate (Solu-Medrol -) 40 mg IVPUSH Q8H-IV [facility] Last Admin: 07/30/19 18:37 Dose: 40 mg Metoprolol Succinate (Toprol Xl -) 25 mg PO DAILY [facility] Last Admin: 07/30/19 10:05 Dose: 25 mg Senna (Senna -) 2 tab PO HS PRN PRN Reason: CONSTIPATION Last Admin: 07/25/19 10:48 Dose: 2 tab Zolpidem Tartrate (Ambien -) 5 mg PO HS PRN PRN Reason: INSOMNIA Last Admin: 07/29/19 22:11 Dose: 5 mg - Objective Vital Signs: Vital Signs Temperature 97.3 F L 07/30/19 17:00 Pulse Rate 100 H 07/30/19 17:00 Respiratory Rate 07/30/19 17:00 Blood Pressure 128/70 07/30/19 17:00 O2 Sat by Pulse Oximetry (%) 93 L 07/30/19 09:00 Constitutional: Yes: Calm Eyes: Yes: WNL HENT: Yes: WNL Neck: Yes: WNL Cardiovascular: Yes: S1 (varies in intensity), S2 Respiratory: Yes: Regular Gastrointestinal: Yes: Soft ...Rectal Exam: Yes: Deferred Genitourinary: No: Anuria Breast(s): Yes: WNL Musculoskeletal: Yes: Muscle Weakness Extremities: Yes: WNL Edema: No Integumentary: Yes: WNL Neurological: Yes: Alert, Oriented, Weakness Psychiatric: Yes: Alert, Oriented Labs: CBC, BMP 07/26/19 06:09 07/29/19 05:45 Problem List - Problems (1) Pneumonia Assessment/Plan: LLL pneumonia. Antibiotics: on Rocephin. On IV solumedrol. Maintain fluids. Code(s): J18.9 - PNEUMONIA, UNSPECIFIED ORGANISM (2) Acute on chronic diastolic CHF (congestive heart failure) Assessment/Plan: On metoprolol ER. Continue furosemide (decreased from 40 to 20 mg IVP). Code(s): I50.33 - ACUTE ON CHRONIC DIASTOLIC (CONGESTIVE) HEART FAILURE (3) Acute respiratory failure Code(s): J96.00 - ACUTE RESPIRATORY FAILURE, UNSP W HYPOXIA OR HYPERCAPNIA Qualifiers: Respiratory failure complication: hypoxia Qualified Code(s): J96.01 - Acute respiratory failure with hypoxia (4) Afib Assessment/Plan: On metoprolol ER 25 mg daily. On apixaban. Code(s): I48.91 - UNSPECIFIED ATRIAL FIBRILLATION Qualifiers: Atrial fibrillation type: chronic (5) Anxiety Code(s): F41.9 - ANXIETY DISORDER, UNSPECIFIED (6) Aortic stenosis Assessment/Plan: severe MS; moderately severe ; mildly reduced LVEF on 03/2019 ECHO. Code(s): I35.0 - NONRHEUMATIC AORTIC (VALVE) STENOSIS Qualifiers: Cardiac valve disease etiology: etiology unspecified Qualified Code(s): I35.0 - Nonrheumatic aortic (valve) stenosis (7) Lung cancer Assessment/Plan: F/U with oncologist. Code(s): C34.90 - MALIGNANT NEOPLASM OF UNSP PART OF UNSP BRONCHUS OR LUNG
[2019-07-30] MEDS ORDERED: metoPROLOL SUCCINATE 25 MG TAB.SR.24H (FP) PO ONE (23:39)
[2019-07-31] MEDS: ZOLPIDEM TARTRATE 5 MG TABLET PO PRN (00:19)
[2019-07-31 01:58] LABS: BLOOD UREA NITROGEN 23.3 mg/dL (7-18); CALCIUM 9.1 mg/dL (8.5-10.1); CREATININE 0.7 mg/dL (0.55-1.3); MAGNESIUM 2.4 mg/dL (1.8-2.4); PHOSPHOROUS 3.1 mg/dL (2.5-4.9); POTASSIUM 4.2 mmol/L (3.5-5.1)
[2019-07-31] MEDS: methylPREDNISolone NA SUCC 40 MG/1 ML VIAL IVPUSH SCH ×3 (02:52→17:31)
[2019-07-31 07:44] LABS: HEMATOCRIT 40.6 % (32.4-45.2); HEMOGLOBIN 13.7 GM/dL (10.7-15.3); MCH 32.1 pg (25.7-33.7); MCHC 33.9 g/dl (32.0-36.0); MEAN CELL VOLUME 94.8 fl (80-96); MEAN PLT VOLUME 7.6 fl (7.5-11.1); PLATELET COUNT 288 K/MM3 (134-434); RBC 4.28 M/mm3 (3.60-5.2); RDW 13.5 % (11.6-15.6); WHITE BLOOD COUNT 9.7 K/mm3 (4.0-10.0)
[2019-07-31] MEDS: ALBUTEROL SO4 2.5/IPRATROPIUM 0.5 INH SOL 3 ML VIAL.NEB. NEB SCH ×4 (08:00→20:30)
[2019-07-31 08:29] LABS: BLOOD UREA NITROGEN 20.6 mg/dL (7-18); CALCIUM 8.9 mg/dL (8.5-10.1); CREATININE 0.6 mg/dL (0.55-1.3); MAGNESIUM 2.5 mg/dL (1.8-2.4); POTASSIUM 4.3 mmol/L (3.5-5.1)
[2019-07-31] MEDS ORDERED: DEXTROSE 5%-WATER - 50 ML IVPB ONE (10:22)
[2019-07-31] MEDS ORDERED: cefTRIAXone SODIUM 1 GM VIAL ONE (10:22)
--- NOTE | 2019-07-31 10:34 | PN ---
Progress Note (short form) - Note Progress Note: pt seen/ examined chart is reviewed awake/sitting in chair still having moist cough still sob denies cp afebrile cxr- Improved congestion Vital Signs Temp 97.3 F L 07/31/19 06:00 Pulse 98 H 07/31/19 06:00 Resp 18 07/31/19 09:00 BP 124/77 07/31/19 06:00 Pulse Ox 92 L 07/31/19 09:00 Intake & Output 07/30/19 07/30/19 07/31/19 11:59 23:59 11:59 Intake Total 270 1390 150 Balance 270 1390 150 Weight 175 lb 175 lb 12.8 oz Intake: IV 30 20 30 saline lock 30 20 30 IVPB 50 Oral 240 1320 120 Other: Voiding Method Toilet Toilet Toilet # Unmeasured Voids Void 2 5 2 Bowel Movement No No No Weight Measurement Method Standing Scale Standing Scale Active Medications Albuterol/Ipratropium (Duoneb -) 1 amp NEB RQID [facility] Last Admin: 07/31/19 08:00 Dose: 1 amp Apixaban (Eliquis -) 5 mg PO BID [facility] Last Admin: 07/30/19 22:03 Dose: 5 mg Escitalopram Oxalate (Lexapro -) 5 mg PO DAILY [facility] Last Admin: 07/30/19 10:05 Dose: 5 mg Famotidine (Pepcid -) 20 mg PO BID PRN PRN Reason: GERD Furosemide (Lasix Injection -) 20 mg IVPUSH DAILY [facility] Last Admin: 07/30/19 10:04 Dose: 20 mg Ceftriaxone Sodium 1 gm/ (Dextrose) 50 mls @ 200 mls/hr IVPB DAILY [facility]; Protocol Last Admin: 07/30/19 10:05 Dose: 200 mls/hr Meclizine HCl (Antivert -) 12.5 mg PO Q6H PRN PRN Reason: VERTIGO Last Admin: 07/25/19 14:29 Dose: 12.5 mg Methylprednisolone Sodium Succinate (Solu-Medrol -) 40 mg IVPUSH Q8H-IV [facility] Last Admin: 07/31/19 02:52 Dose: 40 mg Metoprolol Succinate (Toprol Xl -) 50 mg PO DAILY [facility] Senna (Senna -) 2 tab PO HS PRN PRN Reason: CONSTIPATION Last Admin: 07/25/19 10:48 Dose: 2 tab Zolpidem Tartrate (Ambien -) 5 mg PO HS PRN PRN Reason: INSOMNIA Last Admin: 07/31/19 00:19 Dose: 5 mg CBC, BMP 07/31/19 06:25 07/31/19 06:25 Microbiology 07/25/19 20:59 Blood Culture - Preliminary Blood - Peripheral Venous NO GROWTH OBTAINED AFTER 96 HOURS, INCUBATION TO CONTINUE FOR 1 DAYS. 07/25/19 20:56 Blood Culture - Preliminary Blood - Peripheral Venous NO GROWTH OBTAINED AFTER 96 HOURS, INCUBATION TO CONTINUE FOR 1 DAYS. physical exam S1 S2 Irregular Lungs crackles + Abd- soft, NT edema++ alert and awake PLAN Pneumonia Lung cancer -- iv antibiotics -- CT chest---LLL pneumonia -- urine antigens negative -- Influenza negative short course of medrol -- Afib -- rate controlled -- on Eliquis CHF -- on lasix iv- -- monitor renal function Lung CA Breast CA --- she stopped oral chemo about 6 months ago-- does not want to follow up with oncologist at [facility] - she is refusing further chemo for lung CA family aware Will follow Problem List - Problems (1) Acute on chronic diastolic CHF (congestive heart failure) Code(s): I50.33 - ACUTE ON CHRONIC DIASTOLIC (CONGESTIVE) HEART FAILURE (2) CAP (community acquired pneumonia) Code(s): J18.9 - PNEUMONIA, UNSPECIFIED ORGANISM Qualifiers: Laterality: left Lung location: lower lobe of lung Qualified Code(s): J18.9 - Pneumonia, unspecified organism (3) Afib Code(s): I48.91 - UNSPECIFIED ATRIAL FIBRILLATION Qualifiers: Atrial fibrillation type: chronic (4) Aortic stenosis Code(s): I35.0 - NONRHEUMATIC AORTIC (VALVE) STENOSIS Qualifiers: Cardiac valve disease etiology: etiology unspecified Qualified Code(s): I35.0 - Nonrheumatic aortic (valve) stenosis (5) CHF (congestive heart failure) Code(s): I50.9 - HEART FAILURE, UNSPECIFIED (6) Lung cancer Code(s): C34.90 - MALIGNANT NEOPLASM OF UNSP PART OF UNSP BRONCHUS OR LUNG
[2019-07-31] MEDS: ESCITALOPRAM OXALATE 10 MG TABLET PO SCH (10:47)
[2019-07-31] MEDS: APIXABAN 5 MG TABLET PO SCH ×2 (10:47→21:55)
[2019-07-31] MEDS: FUROSEMIDE 40 MG/4 ML INJECTABLE VIAL IVPUSH SCH ×2 (10:48→11:40)
[2019-07-31] MEDS: CEFTRIAXONE 1 GM in DEXTROSE 5%-WATER - 50 ML IVPB SCH (10:49)
--- NOTE | 2019-07-31 15:08 | EKG ---
Test Reason : Blood Pressure : / mmHG Vent. Rate : 100 BPM Atrial Rate : 394 BPM P-R Int : 000 ms QRS Dur : 088 ms QT Int : 330 ms P-R-T Axes : 000 044 043 degrees QTc Int : 425 ms ATRIAL FIBRILLATION NONSPECIFIC ST ABNORMALITY ABNORMAL ECG WHEN COMPARED WITH ECG OF 29-JUL-2019 15:08, NO SIGNIFICANT CHANGE WAS FOUND Confirmed by RODNEY BAUM MD ([id number]) on 07/31/2019 3:08:17 PM Referred By: Confirmed By:RODNEY BAUM MD
--- NOTE | 2019-07-31 18:28 | PN ---
Progress Note, Physician Chief Complaint: Pt A&Ox3; asymptomatic last night, despite 19 beat run of wide-complex tachycardia. Still with dry mouth. History of Present Illness: 79 yr old white woman w PMHx lung cancer (completed chemo), a-fib (on eliquis), systolic (mildly reduced LVEF) CHF, severe aortic/mitral valve stenosis (s/p mitral balloon valvuloplasty 2006 at [facility]), anxiety, presenting w 1d white productive cough, nasal congestion, chills, SOB, and 1w worsening BLE swelling. Pt did not take lasix today, been taking amoxicillin at home. Denies fever, nausea/vomiting, chest pain, urinary/bowel mvmt changes. - Current Medication List Current Medications: Active Medications Albuterol/Ipratropium (Duoneb -) 1 amp NEB RQID [facility] Last Admin: 07/31/19 16:00 Dose: 1 amp Apixaban (Eliquis -) 5 mg PO BID [facility] Last Admin: 07/31/19 10:47 Dose: 5 mg Escitalopram Oxalate (Lexapro -) 5 mg PO DAILY [facility] Last Admin: 07/31/19 10:47 Dose: 5 mg Famotidine (Pepcid -) 20 mg PO BID PRN PRN Reason: GERD Furosemide (Lasix Injection -) 20 mg IVPUSH DAILY [facility] Last Admin: 07/31/19 11:40 Dose: 20 mg Ceftriaxone Sodium 1 gm/ (Dextrose) 50 mls @ 200 mls/hr IVPB DAILY [facility]; Protocol Last Admin: 07/31/19 10:49 Dose: 200 mls/hr Meclizine HCl (Antivert -) 12.5 mg PO Q6H PRN PRN Reason: VERTIGO Last Admin: 07/25/19 14:29 Dose: 12.5 mg Methylprednisolone Sodium Succinate (Solu-Medrol -) 40 mg IVPUSH Q8H-IV [facility] Last Admin: 07/31/19 17:31 Dose: 40 mg Metoprolol Succinate (Toprol Xl -) 50 mg PO DAILY [facility] Last Admin: 07/31/19 10:47 Dose: 50 mg Senna (Senna -) 2 tab PO HS PRN PRN Reason: CONSTIPATION Last Admin: 07/25/19 10:48 Dose: 2 tab Zolpidem Tartrate (Ambien -) 5 mg PO HS PRN PRN Reason: INSOMNIA Last Admin: 07/31/19 00:19 Dose: 5 mg - Objective Vital Signs: Vital Signs Temperature 97.3 F L 07/31/19 06:00 Pulse Rate 98 H 07/31/19 06:00 Respiratory Rate 18 07/31/19 09:00 Blood Pressure 124/77 07/31/19 06:00 O2 Sat by Pulse Oximetry (%) 92 L 07/31/19 09:00 Constitutional: Yes: Anxious Eyes: Yes: WNL HENT: Yes: WNL Neck: Yes: WNL Cardiovascular: Yes: S1 (varies in intensity), S2 Respiratory: Yes: Regular Gastrointestinal: Yes: Soft ...Rectal Exam: Yes: Deferred Genitourinary: No: Anuria Breast(s): Yes: Other Musculoskeletal: Yes: Muscle Weakness Extremities: Yes: Cool Edema: No Peripheral Pulses WNL: Yes Integumentary: Yes: Venous Stasis Changes Neurological: Yes: Alert, Oriented, Weakness Psychiatric: Yes: Alert, Oriented Labs: CBC, BMP 07/31/19 06:25 07/31/19 06:25 Abnormal Lab Results 07/29/19 07/30/19 07/31/19 05:45 23:45 06:25 Chloride 109 H 108 H Anion Gap 7 L 7 L 6 L BUN 23.3 H 20.6 H Random Glucose 142 H 127 H 127 H Magnesium 2.5 H Total LDL Cholesterol 107 H - ....Imaging Other: Image Reviewed (telemetry: AF with controlled VR (19 beat run wide- complex tachycardia--likely NSVT--overnight) Problem List - Problems (1) Pneumonia Assessment/Plan: LLL pneumonia. Antibiotics: on Rocephin. On IV solumedrol. Maintain fluids. Code(s): J18.9 - PNEUMONIA, UNSPECIFIED ORGANISM (2) Acute respiratory failure Code(s): J96.00 - ACUTE RESPIRATORY FAILURE, UNSP W HYPOXIA OR HYPERCAPNIA Qualifiers: Respiratory failure complication: hypoxia Qualified Code(s): J96.01 - Acute respiratory failure with hypoxia (3) Afib Assessment/Plan: On metoprolol ER; incureased to 50 mg daily after wide-complex tachycardia last night. On apixaban. Code(s): I48.91 - UNSPECIFIED ATRIAL FIBRILLATION Qualifiers: Atrial fibrillation type: chronic (4) Anxiety Code(s): F41.9 - ANXIETY DISORDER, UNSPECIFIED (5) Aortic stenosis Assessment/Plan: severe MS; moderately severe ; mildly reduced LVEF on 03/2019 ECHO. Code(s): I35.0 - NONRHEUMATIC AORTIC (VALVE) STENOSIS Qualifiers: Cardiac valve disease etiology: etiology unspecified Qualified Code(s): I35.0 - Nonrheumatic aortic (valve) stenosis (6) Lung cancer Assessment/Plan: F/U with oncologist. 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 Start lisinopril (systolic CHF; dilated LV). Maintain electrolytes WNL. Code(s): I47.2 - VENTRICULAR TACHYCARDIA (9) Acute on chronic systolic CHF (congestive heart failure) Assessment/Plan: On metoprololr ER (increaed to 50 mg daily after wide-complex tachycardia overnight). Start lisinopril 2.5 mg daily (systolic CHF; dilated LV; arrhytymia). Code(s): I50.23 - ACUTE ON CHRONIC SYSTOLIC (CONGESTIVE) HEART FAILURE
[2019-08-01] MEDS: ZOLPIDEM TARTRATE 5 MG TABLET PO PRN (00:23)
[2019-08-01] MEDS: methylPREDNISolone NA SUCC 40 MG/1 ML VIAL IVPUSH SCH ×3 (01:35→22:11)
[2019-08-01] MEDS: ALBUTEROL SO4 2.5/IPRATROPIUM 0.5 INH SOL 3 ML VIAL.NEB. NEB SCH ×4 (07:49→20:58)
[2019-08-01] MEDS: APIXABAN 5 MG TABLET PO SCH ×2 (10:09→22:11)
[2019-08-01] MEDS: FUROSEMIDE 40 MG/4 ML INJECTABLE VIAL IVPUSH SCH (10:10)
[2019-08-01] MEDS: ESCITALOPRAM OXALATE 10 MG TABLET PO SCH (10:10)
[2019-08-01] MEDS: CEFTRIAXONE 1 GM in DEXTROSE 5%-WATER - 50 ML IVPB SCH (11:28)
[2019-08-01] MEDS ORDERED: cefTRIAXone SODIUM 1 GM VIAL ONE (11:33)
[2019-08-01] MEDS ORDERED: DEXTROSE 5%-WATER - 50 ML IVPB ONE (11:33)
--- NOTE | 2019-08-01 11:35 | PN ---
Progress Note (short form) - Note Progress Note: Patient seen and examined Feels better decreased cough Denies chest pain Afebrile Vital Signs Temp 98.5 F 08/01/19 05:00 Pulse 86 08/01/19 05:00 Resp 18 08/01/19 05:00 BP 110/66 08/01/19 05:00 Pulse Ox 93 L 07/31/19 22:00 Intake & Output 07/31/19 07/31/19 08/01/19 11:59 23:59 11:59 Intake Total 150 100 100 Balance 150 100 100 Weight 175 lb 12.8 oz Intake: IV 30 saline lock 30 Oral 120 100 100 Other: Voiding Method Toilet Toilet # Unmeasured Voids Void 2 2 1 Bowel Movement No Weight Measurement Method Standing Scale Active Medications Albuterol/Ipratropium (Duoneb -) 1 amp NEB RQID [facility] Last Admin: 08/01/19 07:49 Dose: 1 amp Apixaban (Eliquis -) 5 mg PO BID [facility] Last Admin: 08/01/19 10:09 Dose: 5 mg Escitalopram Oxalate (Lexapro -) 5 mg PO DAILY [facility] Last Admin: 08/01/19 10:10 Dose: 5 mg Famotidine (Pepcid -) 20 mg PO BID PRN PRN Reason: GERD Furosemide (Lasix Injection -) 20 mg IVPUSH DAILY [facility] Last Admin: 08/01/19 10:10 Dose: 20 mg Ceftriaxone Sodium 1 gm/ (Dextrose) 50 mls @ 200 mls/hr IVPB DAILY [facility]; Protocol Last Admin: 08/01/19 11:28 Dose: 200 mls/hr Meclizine HCl (Antivert -) 12.5 mg PO Q6H PRN PRN Reason: VERTIGO Last Admin: 07/25/19 14:29 Dose: 12.5 mg Methylprednisolone Sodium Succinate (Solu-Medrol -) 40 mg IVPUSH BID [facility] Metoprolol Succinate (Toprol Xl -) 50 mg PO DAILY [facility] Last Admin: 08/01/19 10:10 Dose: 50 mg Senna (Senna -) 2 tab PO HS PRN PRN Reason: CONSTIPATION Last Admin: 07/25/19 10:48 Dose: 2 tab Zolpidem Tartrate (Ambien -) 5 mg PO HS PRN PRN Reason: INSOMNIA Last Admin: 08/01/19 00:23 Dose: 5 mg CBC, BMP 07/31/19 06:25 07/31/19 06:25 Microbiology 07/25/19 20:59 Blood Culture - Final Blood - Peripheral Venous NO GROWTH AFTER 5 DAYS INCUBATION 07/25/19 20:56 Blood Culture - Final Blood - Peripheral Venous NO GROWTH AFTER 5 DAYS INCUBATION Physical exam S1 S2 Irregular Lungs crackles +---improved Abd- soft, NT edema++--- improved alert and awake PLAN Pneumonia Lung cancer -- iv antibiotics -- CT chest---LLL pneumonia -- urine antigens negative -- Influenza negative short course of medrol --Taper Afib -- rate controlled -- on Eliquis CHF -- on lasix iv- -- monitor renal function -better Lung CA Breast CA --- she stopped oral chemo about 6 months ago-- does not want to follow up with oncologist at [facility] - she is refusing further chemo for lung CA family aware Will follow can DC telemetry----If okay with cardiology Problem List - Problems (1) Acute on chronic diastolic CHF (congestive heart failure) Code(s): I50.33 - ACUTE ON CHRONIC DIASTOLIC (CONGESTIVE) HEART FAILURE (2) CAP (community acquired pneumonia) Code(s): J18.9 - PNEUMONIA, UNSPECIFIED ORGANISM Qualifiers: Laterality: left Lung location: lower lobe of lung Qualified Code(s): J18.9 - Pneumonia, unspecified organism (3) Afib Code(s): I48.91 - UNSPECIFIED ATRIAL FIBRILLATION Qualifiers: Atrial fibrillation type: chronic (4) Aortic stenosis Code(s): I35.0 - NONRHEUMATIC AORTIC (VALVE) STENOSIS Qualifiers: Cardiac valve disease etiology: etiology unspecified Qualified Code(s): I35.0 - Nonrheumatic aortic (valve) stenosis (5) CHF (congestive heart failure) Code(s): I50.9 - HEART FAILURE, UNSPECIFIED (6) Lung cancer Code(s): C34.90 - MALIGNANT NEOPLASM OF UNSP PART OF UNSP BRONCHUS OR LUNG
--- NOTE | 2019-08-01 12:38 | PN ---
Progress Note (short form) - Note Progress Note: Coverage for Dr. Michelle Mclain Chief Complaint: Events noted, notes reviewed, reports persistent dyspnea- clinically improved and cough non productive of sputum, denies any chest discomfort History of Present Illness: Seen and examined on telemetry. Events noted, notes reviewed, reports persistent dyspnea- clinically improved and cough non productive of sputum, denies any chest discomfort Medications: Current Medications Albuterol/Ipratropium (Duoneb -) 1 amp NEB RQID [facility] Last Admin: 08/01/19 11:56 Dose: 1 amp Apixaban (Eliquis -) 5 mg PO BID [facility] Last Admin: 08/01/19 10:09 Dose: 5 mg Escitalopram Oxalate (Lexapro -) 5 mg PO DAILY [facility] Last Admin: 08/01/19 10:10 Dose: 5 mg Famotidine (Pepcid -) 20 mg PO BID PRN PRN Reason: GERD Furosemide (Lasix Injection -) 20 mg IVPUSH DAILY [facility] Last Admin: 08/01/19 10:10 Dose: 20 mg Ceftriaxone Sodium 1 gm/ (Dextrose) 50 mls @ 200 mls/hr IVPB DAILY [facility]; Protocol Last Admin: 08/01/19 11:28 Dose: 200 mls/hr Meclizine HCl (Antivert -) 12.5 mg PO Q6H PRN PRN Reason: VERTIGO Last Admin: 07/25/19 14:29 Dose: 12.5 mg Methylprednisolone Sodium Succinate (Solu-Medrol -) 40 mg IVPUSH BID [facility] Metoprolol Succinate (Toprol Xl -) 50 mg PO DAILY [facility] Last Admin: 08/01/19 10:10 Dose: 50 mg Senna (Senna -) 2 tab PO HS PRN PRN Reason: CONSTIPATION Last Admin: 07/25/19 10:48 Dose: 2 tab Zolpidem Tartrate (Ambien -) 5 mg PO HS PRN PRN Reason: INSOMNIA Last Admin: 08/01/19 00:23 Dose: 5 mg Review of Systems - Review of Systems Constitutional: denies: Chills, Fever Cardiovascular: As noted above Respiratory: reports: Cough denies: Sputum Production Gastrointestinal: reports: Nausea, Vomiting, Diarrhea denies: Constipation or Abdominal Pain Neurological: denies: Headaches Vital Signs: Last Vital Signs Temp Pulse Resp BP Pulse Ox 98.0 F 105 H 18 124/85 93 L 08/01/19 09:00 08/01/19 09:00 08/01/19 09:00 08/01/19 09:00 08/01/19 09:00 Intake & Output 07/29/19 07/30/19 07/31/19 08/01/19 23:59 23:59 23:59 23:59 Intake Total 1710 1660 250 100 Balance 1710 1660 250 100 Weight 172 lb 6.4 oz 175 lb 175 lb 12.8 oz Neck: Supple Negative JVD No Bruit Respiratory: Diminished breath sounds at the bases bilaterally Cardiovascular: S1 S2 Irregular Irregular Gastrointestinal: Soft Benign Normal Bowel Sounds Ext: Trace Edema Labs: CBC, BMP 07/31/19 06:25 07/31/19 06:25 Hepatic Panel Total Bilirubin 0.9 mg/dL (0.2-1) 07/26/19 06:09 AST 16 U/L (15-37) 07/26/19 06:09 ALT 24 U/L (13-61) 07/26/19 06:09 Alkaline Phosphatase 54 U/L (45-117) 07/26/19 06:09 Albumin 3.0 g/dl (3.4-5.0) L 07/26/19 06:09 Assessment/Plan ASSESSMENT: 1. Coronary artery disease coronary artery calcification on CT scan of the chest angina pectoris 2. Systolic/diastolic LV dysfunction with clinical class I-II NYHA classification LV failure, clinically resolving 3. Persistent atrial fibrillation [id number] score of 5 currently on A/C therapy with Eliquis 4. 5. MS history of BMV/mitral balloon valvuloplasty 6. NSVT 7. HTN 8. Hypercholesterolemia 9. COPD exacerbation with pneumonia 10. History of lung carcinoma post chemotherapy PLAN: 1. Continue Toprol XL 2. Continue A/C with Eliquis unless it is absolutely contraindicated 3. Continue Lasix IV for an additional 24-48 hours, then initiate PO therapy 4. Recommend the addition of ACEI or ARBS unless it is absolutely contraindicated with close monitoring of renal function 5. Antibiotics as per the primary team 6. Will discuss with the primary cardiology team further plans in reference to patient's valvular disease for possible intervention including TAVR, issue is mitral valve pathology since patient has had already BMV/mitral balloon valvuloplasty, patient is a high risk for SAVR/SMVR Mariaelena Duke M.D.
[2019-08-02] MEDS: ZOLPIDEM TARTRATE 5 MG TABLET PO PRN (00:28)
[2019-08-02] MEDS: ALBUTEROL SO4 2.5/IPRATROPIUM 0.5 INH SOL 3 ML VIAL.NEB. NEB SCH ×4 (07:30→20:05)
--- NOTE | 2019-08-02 08:22 | PN ---
Progress Note (short form) - Note Progress Note: Coverage for Dr. Michelle Mclain Chief Complaint: Events noted, notes reviewed, reports persistent cough non productive of sputum, reports persistent dyspnea, denies any chest discomfort History of Present Illness: Seen and examined on telemetry. Events noted, notes reviewed, reports persistent cough non productive of sputum, reports persistent dyspnea, denies any chest discomfort Medications: Current Medications Albuterol/Ipratropium (Duoneb -) 1 amp NEB RQID [facility] Last Admin: 08/02/19 07:30 Dose: 1 amp Apixaban (Eliquis -) 5 mg PO BID [facility] Last Admin: 08/01/19 22:11 Dose: 5 mg Escitalopram Oxalate (Lexapro -) 5 mg PO DAILY [facility] Last Admin: 08/01/19 10:10 Dose: 5 mg Famotidine (Pepcid -) 20 mg PO BID PRN PRN Reason: GERD Furosemide (Lasix Injection -) 20 mg IVPUSH DAILY [facility] Last Admin: 08/01/19 10:10 Dose: 20 mg Ceftriaxone Sodium 1 gm/ (Dextrose) 50 mls @ 200 mls/hr IVPB DAILY [facility]; Protocol Last Admin: 08/01/19 11:28 Dose: 200 mls/hr Meclizine HCl (Antivert -) 12.5 mg PO Q6H PRN PRN Reason: VERTIGO Last Admin: 07/25/19 14:29 Dose: 12.5 mg Methylprednisolone Sodium Succinate (Solu-Medrol -) 40 mg IVPUSH BID [facility] Last Admin: 08/01/19 22:11 Dose: 40 mg Metoprolol Succinate (Toprol Xl -) 50 mg PO DAILY [facility] Last Admin: 08/01/19 10:10 Dose: 50 mg Senna (Senna -) 2 tab PO HS PRN PRN Reason: CONSTIPATION Last Admin: 07/25/19 10:48 Dose: 2 tab Zolpidem Tartrate (Ambien -) 5 mg PO HS PRN PRN Reason: INSOMNIA Last Admin: 08/02/19 00:28 Dose: 5 mg Review of Systems - Review of Systems Constitutional: denies: Chills, Fever Cardiovascular: As noted above Respiratory: reports: Cough denies: Sputum Production Gastrointestinal: reports: Nausea, Vomiting, Diarrhea denies: Constipation or Abdominal Pain Neurological: denies: Headaches Vital Signs: Last Vital Signs Temp Pulse Resp BP Pulse Ox 98.4 F 75 18 125/73 95 08/02/19 05:00 08/02/19 05:00 08/02/19 05:00 08/02/19 05:00 08/01/19 21:00 Intake & Output 07/30/19 07/31/19 08/01/19 08/02/19 23:59 23:59 23:59 23:59 Intake Total 1660 250 970 Balance 1660 250 970 Weight 175 lb 175 lb 12.8 oz 176 lb 4 oz Neck: Supple Negative JVD No Bruit Respiratory: Diminished breath sounds at the bases bilaterally Cardiovascular: S1 S2 Irregular Irregular Gastrointestinal: Soft Benign Normal Bowel Sounds Ext: Trace Edema Labs: CBC, BMP 07/31/19 06:25 07/31/19 06:25 Hepatic Panel Total Bilirubin 0.9 mg/dL (0.2-1) 07/26/19 06:09 AST 16 U/L (15-37) 07/26/19 06:09 ALT 24 U/L (13-61) 07/26/19 06:09 Alkaline Phosphatase 54 U/L (45-117) 07/26/19 06:09 Albumin 3.0 g/dl (3.4-5.0) L 07/26/19 06:09 Assessment/Plan ASSESSMENT: 1. Coronary artery disease coronary artery calcification on CT scan of the chest angina pectoris 2. Systolic/diastolic LV dysfunction with clinical class I-II NYHA classification LV failure, clinically resolving 3. Persistent atrial fibrillation [id number] score of 5 currently on A/C therapy with Eliquis 4. 5. MS history of BMV/balloon mitral valvuloplasty 6. NSVT 7. HTN 8. Hypercholesterolemia 9. COPD exacerbation with pneumonia, clinically resolving 10. History of lung carcinoma post chemotherapy PLAN: 1. Continue Toprol XL 2. Continue A/C with Eliquis unless it is absolutely contraindicated 3. Continue Lasix IV for an additional 24-48 hours, then initiate PO therapy 4. As outlined in yesterday's note recommend the addition of ACEI or ARBS unless it is absolutely contraindicated with close monitoring of renal function 5. Antibiotics as per the primary team 6. As outlined in yesterday's note will discuss with the primary cardiology team further plans in reference to patient's valvular disease for possible intervention including TAVR, issue is mitral valve pathology since patient has had already BMV/balloon mitral valvuloplasty, patient is a high risk for SAVR/ SMVR Mariaelena Duke M.D.
[2019-08-02] MEDS: FUROSEMIDE 40 MG/4 ML INJECTABLE VIAL IVPUSH SCH (11:20)
[2019-08-02] MEDS: APIXABAN 5 MG TABLET PO SCH ×2 (11:20→22:34)
[2019-08-02] MEDS: ESCITALOPRAM OXALATE 10 MG TABLET PO SCH (11:20)
[2019-08-02] MEDS: methylPREDNISolone NA SUCC 40 MG/1 ML VIAL IVPUSH SCH ×2 (11:21→22:34)
--- NOTE | 2019-08-02 13:00 | PN ---
Progress Note (short form) - Note Progress Note: Patient seen and examined. Feels better. Complains of back pain----which she reports chronic and--- uses Lidoderm patch at--home--requesting same Denies urinary or bowel trouble Denies chest pain afebrile Decreased shortness of breath Vital Signs Temp 98.4 F 08/02/19 05:00 Pulse 75 08/02/19 05:00 Resp 18 08/02/19 05:00 BP 125/73 08/02/19 05:00 Pulse Ox 95 08/01/19 21:00 Intake & Output 08/01/19 08/02/19 08/02/19 23:59 11:59 23:59 Intake Total 820 240 Balance 820 240 Weight 176 lb 4 oz Intake: IV 40 saline lock 40 Oral 780 240 Other: Voiding Method Toilet Toilet # Unmeasured Voids Void 1 2 2 Bowel Movement Yes Weight Measurement Method Standing Scale Active Medications Albuterol/Ipratropium (Duoneb -) 1 amp NEB RQID [facility] Last Admin: 08/02/19 12:11 Dose: 1 amp Apixaban (Eliquis -) 5 mg PO BID [facility] Last Admin: 08/02/19 11:20 Dose: 5 mg Enalapril Maleate (Vasotec -) 5 mg PO DAILY [facility] Escitalopram Oxalate (Lexapro -) 5 mg PO DAILY [facility] Last Admin: 08/02/19 11:20 Dose: 5 mg Famotidine (Pepcid -) 20 mg PO BID PRN PRN Reason: GERD Furosemide (Lasix Injection -) 20 mg IVPUSH DAILY [facility] Last Admin: 08/02/19 11:20 Dose: 20 mg Lidocaine (Lidoderm Patch -) 1 patch TP DAILY [facility] Meclizine HCl (Antivert -) 12.5 mg PO Q6H PRN PRN Reason: VERTIGO Last Admin: 07/25/19 14:29 Dose: 12.5 mg Methylprednisolone Sodium Succinate (Solu-Medrol -) 40 mg IVPUSH BID [facility] Last Admin: 08/02/19 11:21 Dose: 40 mg Metoprolol Succinate (Toprol Xl -) 50 mg PO DAILY [facility] Last Admin: 08/02/19 11:21 Dose: 50 mg Miscellaneous (Lidoderm Patch Removal) 1 each MC DAILY@2200 [facility] Senna (Senna -) 2 tab PO HS PRN PRN Reason: CONSTIPATION Last Admin: 07/25/19 10:48 Dose: 2 tab Zolpidem Tartrate (Ambien -) 5 mg PO HS PRN PRN Reason: INSOMNIA Last Admin: 08/02/19 00:28 Dose: 5 mg CBC, BMP 07/31/19 06:25 07/31/19 06:25 Physical exam S1 S2 Irregular Lungs crackles +---improved Abd- soft, NT edema++--- improved alert and awake PLAN Pneumonia Lung cancer -- iv antibiotics -- CT chest---LLL pneumonia -- urine antigens negative -- Influenza negative short course of medrol --Taper Afib -- rate controlled -- on Eliquis CHF -- on lasix iv- -- monitor renal function -better -Add VEGA inhibitor Lung CA Breast CA --- she stopped oral chemo about 6 months ago-- does not want to follow up with oncologist at [facility] - she is refusing further chemo for lung CA family aware Will follow Problem List - Problems (1) Acute on chronic diastolic CHF (congestive heart failure) Code(s): I50.33 - ACUTE ON CHRONIC DIASTOLIC (CONGESTIVE) HEART FAILURE (2) CAP (community acquired pneumonia) Code(s): J18.9 - PNEUMONIA, UNSPECIFIED ORGANISM Qualifiers: Laterality: left Lung location: lower lobe of lung Qualified Code(s): J18.9 - Pneumonia, unspecified organism (3) Afib Code(s): I48.91 - UNSPECIFIED ATRIAL FIBRILLATION Qualifiers: Atrial fibrillation type: chronic (4) Aortic stenosis Code(s): I35.0 - NONRHEUMATIC AORTIC (VALVE) STENOSIS Qualifiers: Cardiac valve disease etiology: etiology unspecified Qualified Code(s): I35.0 - Nonrheumatic aortic (valve) stenosis (5) CHF (congestive heart failure) Code(s): I50.9 - HEART FAILURE, UNSPECIFIED (6) Lung cancer Code(s): C34.90 - MALIGNANT NEOPLASM OF UNSP PART OF UNSP BRONCHUS OR LUNG
[2019-08-02] MEDS: LIDOCAINE 5% TOPICAL PATCH TP SCH ×2 (13:48→14:10)
[2019-08-02] MEDS: traMADol HCL 50 MG TABLET PO PRN (19:26)
[2019-08-02] MEDS: LIDOCAINE PATCH REMOVAL MC SCH ×2 (22:34)
[2019-08-03] MEDS: ZOLPIDEM TARTRATE 5 MG TABLET PO PRN (00:38)
[2019-08-03] MEDS: traMADol HCL 50 MG TABLET PO PRN ×2 (06:39→13:55)
--- NOTE | 2019-08-03 07:42 | PN ---
Progress Note (short form) - Note Progress Note: Coverage for Dr. Michelle Mclain Chief Complaint: Events noted, notes reviewed, reports persistent cough non productive of sputum, reports persistent dyspnea, reports weight gain, denies any chest discomfort History of Present Illness: Seen and examined on telemetry. Events noted, notes reviewed, reports persistent cough non productive of sputum, reports persistent dyspnea, reports weight gain, denies any chest discomfort Medications: Current Medications Albuterol/Ipratropium (Duoneb -) 1 amp NEB RQID [facility] Last Admin: 08/02/19 20:05 Dose: 1 amp Apixaban (Eliquis -) 5 mg PO BID [facility] Last Admin: 08/02/19 22:34 Dose: 5 mg Enalapril Maleate (Vasotec -) 5 mg PO DAILY [facility] Escitalopram Oxalate (Lexapro -) 5 mg PO DAILY [facility] Last Admin: 08/02/19 11:20 Dose: 5 mg Famotidine (Pepcid -) 20 mg PO BID PRN PRN Reason: GERD Furosemide (Lasix Injection -) 20 mg IVPUSH DAILY [facility] Last Admin: 08/02/19 11:20 Dose: 20 mg Lidocaine (Lidoderm Patch -) 1 patch TP DAILY [facility] Last Admin: 08/02/19 13:48 Dose: 1 patch Lidocaine (Lidoderm Patch -) 1 patch TP DAILY [facility] Last Admin: 08/02/19 14:10 Dose: 1 patch Meclizine HCl (Antivert -) 12.5 mg PO Q6H PRN PRN Reason: VERTIGO Last Admin: 07/25/19 14:29 Dose: 12.5 mg Methylprednisolone Sodium Succinate (Solu-Medrol -) 40 mg IVPUSH BID [facility] Last Admin: 08/02/19 22:34 Dose: 40 mg Metoprolol Succinate (Toprol Xl -) 50 mg PO DAILY [facility] Last Admin: 08/02/19 11:21 Dose: 50 mg Miscellaneous (Lidoderm Patch Removal) 1 each MC DAILY@2200 [facility] Last Admin: 08/02/19 22:34 Dose: 1 each Miscellaneous (Lidoderm Patch Removal) 1 each MC DAILY@2200 [facility] Last Admin: 08/02/19 22:34 Dose: 1 each Senna (Senna -) 2 tab PO HS PRN PRN Reason: CONSTIPATION Last Admin: 07/25/19 10:48 Dose: 2 tab Tramadol HCl (Ultram -) 50 mg PO Q6H PRN PRN Reason: PAIN LEVEL 4 - 6 Last Admin: 08/03/19 06:39 Dose: 50 mg Zolpidem Tartrate (Ambien -) 5 mg PO HS PRN PRN Reason: INSOMNIA Last Admin: 08/03/19 00:38 Dose: 5 mg Review of Systems - Review of Systems Constitutional: denies: Chills, Fever Cardiovascular: As noted above Respiratory: reports: Cough denies: Sputum Production Gastrointestinal: denies: Nausea, Vomiting, Diarrhea, Constipation or Abdominal Pain Neurological: denies: Headaches Vital Signs: Last Vital Signs Temp Pulse Resp BP Pulse Ox 98.4 F 92 H 18 115/83 96 08/03/19 05:00 08/03/19 05:00 08/03/19 05:00 08/03/19 05:00 08/02/19 21:00 Intake & Output 07/31/19 08/01/19 08/02/19 08/03/19 23:59 23:59 23:59 23:59 Intake Total 400 568 2091 Balance 940 016 8101 Weight 175 lb 12.8 oz 176 lb 4 oz Neck: Supple Negative JVD No Bruit Respiratory: Diminished breath sounds at the bases bilaterally Cardiovascular: S1 S2 Irregular Irregular Gastrointestinal: Soft Benign Normal Bowel Sounds Ext: Edema Labs: CBC, BMP 07/31/19 06:25 07/31/19 06:25 Hepatic Panel Total Bilirubin 0.9 mg/dL (0.2-1) 07/26/19 06:09 AST 16 U/L (15-37) 07/26/19 06:09 ALT 24 U/L (13-61) 07/26/19 06:09 Alkaline Phosphatase 54 U/L (45-117) 07/26/19 06:09 Albumin 3.0 g/dl (3.4-5.0) L 07/26/19 06:09 Assessment/Plan ASSESSMENT: 1. Coronary artery disease coronary artery calcification on CT scan of the chest angina pectoris 2. Systolic/diastolic LV dysfunction with clinical class I-II NYHA classification LV failure, clinically improving but reported weight gain 3. Persistent atrial fibrillation [id number] score of 5 currently on A/C therapy with Eliquis 4. 5. MS history of BMV/balloon mitral valvuloplasty 6. NSVT 7. HTN 8. Hypercholesterolemia 9. COPD exacerbation with pneumonia, clinically resolving 10. History of lung carcinoma post chemotherapy PLAN: 1. Continue Toprol XL 2. Continue A/C with Eliquis unless it is absolutely contraindicated 3. Continue Lasix IV, and give additional dose today- defer PO therapy initiation 4. As outlined in prior notes recommend the addition of ACEI or ARBS unless it is absolutely contraindicated with close monitoring of renal function 5. Antibiotics as per the primary team 6. As outlined in prior notes will discuss with the primary cardiology team further plans in reference to patient's valvular disease for possible intervention including TAVR, issue is mitral valve pathology since patient has had already BMV/balloon mitral valvuloplasty, patient is a high risk for SAVR/ SMVR Mariaelena Duke M.D.
[2019-08-03] MEDS: ALBUTEROL SO4 2.5/IPRATROPIUM 0.5 INH SOL 3 ML VIAL.NEB. NEB SCH ×4 (07:50→20:30)
[2019-08-03] MEDS: APIXABAN 5 MG TABLET PO SCH (10:08)
[2019-08-03] MEDS: FUROSEMIDE 40 MG/4 ML INJECTABLE VIAL IVPUSH SCH (10:08)
[2019-08-03] MEDS: ESCITALOPRAM OXALATE 10 MG TABLET PO SCH (10:08)
[2019-08-03] MEDS: methylPREDNISolone NA SUCC 40 MG/1 ML VIAL IVPUSH SCH ×2 (10:08→21:50)
[2019-08-03] MEDS: ENALAPRIL MALEATE 5 MG TABLET (FP) PO SCH (10:09)
[2019-08-03] MEDS: LIDOCAINE 5% TOPICAL PATCH TP SCH ×2 (10:09)
[2019-08-03] MEDS ORDERED: FUROSEMIDE 40 MG/4 ML INJECTABLE VIAL IVPUSH ONE (10:19)
--- NOTE | 2019-08-03 12:30 | PN ---
Progress Note (short form) - Note Progress Note: Pt seen/ examined feels better still sob denies cp cardiology f/u noted afebrile back pain better off abx Vital Signs Temp 98.4 F 08/03/19 05:00 Pulse 92 H 08/03/19 05:00 Resp 18 08/03/19 05:00 BP 115/83 08/03/19 05:00 Pulse Ox 96 08/02/19 21:00 Intake & Output 08/02/19 08/03/19 08/03/19 23:59 11:59 23:59 Intake Total 1100 240 Balance 1100 240 Weight 177 lb 9.6 oz Intake: IV 30 saline lock 30 Oral 1070 240 Other: Voiding Method Toilet Toilet # Unmeasured Voids Void 2 2 3 Bowel Movement No Weight Measurement Method Standing Scale Active Medications Albuterol/Ipratropium (Duoneb -) 1 amp NEB RQID [facility] Last Admin: 08/03/19 12:09 Dose: 1 amp Apixaban (Eliquis -) 5 mg PO BID [facility] Last Admin: 08/03/19 10:08 Dose: 5 mg Enalapril Maleate (Vasotec -) 5 mg PO DAILY [facility] Last Admin: 08/03/19 10:09 Dose: 5 mg Escitalopram Oxalate (Lexapro -) 5 mg PO DAILY [facility] Last Admin: 08/03/19 10:08 Dose: 5 mg Famotidine (Pepcid -) 20 mg PO BID PRN PRN Reason: GERD Furosemide (Lasix Injection -) 20 mg IVPUSH DAILY [facility] Last Admin: 08/03/19 10:08 Dose: 20 mg Lidocaine (Lidoderm Patch -) 1 patch TP DAILY [facility] Last Admin: 08/03/19 10:09 Dose: 1 patch Lidocaine (Lidoderm Patch -) 1 patch TP DAILY [facility] Last Admin: 08/03/19 10:09 Dose: 1 patch Meclizine HCl (Antivert -) 12.5 mg PO Q6H PRN PRN Reason: VERTIGO Last Admin: 07/25/19 14:29 Dose: 12.5 mg Methylprednisolone Sodium Succinate (Solu-Medrol -) 40 mg IVPUSH BID [facility] Last Admin: 08/03/19 10:08 Dose: 40 mg Metoprolol Succinate (Toprol Xl -) 50 mg PO DAILY [facility] Last Admin: 08/03/19 10:09 Dose: 50 mg Miscellaneous (Lidoderm Patch Removal) 1 each MC DAILY@2200 [facility] Last Admin: 08/02/19 22:34 Dose: 1 each Miscellaneous (Lidoderm Patch Removal) 1 each MC DAILY@2200 [facility] Last Admin: 08/02/19 22:34 Dose: 1 each Senna (Senna -) 2 tab PO HS PRN PRN Reason: CONSTIPATION Last Admin: 07/25/19 10:48 Dose: 2 tab Tramadol HCl (Ultram -) 50 mg PO Q6H PRN PRN Reason: PAIN LEVEL 4 - 6 Last Admin: 08/03/19 06:39 Dose: 50 mg Zolpidem Tartrate (Ambien -) 5 mg PO HS PRN PRN Reason: INSOMNIA Last Admin: 08/03/19 00:38 Dose: 5 mg CBC, BMP 07/31/19 06:25 07/31/19 06:25 Physical exam S1 S2 Irregular Lungs crackles +--- Abd- soft, NT edema++--- improved alert and awake PLAN Pneumonia Lung cancer -- off antibiotics -- CT chest---LLL pneumonia -- urine antigens negative -- Influenza negative f/ u cxr -noted short course of medrol --Taper Afib -- rate controlled -- on Eliquis CHF -- on lasix iv- additional dose today -- monitor renal function -better Lung CA Breast CA --- she stopped oral chemo about 6 months ago-- does not want to follow up with oncologist at [facility] - she is refusing further chemo for lung CA family aware Will follow Problem List - Problems (1) Acute on chronic diastolic CHF (congestive heart failure) Code(s): I50.33 - ACUTE ON CHRONIC DIASTOLIC (CONGESTIVE) HEART FAILURE (2) CAP (community acquired pneumonia) Code(s): J18.9 - PNEUMONIA, UNSPECIFIED ORGANISM Qualifiers: Laterality: left Lung location: lower lobe of lung Qualified Code(s): J18.9 - Pneumonia, unspecified organism (3) Afib Code(s): I48.91 - UNSPECIFIED ATRIAL FIBRILLATION Qualifiers: Atrial fibrillation type: chronic (4) Aortic stenosis Code(s): I35.0 - NONRHEUMATIC AORTIC (VALVE) STENOSIS Qualifiers: Cardiac valve disease etiology: etiology unspecified Qualified Code(s): I35.0 - Nonrheumatic aortic (valve) stenosis (5) CHF (congestive heart failure) Code(s): I50.9 - HEART FAILURE, UNSPECIFIED (6) Lung cancer Code(s): C34.90 - MALIGNANT NEOPLASM OF UNSP PART OF UNSP BRONCHUS OR LUNG
[2019-08-03] MEDS: APIXABAN 2.5 MG TABLET PO SCH (21:52)
[2019-08-03] MEDS: LIDOCAINE PATCH REMOVAL MC SCH ×2 (21:52)
[2019-08-04] MEDS: ZOLPIDEM TARTRATE 5 MG TABLET PO PRN ×2 (01:13→23:17)
[2019-08-04] MEDS: traMADol HCL 50 MG TABLET PO PRN (01:13)
[2019-08-04] MEDS: ALBUTEROL SO4 2.5/IPRATROPIUM 0.5 INH SOL 3 ML VIAL.NEB. NEB SCH ×4 (07:10→21:05)
[2019-08-04] MEDS: methylPREDNISolone NA SUCC 40 MG/1 ML VIAL IVPUSH SCH (09:43)
[2019-08-04] MEDS: ESCITALOPRAM OXALATE 10 MG TABLET PO SCH (09:43)
[2019-08-04] MEDS: LIDOCAINE 5% TOPICAL PATCH TP SCH ×2 (09:43)
[2019-08-04] MEDS: FUROSEMIDE 40 MG/4 ML INJECTABLE VIAL IVPUSH SCH (09:43)
[2019-08-04] MEDS: ENALAPRIL MALEATE 5 MG TABLET (FP) PO SCH (09:44)
[2019-08-04] MEDS: APIXABAN 2.5 MG TABLET PO SCH ×2 (09:46→23:17)
--- NOTE | 2019-08-04 10:18 | PN ---
Progress Note, Physician Chief Complaint: Pt A&Ox3; still with dry cough; abdominal pain ("I pulled the muscles in my stomach from coughing, and now my back and abdomen hurt every time a get up or cough"). No chest pain, palpitations, or dyspnea. History of Present Illness: 79 yr old white woman w PMHx lung cancer (completed chemo), a-fib (on eliquis), systolic (mildly reduced LVEF) CHF, severe aortic/mitral valve stenosis (s/p mitral balloon valvuloplasty 2006 at [facility]), anxiety, presenting w 1d white productive cough, nasal congestion, chills, SOB, and 1w worsening BLE swelling. Pt did not take lasix today, been taking amoxicillin at home. Denies fever, nausea/vomiting, chest pain, urinary/bowel mvmt changes. - Current Medication List Current Medications: Active Medications Albuterol/Ipratropium (Duoneb -) 1 amp NEB RQID [facility] Last Admin: 08/03/19 20:30 Dose: 1 amp Apixaban (Eliquis -) 5 mg PO BID [facility] Last Admin: 08/04/19 09:46 Dose: 5 mg Enalapril Maleate (Vasotec -) 5 mg PO DAILY [facility] Last Admin: 08/04/19 09:44 Dose: 5 mg Escitalopram Oxalate (Lexapro -) 5 mg PO DAILY [facility] Last Admin: 08/04/19 09:43 Dose: 5 mg Famotidine (Pepcid -) 20 mg PO BID PRN PRN Reason: GERD Furosemide (Lasix Injection -) 20 mg IVPUSH DAILY [facility] Last Admin: 08/04/19 09:43 Dose: 20 mg Lidocaine (Lidoderm Patch -) 1 patch TP DAILY [facility] Last Admin: 08/04/19 09:43 Dose: 1 patch Lidocaine (Lidoderm Patch -) 1 patch TP DAILY [facility] Last Admin: 08/04/19 09:43 Dose: 1 patch Meclizine HCl (Antivert -) 12.5 mg PO Q6H PRN PRN Reason: VERTIGO Last Admin: 07/25/19 14:29 Dose: 12.5 mg Methylprednisolone Sodium Succinate (Solu-Medrol -) 20 mg IVPUSH BID [facility] Last Admin: 08/04/19 09:43 Dose: 20 mg Metoprolol Succinate (Toprol Xl -) 50 mg PO DAILY [facility] Last Admin: 08/04/19 09:44 Dose: 50 mg Miscellaneous (Lidoderm Patch Removal) 1 each MC DAILY@2199 [facility] Last Admin: 08/03/19 21:52 Dose: 1 each Miscellaneous (Lidoderm Patch Removal) 1 each MC DAILY@2199 [facility] Last Admin: 08/03/19 21:52 Dose: 1 each Senna (Senna -) 2 tab PO HS PRN PRN Reason: CONSTIPATION Last Admin: 07/25/19 10:48 Dose: 2 tab Tramadol HCl (Ultram -) 50 mg PO Q6H PRN PRN Reason: PAIN LEVEL 4 - 6 Last Admin: 08/04/19 01:13 Dose: 50 mg Zolpidem Tartrate (Ambien -) 5 mg PO HS PRN PRN Reason: INSOMNIA Last Admin: 08/04/19 01:13 Dose: 5 mg - Objective Vital Signs: Vital Signs Temperature 98.4 F 08/04/19 06:00 Pulse Rate 84 08/04/19 06:00 Respiratory Rate 20 08/04/19 06:00 Blood Pressure 126/82 08/04/19 06:00 O2 Sat by Pulse Oximetry (%) 96 08/03/19 20:15 Constitutional: Yes: Anxious Eyes: Yes: WNL HENT: Yes: WNL Neck: Yes: WNL Cardiovascular: Yes: S1 (varies in intensity), S2 Respiratory: Yes: Cough (dry), Diminished Gastrointestinal: Yes: Soft. No: Tenderness ...Rectal Exam: Yes: Deferred Genitourinary: No: Anuria Breast(s): Yes: WNL Musculoskeletal: Yes: Muscle Weakness Extremities: Yes: Cool Edema: Yes Edema: LLE: Trace, RLE: Trace Peripheral Pulses WNL: Yes Integumentary: Yes: WNL Neurological: Yes: Alert, Oriented, Weakness Psychiatric: Yes: Alert, Oriented Labs: CBC, BMP 07/31/19 06:25 07/31/19 06:25 Abnormal Lab Results 08/05/19 08/05/19 05:10 05:10 WBC 19.8 H Hgb 16.0 H Hct 48.8 H D MCV 96.4 H MPV 7.4 L BUN 25.7 H Random Glucose 125 H ALT 82 H Total Protein 6.3 L Albumin 3.2 L - ....Imaging EKG: Image Reviewed Problem List - Problems (1) Pneumonia Assessment/Plan: LLL pneumonia. Antibiotics: on Rocephin. On IV solumedrol. Maintain fluids. Code(s): J18.9 - PNEUMONIA, UNSPECIFIED ORGANISM (2) Acute respiratory failure Code(s): J96.00 - ACUTE RESPIRATORY FAILURE, UNSP W HYPOXIA OR HYPERCAPNIA Qualifiers: Respiratory failure complication: hypoxia Qualified Code(s): J96.01 - Acute respiratory failure with hypoxia (3) Afib Assessment/Plan: On metoprolol ER; incureased to 50 mg daily after wide-complex tachycardia last night. On apixaban. Code(s): I48.91 - UNSPECIFIED ATRIAL FIBRILLATION Qualifiers: Atrial fibrillation type: chronic (4) Anxiety Code(s): F41.9 - ANXIETY DISORDER, UNSPECIFIED (5) Aortic stenosis Assessment/Plan: moderate-severe MS; moderately severe ; mildly reduced LVEF on 03/2019 ECHO. Code(s): I35.0 - NONRHEUMATIC AORTIC (VALVE) STENOSIS Qualifiers: Cardiac valve disease etiology: etiology unspecified Qualified Code(s): I35.0 - Nonrheumatic aortic (valve) stenosis (6) Lung cancer Code(s): C34.90 - MALIGNANT NEOPLASM OF UNSP PART OF UNSP BRONCHUS OR LUNG (7) Mitral stenosis Code(s): I05.0 - RHEUMATIC MITRAL STENOSIS Qualifiers: Cardiac valve disease etiology: rheumatic Qualified Code(s): I05.0 - Rheumatic mitral stenosis (8) NSVT (nonsustained ventricular tachycardia) Code(s): I47.2 - VENTRICULAR TACHYCARDIA (9) Acute on chronic systolic CHF (congestive heart failure) Code(s): I50.23 - ACUTE ON CHRONIC SYSTOLIC (CONGESTIVE) HEART FAILURE
[2019-08-04] MEDS ORDERED: DEXTROMETHORPHAN/PROMETHAZINE 15 MG/6.25 MG/5 ML SYRUP PO PRN (11:49)
--- NOTE | 2019-08-04 17:56 | ECHO ---
Version: 1 Name: MARY ELLEN WILLARD Exam: Adult Echocardiogram Study Date: 08/04/2019, 12:13 PM Age: 79 Years MMode/2D Measurements & Calculations IVSd: 0.73 cm LVIDs: 3.5 cm LVIDd: 5.6 cm LVPWd: 0.75 cm ACS: 1.36 cm Ao root diam: 2.7 cm LVOT diam: 2.03 cm LA dimension: 7.4 cm Doppler Measurements & Calculations MV V2 max: 226.2 cm/sec MV max P.5 mmHg MR max P.0 mmHg Ao max P.8 mmHg BRETT(I,D): 1.15 cm Ao mean P.9 mmHg LV V1 mean: 81.6 cm/sec Ao V2 max: 253.4 cm/sec LV V1 mean P.7 mmHg TR max ortiz: 363.2 cm/sec TR max P.9 mmHg Procedure The study was technically limited with all images being suboptimal in quality. Left Ventricle The left ventricle is normal in size. There is normal left ventricular wall thickness. Left ventricu lar systolic function is low normal. Ejection Fraction = 50%. Right Ventricle The right ventricle is normal in size and function. Atria The left atrium is severely dilated. The right atrium is mildly dilated. Mitral Valve There is moderate to severe mitral annular calcification. There is moderate mitral stenosis. There i s trace to mild mitral regurgitation. Tricuspid Valve The tricuspid valve is not well visualized. There is mild tricuspid regurgitation. Aortic Valve The calculated aortic valve area using the continuity equation is 1.02 cm2. Aortic max pressure grad ient= 14.0. Moderate valvular aortic stenosis. Pulmonic Valve The pulmonic valve is not well visualized. Great Vessels The aortic root is normal size. Normal aortic arch, descending and ascending aorta. Pericardium/Pleura There is no pericardial effusion. Summary Statements The study was technically limited with all images being suboptimal in quality. The left ventricle is normal in size. Left ventricular systolic function is low normal. The right ventricle is normal in size and function. The left atrium is severely dilated. The right atrium is mildly dilated. There is moderate to severe mitral annular calcification. There is moderate mitral stenosis. There is trace to mild mitral regurgitation. The tricuspid valve is not well visualized. There is mild tricuspid regurgitation. Moderate valvular aortic stenosis. Aortic max pressure gradient= 14.0 The calculated aortic valve area using the continuity equation is 1.02 cm2. The pulmonic valve is not well visualized. The aortic root is normal size. Normal aortic arch, descending and ascending aorta There is no pericardial effusion. Randy Demarco 08/04/2019, 5:56 PM Ordering Physician: Humberto Mclain Performed By: Maura Baker
--- NOTE | 2019-08-04 18:23 | PN ---
Progress Note (short form) - Note Progress Note: Coughing+ sob better Vital Signs - 24 hr 08/03/19 08/03/19 08/04/19 18:31 20:15 00:00 Temperature 98.2 F 98.1 F Pulse Rate 87 87 Respiratory 20 20 Rate Blood Pressure 121/75 127/87 O2 Sat by Pulse 94 L 96 Oximetry (%) 08/04/19 08/04/19 08/04/19 06:00 09:00 10:00 Temperature 98.4 F 98.1 F Pulse Rate 84 98 H Respiratory 20 20 20 Rate Blood Pressure 126/82 128/72 O2 Sat by Pulse 96 Oximetry (%) 08/04/19 08/04/19 12:59 14:00 Temperature 98.4 F Pulse Rate 99 H Respiratory 20 Rate Blood Pressure 125/84 O2 Sat by Pulse 93 L Oximetry (%) Current Medications Generic Name Dose Route Start Last Admin Trade Name Freq PRN Reason Stop Dose Admin Albuterol/Ipratropium 1 amp 07/26/19 12:00 08/04/19 16:13 Duoneb - NEB 1 amp RQID [facility] Administration Apixaban 5 mg 08/03/19 21:36 08/04/19 09:46 Eliquis - PO 5 mg BID [facility] Administration Enalapril Maleate 2.5 mg 08/05/19 10:00 Vasotec - PO DAILY [facility] Escitalopram Oxalate 5 mg 07/25/19 10:00 08/04/19 09:43 Lexapro - PO 5 mg DAILY [facility] Administration Famotidine 20 mg 07/25/19 06:23 Pepcid - PO BID PRN GERD Furosemide 20 mg 07/28/19 07:45 08/04/19 09:43 Lasix Injection - IVPUSH 20 mg DAILY [facility] Administration Lidocaine 1 patch 08/02/19 13:00 08/04/19 09:43 Lidoderm Patch - TP 1 patch DAILY [facility] Administration Lidocaine 1 patch 08/02/19 14:00 08/04/19 09:43 Lidoderm Patch - TP 1 patch DAILY [facility] Administration Meclizine HCl 12.5 mg 07/25/19 12:50 07/25/19 14:29 Antivert - PO 12.5 mg Q6H PRN Administration VERTIGO Methylprednisolone Sodium Succinate 20 mg 08/05/19 10:00 Solu-Medrol - IVPUSH DAILY [facility] Metoprolol Succinate 50 mg 07/30/19 23:40 08/04/19 09:44 Toprol Xl - PO 50 mg DAILY [facility] Administration Miscellaneous 1 each 08/02/19 22:00 08/03/19 21:52 Lidoderm Patch Removal MC 1 each DAILY@2200 [facility] Administration Miscellaneous 1 each 08/02/19 22:00 08/03/19 21:52 Lidoderm Patch Removal MC 1 each DAILY@0 [facility] Administration Promethazine HCl/Dextromethorphan 5 ml 08/04/19 11:49 Phenergan-Dm Syrup - PO Q4H PRN COUGH Senna 2 tab 07/25/19 06:23 07/25/19 10:48 Senna - PO 2 tab HS PRN Administration CONSTIPATION Tramadol HCl 50 mg 08/02/19 19:01 08/04/19 01:13 Ultram - PO 50 mg Q6H PRN Administration PAIN LEVEL 4 - 6 Zolpidem Tartrate 5 mg 08/02/19 00:19 08/04/19 01:13 Ambien - PO 5 mg HS PRN Administration INSOMNIA S1 S2 Irregular Lungs crackles +ronchi B/L Abd- soft, NT edema++ PLAN Pneumonia --completed iv antibiotics -- CT chest---LLL pneumonia -- urine antigens negative -- Influenza negative short course of medrol --taper today add phenergan Afib -- rate controlled -- on Eliquis CHF -- on lasix iv- decreased -- monitor renal function Lung CA Breast CA --- she stopped oral chemo about 6 months ago-- does not want to follow up with oncologist at [facility] - she is refusing further chemo for lung CA family aware Problem List - Problems (1) Acute on chronic diastolic CHF (congestive heart failure) Code(s): I50.33 - ACUTE ON CHRONIC DIASTOLIC (CONGESTIVE) HEART FAILURE (2) CAP (community acquired pneumonia) Code(s): J18.9 - PNEUMONIA, UNSPECIFIED ORGANISM Qualifiers: Laterality: left Lung location: lower lobe of lung Qualified Code(s): J18.9 - Pneumonia, unspecified organism (3) Afib Code(s): I48.91 - UNSPECIFIED ATRIAL FIBRILLATION Qualifiers: Atrial fibrillation type: chronic (4) Aortic stenosis Code(s): I35.0 - NONRHEUMATIC AORTIC (VALVE) STENOSIS Qualifiers: Cardiac valve disease etiology: etiology unspecified Qualified Code(s): I35.0 - Nonrheumatic aortic (valve) stenosis (5) CHF (congestive heart failure) Code(s): I50.9 - HEART FAILURE, UNSPECIFIED (6) Lung cancer Code(s): C34.90 - MALIGNANT NEOPLASM OF UNSP PART OF UNSP BRONCHUS OR LUNG
[2019-08-04 20:43] VITALS: BMI 30.7
[2019-08-04] MEDS: LIDOCAINE PATCH REMOVAL MC SCH ×2 (23:17→23:18)
[2019-08-05 06:25] LABS: ALBUMIN 3.2 g/dl (3.4-5.0); BILIRUBIN,TOTAL 0.8 mg/dL (0.2-1); BLOOD UREA NITROGEN 25.7 mg/dL (7-18); CALCIUM 8.7 mg/dL (8.5-10.1); CREATININE 0.8 mg/dL (0.55-1.3); POTASSIUM 4.7 mmol/L (3.5-5.1); TOT PROT 6.3 g/dl (6.4-8.2)
[2019-08-05 06:26] LABS: HEMATOCRIT 48.8 % (32.4-45.2); MCH 31.6 pg (25.7-33.7); MCHC 32.8 g/dl (32.0-36.0); MEAN CELL VOLUME 96.4 fl (80-96); MEAN PLT VOLUME 7.4 fl (7.5-11.1); PLATELET COUNT 321 K/MM3 (134-434); RBC 5.06 M/mm3 (3.60-5.2); RDW 14.2 % (11.6-15.6); WHITE BLOOD COUNT 19.8 K/mm3 (4.0-10.0)
[2019-08-05] MEDS: ALBUTEROL SO4 2.5/IPRATROPIUM 0.5 INH SOL 3 ML VIAL.NEB. NEB SCH ×5 (07:50→20:31)
[2019-08-05] MEDS ORDERED: methylPREDNISolone NA SUCC 40 MG/1 ML VIAL IVPUSH SCH (10:00)
[2019-08-05] MEDS: APIXABAN 2.5 MG TABLET PO SCH ×2 (10:39→23:08)
[2019-08-05] MEDS: ENALAPRIL MALEATE 5 MG TABLET (FP) PO SCH (10:40)
[2019-08-05] MEDS: ESCITALOPRAM OXALATE 10 MG TABLET PO SCH (10:40)
[2019-08-05] MEDS: FUROSEMIDE 40 MG/4 ML INJECTABLE VIAL IVPUSH SCH (10:51)
[2019-08-05] MEDS: LIDOCAINE 5% TOPICAL PATCH TP SCH ×2 (10:51→10:52)
--- NOTE | 2019-08-05 12:11 | PN ---
Progress Note (short form) - Note Progress Note: Coughing+ sob better has pain in back when she coughs Vital Signs - 24 hr 08/04/19 08/04/19 08/04/19 12:59 14:00 18:00 Temperature 98.4 F 97.5 F L Pulse Rate 99 H 86 Respiratory 20 20 Rate Blood Pressure 125/84 134/87 O2 Sat by Pulse 93 L Oximetry (%) 08/04/19 08/05/19 08/05/19 20:00 01:31 06:00 Temperature 97.4 F L 97.8 F 98.1 F Pulse Rate 87 87 82 Respiratory 20 20 20 Rate Blood Pressure 115/73 123/74 128/77 O2 Sat by Pulse 96 Oximetry (%) 08/05/19 08/05/19 08:34 10:00 Temperature Pulse Rate Respiratory 20 20 Rate Blood Pressure O2 Sat by Pulse 96 Oximetry (%) Current Medications Generic Name Dose Route Start Last Admin Trade Name Freq PRN Reason Stop Dose Admin Albuterol/Ipratropium 1 amp 07/26/19 12:00 08/05/19 12:02 Duoneb - NEB 1 amp RQID PALAK Administration Apixaban 5 mg 08/03/19 21:36 08/05/19 10:39 Eliquis - PO 5 mg BID PALAK Administration Enalapril Maleate 2.5 mg 08/05/19 10:00 08/05/19 10:40 Vasotec - PO 2.5 mg DAILY PALAK Administration Escitalopram Oxalate 5 mg 07/25/19 10:00 08/05/19 10:40 Lexapro - PO 5 mg DAILY [facility]AK Administration Famotidine 20 mg 07/25/19 06:23 Pepcid - PO BID PRN GERD Furosemide 20 mg 07/28/19 07:45 08/05/19 10:51 Lasix Injection - IVPUSH 20 mg DAILY [facility] Administration Lidocaine 1 patch 08/02/19 13:00 08/05/19 10:51 Lidoderm Patch - TP 1 patch DAILY [facility]AK Administration Lidocaine 1 patch 08/02/19 14:00 08/05/19 10:52 Lidoderm Patch - TP 1 patch DAILY [facility] Administration Meclizine HCl 12.5 mg 07/25/19 12:50 07/25/19 14:29 Antivert - PO 12.5 mg Q6H PRN Administration VERTIGO Methylprednisolone Sodium Succinate 20 mg 08/05/19 10:00 08/05/19 10:41 Solu-Medrol - IVPUSH 20 mg DAILY [facility] Administration Metoprolol Succinate 50 mg 07/30/19 23:40 08/05/19 10:39 Toprol Xl - PO 50 mg DAILY [facility]AK Administration Miscellaneous 1 each 08/02/19 22:00 08/04/19 23:18 Lidoderm Patch Removal MC 1 each DAILY@0 PALAK Administration Miscellaneous 1 each 08/02/19 22:00 08/04/19 23:17 Lidoderm Patch Removal MC 1 each DAILY@0 [facility]AK Administration Promethazine HCl/Dextromethorphan 5 ml 08/04/19 11:49 Phenergan-Dm Syrup - PO Q4H PRN COUGH Senna 2 tab 07/25/19 06:23 07/25/19 10:48 Senna - PO 2 tab HS PRN Administration CONSTIPATION Tramadol HCl 50 mg 08/02/19 19:01 08/04/19 01:13 Ultram - PO 50 mg Q6H PRN Administration PAIN LEVEL 4 - 6 Laboratory Results - last 24 hr 08/05/19 08/05/19 05:10 05:10 WBC 19.8 H RBC 5.06 Hgb 16.0 H Hct 48.8 H D MCV 96.4 H MCH 31.6 MCHC 32.8 RDW 14.2 Plt Count 321 MPV 7.4 L Sodium 138 Potassium 4.7 Chloride 101 Carbon Dioxide 27 Anion Gap 9 BUN 25.7 H Creatinine 0.8 Est GFR (CKD-EPI)AfAm 80.70 Est GFR (CKD-EPI)NonAf 69.63 Random Glucose 125 H Calcium 8.7 Total Bilirubin 0.8 AST 19 ALT 82 H Alkaline Phosphatase 54 Total Protein 6.3 L Albumin 3.2 L S1 S2 Irregular Lungs crackles +ronchi B/L Abd- soft, NT edema++ PLAN Pneumonia --completed iv antibiotics -- CT chest---LLL pneumonia -- urine antigens negative -- Influenza negative short course of medrol --dc today add phenergan elevated WBC due to steroids possibly add Flexeril for back pain Afib -- rate controlled -- on Eliquis CHF -- on lasix iv- decreased -- monitor renal function Lung CA Breast CA --- she stopped oral chemo about 6 months ago-- does not want to follow up with oncologist at [facility] - she is refusing further chemo for lung CA family aware Problem List - Problems (1) Acute on chronic diastolic CHF (congestive heart failure) Code(s): I50.33 - ACUTE ON CHRONIC DIASTOLIC (CONGESTIVE) HEART FAILURE (2) CAP (community acquired pneumonia) Code(s): J18.9 - PNEUMONIA, UNSPECIFIED ORGANISM Qualifiers: Laterality: left Lung location: lower lobe of lung Qualified Code(s): J18.9 - Pneumonia, unspecified organism (3) Afib Code(s): I48.91 - UNSPECIFIED ATRIAL FIBRILLATION Qualifiers: Atrial fibrillation type: chronic (4) Aortic stenosis Code(s): I35.0 - NONRHEUMATIC AORTIC (VALVE) STENOSIS Qualifiers: Cardiac valve disease etiology: etiology unspecified Qualified Code(s): I35.0 - Nonrheumatic aortic (valve) stenosis (5) CHF (congestive heart failure) Code(s): I50.9 - HEART FAILURE, UNSPECIFIED (6) Lung cancer Code(s): C34.90 - MALIGNANT NEOPLASM OF UNSP PART OF UNSP BRONCHUS OR LUNG
[2019-08-05] MEDS: CYCLOBENZAPRINE HCL 5 MG TABLET PO SCH (12:37)
[2019-08-05] MEDS: traMADol HCL 50 MG TABLET PO PRN (20:28)
[2019-08-05] MEDS: ZOLPIDEM TARTRATE 5 MG TABLET PO PRN (23:08)
[2019-08-05] MEDS: LIDOCAINE PATCH REMOVAL MC SCH ×2 (23:09)
[2019-08-06] MEDS: ENALAPRIL MALEATE 5 MG TABLET (FP) PO SCH (09:04)
[2019-08-06] MEDS: CYCLOBENZAPRINE HCL 5 MG TABLET PO SCH (09:04)
[2019-08-06] MEDS: FUROSEMIDE 40 MG/4 ML INJECTABLE VIAL IVPUSH SCH (09:04)
[2019-08-06] MEDS: APIXABAN 2.5 MG TABLET PO SCH ×2 (09:05→21:32)
[2019-08-06] MEDS: ESCITALOPRAM OXALATE 10 MG TABLET PO SCH (09:05)
[2019-08-06] MEDS: traMADol HCL 50 MG TABLET PO PRN (09:06)
[2019-08-06] MEDS: LIDOCAINE 5% TOPICAL PATCH TP SCH ×2 (09:08)
[2019-08-06] MEDS: ALBUTEROL SO4 2.5/IPRATROPIUM 0.5 INH SOL 3 ML VIAL.NEB. NEB SCH ×4 (09:45→20:31)
--- NOTE | 2019-08-06 12:14 | PN ---
Progress Note (short form) - Note Progress Note: Coughing+ sounds productive sob better has pain in back when she coughs Vital Signs - 24 hr 08/05/19 08/05/19 08/05/19 14:00 18:00 22:00 Temperature 98.2 F 98.1 F 98.3 F Pulse Rate 81 76 88 Respiratory 20 20 20 Rate Blood Pressure 96/63 103/62 112/67 08/06/19 08/06/19 08/06/19 02:00 06:00 09:00 Temperature 98.7 F Pulse Rate 81 83 Respiratory 20 20 20 Rate Blood Pressure 117/74 129/88 08/06/19 10:00 Temperature 97.7 F Pulse Rate 91 H Respiratory 20 Rate Blood Pressure 119/76 Current Medications Generic Name Dose Route Start Last Admin Trade Name Freq PRN Reason Stop Dose Admin Albuterol/Ipratropium 1 amp 07/26/19 12:00 08/06/19 09:45 Duoneb - NEB Not Given RQID PALAK Apixaban 5 mg 08/03/19 21:36 08/06/19 09:05 Eliquis - PO 5 mg BID PALAK Administration Budesonide/Formoterol Fumarate 2 puff 08/06/19 12:15 Symbicort 160/4.5mcg - IH BID PALAK Cyclobenzaprine HCl 5 mg 08/05/19 12:15 08/06/19 09:04 Cyclobenzaprine Hcl PO 5 mg DAILY PALAK Administration Enalapril Maleate 2.5 mg 08/05/19 10:00 08/06/19 09:04 Vasotec - PO 2.5 mg DAILY [facility]AK Administration Escitalopram Oxalate 5 mg 07/25/19 10:00 08/06/19 09:05 Lexapro - PO 5 mg DAILY [facility]AK Administration Famotidine 20 mg 07/25/19 06:23 Pepcid - PO BID PRN GERD Furosemide 20 mg 07/28/19 07:45 08/06/19 09:04 Lasix Injection - IVPUSH 20 mg DAILY [facility]AK Administration Lidocaine 1 patch 08/02/19 13:00 08/06/19 09:08 Lidoderm Patch - TP 1 patch DAILY [facility]AK Administration Lidocaine 1 patch 08/02/19 14:00 08/06/19 09:08 Lidoderm Patch - TP 1 patch DAILY [facility]AK Administration Meclizine HCl 12.5 mg 07/25/19 12:50 07/25/19 14:29 Antivert - PO 12.5 mg Q6H PRN Administration VERTIGO Metoprolol Succinate 50 mg 07/30/19 23:40 08/06/19 09:04 Toprol Xl - PO 50 mg DAILY PALAK Administration Miscellaneous 1 each 08/02/19 22:00 08/05/19 23:09 Lidoderm Patch Removal MC 1 each DAILY@2200 PALAK Administration Miscellaneous 1 each 08/02/19 22:00 08/05/19 23:09 Lidoderm Patch Removal MC 1 each DAILY@2200 PALAK Administration Promethazine HCl/Dextromethorphan 5 ml 08/04/19 11:49 08/05/19 20:29 Phenergan-Dm Syrup - PO 5 ml Q4H PRN Administration COUGH Senna 2 tab 07/25/19 06:23 07/25/19 10:48 Senna - PO 2 tab HS PRN Administration CONSTIPATION Tramadol HCl 50 mg 08/02/19 19:01 08/06/19 09:06 Ultram - PO 50 mg Q6H PRN Administration PAIN LEVEL 4 - 6 Zolpidem Tartrate 5 mg 08/05/19 21:01 08/05/19 23:08 Ambien - PO 5 mg HS PRN Administration INSOMNIA S1 S2 Irregular Lungs crackles +ronchi B/L Abd- soft, NT edema++ PLAN Pneumonia --completed iv antibiotics -- repeat CXR today -- CT chest---LLL pneumonia -- urine antigens negative -- Influenza negative -- Pulmonary eval s/p medrol add Symbicort added phenergan elevated WBC due to steroids possibly Back pain --added Flexeril for back pain --check Xray LS spine Afib -- rate controlled -- on Eliquis CHF -- on lasix iv- decreased -- monitor renal function Lung CA Breast CA --- she stopped oral chemo about 6 months ago-- does not want to follow up with oncologist at [facility] - she is refusing further chemo for lung CA family aware Problem List - Problems (1) Acute on chronic diastolic CHF (congestive heart failure) Code(s): I50.33 - ACUTE ON CHRONIC DIASTOLIC (CONGESTIVE) HEART FAILURE (2) CAP (community acquired pneumonia) Code(s): J18.9 - PNEUMONIA, UNSPECIFIED ORGANISM Qualifiers: Laterality: left Lung location: lower lobe of lung Qualified Code(s): J18.9 - Pneumonia, unspecified organism (3) Afib Code(s): I48.91 - UNSPECIFIED ATRIAL FIBRILLATION Qualifiers: Atrial fibrillation type: chronic (4) Aortic stenosis Code(s): I35.0 - NONRHEUMATIC AORTIC (VALVE) STENOSIS Qualifiers: Cardiac valve disease etiology: etiology unspecified Qualified Code(s): I35.0 - Nonrheumatic aortic (valve) stenosis (5) CHF (congestive heart failure) Code(s): I50.9 - HEART FAILURE, UNSPECIFIED (6) Lung cancer Code(s): C34.90 - MALIGNANT NEOPLASM OF UNSP PART OF UNSP BRONCHUS OR LUNG
--- NOTE | 2019-08-06 13:19 | CON.PULM ---
Consult Consult Specialty:: PULM/CCM Referred by:: YASMINE Reason for Consultation:: SOB / Cough - History of Present Illness Chief Complaint: SOB History of Present Illness: 79 F, former smoker, COPD (not on any maintenance medications), [place] [facility] [place] off[place] and 5 doses of steriotactic radiation, Afib on Eliquis, CHF, and Atrial/Mitral Valve Disease. Admitted via the ER due to SOB, productive cough, chills, and LE edema. Treated for LLL CAP. Developed increase in cough and musculoskeletal brooks. Reports some improvement with BD TX. Remote baseline PFTs. There is no history that would be consistent with [facility]AS. CXR: Bibasilar atelectasis - History Source History Provided By: Patient Limitations to Obtaining History: No Limitations - Past Medical History MAKEUP ARTIST: Yes: TIA. No: Alzheimer's, CVA, Dementia, Migraine, Multiple Sclerosis, Peripheral Neuropathy, Parkinson's, Seizure, Syncope, Vertigo, Other Cardio/Vascular: Yes: AFIB, Aortic Insufficiency, CHF, HTN, Hyperlipdemia, NC, Mitral Stenosis Pulmonary: Yes: Cancer Gastrointestinal: Yes: Gastritis Renal/: No: Renal Failure ...: No Psych: Yes: Anxiety Musculoskeletal: Yes: Osteoarthritis Endocrine: Yes: Diabetes Mellitus - Past Surgical History Past Surgical History: Yes: Hernia Repair Additional Surgical History: mitral valve balloon valvuloplasty 2006 - Alcohol/Substance Use Hx Alcohol Use: No History of Substance Use: reports: None - Smoking History Smoking history: Former smoker Have you smoked in the past 12 months: No Aproximately how many cigarettes per day: 0 If you are a former smoker, when did you quit?: 40 years ago - Social History ADL: Independent History of Recent Travel: No Home Medications - Allergies Allergies/Adverse Reactions: Allergies Allergy/AdvReac Type Severity Reaction Status Date / Time No Known Allergies Allergy Verified 07/24/19 23:41 - Home Medications Home Medications: Ambulatory Orders Alprazolam [Xanax] 0.125 mg PO HS PRN 07/09/16 Cholecalciferol (Vitamin D3) [Vitamin D3] 5,000 unit PO DAILY 07/09/16 Apixaban [Eliquis -] 5 mg PO BID tablet 07/13/16 Escitalopram Oxalate [Lexapro -] 5 mg PO DAILY tablet 07/13/16 Metoprolol Succinate [Toprol XL -] 25 mg PO DAILY tab.sr.24h 07/13/16 Meclizine HCl [Antivert -] 12.5 mg PO TID #21 tablet 04/19/18 Famotidine [Pepcid] 20 mg PO BID PRN #20 tablet 06/28/18 Acetaminophen [Tylenol .Regular Strength -] 650 mg PO Q6H PRN tablet 03/20/19 Levalbuterol HCl [Xopenex] 0.31 mg IH RTID PRN vial.neb 03/20/19 Sennosides [Senna -] 2 tab PO HS PRN tablet 03/20/19 Torsemide [Demadex -] 60 mg PO DAILY 30 Days #30 tablet 03/20/19 Review of Systems - Review of Systems Constitutional: reports: Chills, Fever, Malaise. denies: Night Sweats Eyes: reports: No Symptoms HENT: reports: No Symptoms Neck: reports: No Symptoms Cardiovascular: reports: Chest Pain, Edema, Shortness of Breath. denies: Palpitations Respiratory: reports: Cough, SOB, SOB on Exertion. denies: Hemoptysis, Snoring , Wheezing Gastrointestinal: reports: Abdominal Pain, Vomiting, Vomiting Blood Genitourinary: reports: No Symptoms Breasts: reports: No Symptoms Reported Musculoskeletal: reports: Back Pain, Muscle Cramps Integumentary: reports: No Symptoms Neurological: reports: No Symptoms Endocrine: reports: No Symptoms Hematology/Lymphatic: reports: No Symptoms Psychiatric: reports: No Symptoms Physical Exam Vital Sings: Vital Signs Temperature 97.7 F 08/06/19 10:00 Pulse Rate 91 H 08/06/19 10:00 Respiratory Rate 20 08/06/19 10:00 Blood Pressure 119/76 08/06/19 10:00 O2 Sat by Pulse Oximetry (%) 96 08/05/19 08:34 Constitutional: Yes: No Distress, Calm, Obese Eyes: Yes: Conjunctiva Clear, EOM Intact HENT: Yes: Atraumatic, Normocephalic Neck: Yes: Supple, Trachea Midline Cardiovascular: Yes: Pulse Irregular Respiratory: Yes: Cough, Diminished, Rhonchi, SOB on Exertion. No: Accessory Muscle Use, Rales, SOB, Stridor, Tachypnea, Wheezes ...Inspection: Yes: WNL ...Clubbing: No Gastrointestinal: Yes: Normal Bowel Sounds, Soft, Abdomen, Obese Renal/: Yes: WNL Musculoskeletal: Yes: WNL Extremities: Yes: WNL Edema: Yes Peripheral Pulses WNL: Yes Integumentary: Yes: WNL Neurological: Yes: WNL, Alert, Oriented ...Motor Strength: WNL Psychiatric: Yes: WNL, Alert, Oriented Labs: CBC, BMP 08/05/19 05:10 08/05/19 05:10 Imaging - Results Chest X-ray: Report Reviewed, Image Reviewed Cat Scan: Report Reviewed, Image Reviewed Problem List - Problems (1) Atelectasis of both lungs Code(s): J98.11 - ATELECTASIS (2) Acute on chronic systolic CHF (congestive heart failure) Code(s): I50.23 - ACUTE ON CHRONIC SYSTOLIC (CONGESTIVE) HEART FAILURE (3) CAP (community acquired pneumonia) Code(s): J18.9 - PNEUMONIA, UNSPECIFIED ORGANISM Qualifiers: Laterality: left Lung location: lower lobe of lung Qualified Code(s): J18.9 - Pneumonia, unspecified organism (4) CHF exacerbation Code(s): I50.9 - HEART FAILURE, UNSPECIFIED Qualifiers: Heart failure type: unspecified Qualified Code(s): I50.9 - Heart failure, unspecified (5) Pneumonia Code(s): J18.9 - PNEUMONIA, UNSPECIFIED ORGANISM (6) Afib Code(s): I48.91 - UNSPECIFIED ATRIAL FIBRILLATION Qualifiers: Atrial fibrillation type: chronic (7) Aortic stenosis Code(s): I35.0 - NONRHEUMATIC AORTIC (VALVE) STENOSIS Qualifiers: Cardiac valve disease etiology: etiology unspecified Qualified Code(s): I35.0 - Nonrheumatic aortic (valve) stenosis (8) CHF (congestive heart failure) Code(s): I50.9 - HEART FAILURE, UNSPECIFIED (9) COPD (chronic obstructive pulmonary disease) Code(s): J44.9 - CHRONIC OBSTRUCTIVE PULMONARY DISEASE, UNSPECIFIED Qualifiers: COPD type: unspecified COPD Qualified Code(s): J44.9 - Chronic obstructive pulmonary disease, unspecified (10) Chronic systolic CHF (congestive heart failure) Code(s): I50.22 - CHRONIC SYSTOLIC (CONGESTIVE) HEART FAILURE (11) Diabetes mellitus Code(s): E11.9 - TYPE 2 DIABETES MELLITUS WITHOUT COMPLICATIONS (12) Hyperlipidemia Code(s): E78.5 - HYPERLIPIDEMIA, UNSPECIFIED (13) Lung cancer Code(s): C34.90 - MALIGNANT NEOPLASM OF UNSP PART OF UNSP BRONCHUS OR LUNG (14) Malaise and fatigue Code(s): R53.81 - OTHER MALAISE; R53.83 - OTHER FATIGUE (15) Mitral stenosis Code(s): I05.0 - RHEUMATIC MITRAL STENOSIS Qualifiers: Cardiac valve disease etiology: rheumatic Qualified Code(s): I05.0 - Rheumatic mitral stenosis (16) Osteoarthritis Code(s): M19.90 - UNSPECIFIED OSTEOARTHRITIS, UNSPECIFIED SITE Assessment/Plan Symbicort: 2 inhalations BID BD TX PRN Monitor off systemic steroids Supplemental O2 as needed Incentive Spiroimetry Patient has completed her ABX for CAP No smoking was counseled Lasix AC PFTs as an outpatient once stable There is no Pulmonary contraindication for DC planning Will follow. Thank you. Dr Barr
[2019-08-06] MEDS: BUDESONIDE/FORMETEROL FUMARATE 160/4.5 mcg INHALER IH SCH ×2 (14:57→21:32)
[2019-08-06] MEDS: LIDOCAINE PATCH REMOVAL MC SCH ×2 (21:32)
[2019-08-07] MEDS: ZOLPIDEM TARTRATE 5 MG TABLET PO PRN (02:05)
[2019-08-07 07:32] LABS: BASO % 0.1 % (0-2.0); EOS % 0.3 % (0-4.5); HEMOGLOBIN 14.5 GM/dL (10.7-15.3); LYMPH % 6.5 % (8-40); MCH 31.9 pg (25.7-33.7); MCHC 33.7 g/dl (32.0-36.0); MEAN CELL VOLUME 94.6 fl (80-96); MEAN PLT VOLUME 7.2 fl (7.5-11.1); MONO % 7.7 % (3.8-10.2); NEUT % 85.4 % (42.8-82.8); PLATELET COUNT 202 K/MM3 (134-434); RBC 4.54 M/mm3 (3.60-5.2); RDW 13.9 % (11.6-15.6); WHITE BLOOD COUNT 12.4 K/mm3 (4.0-10.0)
[2019-08-07] MEDS: ALBUTEROL SO4 2.5/IPRATROPIUM 0.5 INH SOL 3 ML VIAL.NEB. NEB SCH ×4 (07:40→20:55)
[2019-08-07 07:59] LABS: ALBUMIN 2.7 g/dl (3.4-5.0); BILIRUBIN,TOTAL 1.4 mg/dL (0.2-1); BLOOD UREA NITROGEN 25.1 mg/dL (7-18); CALCIUM 8.3 mg/dL (8.5-10.1); CREATININE 0.6 mg/dL (0.55-1.3); POTASSIUM 4.3 mmol/L (3.5-5.1); TOT PROT 5.3 g/dl (6.4-8.2)
[2019-08-07] MEDS: LIDOCAINE 5% TOPICAL PATCH TP SCH ×2 (09:34)
[2019-08-07] MEDS: CYCLOBENZAPRINE HCL 5 MG TABLET PO SCH (09:46)
[2019-08-07] MEDS: APIXABAN 2.5 MG TABLET PO SCH ×2 (09:47→22:39)
[2019-08-07] MEDS: ENALAPRIL MALEATE 5 MG TABLET (FP) PO SCH (09:47)
[2019-08-07] MEDS: FUROSEMIDE 40 MG/4 ML INJECTABLE VIAL IVPUSH SCH (09:47)
[2019-08-07] MEDS: ESCITALOPRAM OXALATE 10 MG TABLET PO SCH (09:47)
[2019-08-07] MEDS: BUDESONIDE/FORMETEROL FUMARATE 160/4.5 mcg INHALER IH SCH ×2 (09:48→22:41)
--- NOTE | 2019-08-07 10:37 | PN ---
Progress Note (short form) - Note Progress Note: pt seen/ examined. chart reviewed sitting in chair complains of back pain x ray -- noted - compression fracture- L1 Pulmonary consult noted Vital Signs Temp 98.0 F 08/07/19 08:37 Pulse 79 08/07/19 08:37 Resp 20 08/07/19 08:39 BP 100/65 08/07/19 08:37 Pulse Ox 96 08/07/19 08:39 Intake & Output 08/06/19 08/06/19 08/07/19 11:59 23:59 11:59 Intake Total 380 Balance 380 Weight 177 lb 9.6 oz 177 lb 3.2 oz Intake: Oral 380 Other: Voiding Method Toilet Toilet Toilet # Unmeasured Voids Void 1 1 1 Bowel Movement No No Weight Measurement Method Standing Scale Standing Scale Active Medications Albuterol/Ipratropium (Duoneb -) 1 amp NEB RQID [facility] Last Admin: 08/07/19 07:40 Dose: 1 amp Apixaban (Eliquis -) 5 mg PO BID [facility] Last Admin: 08/07/19 09:47 Dose: 5 mg Budesonide/Formoterol Fumarate (Symbicort 160/4.5mcg -) 2 puff IH BID [facility] Last Admin: 08/07/19 09:48 Dose: 2 puff Cyclobenzaprine HCl (Cyclobenzaprine Hcl) 5 mg PO DAILY [facility] Last Admin: 08/07/19 09:46 Dose: 5 mg Enalapril Maleate (Vasotec -) 2.5 mg PO DAILY [facility] Last Admin: 08/07/19 09:47 Dose: 2.5 mg Escitalopram Oxalate (Lexapro -) 5 mg PO DAILY [facility] Last Admin: 08/07/19 09:47 Dose: 5 mg Famotidine (Pepcid -) 20 mg PO BID PRN PRN Reason: GERD Furosemide (Lasix Injection -) 20 mg IVPUSH DAILY [facility] Last Admin: 08/07/19 09:47 Dose: 20 mg Lidocaine (Lidoderm Patch -) 1 patch TP DAILY [facility] Last Admin: 08/07/19 09:34 Dose: 1 patch Lidocaine (Lidoderm Patch -) 1 patch TP DAILY [facility] Last Admin: 08/07/19 09:34 Dose: 1 patch Meclizine HCl (Antivert -) 12.5 mg PO Q6H PRN PRN Reason: VERTIGO Last Admin: 07/25/19 14:29 Dose: 12.5 mg Metoprolol Succinate (Toprol Xl -) 50 mg PO DAILY [facility] Last Admin: 08/07/19 09:48 Dose: 50 mg Miscellaneous (Lidoderm Patch Removal) 1 each MC DAILY@2200 PALAK Last Admin: 08/06/19 21:32 Dose: 1 each Miscellaneous (Lidoderm Patch Removal) 1 each MC DAILY@2200 PALAK Last Admin: 08/06/19 21:32 Dose: 1 each Promethazine HCl/Dextromethorphan (Phenergan-Dm Syrup -) 5 ml PO Q4H PRN PRN Reason: COUGH Last Admin: 08/05/19 20:29 Dose: 5 ml Senna (Senna -) 2 tab PO HS PRN PRN Reason: CONSTIPATION Last Admin: 07/25/19 10:48 Dose: 2 tab Tramadol HCl (Ultram -) 50 mg PO Q6H PRN PRN Reason: PAIN LEVEL 4 - 6 Last Admin: 08/06/19 09:06 Dose: 50 mg Zolpidem Tartrate (Ambien -) 5 mg PO HS PRN PRN Reason: INSOMNIA Last Admin: 08/07/19 02:05 Dose: 5 mg CBC, BMP 08/07/19 06:41 08/07/19 06:41 Physical Exam Awake/sitting in chair S1 S2 Irregular Lungs - scattered rhonchi Abd- soft, NT edema+ rom - limited in lower back PLAN Pneumonia --completed iv antibiotics ---- Pulmonary eval noted Back pain -MRI- LS Spine Pain management consult Afib -- rate controlled -- on Eliquis CHF -- on lasix iv- decreased -- monitor renal function Lung CA Breast CA --- she stopped oral chemo about 6 months ago-- does not want to follow up with oncologist at [facility] - she is refusing further chemo for lung CA family aware d/w case manger also Problem List - Problems (1) Acute on chronic diastolic CHF (congestive heart failure) Code(s): I50.33 - ACUTE ON CHRONIC DIASTOLIC (CONGESTIVE) HEART FAILURE (2) CAP (community acquired pneumonia) Code(s): J18.9 - PNEUMONIA, UNSPECIFIED ORGANISM Qualifiers: Laterality: left Lung location: lower lobe of lung Qualified Code(s): J18.9 - Pneumonia, unspecified organism (3) Afib Code(s): I48.91 - UNSPECIFIED ATRIAL FIBRILLATION Qualifiers: Atrial fibrillation type: chronic (4) Aortic stenosis Code(s): I35.0 - NONRHEUMATIC AORTIC (VALVE) STENOSIS Qualifiers: Cardiac valve disease etiology: etiology unspecified Qualified Code(s): I35.0 - Nonrheumatic aortic (valve) stenosis (5) CHF (congestive heart failure) Code(s): I50.9 - HEART FAILURE, UNSPECIFIED (6) Lung cancer Code(s): C34.90 - MALIGNANT NEOPLASM OF UNSP PART OF UNSP BRONCHUS OR LUNG
[2019-08-07 10:38] LABS: PLATELET ESTIMATE NORMAL
--- NOTE | 2019-08-07 11:17 | PN ---
Progress Note, Physician History of Present Illness: PULMONARY ALERT,OOB-CHAIR,+ COUGH. - Current Medication List Current Medications: Active Medications Albuterol/Ipratropium (Duoneb -) 1 amp NEB RQID [facility] Last Admin: 08/07/19 07:40 Dose: 1 amp Apixaban (Eliquis -) 5 mg PO BID [facility] Last Admin: 08/07/19 09:47 Dose: 5 mg Budesonide/Formoterol Fumarate (Symbicort 160/4.5mcg -) 2 puff IH BID [facility] Last Admin: 08/07/19 09:48 Dose: 2 puff Cyclobenzaprine HCl (Cyclobenzaprine Hcl) 5 mg PO DAILY [facility] Last Admin: 08/07/19 09:46 Dose: 5 mg Enalapril Maleate (Vasotec -) 2.5 mg PO DAILY [facility] Last Admin: 08/07/19 09:47 Dose: 2.5 mg Escitalopram Oxalate (Lexapro -) 5 mg PO DAILY [facility] Last Admin: 08/07/19 09:47 Dose: 5 mg Famotidine (Pepcid -) 20 mg PO BID PRN PRN Reason: GERD Furosemide (Lasix Injection -) 20 mg IVPUSH DAILY [facility] Last Admin: 08/07/19 09:47 Dose: 20 mg Lidocaine (Lidoderm Patch -) 1 patch TP DAILY [facility] Last Admin: 08/07/19 09:34 Dose: 1 patch Lidocaine (Lidoderm Patch -) 1 patch TP DAILY [facility] Last Admin: 08/07/19 09:34 Dose: 1 patch Meclizine HCl (Antivert -) 12.5 mg PO Q6H PRN PRN Reason: VERTIGO Last Admin: 07/25/19 14:29 Dose: 12.5 mg Metoprolol Succinate (Toprol Xl -) 50 mg PO DAILY [facility] Last Admin: 08/07/19 09:48 Dose: 50 mg Miscellaneous (Lidoderm Patch Removal) 1 each MC DAILY@0 [facility] Last Admin: 08/06/19 21:32 Dose: 1 each Miscellaneous (Lidoderm Patch Removal) 1 each MC DAILY@2200 [facility] Last Admin: 08/06/19 21:32 Dose: 1 each Promethazine HCl/Dextromethorphan (Phenergan-Dm Syrup -) 5 ml PO Q4H PRN PRN Reason: COUGH Last Admin: 08/05/19 20:29 Dose: 5 ml Senna (Senna -) 2 tab PO HS PRN PRN Reason: CONSTIPATION Last Admin: 07/25/19 10:48 Dose: 2 tab Tramadol HCl (Ultram -) 50 mg PO Q6H PRN PRN Reason: PAIN LEVEL 4 - 6 Last Admin: 08/06/19 09:06 Dose: 50 mg Zolpidem Tartrate (Ambien -) 5 mg PO HS PRN PRN Reason: INSOMNIA Last Admin: 08/07/19 02:05 Dose: 5 mg - Objective Vital Signs: Vital Signs Temperature 98.0 F 08/07/19 08:37 Pulse Rate 79 08/07/19 08:37 Respiratory Rate 20 08/07/19 08:39 Blood Pressure 100/65 08/07/19 08:37 O2 Sat by Pulse Oximetry (%) 96 08/07/19 08:39 Constitutional: Yes: Well Nourished, Calm Eyes: Yes: WNL HENT: Yes: WNL Neck: Yes: WNL Cardiovascular: Yes: Pulse Irregular, S1, S2 Respiratory: Yes: Rhonchi (FEW SCATTERED MARYJANE WHEEZES AND RHONCHI), Wheezes Gastrointestinal: Yes: Normal Bowel Sounds, Soft Extremities: Yes: WNL Edema: Yes Labs: CBC, BMP 08/07/19 06:41 08/07/19 06:41 Assessment/Plan Problem List - Problems (1) Atelectasis of both lungs Code(s): J98.11 - ATELECTASIS (2) Acute on chronic systolic CHF (congestive heart failure) Code(s): I50.23 - ACUTE ON CHRONIC SYSTOLIC (CONGESTIVE) HEART FAILURE (3) CAP (community acquired pneumonia) Code(s): J18.9 - PNEUMONIA, UNSPECIFIED ORGANISM Qualifiers: Laterality: left Lung location: lower lobe of lung Qualified Code(s): J18.9 - Pneumonia, unspecified organism (4) CHF exacerbation Code(s): I50.9 - HEART FAILURE, UNSPECIFIED Qualifiers: Heart failure type: unspecified Qualified Code(s): I50.9 - Heart failure, unspecified (5) Pneumonia Code(s): J18.9 - PNEUMONIA, UNSPECIFIED ORGANISM (6) Afib Code(s): I48.91 - UNSPECIFIED ATRIAL FIBRILLATION Qualifiers: Atrial fibrillation type: chronic (7) Aortic stenosis Code(s): I35.0 - NONRHEUMATIC AORTIC (VALVE) STENOSIS Qualifiers: Cardiac valve disease etiology: etiology unspecified Qualified Code(s): I35.0 - Nonrheumatic aortic (valve) stenosis (8) CHF (congestive heart failure) Code(s): I50.9 - HEART FAILURE, UNSPECIFIED (9) COPD (chronic obstructive pulmonary disease) Code(s): J44.9 - CHRONIC OBSTRUCTIVE PULMONARY DISEASE, UNSPECIFIED Qualifiers: COPD type: unspecified COPD Qualified Code(s): J44.9 - Chronic obstructive pulmonary disease, unspecified (10) Chronic systolic CHF (congestive heart failure) Code(s): I50.22 - CHRONIC SYSTOLIC (CONGESTIVE) HEART FAILURE (11) Diabetes mellitus Code(s): E11.9 - TYPE 2 DIABETES MELLITUS WITHOUT COMPLICATIONS (12) Hyperlipidemia Code(s): E78.5 - HYPERLIPIDEMIA, UNSPECIFIED (13) Lung cancer Code(s): C34.90 - MALIGNANT NEOPLASM OF UNSP PART OF UNSP BRONCHUS OR LUNG (14) Malaise and fatigue Code(s): R53.81 - OTHER MALAISE; R53.83 - OTHER FATIGUE (15) Mitral stenosis Code(s): I05.0 - RHEUMATIC MITRAL STENOSIS Qualifiers: Cardiac valve disease etiology: rheumatic Qualified Code(s): I05.0 - Rheumatic mitral stenosis (16) Osteoarthritis Code(s): M19.90 - UNSPECIFIED OSTEOARTHRITIS, UNSPECIFIED SITE Assessment/Plan Symbicort: 2 inhalations BID BD TX PRN Monitor off systemic steroids Supplemental O2 as needed Incentive Spiroimetry Patient has completed her ABX for CAP No smoking was counseled Emeterio MCKINNON PFTs as an outpatient once stable DR MANUEL
[2019-08-07] MEDS: traMADol HCL 50 MG TABLET PO PRN (13:45)
[2019-08-07] MEDS: oxyCODONE HCL 5 MG TABLET PO PRN ×2 (18:25→22:39)
[2019-08-07] MEDS: ACETAMINOPHEN 325 MG TABLET (FP) PO PRN (18:26)
[2019-08-07] MEDS: LIDOCAINE PATCH REMOVAL MC SCH ×2 (22:41)
--- NOTE | 2019-08-07 23:37 | PN ---
Progress Note, Physician Chief Complaint: Pt A&Ox3; no chest pain; + dry cough. History of Present Illness: 79 yr old white woman w PMHx lung cancer (completed chemo), a-fib (on eliquis), systolic (mildly reduced LVEF) CHF, severe aortic/mitral valve stenosis (s/p mitral balloon valvuloplasty 2007 at [facility]), anxiety, presenting w 1d white productive cough, nasal congestion, chills, SOB, and 1w worsening BLE swelling. Pt did not take lasix today, been taking amoxicillin at home. Denies fever, nausea/vomiting, chest pain, urinary/bowel mvmt changes. - Current Medication List Current Medications: Active Medications Acetaminophen (Tylenol -) 650 mg PO Q6H PRN PRN Reason: PAIN LEVEL 4 - 6 Last Admin: 08/07/19 18:26 Dose: 650 mg Albuterol/Ipratropium (Duoneb -) [address] [facility] Last Admin: 08/07/19 20:55 Dose: 1 amp Apixaban (Eliquis -) [address] [facility] Last Admin: 08/07/19 22:39 Dose: 5 mg Budesonide/Formoterol Fumarate (Symbicort 160/4.5mcg -) [address] [facility] Last Admin: 08/07/19 22:41 Dose: 2 puff Cyclobenzaprine HCl (Cyclobenzaprine Hcl) [address] [facility] Last Admin: 08/07/19 09:46 Dose: 5 mg Enalapril Maleate (Vasotec -) 2.[address] [facility] Last Admin: 08/07/19 09:47 Dose: 2.5 mg Escitalopram Oxalate (Lexapro -) [address] [facility] Last Admin: 08/07/19 09:47 Dose: 5 mg Famotidine (Pepcid -) 20 mg PO BID PRN PRN Reason: GERD Furosemide (Lasix Injection -) [address] [facility] Last Admin: 08/07/19 09:47 Dose: 20 mg Lidocaine (Lidoderm Patch -) [address] [facility] Last Admin: 08/07/19 09:34 Dose: 1 patch Lidocaine (Lidoderm Patch -) [address] [facility] Last Admin: 08/07/19 09:34 Dose: 1 patch Meclizine HCl (Antivert -) 12.5 mg PO Q6H PRN PRN Reason: VERTIGO Last Admin: 07/25/19 14:29 Dose: 12.5 mg Metoprolol Succinate (Toprol Xl -) [address] [facility] Last Admin: 08/07/19 09:48 Dose: 50 mg Miscellaneous (Lidoderm Patch Removal) 1 each [facility] DAILY@2200 [facility] Last Admin: 08/07/19 22:41 Dose: 1 each Miscellaneous (Lidoderm Patch Removal) 1 each [facility] DAILY@0 [facility] Last Admin: 08/07/19 22:41 Dose: 1 each Oxycodone HCl (Roxicodone -) 5 mg PO Q4H PRN PRN Reason: PAIN LEVEL 7 - 10 Last Admin: 08/07/19 22:39 Dose: 5 mg Promethazine HCl/Dextromethorphan (Phenergan-Dm Syrup -) 5 ml PO Q4H PRN PRN Reason: COUGH Last Admin: 08/05/19 20:29 Dose: 5 ml Senna (Senna -) 2 tab PO HS PRN PRN Reason: CONSTIPATION Last Admin: 07/25/19 10:48 Dose: 2 tab Tramadol HCl (Ultram -) 50 mg PO Q6H PRN PRN Reason: PAIN LEVEL 4 - 6 Last Admin: 08/07/19 13:45 Dose: 50 mg Zolpidem Tartrate (Ambien -) 5 mg PO HS PRN PRN Reason: INSOMNIA Last Admin: 08/07/19 02:05 Dose: 5 mg - Objective Vital Signs: Vital Signs Temperature 98.0 F 08/07/19 18:00 Pulse Rate 85 08/07/19 18:00 Respiratory Rate 20 08/07/19 18:00 Blood Pressure 108/73 08/07/19 18:00 O2 Sat by Pulse Oximetry (%) 96 08/07/19 08:39 Constitutional: Yes: Calm Eyes: Yes: WNL HENT: Yes: WNL Neck: Yes: WNL Cardiovascular: Yes: Murmur (26 systolic murmur, RSB-->apex), S1 (varies in intensity), S2 Respiratory: Yes: Diminished Gastrointestinal: Yes: Soft, Other (pain on coughing) ...Rectal Exam: Yes: Deferred Genitourinary: No: Anuria Breast(s): Yes: WNL Musculoskeletal: Yes: Back Pain (on coughing), Muscle Weakness Extremities: Yes: WNL Edema: No Peripheral Pulses WNL: Yes Integumentary: Yes: WNL Neurological: Yes: Alert, Oriented, Weakness Psychiatric: Yes: Alert, Oriented, Other (anxiety) Labs: CBC, BMP 08/07/19 06:41 08/07/19 06:41 Problem List - Problems (1) Pneumonia Assessment/Plan: LLL pneumonia. Completed course of antibiotics. On steroids, bronchodilators. Code(s): J18.9 - PNEUMONIA, UNSPECIFIED ORGANISM (2) Acute respiratory failure Code(s): J96.00 - ACUTE RESPIRATORY FAILURE, UNSP W HYPOXIA OR HYPERCAPNIA Qualifiers: Respiratory failure complication: hypoxia Qualified Code(s): J96.01 - Acute respiratory failure with hypoxia (3) Afib Assessment/Plan: On metoprolol ER; incureased to 50 mg daily; no further NSVT noted. On apixaban for anticoagulation. Code(s): I48.91 - UNSPECIFIED ATRIAL FIBRILLATION Qualifiers: Atrial fibrillation type: chronic (4) Anxiety Code(s): F41.9 - ANXIETY DISORDER, UNSPECIFIED (5) Aortic stenosis Assessment/Plan: 08/04/2019: low-normal LVEF; moderate MS and ; severe LAE; trace-mild MR. Code(s): I35.0 - NONRHEUMATIC AORTIC (VALVE) STENOSIS Qualifiers: Cardiac valve disease etiology: etiology unspecified Qualified Code(s): I35.0 - Nonrheumatic aortic (valve) stenosis (6) Lung cancer Assessment/Plan: Pt refuses futher Rx for lung CA. 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 Start ACEI (systolic CHF; dilated LV). Maintain electrolytes: Keep K 4.0-4.5, Mg 2.0-2.4, and PO4 2.5-4.9. Code(s): I47.2 - VENTRICULAR TACHYCARDIA (9) Acute on chronic systolic CHF (congestive heart failure) Assessment/Plan: On metoprololr ER.). On enalapril 2.5 mg daily On furosemide. F/u BUN/Cr, electrolytes, daily weight, Is and Os. Code(s): I50.23 - ACUTE ON CHRONIC SYSTOLIC (CONGESTIVE) HEART FAILURE (10) Anxiety and depression Assessment/Plan: On Lexapro. Code(s): F41.9 - ANXIETY DISORDER, UNSPECIFIED; F32.9 - MAJOR DEPRESSIVE DISORDER, SINGLE EPISODE, UNSPECIFIED (11) Vertigo Assessment/Plan: On meclizine. Code(s): R42 - DIZZINESS AND GIDDINESS (12) Constipation Assessment/Plan: On Senna. Encourage high-fiber diet; fluids. Code(s): K59.00 - CONSTIPATION, UNSPECIFIED
--- NOTE | 2019-08-07 23:54 | PN ---
Progress Note, Physician Chief Complaint: Pt A&Ox3; no chest pain; + dry cough; pain in lower back and abdomen when she coughs. History of Present Illness: 79 yr old white woman w PMHx lung cancer (completed chemo), a-fib (on eliquis), systolic (mildly reduced LVEF) CHF, severe aortic/mitral valve stenosis (s/p mitral balloon valvuloplasty [address] [facility]), anxiety, presenting w 1d white productive cough, nasal congestion, chills, SOB, and 1w worsening BLE swelling. Pt did not take lasix today, been taking amoxicillin at home. Denies fever, nausea/vomiting, chest pain, urinary/bowel mvmt changes. - Current Medication List Current Medications: Active Medications Acetaminophen (Tylenol -) 650 mg PO Q6H PRN PRN Reason: PAIN LEVEL 4 - 6 Last Admin: 08/07/19 18:26 Dose: 650 mg Albuterol/Ipratropium (Duoneb -) 1 amp NEB RQID [facility] Last Admin: 08/07/19 20:55 Dose: 1 amp Apixaban (Eliquis -) 5 mg PO BID [facility] Last Admin: 08/07/19 22:39 Dose: 5 mg Budesonide/Formoterol Fumarate (Symbicort 160/4.5mcg -) 2 puff IH BID [facility] Last Admin: 08/07/19 22:41 Dose: 2 puff Cyclobenzaprine HCl (Cyclobenzaprine Hcl) 5 mg PO DAILY [facility] Last Admin: 08/07/19 09:46 Dose: 5 mg Enalapril Maleate (Vasotec -) 2.5 mg PO DAILY [facility] Last Admin: 08/07/19 09:47 Dose: 2.5 mg Escitalopram Oxalate (Lexapro -) 5 mg PO DAILY [facility] Last Admin: 08/07/19 09:47 Dose: 5 mg Famotidine (Pepcid -) 20 mg PO BID PRN PRN Reason: GERD Furosemide (Lasix Injection -) 20 mg IVPUSH DAILY [facility] Last Admin: 08/07/19 09:47 Dose: 20 mg Lidocaine (Lidoderm Patch -) 1 patch TP DAILY [facility] Last Admin: 08/07/19 09:34 Dose: 1 patch Lidocaine (Lidoderm Patch -) 1 patch TP DAILY [facility] Last Admin: 08/07/19 09:34 Dose: 1 patch Meclizine HCl (Antivert -) 12.5 mg PO Q6H PRN PRN Reason: VERTIGO Last Admin: 07/25/19 14:29 Dose: 12.5 mg Metoprolol Succinate (Toprol Xl -) 50 mg PO DAILY [facility] Last Admin: 08/07/19 09:48 Dose: 50 mg Miscellaneous (Lidoderm Patch Removal) 1 each [facility] DAILY@2200 [facility] Last Admin: 08/07/19 22:41 Dose: 1 each Miscellaneous (Lidoderm Patch Removal) 1 each MC DAILY@2200 [facility] Last Admin: 08/07/19 22:41 Dose: 1 each Oxycodone HCl (Roxicodone -) 5 mg PO Q4H PRN PRN Reason: PAIN LEVEL 7 - 10 Last Admin: 08/07/19 22:39 Dose: 5 mg Promethazine HCl/Dextromethorphan (Phenergan-Dm Syrup -) 5 ml PO Q4H PRN PRN Reason: COUGH Last Admin: 08/05/19 20:29 Dose: 5 ml Senna (Senna -) 2 tab PO HS PRN PRN Reason: CONSTIPATION Last Admin: 07/25/19 10:48 Dose: 2 tab Tramadol HCl (Ultram -) 50 mg PO Q6H PRN PRN Reason: PAIN LEVEL 4 - 6 Last Admin: 08/07/19 13:45 Dose: 50 mg Zolpidem Tartrate (Ambien -) 5 mg PO HS PRN PRN Reason: INSOMNIA Last Admin: 08/07/19 02:05 Dose: 5 mg - Objective Vital Signs: Vital Signs Temperature 98.0 F 08/07/19 18:00 Pulse Rate 85 08/07/19 18:00 Respiratory Rate 20 08/07/19 18:00 Blood Pressure 108/73 08/07/19 18:00 O2 Sat by Pulse Oximetry (%) 96 08/07/19 08:39 Labs: CBC, BMP 08/07/19 06:41 08/07/19 06:41 Problem List - Problems (1) Pneumonia Assessment/Plan: LLL pneumonia. Completed course of antibiotics. On steroids, bronchodilators. Code(s): J18.9 - PNEUMONIA, UNSPECIFIED ORGANISM (2) Afib Code(s): I48.91 - UNSPECIFIED ATRIAL FIBRILLATION Qualifiers: Atrial fibrillation type: chronic (3) Aortic stenosis Assessment/Plan: 08/04/2019 ECHO: low-normal LVEF; moderate MS and ; severe LAE; trace-mild MR. On metoprolol, enalapril, and furosemide. Code(s): I35.0 - NONRHEUMATIC AORTIC (VALVE) STENOSIS Qualifiers: Cardiac valve disease etiology: etiology unspecified Qualified Code(s): I35.0 - Nonrheumatic aortic (valve) stenosis (4) Lung cancer Assessment/Plan: Pt refuses futher Rx for lung CA. Code(s): C34.90 - MALIGNANT NEOPLASM OF UNSP PART OF UNSP BRONCHUS OR LUNG (5) Mitral stenosis Assessment/Plan: s/p balloon valvuloplasty 2006 at [facility]. Pt has refused further evaluation for valvular repair or replacement. Code(s): I05.0 - RHEUMATIC MITRAL STENOSIS Qualifiers: Cardiac valve disease etiology: rheumatic Qualified Code(s): I05.0 - Rheumatic mitral stenosis (6) NSVT (nonsustained ventricular tachycardia) Assessment/Plan: Metoprolol ER 50 mg daily; enalapril 2.5 mg daily (increase as tolerated). Maintain electrolytes: Keep K 4.0-4.5, Mg 2.0-2.4, and PO4 2.5-4.9. Code(s): I47.2 - VENTRICULAR TACHYCARDIA (7) Acute on chronic systolic CHF (congestive heart failure) Assessment/Plan: On metoprololr ER.). On enalapril 2.5 mg daily On furosemide. F/u BUN/Cr, electrolytes, daily weight, Is and Os. Code(s): I50.23 - ACUTE ON CHRONIC SYSTOLIC (CONGESTIVE) HEART FAILURE (8) Anxiety and depression Assessment/Plan: On Lexapro. Code(s): F41.9 - ANXIETY DISORDER, UNSPECIFIED; F32.9 - MAJOR DEPRESSIVE DISORDER, SINGLE EPISODE, UNSPECIFIED (9) Vertigo Assessment/Plan: On meclizine. Code(s): R42 - DIZZINESS AND GIDDINESS (10) Constipation Assessment/Plan: On Senna. Encourage high-fiber diet; fluids. Code(s): K59.00 - CONSTIPATION, UNSPECIFIED (11) Breast CA Code(s): C50.919 - MALIGNANT NEOPLASM OF UNSP SITE OF UNSPECIFIED FEMALE BREAST
--- NOTE | 2019-08-08 00:06 | PN ---
Progress Note, Physician Chief Complaint: Pt A&Ox3;sitting up in bed because of pain in lower back and abdomen when she coughs; now given oxycodone, but little relief presently. History of Present Illness: 79 yr old white woman w PMHx lung cancer (completed chemo), a-fib (on eliquis), systolic (mildly reduced LVEF) CHF, severe aortic/mitral valve stenosis (s/p mitral balloon valvuloplasty 2006 at [facility]), anxiety, presenting w 1d white productive cough, nasal congestion, chills, SOB, and 1w worsening BLE swelling. Pt did not take lasix today, been taking amoxicillin at home. Denies fever, nausea/vomiting, chest pain, urinary/bowel mvmt changes. - Current Medication List Current Medications: Active Medications Acetaminophen (Tylenol -) 650 mg PO Q6H PRN PRN Reason: PAIN LEVEL 4 - 6 Last Admin: 08/07/19 18:26 Dose: 650 mg Albuterol/Ipratropium (Duoneb -) 1 amp NEB RQID [facility] Last Admin: 08/07/19 20:55 Dose: 1 amp Apixaban (Eliquis -) 5 mg PO BID [facility] Last Admin: 08/07/19 22:39 Dose: 5 mg Budesonide/Formoterol Fumarate (Symbicort 160/4.5mcg -) 2 puff IH BID [facility] Last Admin: 08/07/19 22:41 Dose: 2 puff Cyclobenzaprine HCl (Cyclobenzaprine Hcl) 5 mg PO DAILY [facility] Last Admin: 08/07/19 09:46 Dose: 5 mg Enalapril Maleate (Vasotec -) 2.5 mg PO DAILY [facility] Last Admin: 08/07/19 09:47 Dose: 2.5 mg Escitalopram Oxalate (Lexapro -) 5 mg PO DAILY [facility] Last Admin: 08/07/19 09:47 Dose: 5 mg Famotidine (Pepcid -) 20 mg PO BID PRN PRN Reason: GERD Furosemide (Lasix Injection -) 20 mg IVPUSH DAILY [facility] Last Admin: 08/07/19 09:47 Dose: 20 mg Lidocaine (Lidoderm Patch -) 1 patch TP DAILY [facility] Last Admin: 08/07/19 09:34 Dose: 1 patch Lidocaine (Lidoderm Patch -) 1 patch TP DAILY [facility] Last Admin: 08/07/19 09:34 Dose: 1 patch Meclizine HCl (Antivert -) 12.5 mg PO Q6H PRN PRN Reason: VERTIGO Last Admin: 07/25/19 14:29 Dose: 12.5 mg Metoprolol Succinate (Toprol Xl -) 50 mg PO DAILY [facility] Last Admin: 08/07/19 09:48 Dose: 50 mg Miscellaneous (Lidoderm Patch Removal) 1 each MC DAILY@0 [facility] Last Admin: 08/07/19 22:41 Dose: 1 each Miscellaneous (Lidoderm Patch Removal) 1 each MC DAILY@2200 [facility] Last Admin: 08/07/19 22:41 Dose: 1 each Oxycodone HCl (Roxicodone -) 5 mg PO Q4H PRN PRN Reason: PAIN LEVEL 7 - 10 Last Admin: 08/07/19 22:39 Dose: 5 mg Promethazine HCl/Dextromethorphan (Phenergan-Dm Syrup -) 5 ml PO Q4H PRN PRN Reason: COUGH Last Admin: 08/05/19 20:29 Dose: 5 ml Senna (Senna -) 2 tab PO HS PRN PRN Reason: CONSTIPATION Last Admin: 07/25/19 10:48 Dose: 2 tab Tramadol HCl (Ultram -) 50 mg PO Q6H PRN PRN Reason: PAIN LEVEL 4 - 6 Last Admin: 08/07/19 13:45 Dose: 50 mg Zolpidem Tartrate (Ambien -) 5 mg PO HS PRN PRN Reason: INSOMNIA Last Admin: 08/07/19 02:05 Dose: 5 mg - Objective Vital Signs: Vital Signs Temperature 98.0 F 08/07/19 18:00 Pulse Rate 85 08/07/19 18:00 Respiratory Rate 20 08/07/19 18:00 Blood Pressure 108/73 08/07/19 18:00 O2 Sat by Pulse Oximetry (%) 96 08/07/19 08:39 Constitutional: Yes: Anxious Eyes: Yes: WNL HENT: Yes: WNL Neck: Yes: WNL Cardiovascular: Yes: Murmur, S1 (varies in intensity), S2 Respiratory: Yes: Diminished (left base), Rhonchi, SOB on Exertion Gastrointestinal: Yes: Soft, Other (pain in abdomen and lower back when she coughs) Genitourinary: No: Anuria Breast(s): Yes: WNL Musculoskeletal: Yes: Back Pain, Muscle Weakness Peripheral Pulses WNL: Yes Integumentary: Yes: WNL Neurological: Yes: Alert, Oriented, Weakness Psychiatric: Yes: Alert, Oriented, Other (anxiety/depression) Labs: CBC, BMP 08/07/19 06:41 08/07/19 06:41 Abnormal Lab Results 08/07/19 08/07/19 06:41 06:41 WBC 12.4 H MPV 7.2 L Absolute Neuts (auto) 10.5 H Neutrophils % 85.4 H Lymphocytes % 6.5 L D Anion Gap 3 L BUN 25.1 H Calcium 8.3 L Total Bilirubin 1.4 H AST 12 L Total Protein 5.3 L Albumin 2.7 L - ....Imaging Chest X-ray: Image Reviewed (left basal infiltrate) Problem List - Problems (1) Pneumonia Assessment/Plan: LLL pneumonia. Completed course of antibiotics. On steroids, bronchodilators. Code(s): J18.9 - PNEUMONIA, UNSPECIFIED ORGANISM (2) Afib Assessment/Plan: On metoprolol ER for HR control, low-normal LVEF. On apixaban for anticoagulation. Code(s): I48.91 - UNSPECIFIED ATRIAL FIBRILLATION Qualifiers: Atrial fibrillation type: chronic (3) Aortic stenosis Assessment/Plan: 08/04/2019 ECHO: low-normal LVEF; moderate MS and ; severe LAE; trace-mild MR. On metoprolol, enalapril, and furosemide. Code(s): I35.0 - NONRHEUMATIC AORTIC (VALVE) STENOSIS Qualifiers: Cardiac valve disease etiology: etiology unspecified Qualified Code(s): I35.0 - Nonrheumatic aortic (valve) stenosis (4) Lung cancer Assessment/Plan: Pt refuses futher Rx for lung CA. Code(s): C34.90 - MALIGNANT NEOPLASM OF UNSP PART OF UNSP BRONCHUS OR LUNG (5) Mitral stenosis Code(s): I05.0 - RHEUMATIC MITRAL STENOSIS Qualifiers: Cardiac valve disease etiology: rheumatic Qualified Code(s): I05.0 - Rheumatic mitral stenosis (6) NSVT (nonsustained ventricular tachycardia) Code(s): I47.2 - VENTRICULAR TACHYCARDIA (7) Acute on chronic systolic CHF (congestive heart failure) Code(s): I50.23 - ACUTE ON CHRONIC SYSTOLIC (CONGESTIVE) HEART FAILURE (8) Anxiety and depression Assessment/Plan: On Lexapro. Code(s): F41.9 - ANXIETY DISORDER, UNSPECIFIED; F32.9 - MAJOR DEPRESSIVE DISORDER, SINGLE EPISODE, UNSPECIFIED (9) Vertigo Assessment/Plan: On meclizine prn. Code(s): R42 - DIZZINESS AND GIDDINESS (10) Constipation Assessment/Plan: On Senna. On Pepcid. Encourage high-fiber diet; fluids. Code(s): K59.00 - CONSTIPATION, UNSPECIFIED (11) Breast CA Code(s): C50.919 - MALIGNANT NEOPLASM OF UNSP SITE OF UNSPECIFIED FEMALE BREAST (12) Lower back pain Assessment/Plan: On roxycodone, Ultram, Tylenol, cyclobenzaprine, lidocaine patch. Code(s): M54.5 - LOW BACK PAIN
[2019-08-08] MEDS: ZOLPIDEM TARTRATE 5 MG TABLET PO PRN (00:53)
[2019-08-08] MEDS: ALBUTEROL SO4 2.5/IPRATROPIUM 0.5 INH SOL 3 ML VIAL.NEB. NEB SCH ×4 (08:00→20:30)
[2019-08-08] MEDS: CYCLOBENZAPRINE HCL 5 MG TABLET PO SCH (09:16)
[2019-08-08] MEDS: ENALAPRIL MALEATE 5 MG TABLET (FP) PO SCH (09:16)
[2019-08-08] MEDS: APIXABAN 2.5 MG TABLET PO SCH ×2 (09:16→21:41)
[2019-08-08] MEDS: oxyCODONE HCL 5 MG TABLET PO PRN ×2 (09:17→19:35)
[2019-08-08] MEDS: ACETAMINOPHEN 325 MG TABLET (FP) PO PRN (09:17)
[2019-08-08] MEDS: FUROSEMIDE 40 MG/4 ML INJECTABLE VIAL IVPUSH SCH (09:17)
[2019-08-08] MEDS: ESCITALOPRAM OXALATE 10 MG TABLET PO SCH (09:17)
[2019-08-08] MEDS: BUDESONIDE/FORMETEROL FUMARATE 160/4.5 mcg INHALER IH SCH ×2 (09:18→21:59)
[2019-08-08] MEDS: LIDOCAINE 5% TOPICAL PATCH TP SCH ×2 (09:43→09:44)
--- NOTE | 2019-08-08 10:30 | PN ---
Progress Note, Physician History of Present Illness: PULMONARY COMFORTABLE OOB-CHAIR,BREATHING BETTER,+ COUGH,+ C/O BACK PAIN - Current Medication List Current Medications: Active Medications Acetaminophen (Tylenol -) 650 mg PO Q6H PRN PRN Reason: PAIN LEVEL 4 - 6 Last Admin: 08/08/19 09:17 Dose: 650 mg Albuterol/Ipratropium (Duoneb -) 1 amp NEB RQID [facility] Last Admin: 08/07/19 20:55 Dose: 1 amp Apixaban (Eliquis -) 5 mg PO BID [facility] Last Admin: 08/08/19 09:16 Dose: 5 mg Budesonide/Formoterol Fumarate (Symbicort 160/4.5mcg -) 2 puff IH BID [facility] Last Admin: 08/08/19 09:18 Dose: 2 puff Cyclobenzaprine HCl (Cyclobenzaprine Hcl) 5 mg PO DAILY [facility] Last Admin: 08/08/19 09:16 Dose: 5 mg Enalapril Maleate (Vasotec -) 2.5 mg PO DAILY [facility] Last Admin: 08/08/19 09:16 Dose: 2.5 mg Escitalopram Oxalate (Lexapro -) 5 mg PO DAILY [facility] Last Admin: 08/08/19 09:17 Dose: 5 mg Famotidine (Pepcid -) 20 mg PO BID PRN PRN Reason: GERD Furosemide (Lasix Injection -) 20 mg IVPUSH DAILY [facility] Last Admin: 08/08/19 09:17 Dose: 20 mg Lidocaine (Lidoderm Patch -) 1 patch TP DAILY [facility] Last Admin: 08/08/19 09:43 Dose: 1 patch Lidocaine (Lidoderm Patch -) 1 patch TP DAILY [facility] Last Admin: 08/08/19 09:44 Dose: 1 patch Meclizine HCl (Antivert -) 12.5 mg PO Q6H PRN PRN Reason: VERTIGO Last Admin: 07/25/19 14:29 Dose: 12.5 mg Metoprolol Succinate (Toprol Xl -) 50 mg PO DAILY [facility] Last Admin: 08/08/19 09:17 Dose: 50 mg Miscellaneous (Lidoderm Patch Removal) 1 each MC DAILY@0 [facility] Last Admin: 08/07/19 22:41 Dose: 1 each Miscellaneous (Lidoderm Patch Removal) 1 each MC DAILY@0 [facility] Last Admin: 08/07/19 22:41 Dose: 1 each Oxycodone HCl (Roxicodone -) 5 mg PO Q4H PRN PRN Reason: PAIN LEVEL 7 - 10 Last Admin: 08/08/19 09:17 Dose: 5 mg Promethazine HCl/Dextromethorphan (Phenergan-Dm Syrup -) 5 ml PO Q4H PRN PRN Reason: COUGH Last Admin: 08/05/19 20:29 Dose: 5 ml Senna (Senna -) 2 tab PO HS PRN PRN Reason: CONSTIPATION Last Admin: 07/25/19 10:48 Dose: 2 tab Tramadol HCl (Ultram -) 50 mg PO Q6H PRN PRN Reason: PAIN LEVEL 4 - 6 Last Admin: 08/07/19 13:45 Dose: 50 mg Zolpidem Tartrate (Ambien -) 5 mg PO HS PRN PRN Reason: INSOMNIA Last Admin: 08/08/19 00:53 Dose: 5 mg - Objective Vital Signs: Vital Signs Temperature 98.0 F 08/08/19 08:21 Pulse Rate 89 08/08/19 08:21 Respiratory Rate 18 08/08/19 08:21 Blood Pressure 119/64 08/08/19 08:21 O2 Sat by Pulse Oximetry (%) 98 08/08/19 08:21 Constitutional: Yes: Well Nourished, Calm Eyes: Yes: WNL HENT: Yes: WNL Neck: Yes: WNL Cardiovascular: Yes: Pulse Irregular, S1, S2 Respiratory: Yes: Rales, Rhonchi (BIBASILAR RALES L> R,SCATTED MARYJANE RHONCHI) Gastrointestinal: Yes: Normal Bowel Sounds, Soft Extremities: Yes: WNL Edema: Yes Labs: CBC, BMP 08/07/19 06:41 Assessment/Plan Problem List - Problems (1) Atelectasis of both lungs Code(s): J98.11 - ATELECTASIS (2) Acute on chronic systolic CHF (congestive heart failure) Code(s): I50.23 - ACUTE ON CHRONIC SYSTOLIC (CONGESTIVE) HEART FAILURE (3) CAP (community acquired pneumonia) Code(s): J18.9 - PNEUMONIA, UNSPECIFIED ORGANISM Qualifiers: Laterality: left Lung location: lower lobe of lung Qualified Code(s): J18.9 - Pneumonia, unspecified organism (4) CHF exacerbation Code(s): I50.9 - HEART FAILURE, UNSPECIFIED Qualifiers: Heart failure type: unspecified Qualified Code(s): I50.9 - Heart failure, unspecified (5) Pneumonia Code(s): J18.9 - PNEUMONIA, UNSPECIFIED ORGANISM (6) Afib Code(s): I48.91 - UNSPECIFIED ATRIAL FIBRILLATION Qualifiers: Atrial fibrillation type: chronic (7) Aortic stenosis Code(s): I35.0 - NONRHEUMATIC AORTIC (VALVE) STENOSIS Qualifiers: Cardiac valve disease etiology: etiology unspecified Qualified Code(s): I35.0 - Nonrheumatic aortic (valve) stenosis (8) CHF (congestive heart failure) Code(s): I50.9 - HEART FAILURE, UNSPECIFIED (9) COPD (chronic obstructive pulmonary disease) Code(s): J44.9 - CHRONIC OBSTRUCTIVE PULMONARY DISEASE, UNSPECIFIED Qualifiers: COPD type: unspecified COPD Qualified Code(s): J44.9 - Chronic obstructive pulmonary disease, unspecified (10) Chronic systolic CHF (congestive heart failure) Code(s): I50.22 - CHRONIC SYSTOLIC (CONGESTIVE) HEART FAILURE (11) Diabetes mellitus Code(s): E11.9 - TYPE 2 DIABETES MELLITUS WITHOUT COMPLICATIONS (12) Hyperlipidemia Code(s): E78.5 - HYPERLIPIDEMIA, UNSPECIFIED (13) Lung cancer Code(s): C34.90 - MALIGNANT NEOPLASM OF UNSP PART OF UNSP BRONCHUS OR LUNG (14) Malaise and fatigue Code(s): R53.81 - OTHER MALAISE; R53.83 - OTHER FATIGUE (15) Mitral stenosis Code(s): I05.0 - RHEUMATIC MITRAL STENOSIS Qualifiers: Cardiac valve disease etiology: rheumatic Qualified Code(s): I05.0 - Rheumatic mitral stenosis (16) Osteoarthritis Code(s): M19.90 - UNSPECIFIED OSTEOARTHRITIS, UNSPECIFIED SITE Assessment/Plan Symbicort: 2 inhalations BID BD TX PRN Monitor off systemic steroids Supplemental O2 as needed Incentive Spiroimetry No smoking was counseled Em[facility]io AC PFTs as an outpatient once stable chest x-ray port today DR MANUEL
--- NOTE | 2019-08-08 11:47 | PN ---
Progress Note (short form) - Note Progress Note: pt seen/ examined sitting in chair complains of back pain says oxy not helping much dont want i/v meds no distress mri done - pending report all f/u noted Vital Signs Temp 98.0 F 08/08/19 08:21 Pulse 89 08/08/19 08:21 Resp 18 08/08/19 08:21 BP 119/64 08/08/19 08:21 Pulse Ox 98 08/08/19 08:21 Intake & Output 08/07/19 08/07/19 08/08/19 11:59 23:59 11:59 Intake Total 390 Balance 390 Weight 177 lb 3.2 oz Intake: IV 10 saline lock 10 Oral 380 Other: Voiding Method Toilet Toilet Toilet # Unmeasured Voids Void 1 1 1 Bowel Movement No No Weight Measurement Method Standing Scale Active Medications Acetaminophen (Tylenol -) 650 mg PO Q6H PRN PRN Reason: PAIN LEVEL 4 - 6 Last Admin: 08/08/19 09:17 Dose: 650 mg Albuterol/Ipratropium (Duoneb -) 1 amp NEB RQID [facility] Last Admin: 08/07/19 20:55 Dose: 1 amp Apixaban (Eliquis -) 5 mg PO BID [facility] Last Admin: 08/08/19 09:16 Dose: 5 mg Budesonide/Formoterol Fumarate (Symbicort 160/4.5mcg -) 2 puff IH BID [facility] Last Admin: 08/08/19 09:18 Dose: 2 puff Cyclobenzaprine HCl (Cyclobenzaprine Hcl) 5 mg PO DAILY [facility] Last Admin: 08/08/19 09:16 Dose: 5 mg Docusate Sodium (Colace -) 100 mg PO Q8H PRN PRN Reason: CONSTIPATION Enalapril Maleate (Vasotec -) 2.5 mg PO DAILY [facility] Last Admin: 08/08/19 09:16 Dose: 2.5 mg Escitalopram Oxalate (Lexapro -) 5 mg PO DAILY [facility] Last Admin: 08/08/19 09:17 Dose: 5 mg Famotidine (Pepcid -) 20 mg PO BID PRN PRN Reason: GERD Furosemide (Lasix Injection -) 20 mg IVPUSH DAILY [facility] Last Admin: 08/08/19 09:17 Dose: 20 mg Lidocaine (Lidoderm Patch -) 1 patch TP DAILY [facility] Last Admin: 08/08/19 09:43 Dose: 1 patch Lidocaine (Lidoderm Patch -) 1 patch TP DAILY [facility] Last Admin: 08/08/19 09:44 Dose: 1 patch Meclizine HCl (Antivert -) 12.5 mg PO Q6H PRN PRN Reason: VERTIGO Last Admin: 07/25/19 14:29 Dose: 12.5 mg Metoprolol Succinate (Toprol Xl -) 50 mg PO DAILY [facility] Last Admin: 08/08/19 09:17 Dose: 50 mg Miscellaneous (Lidoderm Patch Removal) 1 each MC DAILY@2199 [facility] Last Admin: 08/07/19 22:41 Dose: 1 each Miscellaneous (Lidoderm Patch Removal) 1 each MC DAILY@2199 [facility] Last Admin: 08/07/19 22:41 Dose: 1 each Oxycodone HCl (Roxicodone -) 10 mg PO Q4H PRN PRN Reason: PAIN LEVEL 6-10 Promethazine HCl/Dextromethorphan (Phenergan-Dm Syrup -) 5 ml PO Q4H PRN PRN Reason: COUGH Last Admin: 08/05/19 20:29 Dose: 5 ml Senna (Senna -) 2 tab PO HS PRN PRN Reason: CONSTIPATION Last Admin: 07/25/19 10:48 Dose: 2 tab Zolpidem Tartrate (Ambien -) 5 mg PO HS PRN PRN Reason: INSOMNIA Last Admin: 08/08/19 00:53 Dose: 5 mg CBC, BMP 08/07/19 06:41 08/07/19 06:41 Physical Exam Awake/sitting in chair S1 S2 Irregular Lungs - scattered rhonchi Abd- soft, NT edema+ rom - limited in lower back PLAN Pneumonia --completed iv antibiotics ---- Pulmonary following Back pain -MRI- LS Spine Pain management consult Pending increase oxy dose Afib -- rate controlled -- on Eliquis CHF -- on lasix iv- decreased -- monitor renal function Lung CA Breast CA --- she stopped oral chemo about 6 months ago-- does not want to follow up with oncologist at [facility] - she is refusing further chemo for lung CA family aware Discussed about going home and further management as out pt--pt adamantly refuses . Will follow Problem List - Problems (1) Acute on chronic diastolic CHF (congestive heart failure) Code(s): I50.33 - ACUTE ON CHRONIC DIASTOLIC (CONGESTIVE) HEART FAILURE (2) CAP (community acquired pneumonia) Code(s): J18.9 - PNEUMONIA, UNSPECIFIED ORGANISM Qualifiers: Laterality: left Lung location: lower lobe of lung Qualified Code(s): J18.9 - Pneumonia, unspecified organism (3) Afib Code(s): I48.91 - UNSPECIFIED ATRIAL FIBRILLATION Qualifiers: Atrial fibrillation type: chronic (4) Aortic stenosis Code(s): I35.0 - NON RHEUMATIC AORTIC (VALVE) STENOSIS Qualifiers: Cardiac valve disease etiology: etiology unspecified Qualified Code(s): I35.0 - Nonrheumatic aortic (valve) stenosis (5) CHF (congestive heart failure) Code(s): I50.9 - HEART FAILURE, UNSPECIFIED (6) Lung cancer Code(s): C34.90 - MALIGNANT NEOPLASM OF UNSP PART OF UNSP BRONCHUS OR LUNG
--- NOTE | 2019-08-08 17:22 | PN ---
Progress Note, Physician Chief Complaint: Events noted Coverage for Dr. Humberto Mclain Cough intermittently History of Present Illness: Patient was seen and examined. Awake and alert. Chart was reviewed Denies chest pain or palpitations Intermittent SOB and cough - Current Medication List Current Medications: Active Medications Acetaminophen (Tylenol -) 650 mg PO Q6H PRN PRN Reason: PAIN LEVEL 4 - 6 Last Admin: 08/08/19 09:17 Dose: 650 mg Albuterol/Ipratropium (Duoneb -) 1 amp NEB RQID [facility] Last Admin: 08/08/19 16:00 Dose: 1 amp Apixaban (Eliquis -) 5 mg PO BID [facility] Last Admin: 08/08/19 09:16 Dose: 5 mg Budesonide/Formoterol Fumarate (Symbicort 160/4.5mcg -) 2 puff IH BID [facility] Last Admin: 08/08/19 09:18 Dose: 2 puff Cyclobenzaprine HCl (Cyclobenzaprine Hcl) 5 mg PO DAILY [facility] Last Admin: 08/08/19 09:16 Dose: 5 mg Docusate Sodium (Colace -) 100 mg PO Q8H PRN PRN Reason: CONSTIPATION Enalapril Maleate (Vasotec -) 2.5 mg PO DAILY [facility] Last Admin: 08/08/19 09:16 Dose: 2.5 mg Escitalopram Oxalate (Lexapro -) 5 mg PO DAILY [facility] Last Admin: 08/08/19 09:17 Dose: 5 mg Famotidine (Pepcid -) 20 mg PO BID PRN PRN Reason: GERD Furosemide (Lasix Injection -) 20 mg IVPUSH DAILY [facility] Last Admin: 08/08/19 09:17 Dose: 20 mg Lidocaine (Lidoderm Patch -) 1 patch TP DAILY [facility] Last Admin: 08/08/19 09:43 Dose: 1 patch Lidocaine (Lidoderm Patch -) 1 patch TP DAILY [facility] Last Admin: 08/08/19 09:44 Dose: 1 patch Meclizine HCl (Antivert -) 12.5 mg PO Q6H PRN PRN Reason: VERTIGO Last Admin: 07/25/19 14:29 Dose: 12.5 mg Metoprolol Succinate (Toprol Xl -) 50 mg PO DAILY [facility] Last Admin: 08/08/19 09:17 Dose: 50 mg Miscellaneous (Lidoderm Patch Removal) 1 each MC DAILY@0 [facility] Last Admin: 08/07/19 22:41 Dose: 1 each Miscellaneous (Lidoderm Patch Removal) 1 each MC DAILY@0 [facility] Last Admin: 08/07/19 22:41 Dose: 1 each Oxycodone HCl (Roxicodone -) 10 mg PO Q4H PRN PRN Reason: PAIN LEVEL 6-10 Promethazine HCl/Dextromethorphan (Phenergan-Dm Syrup -) 5 ml PO Q4H PRN PRN Reason: COUGH Last Admin: 08/05/19 20:29 Dose: 5 ml Senna (Senna -) 2 tab PO HS PRN PRN Reason: CONSTIPATION Last Admin: 07/25/19 10:48 Dose: 2 tab Zolpidem Tartrate (Ambien -) 5 mg PO HS PRN PRN Reason: INSOMNIA Last Admin: 08/08/19 00:53 Dose: 5 mg - Objective Vital Signs: Vital Signs Temperature 98 F 08/08/19 14:00 Pulse Rate 73 08/08/19 14:00 Respiratory Rate 08/08/19 14:00 Blood Pressure 150/68 08/08/19 14:00 O2 Sat by Pulse Oximetry (%) 98 08/08/19 08:21 Eyes: Yes: PERRL HENT: Yes: Atraumatic Neck: Yes: Supple Cardiovascular: Yes: Regular Rate and Rhythm, S1, S2 Respiratory: Yes: Rhonchi (Left mid to base) Gastrointestinal: Yes: Normal Bowel Sounds, Soft. No: Tenderness Edema: No Additional Findings/Remarks: - Review of Systems Constitutional: denies: Chills, Fever Cardiovascular: denies Palpitations, (+) Shortness of Breath. denies: Chest Pain Respiratory: (+) Cough, SOB. denies: Hemoptysis, Orthopnea, PND Gastrointestinal: denies: Abdominal Pain, Constipation, Diarrhea, Melena, Nausea , Rectal Bleeding, Vomiting Genitourinary: denies: Dysuria, Hematuria Musculoskeletal: denies Joint Pain. denies: Back Pain Neurological: denies: Dizziness, Headache, Seizure, Syncope Labs: CBC, BMP 08/07/19 06:41 08/07/19 06:41 Problem List - Problems (1) Acute on chronic systolic CHF (congestive heart failure) Code(s): I50.23 - ACUTE ON CHRONIC SYSTOLIC (CONGESTIVE) HEART FAILURE (2) Anxiety and depression Code(s): F41.9 - ANXIETY DISORDER, UNSPECIFIED; F32.9 - MAJOR DEPRESSIVE DISORDER, SINGLE EPISODE, UNSPECIFIED (3) Breast CA Code(s): C50.919 - MALIGNANT NEOPLASM OF UNSP SITE OF UNSPECIFIED FEMALE BREAST (4) CAP (community acquired pneumonia) Code(s): J18.9 - PNEUMONIA, UNSPECIFIED ORGANISM Qualifiers: Laterality: left Lung location: lower lobe of lung Qualified Code(s): J18.9 - Pneumonia, unspecified organism (5) NSVT (nonsustained ventricular tachycardia) Code(s): I47.2 - VENTRICULAR TACHYCARDIA (6) Afib Code(s): I48.91 - UNSPECIFIED ATRIAL FIBRILLATION Qualifiers: Atrial fibrillation type: chronic (7) Aortic stenosis Code(s): I35.0 - NONRHEUMATIC AORTIC (VALVE) STENOSIS Qualifiers: Cardiac valve disease etiology: nonrheumatic Qualified Code(s): I35.0 - Nonrheumatic aortic (valve) stenosis (8) Diabetes mellitus Code(s): E11.9 - TYPE 2 DIABETES MELLITUS WITHOUT COMPLICATIONS (9) Hyperlipidemia Code(s): E78.5 - HYPERLIPIDEMIA, UNSPECIFIED Qualifiers: Hyperlipidemia type: pure hypercholesterolemia Qualified Code(s): E78.00 - Pure hypercholesterolemia, unspecified; E78.0 - Pure hypercholesterolemia (10) Lung cancer Code(s): C34.90 - MALIGNANT NEOPLASM OF UNSP PART OF UNSP BRONCHUS OR LUNG (11) Mitral stenosis Code(s): I05.0 - RHEUMATIC MITRAL STENOSIS Qualifiers: 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 LLL Pneumonia 2. Persistent atrial fibrillation on DOAC/Eliquis 3. Aortic stenosis (Moderate) 4. Mitral stenosis (Moderate) 5. History of lung CA 6. Acute on chronic LV systolic failure 7. History of vertigo 8. Anxiety and depression PLAN: 1. Continue antibiotic coverage 2. Continue Toprol XL 50 mg QD and Enalapril 2.5 mg QD as tolerated 3. Continue Eliquis 5 mg BID 4. Diuretics (Lasix 20 mg IV QD) and monitor renal function and electrolytes 5. Refused further treatment for lung CA Continue supportive care. Chapito Carranza MD
[2019-08-08] MEDS: DOCUSATE SODIUM 100 MG CAPSULE (FP) PO PRN (21:51)
[2019-08-08] MEDS: SENNOSIDES 8.6MG TABLET (FP) PO PRN (21:53)
[2019-08-08] MEDS: LIDOCAINE PATCH REMOVAL MC SCH ×2 (22:00)
[2019-08-09] MEDS: ALBUTEROL SO4 2.5/IPRATROPIUM 0.5 INH SOL 3 ML VIAL.NEB. NEB SCH ×4 (08:13→20:30)
[2019-08-09] MEDS: oxyCODONE HCL 5 MG TABLET PO PRN ×3 (09:06→22:40)
[2019-08-09] MEDS: APIXABAN 2.5 MG TABLET PO SCH (09:07)
[2019-08-09] MEDS: FUROSEMIDE 40 MG/4 ML INJECTABLE VIAL IVPUSH SCH (09:08)
[2019-08-09] MEDS: ESCITALOPRAM OXALATE 10 MG TABLET PO SCH (09:08)
[2019-08-09] MEDS: ENALAPRIL MALEATE 5 MG TABLET (FP) PO SCH (09:08)
[2019-08-09] MEDS: LIDOCAINE 5% TOPICAL PATCH TP SCH ×2 (09:13→09:23)
[2019-08-09] MEDS: BUDESONIDE/FORMETEROL FUMARATE 160/4.5 mcg INHALER IH SCH ×2 (09:23→22:39)
[2019-08-09] MEDS: CYCLOBENZAPRINE HCL 5 MG TABLET PO SCH (09:24)
--- NOTE | 2019-08-09 10:02 | PN ---
Progress Note, Physician Chief Complaint: Events noted Coverage for Dr. Humberto Mclain Cough intermittently History of Present Illness: Patient was seen and examined. Awake and alert. Chart was reviewed Denies chest pain or palpitations Intermittent SOB and cough Complains of back pain - Current Medication List Current Medications: Active Medications Acetaminophen (Tylenol -) 650 mg PO Q6H PRN PRN Reason: PAIN LEVEL 4 - 6 Last Admin: 08/08/19 09:17 Dose: 650 mg Albuterol/Ipratropium (Duoneb -) 1 amp NEB RQID [facility] Last Admin: 08/09/19 08:13 Dose: 1 amp Apixaban (Eliquis -) 5 mg PO BID [facility] Last Admin: 08/09/19 09:07 Dose: 5 mg Budesonide/Formoterol Fumarate (Symbicort 160/4.5mcg -) 2 puff IH BID [facility] Last Admin: 08/09/19 09:23 Dose: 2 puff Cyclobenzaprine HCl (Cyclobenzaprine Hcl) 5 mg PO DAILY [facility] Last Admin: 08/09/19 09:24 Dose: 5 mg Docusate Sodium (Colace -) 100 mg PO Q8H PRN PRN Reason: CONSTIPATION Last Admin: 08/08/19 21:51 Dose: 100 mg Enalapril Maleate (Vasotec -) 2.5 mg PO DAILY [facility] Last Admin: 08/09/19 09:08 Dose: 2.5 mg Escitalopram Oxalate (Lexapro -) 5 mg PO DAILY [facility] Last Admin: 08/09/19 09:08 Dose: 5 mg Famotidine (Pepcid -) 20 mg PO BID PRN PRN Reason: GERD Furosemide (Lasix Injection -) 20 mg IVPUSH DAILY [facility] Last Admin: 08/09/19 09:08 Dose: 20 mg Lidocaine (Lidoderm Patch -) 1 patch TP DAILY [facility] Last Admin: 08/09/19 09:13 Dose: 1 patch Lidocaine (Lidoderm Patch -) 1 patch TP DAILY [facility] Last Admin: 08/09/19 09:23 Dose: 1 patch Meclizine HCl (Antivert -) 12.5 mg PO Q6H PRN PRN Reason: VERTIGO Last Admin: 07/25/19 14:29 Dose: 12.5 mg Metoprolol Succinate (Toprol Xl -) 50 mg PO DAILY [facility] Last Admin: 08/09/19 09:07 Dose: 50 mg Miscellaneous (Lidoderm Patch Removal) 1 each MC DAILY@2199 [facility] Last Admin: 08/08/19 22:00 Dose: Not Given Miscellaneous (Lidoderm Patch Removal) 1 each MC DAILY@2199 [facility] Last Admin: 08/08/19 22:00 Dose: Not Given Oxycodone HCl (Roxicodone -) 10 mg PO Q4H PRN PRN Reason: PAIN LEVEL 6-10 Last Admin: 08/09/19 09:06 Dose: 10 mg Promethazine HCl/Dextromethorphan (Phenergan-Dm Syrup -) 5 ml PO Q4H PRN PRN Reason: COUGH Last Admin: 08/05/19 20:29 Dose: 5 ml Senna (Senna -) 2 tab PO HS PRN PRN Reason: CONSTIPATION Last Admin: 08/08/19 21:53 Dose: 2 tab Zolpidem Tartrate (Ambien -) 5 mg PO HS PRN PRN Reason: INSOMNIA Last Admin: 08/08/19 00:53 Dose: 5 mg - Objective Vital Signs: Vital Signs Temperature 97.8 F 08/09/19 05:46 Pulse Rate 73 08/09/19 05:46 Respiratory Rate 20 08/09/19 08:38 Blood Pressure 132/73 08/09/19 05:46 O2 Sat by Pulse Oximetry (%) 98 08/09/19 08:38 Eyes: Yes: PERRL HENT: Yes: Atraumatic Neck: Yes: Supple Cardiovascular: Yes: Regular Rate and Rhythm, S1, S2 Respiratory: Yes: Cough, Diminished Gastrointestinal: Yes: Normal Bowel Sounds, Soft. No: Tenderness Edema: No Additional Findings/Remarks: - Review of Systems Constitutional: denies: Chills, Fever Cardiovascular: denies Palpitations, (+) Shortness of Breath. denies: Chest Pain Respiratory: (+) Cough, SOB. denies: Hemoptysis, Orthopnea, PND Gastrointestinal: denies: Abdominal Pain, Constipation, Diarrhea, Melena, Nausea , Rectal Bleeding, Vomiting Genitourinary: denies: Dysuria, Hematuria Musculoskeletal: denies Joint Pain. denies: Back Pain Neurological: denies: Dizziness, Headache, Seizure, Syncope Problem List - Problems (1) Acute on chronic systolic CHF (congestive heart failure) Code(s): I50.23 - ACUTE ON CHRONIC SYSTOLIC (CONGESTIVE) HEART FAILURE (2) Anxiety and depression Code(s): F41.9 - ANXIETY DISORDER, UNSPECIFIED; F32.9 - MAJOR DEPRESSIVE DISORDER, SINGLE EPISODE, UNSPECIFIED (3) Breast CA Code(s): C50.919 - MALIGNANT NEOPLASM OF UNSP SITE OF UNSPECIFIED FEMALE BREAST (4) CAP (community acquired pneumonia) Code(s): J18.9 - PNEUMONIA, UNSPECIFIED ORGANISM Qualifiers: Laterality: left Lung location: lower lobe of lung Qualified Code(s): J18.9 - Pneumonia, unspecified organism (5) NSVT (nonsustained ventricular tachycardia) Code(s): I47.2 - VENTRICULAR TACHYCARDIA (6) Afib Code(s): I48.91 - UNSPECIFIED ATRIAL FIBRILLATION Qualifiers: Atrial fibrillation type: chronic (7) Aortic stenosis Code(s): I35.0 - NONRHEUMATIC AORTIC (VALVE) STENOSIS Qualifiers: Cardiac valve disease etiology: nonrheumatic Qualified Code(s): I35.0 - Nonrheumatic aortic (valve) stenosis (8) Diabetes mellitus Code(s): E11.9 - TYPE 2 DIABETES MELLITUS WITHOUT COMPLICATIONS (9) Hyperlipidemia Code(s): E78.5 - HYPERLIPIDEMIA, UNSPECIFIED Qualifiers: Hyperlipidemia type: pure hypercholesterolemia Qualified Code(s): E78.00 - Pure hypercholesterolemia, unspecified; E78.0 - Pure hypercholesterolemia (10) Lung cancer Code(s): C34.90 - MALIGNANT NEOPLASM OF UNSP PART OF UNSP BRONCHUS OR LUNG (11) Mitral stenosis Code(s): I05.0 - RHEUMATIC MITRAL STENOSIS Qualifiers: 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 LLL Pneumonia 2. Persistent atrial fibrillation on DOAC/Eliquis 3. Aortic stenosis (Moderate) 4. Mitral stenosis (Moderate) 5. History of lung CA 6. Acute on chronic LV systolic failure 7. History of vertigo 8. Anxiety and depression PLAN: 1. Currently not on antibiotics 2. Continue Toprol XL 50 mg QD and Enalapril 2.5 mg QD as tolerated 3. Continue Eliquis 5 mg BID 4. Diuretics (Lasix 20 mg IV QD) and monitor renal function and electrolytes 5. Refused further treatment for lung CA 6. Analgesics Continue supportive care. Chapito Carranza MD
--- NOTE | 2019-08-09 11:43 | PN ---
Progress Note (short form) - Note Progress Note: pt seen/ examined sitting in chair complains of back pain says oxy not helping much- but looks better able to walk to bathroom now MRI- T12 Acute vs Sub Acute Fracture dont want i/v meds no distress Vital Signs Temp 98.2 F 08/09/19 10:00 Pulse 88 08/09/19 10:00 Resp 20 08/09/19 10:00 BP 127/69 08/09/19 10:00 Pulse Ox 98 08/09/19 08:38 Intake & Output 08/08/19 08/08/19 08/09/19 11:59 23:59 11:59 Intake Total 740 120 Balance 740 120 Intake: IV 10 saline lock 10 Oral 730 120 Other: Voiding Method Toilet Toilet Toilet # Unmeasured Voids Void 1 1 1 Bowel Movement No No Active Medications Acetaminophen (Tylenol -) 650 mg PO Q6H PRN PRN Reason: PAIN LEVEL 4 - 6 Last Admin: 08/08/19 09:17 Dose: 650 mg Albuterol/Ipratropium (Duoneb -) 1 amp NEB RQID [facility] Last Admin: 08/07/19 20:55 Dose: 1 amp Apixaban (Eliquis -) 5 mg PO BID [facility] Last Admin: 08/08/19 09:16 Dose: 5 mg Budesonide/Formoterol Fumarate (Symbicort 160/4.5mcg -) 2 puff IH BID [facility] Last Admin: 08/08/19 09:18 Dose: 2 puff Cyclobenzaprine HCl (Cyclobenzaprine Hcl) 5 mg PO DAILY [facility] Last Admin: 08/08/19 09:16 Dose: 5 mg Docusate Sodium (Colace -) 100 mg PO Q8H PRN PRN Reason: CONSTIPATION Enalapril Maleate (Vasotec -) 2.5 mg PO DAILY [facility] Last Admin: 08/08/19 09:16 Dose: 2.5 mg Escitalopram Oxalate (Lexapro -) 5 mg PO DAILY [facility] Last Admin: 08/08/19 09:17 Dose: 5 mg Famotidine (Pepcid -) 20 mg PO BID PRN PRN Reason: GERD Furosemide (Lasix Injection -) 20 mg IVPUSH DAILY [facility] Last Admin: 08/08/19 09:17 Dose: 20 mg Lidocaine (Lidoderm Patch -) 1 patch TP DAILY [facility] Last Admin: 08/08/19 09:43 Dose: 1 patch Lidocaine (Lidoderm Patch -) 1 patch TP DAILY [facility] Last Admin: 08/08/19 09:44 Dose: 1 patch Meclizine HCl (Antivert -) 12.5 mg PO Q6H PRN PRN Reason: VERTIGO Last Admin: 07/25/19 14:29 Dose: 12.5 mg Metoprolol Succinate (Toprol Xl -) 50 mg PO DAILY [facility] Last Admin: 08/08/19 09:17 Dose: 50 mg Miscellaneous (Lidoderm Patch Removal) 1 each MC DAILY@2199 [facility] Last Admin: 08/07/19 22:41 Dose: 1 each Miscellaneous (Lidoderm Patch Removal) 1 each MC DAILY@2199 [facility] Last Admin: 08/07/19 22:41 Dose: 1 each Oxycodone HCl (Roxicodone -) 10 mg PO Q4H PRN PRN Reason: PAIN LEVEL 6-10 Promethazine HCl/Dextromethorphan (Phenergan-Dm Syrup -) 5 ml PO Q4H PRN PRN Reason: COUGH Last Admin: 08/05/19 20:29 Dose: 5 ml Senna (Senna -) 2 tab PO HS PRN PRN Reason: CONSTIPATION Last Admin: 07/25/19 10:48 Dose: 2 tab Zolpidem Tartrate (Ambien -) 5 mg PO HS PRN PRN Reason: INSOMNIA Last Admin: 08/08/19 00:53 Dose: 5 mg CBC, BMP 08/07/19 06:41 08/07/19 06:41 Physical Exam Awake/sitting in chair S1 S2 Irregular Lungs - few scattered rhonchi Abd- soft, NT edema+ rom - limited in lower back PLAN Pneumonia --completed iv antibiotics ---- Pulmonary following Back pain -MRI- LS Spine -- T12 Acute vs Subacute # Pain management consult Pending Kyphoplasty ? Afib -- rate controlled -- on Eliquis CHF -- on lasix iv- decreased -- monitor renal function Lung CA Breast CA --- she stopped oral chemo about 6 months ago-- does not want to follow up with oncologist at [facility] - she is refusing further chemo for lung CA family aware Discussed about going home and further management as out pt--Likely tomorrow Will follow Problem List - Problems (1) Acute on chronic diastolic CHF (congestive heart failure) Code(s): I50.33 - ACUTE ON CHRONIC DIASTOLIC (CONGESTIVE) HEART FAILURE (2) CAP (community acquired pneumonia) Code(s): J18.9 - PNEUMONIA, UNSPECIFIED ORGANISM Qualifiers: Laterality: left Lung location: lower lobe of lung Qualified Code(s): J18.9 - Pneumonia, unspecified organism (3) Afib Code(s): I48.91 - UNSPECIFIED ATRIAL FIBRILLATION Qualifiers: Atrial fibrillation type: chronic (4) Aortic stenosis Code(s): I35.0 - NON RHEUMATIC AORTIC (VALVE) STENOSIS Qualifiers: Cardiac valve disease etiology: etiology unspecified Qualified Code(s): I35.0 - Nonrheumatic aortic (valve) stenosis (5) CHF (congestive heart failure) Code(s): I50.9 - HEART FAILURE, UNSPECIFIED (6) Lung cancer Code(s): C34.90 - MALIGNANT NEOPLASM OF UNSP PART OF UNSP BRONCHUS OR LUNG
--- NOTE | 2019-08-09 12:56 | PN ---
Progress Note, Physician History of Present Illness: pulmonary alertsob improving,+ cough,+ back pain - Current Medication List Current Medications: Active Medications Acetaminophen (Tylenol -) 650 mg PO Q6H PRN PRN Reason: PAIN LEVEL 4 - 6 Last Admin: 08/08/19 09:17 Dose: 650 mg Albuterol/Ipratropium (Duoneb -) 1 amp NEB RQID [facility] Last Admin: 08/09/19 11:34 Dose: 1 amp Apixaban (Eliquis -) 5 mg PO BID [facility] Last Admin: 08/09/19 09:07 Dose: 5 mg Budesonide/Formoterol Fumarate (Symbicort 160/4.5mcg -) 2 puff IH BID [facility] Last Admin: 08/09/19 09:23 Dose: 2 puff Cyclobenzaprine HCl (Cyclobenzaprine Hcl) 5 mg PO DAILY [facility] Last Admin: 08/09/19 09:24 Dose: 5 mg Docusate Sodium (Colace -) 100 mg PO Q8H PRN PRN Reason: CONSTIPATION Last Admin: 08/08/19 21:51 Dose: 100 mg Enalapril Maleate (Vasotec -) 2.5 mg PO DAILY [facility] Last Admin: 08/09/19 09:08 Dose: 2.5 mg Escitalopram Oxalate (Lexapro -) 5 mg PO DAILY [facility] Last Admin: 08/09/19 09:08 Dose: 5 mg Famotidine (Pepcid -) 20 mg PO BID PRN PRN Reason: GERD Furosemide (Lasix Injection -) 20 mg IVPUSH DAILY [facility] Last Admin: 08/09/19 09:08 Dose: 20 mg Lidocaine (Lidoderm Patch -) 1 patch TP DAILY [facility] Last Admin: 08/09/19 09:13 Dose: 1 patch Lidocaine (Lidoderm Patch -) 1 patch TP DAILY [facility] Last Admin: 08/09/19 09:23 Dose: 1 patch Meclizine HCl (Antivert -) 12.5 mg PO Q6H PRN PRN Reason: VERTIGO Last Admin: 07/25/19 14:29 Dose: 12.5 mg Metoprolol Succinate (Toprol Xl -) 50 mg PO DAILY [facility] Last Admin: 08/09/19 09:07 Dose: 50 mg Miscellaneous (Lidoderm Patch Removal) 1 each MC DAILY@2200 [facility] Last Admin: 08/08/19 22:00 Dose: Not Given Miscellaneous (Lidoderm Patch Removal) 1 each MC DAILY@2200 [facility] Last Admin: 08/08/19 22:00 Dose: Not Given Oxycodone HCl (Roxicodone -) 10 mg PO Q4H PRN PRN Reason: PAIN LEVEL 6-10 Last Admin: 08/09/19 09:06 Dose: 10 mg Promethazine HCl/Dextromethorphan (Phenergan-Dm Syrup -) 5 ml PO Q4H PRN PRN Reason: COUGH Last Admin: 08/05/19 20:29 Dose: 5 ml Senna (Senna -) 2 tab PO HS PRN PRN Reason: CONSTIPATION Last Admin: 08/08/19 21:53 Dose: 2 tab Zolpidem Tartrate (Ambien -) 5 mg PO HS PRN PRN Reason: INSOMNIA Last Admin: 08/08/19 00:53 Dose: 5 mg - Objective Vital Signs: Vital Signs Temperature 98.2 F 08/09/19 10:00 Pulse Rate 88 08/09/19 10:00 Respiratory Rate 08/09/19 10:00 Blood Pressure 127/69 08/09/19 10:00 O2 Sat by Pulse Oximetry (%) 98 08/09/19 08:38 Constitutional: Yes: Well Nourished, Calm Eyes: Yes: WNL HENT: Yes: WNL Neck: Yes: WNL Cardiovascular: Yes: Regular Rate and Rhythm, S1, S2 Respiratory: Yes: Rales (few wheezes) Gastrointestinal: Yes: Normal Bowel Sounds, Soft Extremities: Yes: WNL Edema: Yes Labs: CBC, BMP 08/07/19 06:41 08/07/19 06:41 Assessment/Plan Problem List - Problems (1) Atelectasis of both lungs Code(s): J98.11 - ATELECTASIS (2) Acute on chronic systolic CHF (congestive heart failure) Code(s): I50.23 - ACUTE ON CHRONIC SYSTOLIC (CONGESTIVE) HEART FAILURE (3) CAP (community acquired pneumonia) Code(s): J18.9 - PNEUMONIA, UNSPECIFIED ORGANISM Qualifiers: Laterality: left Lung location: lower lobe of lung Qualified Code(s): J18.9 - Pneumonia, unspecified organism (4) CHF exacerbation Code(s): I50.9 - HEART FAILURE, UNSPECIFIED Qualifiers: Heart failure type: unspecified Qualified Code(s): I50.9 - Heart failure, unspecified (5) Pneumonia Code(s): J18.9 - PNEUMONIA, UNSPECIFIED ORGANISM (6) Afib Code(s): I48.91 - UNSPECIFIED ATRIAL FIBRILLATION Qualifiers: Atrial fibrillation type: chronic (7) Aortic stenosis Code(s): I35.0 - NONRHEUMATIC AORTIC (VALVE) STENOSIS Qualifiers: Cardiac valve disease etiology: etiology unspecified Qualified Code(s): I35.0 - Nonrheumatic aortic (valve) stenosis (8) CHF (congestive heart failure) Code(s): I50.9 - HEART FAILURE, UNSPECIFIED (9) COPD (chronic obstructive pulmonary disease) Code(s): J44.9 - CHRONIC OBSTRUCTIVE PULMONARY DISEASE, UNSPECIFIED Qualifiers: COPD type: unspecified COPD Qualified Code(s): J44.9 - Chronic obstructive pulmonary disease, unspecified (10) Chronic systolic CHF (congestive heart failure) Code(s): I50.22 - CHRONIC SYSTOLIC (CONGESTIVE) HEART FAILURE (11) Diabetes mellitus Code(s): E11.9 - TYPE 2 DIABETES MELLITUS WITHOUT COMPLICATIONS (12) Hyperlipidemia Code(s): E78.5 - HYPERLIPIDEMIA, UNSPECIFIED (13) Lung cancer Code(s): C34.90 - MALIGNANT NEOPLASM OF UNSP PART OF UNSP BRONCHUS OR LUNG (14) Malaise and fatigue Code(s): R53.81 - OTHER MALAISE; R53.83 - OTHER FATIGUE (15) Mitral stenosis Code(s): I05.0 - RHEUMATIC MITRAL STENOSIS Qualifiers: Cardiac valve disease etiology: rheumatic Qualified Code(s): I05.0 - Rheumatic mitral stenosis (16) Osteoarthritis Code(s): M19.90 - UNSPECIFIED OSTEOARTHRITIS, UNSPECIFIED SITE 17 COMPRESSION FX T12 Assessment/Plan Symbicort: 2 inhalations BID BD TX PRN Monitor off systemic steroids Supplemental O2 as needed Incentive Spiroimetry No smoking was counseled Emeterio MCKINNON PFTs as an outpatient once stable pain meds DR MANUEL
[2019-08-09] MEDS ORDERED: SENNOSIDES 8.6MG TABLET (FP) PO PRN (13:29)
[2019-08-09] MEDS ORDERED: DEXTROMETHORPHAN/PROMETHAZINE 15 MG/6.25 MG/5 ML SYRUP PO PRN (13:29)
[2019-08-09] MEDS ORDERED: LIDOCAINE PATCH REMOVAL MC SCH (13:29)
[2019-08-09] MEDS ORDERED: MECLIZINE HCL 12.5 MG TABLET PO PRN (13:29)
[2019-08-09] MEDS: APIXABAN 5 MG TABLET PO SCH (21:45)
[2019-08-09] MEDS: ACETAMINOPHEN 325 MG TABLET (FP) PO PRN (21:46)
[2019-08-09] MEDS: LIDOCAINE PATCH REMOVAL MC SCH ×2 (21:51)
[2019-08-10] MEDS: oxyCODONE HCL 5 MG TABLET PO PRN ×4 (02:37→16:25)
[2019-08-10] MEDS: ACETAMINOPHEN 325 MG TABLET (FP) PO PRN ×2 (04:15→18:30)
[2019-08-10] MEDS: DOCUSATE SODIUM 100 MG CAPSULE (FP) PO PRN (06:51)
[2019-08-10] MEDS: ALBUTEROL SO4 2.5/IPRATROPIUM 0.5 INH SOL 3 ML VIAL.NEB. NEB SCH ×4 (08:23→20:00)
[2019-08-10] MEDS ORDERED: PT OWN MED DRAWER 7, Y5N ONE (08:58)
[2019-08-10] MEDS: CYCLOBENZAPRINE HCL 5 MG TABLET PO SCH (09:30)
[2019-08-10] MEDS: FAMOTIDINE 20 MG TABLET PO PRN (09:31)
[2019-08-10] MEDS: APIXABAN 5 MG TABLET PO SCH ×2 (09:31→22:31)
[2019-08-10] MEDS: ESCITALOPRAM OXALATE 10 MG TABLET PO SCH (09:33)
[2019-08-10] MEDS: LIDOCAINE 5% TOPICAL PATCH TP SCH ×2 (09:33→09:34)
[2019-08-10] MEDS: ENALAPRIL MALEATE 5 MG TABLET (FP) PO SCH (09:58)
[2019-08-10] MEDS ORDERED: FUROSEMIDE 40 MG/4 ML INJECTABLE VIAL IVPUSH SCH (10:00)
[2019-08-10] MEDS: BUDESONIDE/FORMETEROL FUMARATE 160/4.5 mcg INHALER IH SCH ×2 (10:05→22:34)
--- NOTE | 2019-08-10 10:08 | PN ---
Progress Note (short form) - Note Progress Note: pt seen/ examined sitting in chair reports pain much better no distress dont want to do any procedure like kyphoplasty to be done even if it is recommended. Dont want to leave hospital or go to [facility]. Vital Signs Temp 98.2 F 08/10/19 06:00 Pulse 82 08/10/19 06:00 Resp 20 08/10/19 06:00 BP 99/61 08/10/19 06:00 Pulse Ox 94 L 08/09/19 22:00 Intake & Output 08/09/19 08/09/19 08/10/19 11:59 23:59 11:59 Intake Total 120 930 550 Balance 120 930 550 Weight 176 lb 4 oz Intake: Oral 120 930 550 Other: Voiding Method Toilet Toilet Toilet # Unmeasured Voids Void 1 1 1 Bowel Movement No No Weight Measurement Method Standing Scale Active Medications Acetaminophen (Tylenol -) 650 mg PO Q6H PRN PRN Reason: PAIN LEVEL 4 - 6 Last Admin: 08/08/19 09:17 Dose: 650 mg Albuterol/Ipratropium (Duoneb -) 1 amp NEB RQID [facility] Last Admin: 08/07/19 20:55 Dose: 1 amp Apixaban (Eliquis -) 5 mg PO BID [facility] Last Admin: 08/08/19 09:16 Dose: 5 mg Budesonide/Formoterol Fumarate (Symbicort 160/4.5mcg -) 2 puff IH BID [facility] Last Admin: 08/08/19 09:18 Dose: 2 puff Cyclobenzaprine HCl (Cyclobenzaprine Hcl) 5 mg PO DAILY [facility] Last Admin: 08/08/19 09:16 Dose: 5 mg Docusate Sodium (Colace -) 100 mg PO Q8H PRN PRN Reason: CONSTIPATION Enalapril Maleate (Vasotec -) 2.5 mg PO DAILY [facility] Last Admin: 08/08/19 09:16 Dose: 2.5 mg Escitalopram Oxalate (Lexapro -) 5 mg PO DAILY [facility] Last Admin: 08/08/19 09:17 Dose: 5 mg Famotidine (Pepcid -) 20 mg PO BID PRN PRN Reason: GERD Furosemide (Lasix Injection -) 20 mg IVPUSH DAILY [facility] Last Admin: 08/08/19 09:17 Dose: 20 mg Lidocaine (Lidoderm Patch -) 1 patch TP DAILY [facility] Last Admin: 08/08/19 09:43 Dose: 1 patch Lidocaine (Lidoderm Patch -) 1 patch TP DAILY [facility] Last Admin: 08/08/19 09:44 Dose: 1 patch Meclizine HCl (Antivert -) 12.5 mg PO Q6H PRN PRN Reason: VERTIGO Last Admin: 07/25/19 14:29 Dose: 12.5 mg Metoprolol Succinate (Toprol Xl -) 50 mg PO DAILY [facility] Last Admin: 08/08/19 09:17 Dose: 50 mg Miscellaneous (Lidoderm Patch Removal) 1 each MC DAILY@2199 [facility] Last Admin: 08/07/19 22:41 Dose: 1 each Miscellaneous (Lidoderm Patch Removal) 1 each [facility] DAILY@2199 [facility] Last Admin: 08/07/19 22:41 Dose: 1 each Oxycodone HCl (Roxicodone -) 10 mg PO Q4H PRN PRN Reason: PAIN LEVEL 6-10 Promethazine HCl/Dextromethorphan (Phenergan-Dm Syrup -) 5 ml PO Q4H PRN PRN Reason: COUGH Last Admin: 08/05/19 20:29 Dose: 5 ml Senna (Senna -) 2 tab PO HS PRN PRN Reason: CONSTIPATION Last Admin: 07/25/19 10:48 Dose: 2 tab Zolpidem Tartrate (Ambien -) 5 mg PO HS PRN PRN Reason: INSOMNIA Last Admin: 08/08/19 00:53 Dose: 5 mg CBC, BMP 08/07/19 06:41 08/07/19 06:41 Physical Exam Awake/sitting in chair S1 S2 Irregular Lungs - few scattered rhonchi Abd- soft, NT edema+ rom - limited in lower back PLAN Pneumonia --completed iv antibiotics ---- Pulmonary following Back pain -MRI- LS Spine -- T12 Acute vs Subacute # Pain management consult Pending Afib -- rate controlled -- on Eliquis -- on lasix iv- stable - switch to po -- monitor renal function Lung CA Breast CA --- she stopped oral chemo about 6 months ago-- does not want to follow up with oncologist at [facility] - she is refusing further chemo for lung CA family aware Discussed about going home and further management as out pt--refuses to go home Extensive talk with pt Pt will be filing appeal D/W RN also Will follow Problem List - Problems (1) Acute on chronic systolic CHF (congestive heart failure) Code(s): I50.23 - ACUTE ON CHRONIC SYSTOLIC (CONGESTIVE) HEART FAILURE (2) Breast CA Code(s): C50.919 - MALIGNANT NEOPLASM OF UNSP SITE OF UNSPECIFIED FEMALE BREAST (3) CAP (community acquired pneumonia) Code(s): J18.9 - PNEUMONIA, UNSPECIFIED ORGANISM Qualifiers: Laterality: left Lung location: lower lobe of lung Qualified Code(s): J18.9 - Pneumonia, unspecified organism (4) Lower back pain Code(s): M54.5 - LOW BACK PAIN (5) Afib Code(s): I48.91 - UNSPECIFIED ATRIAL FIBRILLATION Qualifiers: Atrial fibrillation type: chronic
--- NOTE | 2019-08-10 11:01 | PN ---
Progress Note, Physician History of Present Illness: 79 yr old white woman w PMHx lung cancer (completed chemo), a-fib (on eliquis), systolic (mildly reduced LVEF) CHF, severe aortic/mitral valve stenosis (s/p mitral balloon valvuloplasty 2006 at [facility]), anxiety, presenting w 1d white productive cough, nasal congestion, chills, SOB, and 1w worsening BLE swelling. Pt did not take lasix today, been taking amoxicillin at home. Denies fever, nausea/vomiting, chest pain, urinary/bowel mvmt changes. - Current Medication List Current Medications: Active Medications Acetaminophen (Tylenol -) 650 mg PO Q6H PRN PRN Reason: PAIN LEVEL 4 - 6 Last Admin: 08/10/19 04:15 Dose: 650 mg Albuterol/Ipratropium (Duoneb -) 1 amp NEB RQID [facility] Last Admin: 08/10/19 08:23 Dose: 1 amp Apixaban (Eliquis -) 5 mg PO BID [facility] Last Admin: 08/10/19 09:31 Dose: 5 mg Budesonide/Formoterol Fumarate (Symbicort 160/4.5mcg -) 2 puff IH BID [facility] Last Admin: 08/10/19 10:05 Dose: 2 puff Cyclobenzaprine HCl (Cyclobenzaprine Hcl) 5 mg PO DAILY [facility] Last Admin: 08/10/19 09:30 Dose: 5 mg Docusate Sodium (Colace -) 100 mg PO Q8H PRN PRN Reason: CONSTIPATION Last Admin: 08/10/19 06:51 Dose: 100 mg Enalapril Maleate (Vasotec -) 2.5 mg PO DAILY [facility] Last Admin: 08/10/19 09:58 Dose: 2.5 mg Escitalopram Oxalate (Lexapro -) 5 mg PO DAILY [facility] Last Admin: 08/10/19 09:33 Dose: 5 mg Famotidine (Pepcid -) 20 mg PO BID PRN PRN Reason: GERD Last Admin: 08/10/19 09:31 Dose: 20 mg Furosemide (Lasix -) 40 mg PO DAILY [facility] Lidocaine (Lidoderm Patch -) 1 patch TP DAILY [facility] Last Admin: 08/10/19 09:33 Dose: 1 patch Lidocaine (Lidoderm Patch -) 1 patch TP DAILY [facility] Last Admin: 08/10/19 09:34 Dose: 1 patch Meclizine HCl (Antivert -) 12.5 mg PO Q6H PRN PRN Reason: VERTIGO Metoprolol Succinate (Toprol Xl -) 50 mg PO DAILY [facility] Last Admin: 08/10/19 09:31 Dose: 50 mg Miscellaneous (Lidoderm Patch Removal) 1 each MC DAILY@2199 [facility] Last Admin: 08/09/19 21:51 Dose: 1 each Miscellaneous (Lidoderm Patch Removal) 1 each MC DAILY@2199 [facility] Last Admin: 08/09/19 21:51 Dose: 1 each Oxycodone HCl (Roxicodone -) 10 mg PO Q4H PRN PRN Reason: PAIN LEVEL 6-10 Last Admin: 08/10/19 06:51 Dose: 10 mg Promethazine HCl/Dextromethorphan (Phenergan-Dm Syrup -) 5 ml PO Q4H PRN PRN Reason: COUGH Senna (Senna -) 2 tab PO HS PRN PRN Reason: CONSTIPATION Zolpidem Tartrate (Ambien -) 5 mg PO HS PRN PRN Reason: INSOMNIA - Objective Vital Signs: Vital Signs Temperature 98.2 F 08/10/19 06:00 Pulse Rate 82 08/10/19 06:00 Respiratory Rate 20 08/10/19 06:00 Blood Pressure 99/61 08/10/19 06:00 O2 Sat by Pulse Oximetry (%) 94 L 08/09/19 22:00 Eyes: Yes: WNL, Conjunctiva Clear, EOM Intact HENT: Yes: WNL, Atraumatic, Normocephalic Neck: Yes: WNL, Supple, Trachea Midline Cardiovascular: Yes: WNL, Regular Rate and Rhythm Respiratory: Yes: Diminished, Rhonchi Gastrointestinal: Yes: WNL, Normal Bowel Sounds Genitourinary: Yes: WNL Musculoskeletal: Yes: WNL Extremities: Yes: WNL Edema: No Integumentary: Yes: WNL Neurological: Yes: WNL, Alert, Oriented ...Motor Strength: WNL Psychiatric: Yes: WNL Labs: CBC, BMP 08/07/19 06:41 08/07/19 06:41 Problem List - Problems (1) Acute on chronic systolic CHF (congestive heart failure) Code(s): I50.23 - ACUTE ON CHRONIC SYSTOLIC (CONGESTIVE) HEART FAILURE (2) Anxiety and depression Code(s): F41.9 - ANXIETY DISORDER, UNSPECIFIED; F32.9 - MAJOR DEPRESSIVE DISORDER, SINGLE EPISODE, UNSPECIFIED (3) Atelectasis of both lungs Code(s): J98.11 - ATELECTASIS (4) Breast CA Code(s): C50.919 - MALIGNANT NEOPLASM OF UNSP SITE OF UNSPECIFIED FEMALE BREAST (5) CAP (community acquired pneumonia) Code(s): J18.9 - PNEUMONIA, UNSPECIFIED ORGANISM Qualifiers: Laterality: left Lung location: lower lobe of lung Qualified Code(s): J18.9 - Pneumonia, unspecified organism (6) CHF exacerbation Code(s): I50.9 - HEART FAILURE, UNSPECIFIED Qualifiers: Heart failure type: unspecified Qualified Code(s): I50.9 - Heart failure, unspecified (7) Constipation Code(s): K59.00 - CONSTIPATION, UNSPECIFIED (8) Lower back pain Code(s): M54.5 - LOW BACK PAIN (9) NSVT (nonsustained ventricular tachycardia) Code(s): I47.2 - VENTRICULAR TACHYCARDIA (10) Pneumonia Code(s): J18.9 - PNEUMONIA, UNSPECIFIED ORGANISM (11) Afib Code(s): I48.91 - UNSPECIFIED ATRIAL FIBRILLATION Qualifiers: Atrial fibrillation type: chronic (12) Aortic stenosis Code(s): I35.0 - NONRHEUMATIC AORTIC (VALVE) STENOSIS Qualifiers: Cardiac valve disease etiology: nonrheumatic Qualified Code(s): I35.0 - Nonrheumatic aortic (valve) stenosis (13) CHF (congestive heart failure) Code(s): I50.9 - HEART FAILURE, UNSPECIFIED (14) COPD (chronic obstructive pulmonary disease) Code(s): J44.9 - CHRONIC OBSTRUCTIVE PULMONARY DISEASE, UNSPECIFIED Qualifiers: COPD type: unspecified COPD Qualified Code(s): J44.9 - Chronic obstructive pulmonary disease, unspecified (15) CVA (cerebral vascular accident) Code(s): I63.9 - CEREBRAL INFARCTION, UNSPECIFIED (16) Chronic systolic CHF (congestive heart failure) Code(s): I50.22 - CHRONIC SYSTOLIC (CONGESTIVE) HEART FAILURE (17) Diabetes mellitus Code(s): E11.9 - TYPE 2 DIABETES MELLITUS WITHOUT COMPLICATIONS (18) Gastritis Code(s): K29.70 - GASTRITIS, UNSPECIFIED, WITHOUT BLEEDING Qualifiers: Gastritis type: unspecified gastritis Chronicity: acute Gastritis bleeding: without bleeding Qualified Code(s): K29.00 - Acute gastritis without bleeding (19) Hematoma Code(s): T14.8 - OTHER INJURY OF UNSPECIFIED BODY REGION * DO NOT USE * (20) Hyperlipidemia Code(s): E78.5 - HYPERLIPIDEMIA, UNSPECIFIED Qualifiers: Hyperlipidemia type: pure hypercholesterolemia Qualified Code(s): E78.00 - Pure hypercholesterolemia, unspecified; E78.0 - Pure hypercholesterolemia (21) Lung cancer Code(s): C34.90 - MALIGNANT NEOPLASM OF UNSP PART OF UNSP BRONCHUS OR LUNG (22) Malaise and fatigue Code(s): R53.81 - OTHER MALAISE; R53.83 - OTHER FATIGUE (23) Mitral stenosis Code(s): I05.0 - RHEUMATIC MITRAL STENOSIS Qualifiers: Cardiac valve disease etiology: rheumatic Qualified Code(s): I05.0 - Rheumatic mitral stenosis (24) Osteoarthritis Code(s): M19.90 - UNSPECIFIED OSTEOARTHRITIS, UNSPECIFIED SITE (25) Sprain of right thumb Code(s): S63.601A - UNSPECIFIED SPRAIN OF RIGHT THUMB, INITIAL ENCOUNTER (26) Subtherapeutic anticoagulation Code(s): Z51.81 - ENCOUNTER FOR THERAPEUTIC DRUG LEVEL MONITORING; 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 LLL Pneumonia 2. Persistent atrial fibrillation on DOAC/Eliquis 3. Aortic stenosis (Moderate) 4. Mitral stenosis (Moderate) 5. History of lung CA 6. Acute on chronic LV systolic failure 7. History of vertigo 8. Anxiety and depression PLAN: 1. Currently not on antibiotics 2. Continue Toprol XL 50 mg QD and Enalapril 2.5 mg QD as tolerated 3. Continue Eliquis 5 mg BID 4. Diuretics (Lasix 20 mg IV QD) and monitor renal function and electrolytes 5. Refused further treatment for lung CA 6. Analgesics
--- NOTE | 2019-08-10 11:58 | PN ---
Progress Note (short form) - Note Progress Note: PULMONARY Still with nonproductive cough without shortness of breath. No fevers. Vital Signs Period Temp Pulse Resp BP Sys/Cifuentes Pulse Ox Last 24 Hr 97.7 F-98.9 F 80-96 20-20 94-107/51-68 94-94 Gen: NAD at rest Heart: RRR Lung: decreased breath sounds at the bases Abd: soft, nontender Ext: + edema CBC, BMP 08/07/19 06:41 08/07/19 06:41 Active Medications Acetaminophen (Tylenol -) 650 mg PO Q6H PRN PRN Reason: PAIN LEVEL 4 - 6 Last Admin: 08/10/19 04:15 Dose: 650 mg Albuterol/Ipratropium (Duoneb -) 1 amp NEB RQID [facility] Last Admin: 08/10/19 08:23 Dose: 1 amp Apixaban (Eliquis -) 5 mg PO BID [facility] Last Admin: 08/10/19 09:31 Dose: 5 mg Budesonide/Formoterol Fumarate (Symbicort 160/4.5mcg -) 2 puff IH BID [facility] Last Admin: 08/10/19 10:05 Dose: 2 puff Cyclobenzaprine HCl (Cyclobenzaprine Hcl) 5 mg PO DAILY [facility] Last Admin: 08/10/19 09:30 Dose: 5 mg Docusate Sodium (Colace -) 100 mg PO Q8H PRN PRN Reason: CONSTIPATION Last Admin: 08/10/19 06:51 Dose: 100 mg Enalapril Maleate (Vasotec -) 2.5 mg PO DAILY [facility] Last Admin: 08/10/19 09:58 Dose: 2.5 mg Escitalopram Oxalate (Lexapro -) 5 mg PO DAILY [facility] Last Admin: 08/10/19 09:33 Dose: 5 mg Famotidine (Pepcid -) 20 mg PO BID PRN PRN Reason: GERD Last Admin: 08/10/19 09:31 Dose: 20 mg Furosemide (Lasix -) 40 mg PO DAILY [facility] Lidocaine (Lidoderm Patch -) 1 patch TP DAILY [facility] Last Admin: 08/10/19 09:33 Dose: 1 patch Lidocaine (Lidoderm Patch -) 1 patch TP DAILY [facility] Last Admin: 08/10/19 09:34 Dose: 1 patch Meclizine HCl (Antivert -) 12.5 mg PO Q6H PRN PRN Reason: VERTIGO Metoprolol Succinate (Toprol Xl -) 50 mg PO DAILY [facility] Last Admin: 08/10/19 09:31 Dose: 50 mg Miscellaneous (Lidoderm Patch Removal) 1 each [facility] DAILY@2200 [facility] Last Admin: 08/09/19 21:51 Dose: 1 each Miscellaneous (Lidoderm Patch Removal) 1 each MC DAILY@0 [facility] Last Admin: 08/09/19 21:51 Dose: 1 each Oxycodone HCl (Roxicodone -) 10 mg PO Q4H PRN PRN Reason: PAIN LEVEL 6-10 Last Admin: 08/10/19 11:49 Dose: 10 mg Promethazine HCl/Dextromethorphan (Phenergan-Dm Syrup -) 5 ml PO Q4H PRN PRN Reason: COUGH Senna (Senna -) 2 tab PO HS PRN PRN Reason: CONSTIPATION Zolpidem Tartrate (Ambien -) 5 mg PO HS PRN PRN Reason: INSOMNIA A/P Pneumonia Lung Cancer Acute on Chronic Systolic Heart Failure Atrial Fibrillation Aortic Stenosis Mitral Stenosis Anxiety/Depression - completed antibiotics - continue lasix - monitor urine output, creatinine - rate controlled - continue anticoagulation - pain control
[2019-08-11] MEDS: LIDOCAINE PATCH REMOVAL MC SCH ×2 (01:13→01:14)
[2019-08-11] MEDS: DOCUSATE SODIUM 100 MG CAPSULE (FP) PO PRN (02:23)
[2019-08-11] MEDS: oxyCODONE HCL 5 MG TABLET PO PRN ×3 (03:08→22:03)
[2019-08-11] MEDS: ALBUTEROL SO4 2.5/IPRATROPIUM 0.5 INH SOL 3 ML VIAL.NEB. NEB SCH ×4 (07:36→20:40)
[2019-08-11] MEDS: FUROSEMIDE 40 MG TABLET (FP) PO SCH (09:34)
[2019-08-11] MEDS: CYCLOBENZAPRINE HCL 5 MG TABLET PO SCH (09:34)
[2019-08-11] MEDS: FAMOTIDINE 20 MG TABLET PO PRN (09:35)
[2019-08-11] MEDS: ESCITALOPRAM OXALATE 10 MG TABLET PO SCH (09:35)
[2019-08-11] MEDS: APIXABAN 5 MG TABLET PO SCH ×2 (09:35→21:30)
[2019-08-11] MEDS: LIDOCAINE 5% TOPICAL PATCH TP SCH ×2 (09:35)
[2019-08-11] MEDS ORDERED: PT OWN MED DRAWER 7, Y5N ONE (09:41)
[2019-08-11] MEDS: ENALAPRIL MALEATE 5 MG TABLET (FP) PO SCH (09:42)
[2019-08-11] MEDS: ACETAMINOPHEN 325 MG TABLET (FP) PO PRN (09:42)
[2019-08-11] MEDS: BUDESONIDE/FORMETEROL FUMARATE 160/4.5 mcg INHALER IH SCH ×2 (10:46→21:30)
--- NOTE | 2019-08-11 11:35 | PN ---
Progress Note (short form) - Note Progress Note: PULMONARY Still with pain. No shortness of breath. Occasional cough. Vital Signs Period Temp Pulse Resp BP Sys/Cifuentes Pulse Ox Last 24 Hr 97.7 F-98.8 F 68-85 18-20 95-127/51-82 96-96 Gen: NAD at rest Heart: RRR Lung: scattered rhonchi Abd: soft, nontender Ext: + edema CBC, BMP 08/07/19 06:41 08/07/19 06:41 Active Medications Acetaminophen (Tylenol -) 650 mg PO Q6H PRN PRN Reason: PAIN LEVEL 4 - 6 Last Admin: 08/11/19 09:42 Dose: 650 mg Albuterol/Ipratropium (Duoneb -) 1 amp NEB RQID [facility] Last Admin: 08/11/19 07:36 Dose: 1 amp Apixaban (Eliquis -) 5 mg PO BID [facility] Last Admin: 08/11/19 09:35 Dose: 5 mg Budesonide/Formoterol Fumarate (Symbicort 160/4.5mcg -) 2 puff IH BID [facility] Last Admin: 08/11/19 10:46 Dose: Not Given Cyclobenzaprine HCl (Cyclobenzaprine Hcl) 5 mg PO DAILY [facility] Last Admin: 08/11/19 09:34 Dose: 5 mg Docusate Sodium (Colace -) 100 mg PO Q8H PRN PRN Reason: CONSTIPATION Last Admin: 08/11/19 02:23 Dose: 100 mg Enalapril Maleate (Vasotec -) 2.5 mg PO DAILY [facility] Last Admin: 08/11/19 09:42 Dose: 2.5 mg Escitalopram Oxalate (Lexapro -) 5 mg PO DAILY [facility] Last Admin: 08/11/19 09:35 Dose: 5 mg Famotidine (Pepcid -) 20 mg PO BID PRN PRN Reason: GERD Last Admin: 08/11/19 09:35 Dose: 20 mg Furosemide (Lasix -) 40 mg PO DAILY [facility] Last Admin: 08/11/19 09:34 Dose: 40 mg Lidocaine (Lidoderm Patch -) 1 patch TP DAILY [facility] Last Admin: 08/11/19 09:35 Dose: 1 patch Lidocaine (Lidoderm Patch -) 1 patch TP DAILY [facility] Last Admin: 08/11/19 09:35 Dose: 1 patch Meclizine HCl (Antivert -) 12.5 mg PO Q6H PRN PRN Reason: VERTIGO Metoprolol Succinate (Toprol Xl -) 50 mg PO DAILY [facility] Last Admin: 08/11/19 09:34 Dose: 50 mg Miscellaneous (Lidoderm Patch Removal) 1 each [facility] DAILY@2200 [facility] Last Admin: 08/11/19 01:13 Dose: 1 each Miscellaneous (Lidoderm Patch Removal) 1 each [facility] DAILY@0 [facility] Last Admin: 08/11/19 01:14 Dose: 1 each Oxycodone HCl (Roxicodone -) 10 mg PO Q4H PRN PRN Reason: PAIN LEVEL 6-10 Last Admin: 08/11/19 03:08 Dose: 10 mg Promethazine HCl/Dextromethorphan (Phenergan-Dm Syrup -) 5 ml PO Q4H PRN PRN Reason: COUGH Senna (Senna -) 2 tab PO HS PRN PRN Reason: CONSTIPATION Zolpidem Tartrate (Ambien -) 5 mg PO HS PRN PRN Reason: INSOMNIA A/P Pneumonia Lung Cancer Acute on Chronic Systolic Heart Failure Atrial Fibrillation Aortic Stenosis Mitral Stenosis Anxiety/Depression - completed antibiotics - continue lasix - monitor urine output, creatinine - rate controlled - continue anticoagulation - pain control
[2019-08-11] MEDS ORDERED: FENTANYL PATCH WASTE TD PRN (12:37)
--- NOTE | 2019-08-11 12:38 | PN ---
Progress Note (short form) - Note Progress Note: Coughing+ sounds productive sob better has pain in back when she coughs Vital Signs - 24 hr 08/11/19 08/11/19 08/11/19 06:00 09:00 10:00 Temperature 97.7 F 97.6 F Pulse Rate 85 94 H Respiratory 18 18 Rate Blood Pressure 127/82 103/62 O2 Sat by Pulse 94 L 94 L Oximetry (%) 08/11/19 14:00 Temperature 98.8 F Pulse Rate 85 Respiratory 18 Rate Blood Pressure 98/57 L O2 Sat by Pulse Oximetry (%) Current Medications Generic Name Dose Route Start Last Admin Trade Name Freq PRN Reason Stop Dose Admin Acetaminophen 650 mg 08/07/19 18:06 08/11/19 09:42 Tylenol - PO 650 mg Q6H PRN Administration PAIN LEVEL 4 - 6 Albuterol/Ipratropium 1 amp 08/09/19 16:00 08/11/19 20:40 Duoneb - NEB 1 amp RQID PALAK Administration Apixaban 5 mg 08/09/19 22:00 08/11/19 21:30 Eliquis - PO 5 mg BID PALAK Administration Budesonide/Formoterol Fumarate 2 puff 08/09/19 22:00 08/11/19 21:30 Symbicort 160/4.5mcg - IH Not Given BID PALAK Cyclobenzaprine HCl 5 mg 08/10/19 10:00 08/11/19 09:34 Cyclobenzaprine Hcl PO 5 mg DAILY PALAK Administration Docusate Sodium 100 mg 08/08/19 11:43 08/11/19 02:23 Colace - PO 100 mg Q8H PRN Administration CONSTIPATION Enalapril Maleate 2.5 mg 08/10/19 10:00 08/11/19 09:42 Vasotec - PO 2.5 mg DAILY PALAK Administration Escitalopram Oxalate 5 mg 08/10/19 10:00 08/11/19 09:35 Lexapro - PO 5 mg DAILY PALAK Administration Famotidine 20 mg 08/09/19 13:29 08/11/19 09:35 Pepcid - PO 20 mg BID PRN Administration GERD Fentanyl 1 patch 08/11/19 12:45 08/11/19 13:28 Duragesic 25mcg Patch - TD 08/18/19 12:37 1 patch Q72H PALAK Administration Furosemide 40 mg 08/11/19 10:00 08/11/19 09:34 Lasix - PO 40 mg DAILY PALAK Administration Meclizine HCl 12.5 mg 08/09/19 13:29 Antivert - PO Q6H PRN VERTIGO Metoprolol Succinate 50 mg 08/10/19 10:00 08/11/19 09:34 Toprol Xl - PO 50 mg DAILY PALAK Administration Miscellaneous 1 each 08/11/19 12:37 Duragesic Patch Waste TD PRN PRN PAIN Oxycodone HCl 5 mg 08/11/19 12:37 08/11/19 22:03 Roxicodone - PO 5 mg Q4H PRN Administration PAIN LEVEL 6-10 Promethazine HCl/Dextromethorphan 5 ml 08/09/19 13:29 Phenergan-Dm Syrup - PO Q4H PRN COUGH Senna 2 tab 08/09/19 13:29 Senna - PO HS PRN CONSTIPATION Zolpidem Tartrate 5 mg 08/09/19 13:29 Ambien - PO HS PRN INSOMNIA S1 S2 Irregular Lungs crackles +ronchi B/L Abd- soft, NT edema++ PLAN Pneumonia --completed iv antibiotics -better -- CT chest---LLL pneumonia -- urine antigens negative -- Influenza negative s/p medrol add Symbicort added phenergan elevated WBC due to steroids possibly Back pain --added Flexeril for back pain --stop lidocaine patch start fentanyl patch PT rolando spoke with pt today to consider STR Afib -- rate controlled -- on Eliquis CHF -- on lasix po -- monitor renal function Lung CA Breast CA --- she stopped oral chemo about 6 months ago-- [facility] - she is refusing further chemo for lung CA family aware Problem List - Problems (1) Acute on chronic diastolic CHF (congestive heart failure) Code(s): I50.33 - ACUTE ON CHRONIC DIASTOLIC (CONGESTIVE) HEART FAILURE (2) CAP (community acquired pneumonia) Code(s): J18.9 - PNEUMONIA, UNSPECIFIED ORGANISM Qualifiers: Laterality: left Lung location: lower lobe of lung Qualified Code(s): J18.9 - Pneumonia, unspecified organism (3) Afib Code(s): I48.91 - UNSPECIFIED ATRIAL FIBRILLATION Qualifiers: Atrial fibrillation type: chronic (4) Aortic stenosis Code(s): I35.0 - NONRHEUMATIC AORTIC (VALVE) STENOSIS Qualifiers: Cardiac valve disease etiology: nonrheumatic Qualified Code(s): I35.0 - Nonrheumatic aortic (valve) stenosis (5) CHF (congestive heart failure) Code(s): I50.9 - HEART FAILURE, UNSPECIFIED (6) Lung cancer Code(s): C34.90 - MALIGNANT NEOPLASM OF UNSP PART OF UNSP BRONCHUS OR LUNG
[2019-08-11] MEDS ORDERED: fentaNYL 25mcg/hr PATCH.TD72 TD SCH (12:45)
[2019-08-12] MEDS: ACETAMINOPHEN 325 MG TABLET (FP) PO PRN ×2 (00:04→21:56)
[2019-08-12] MEDS: ZOLPIDEM TARTRATE 5 MG TABLET PO PRN (01:17)
[2019-08-12] MEDS: ALBUTEROL SO4 2.5/IPRATROPIUM 0.5 INH SOL 3 ML VIAL.NEB. NEB SCH ×4 (08:15→20:07)
--- NOTE | 2019-08-12 08:55 | PN ---
Progress Note, Physician Chief Complaint: Pt A&Ox3;sitting up in bed because of pain in back (no longer in the lower rib cage); she says the fentanyl is not strong enough. - Current Medication List Current Medications: Active Medications Acetaminophen (Tylenol -) 650 mg PO Q6H PRN PRN Reason: PAIN LEVEL 4 - 6 Last Admin: 08/12/19 00:04 Dose: 650 mg Albuterol/Ipratropium (Duoneb -) 1 amp NEB RQID [facility] Last Admin: 08/11/19 20:40 Dose: 1 amp Apixaban (Eliquis -) 5 mg PO BID [facility] Last Admin: 08/11/19 21:30 Dose: 5 mg Budesonide/Formoterol Fumarate (Symbicort 160/4.5mcg -) 2 puff IH BID [facility] Last Admin: 08/11/19 21:30 Dose: Not Given Cyclobenzaprine HCl (Cyclobenzaprine Hcl) 5 mg PO DAILY [facility] Last Admin: 08/11/19 09:34 Dose: 5 mg Docusate Sodium (Colace -) 100 mg PO Q8H PRN PRN Reason: CONSTIPATION Last Admin: 08/11/19 02:23 Dose: 100 mg Enalapril Maleate (Vasotec -) 2.5 mg PO DAILY [facility] Last Admin: 08/11/19 09:42 Dose: 2.5 mg Escitalopram Oxalate (Lexapro -) 5 mg PO DAILY [facility] Last Admin: 08/11/19 09:35 Dose: 5 mg Famotidine (Pepcid -) 20 mg PO BID PRN PRN Reason: GERD Last Admin: 08/11/19 09:35 Dose: 20 mg Fentanyl (Duragesic 25mcg Patch -) 1 patch TD Q72H [facility] Stop: 08/18/19 12:37 Last Admin: 08/11/19 13:28 Dose: 1 patch Furosemide (Lasix -) 40 mg PO DAILY [facility] Last Admin: 08/11/19 09:34 Dose: 40 mg Meclizine HCl (Antivert -) 12.5 mg PO Q6H PRN PRN Reason: VERTIGO Metoprolol Succinate (Toprol Xl -) 50 mg PO DAILY [facility] Last Admin: 08/11/19 09:34 Dose: 50 mg Miscellaneous (Duragesic Patch Waste) 1 each TD PRN PRN PRN Reason: PAIN Oxycodone HCl (Roxicodone -) 5 mg PO Q4H PRN PRN Reason: PAIN LEVEL 6-10 Last Admin: 08/11/19 22:03 Dose: 5 mg Promethazine HCl/Dextromethorphan (Phenergan-Dm Syrup -) 5 ml PO Q4H PRN PRN Reason: COUGH Senna (Senna -) 2 tab PO HS PRN PRN Reason: CONSTIPATION Zolpidem Tartrate (Ambien -) 5 mg PO HS PRN PRN Reason: INSOMNIA Last Admin: 08/12/19 01:17 Dose: 5 mg - Objective Vital Signs: Vital Signs Temperature 98.5 F 08/12/19 06:00 Pulse Rate 85 08/12/19 06:00 Respiratory Rate 18 08/12/19 06:00 Blood Pressure 95/52 L 08/12/19 06:00 O2 Sat by Pulse Oximetry (%) 92 L 08/11/19 22:00 Constitutional: Yes: Anxious Eyes: Yes: WNL HENT: Yes: WNL Neck: Yes: WNL Cardiovascular: Yes: Pulse Irregular, S1 (varies in intensity), S2 Respiratory: Yes: Regular Gastrointestinal: Yes: Soft. No: Tenderness ...Rectal Exam: Yes: Deferred Genitourinary: No: Anuria Breast(s): Yes: WNL Musculoskeletal: Yes: Back Pain, Muscle Weakness Extremities: Yes: Cool Edema: Yes Edema: LLE: 1+, RLE: 1+ Peripheral Pulses WNL: Yes Integumentary: Yes: WNL Neurological: Yes: Alert, Oriented, Weakness Psychiatric: Yes: Alert, Oriented, Other (anxiety) Labs: CBC, BMP 08/07/19 06:41 08/07/19 06:41 Problem List - Problems (1) Pneumonia Assessment/Plan: LLL pneumonia. Completed course of antibiotics. On steroids, bronchodilators. Code(s): J18.9 - PNEUMONIA, UNSPECIFIED ORGANISM (2) Afib Code(s): I48.91 - UNSPECIFIED ATRIAL FIBRILLATION Qualifiers: Atrial fibrillation type: chronic (3) Aortic stenosis Code(s): I35.0 - NONRHEUMATIC AORTIC (VALVE) STENOSIS Qualifiers: Cardiac valve disease etiology: nonrheumatic Qualified Code(s): I35.0 - Nonrheumatic aortic (valve) stenosis (4) Lung cancer Code(s): C34.90 - MALIGNANT NEOPLASM OF UNSP PART OF UNSP BRONCHUS OR LUNG (5) Mitral stenosis Code(s): I05.0 - RHEUMATIC MITRAL STENOSIS Qualifiers: Cardiac valve disease etiology: rheumatic Qualified Code(s): I05.0 - Rheumatic mitral stenosis (6) NSVT (nonsustained ventricular tachycardia) Assessment/Plan: Metoprolol ER 50 mg daily; enalapril 2.5 mg daily (increase as tolerated). Maintain electrolytes: Keep K 4.0-4.5, Mg 2.0-2.4, and PO4 2.5-4.9. Code(s): I47.2 - VENTRICULAR TACHYCARDIA (7) Acute on chronic systolic CHF (congestive heart failure) Assessment/Plan: On metoprololr ER.. On enalapril 2.5 mg daily (consider stopping amlodipine and increasing dose of enalapril (low-normal LVEF; hx NSVT) and/or metoprolol ER. On furosemide. F/u BUN/Cr, electrolytes, daily weight, Is and Os. Code(s): I50.23 - ACUTE ON CHRONIC SYSTOLIC (CONGESTIVE) HEART FAILURE (8) Anxiety and depression Assessment/Plan: On Lexapro. Code(s): F41.9 - ANXIETY DISORDER, UNSPECIFIED; F32.9 - MAJOR DEPRESSIVE DISORDER, SINGLE EPISODE, UNSPECIFIED (9) Vertigo Assessment/Plan: On meclizine prn. Code(s): R42 - DIZZINESS AND GIDDINESS (10) Constipation Assessment/Plan: On Senna. On Pepcid. Encourage high-fiber diet; fluids. Code(s): K59.00 - CONSTIPATION, UNSPECIFIED (11) Breast CA Code(s): C50.919 - MALIGNANT NEOPLASM OF UNSP SITE OF UNSPECIFIED FEMALE BREAST (12) Lower back pain Assessment/Plan: On roxycodone, Ultram, Tylenol, cyclobenzaprine; lidocaine patch changed to Fentanyl. Code(s): M54.5 - LOW BACK PAIN
[2019-08-12] MEDS ORDERED: PT OWN MED DRAWER 7, Y5N ONE (09:36)
[2019-08-12] MEDS: ESCITALOPRAM OXALATE 10 MG TABLET PO SCH (10:02)
[2019-08-12] MEDS: APIXABAN 5 MG TABLET PO SCH ×2 (10:02→21:55)
[2019-08-12] MEDS: CYCLOBENZAPRINE HCL 5 MG TABLET PO SCH (10:02)
[2019-08-12] MEDS: FUROSEMIDE 40 MG TABLET (FP) PO SCH (10:03)
[2019-08-12] MEDS: ENALAPRIL MALEATE 5 MG TABLET (FP) PO SCH (10:03)
[2019-08-12] MEDS: BUDESONIDE/FORMETEROL FUMARATE 160/4.5 mcg INHALER IH SCH ×2 (10:06→21:58)
--- NOTE | 2019-08-12 10:45 | PN ---
Progress Note (short form) - Note Progress Note: Coughing+ sounds productive sob better has pain in back when she coughs Vital Signs - 24 hr 08/11/19 08/11/19 08/11/19 14:00 21:00 22:00 Temperature 98.8 F 98.3 F Pulse Rate 85 88 Respiratory 18 20 Rate Blood Pressure 98/57 L 96/56 L O2 Sat by Pulse 92 L 92 L Oximetry (%) 08/12/19 08/12/19 06:00 09:25 Temperature 98.5 F 98.1 F Pulse Rate 85 99 H Respiratory 18 20 Rate Blood Pressure 95/52 L 108/57 L O2 Sat by Pulse Oximetry (%) Current Medications Generic Name Dose Route Start Last Admin Trade Name Freq PRN Reason Stop Dose Admin Acetaminophen 650 mg 08/07/19 18:06 08/12/19 00:04 Tylenol - PO 650 mg Q6H PRN Administration PAIN LEVEL 4 - 6 Albuterol/Ipratropium 1 amp 08/09/19 16:00 08/12/19 08:15 Duoneb - NEB 1 amp RQID PALAK Administration Apixaban 5 mg 08/09/19 22:00 08/12/19 10:02 Eliquis - PO 5 mg BID PALAK Administration Budesonide/Formoterol Fumarate 2 puff 08/09/19 22:00 08/12/19 10:06 Symbicort 160/4.5mcg - IH Not Given BID PALAK Cyclobenzaprine HCl 5 mg 08/10/19 10:00 08/12/19 10:02 Cyclobenzaprine Hcl PO 5 mg DAILY PALAK Administration Docusate Sodium 100 mg 08/08/19 11:43 08/11/19 02:23 Colace - PO 100 mg Q8H PRN Administration CONSTIPATION Enalapril Maleate 2.5 mg 08/10/19 10:00 08/12/19 10:03 Vasotec - PO 2.5 mg DAILY PALAK Administration Escitalopram Oxalate 5 mg 08/10/19 10:00 08/12/19 10:02 Lexapro - PO 5 mg DAILY PALAK Administration Famotidine 20 mg 08/09/19 13:29 08/11/19 09:35 Pepcid - PO 20 mg BID PRN Administration GERD Fentanyl 1 patch 08/11/19 12:45 08/11/19 13:28 Duragesic 25mcg Patch - TD 08/18/19 12:37 1 patch Q72H PALAK Administration Furosemide 40 mg 08/11/19 10:00 08/12/19 10:03 Lasix - PO 40 mg DAILY PALAK Administration Meclizine HCl 12.5 mg 08/09/19 13:29 Antivert - PO Q6H PRN VERTIGO Metoprolol Succinate 50 mg 08/10/19 10:00 08/12/19 10:08 Toprol Xl - PO 50 mg DAILY PALAK Administration Miscellaneous 1 each 08/11/19 12:37 Duragesic Patch Waste TD PRN PRN PAIN Oxycodone HCl 5 mg 08/11/19 12:37 08/11/19 22:03 Roxicodone - PO 5 mg Q4H PRN Administration PAIN LEVEL 6-10 Promethazine HCl/Dextromethorphan 5 ml 08/09/19 13:29 Phenergan-Dm Syrup - PO Q4H PRN COUGH Senna 2 tab 08/09/19 13:29 Senna - PO HS PRN CONSTIPATION Zolpidem Tartrate 5 mg 08/09/19 13:29 08/12/19 01:17 Ambien - PO 5 mg HS PRN Administration INSOMNIA S1 S2 Irregular Lungs ronchi+ Abd- soft, NT edema++ PLAN Pneumonia --completed iv antibiotics -better -- CT chest---LLL pneumonia -- urine antigens negative -- Influenza negative s/p medrol add Symbicort added phenergan elevated WBC due to steroids possibly Back pain --added Flexeril for back pain --stop lidocaine patch start fentanyl patch PT rolando spoke with pt today to consider STR Afib -- rate controlled -- on Eliquis CHF -- on lasix po -- monitor renal function Lung CA Breast CA --- she stopped oral chemo about 6 months ago-- does not want to follow up with oncologist at [facility] - she is refusing further chemo for lung CA family aware Problem List - Problems (1) Acute on chronic diastolic CHF (congestive heart failure) Code(s): I50.33 - ACUTE ON CHRONIC DIASTOLIC (CONGESTIVE) HEART FAILURE (2) CAP (community acquired pneumonia) Code(s): J18.9 - PNEUMONIA, UNSPECIFIED ORGANISM Qualifiers: Laterality: left Lung location: lower lobe of lung Qualified Code(s): J18.9 - Pneumonia, unspecified organism (3) Afib Code(s): I48.91 - UNSPECIFIED ATRIAL FIBRILLATION Qualifiers: Atrial fibrillation type: chronic (4) Aortic stenosis Code(s): I35.0 - NONRHEUMATIC AORTIC (VALVE) STENOSIS Qualifiers: Cardiac valve disease etiology: nonrheumatic Qualified Code(s): I35.0 - Nonrheumatic aortic (valve) stenosis (5) CHF (congestive heart failure) Code(s): I50.9 - HEART FAILURE, UNSPECIFIED (6) Lung cancer Code(s): C34.90 - MALIGNANT NEOPLASM OF UNSP PART OF UNSP BRONCHUS OR LUNG
--- NOTE | 2019-08-12 12:29 | PN ---
Progress Note, Physician History of Present Illness: 79 yr old white woman w PMHx lung cancer (completed chemo), a-fib (on eliquis), systolic (mildly reduced LVEF) CHF, severe aortic/mitral valve stenosis (s/p mitral balloon valvuloplasty 2006 at [facility]), anxiety, presenting w 1d white productive cough, nasal congestion, chills, SOB, and 1w worsening BLE swelling. Pt did not take lasix today, been taking amoxicillin at home. Denies fever, nausea/vomiting, chest pain, urinary/bowel mvmt changes. - Current Medication List Current Medications: Active Medications Acetaminophen (Tylenol -) 650 mg PO Q6H PRN PRN Reason: PAIN LEVEL 4 - 6 Last Admin: 08/12/19 00:04 Dose: 650 mg Albuterol/Ipratropium (Duoneb -) 1 amp NEB RQID [facility] Last Admin: 08/12/19 08:15 Dose: 1 amp Apixaban (Eliquis -) 5 mg PO BID [facility] Last Admin: 08/12/19 10:02 Dose: 5 mg Budesonide/Formoterol Fumarate (Symbicort 160/4.5mcg -) 2 puff IH BID [facility] Last Admin: 08/12/19 10:06 Dose: Not Given Cyclobenzaprine HCl (Cyclobenzaprine Hcl) 5 mg PO DAILY [facility] Last Admin: 08/12/19 10:02 Dose: 5 mg Docusate Sodium (Colace -) 100 mg PO Q8H PRN PRN Reason: CONSTIPATION Last Admin: 08/11/19 02:23 Dose: 100 mg Enalapril Maleate (Vasotec -) 2.5 mg PO DAILY [facility] Last Admin: 08/12/19 10:03 Dose: 2.5 mg Escitalopram Oxalate (Lexapro -) 5 mg PO DAILY [facility] Last Admin: 08/12/19 10:02 Dose: 5 mg Famotidine (Pepcid -) 20 mg PO BID PRN PRN Reason: GERD Last Admin: 08/11/19 09:35 Dose: 20 mg Fentanyl (Duragesic 25mcg Patch -) 1 patch TD Q72H [facility] Stop: 08/18/19 12:37 Last Admin: 08/11/19 13:28 Dose: 1 patch Furosemide (Lasix -) 40 mg PO DAILY [facility] Last Admin: 08/12/19 10:03 Dose: 40 mg Meclizine HCl (Antivert -) 12.5 mg PO Q6H PRN PRN Reason: VERTIGO Metoprolol Succinate (Toprol Xl -) 50 mg PO DAILY PALAK Last Admin: 08/12/19 10:08 Dose: 50 mg Miscellaneous (Duragesic Patch Waste) 1 each TD PRN PRN PRN Reason: PAIN Oxycodone HCl (Roxicodone -) 5 mg PO Q4H PRN PRN Reason: PAIN LEVEL 6-10 Last Admin: 08/11/19 22:03 Dose: 5 mg Promethazine HCl/Dextromethorphan (Phenergan-Dm Syrup -) 5 ml PO Q4H PRN PRN Reason: COUGH Senna (Senna -) 2 tab PO HS PRN PRN Reason: CONSTIPATION Zolpidem Tartrate (Ambien -) 5 mg PO HS PRN PRN Reason: INSOMNIA Last Admin: 08/12/19 01:17 Dose: 5 mg - Objective Vital Signs: Vital Signs Temperature 98.1 F 08/12/19 09:25 Pulse Rate 99 H 08/12/19 09:25 Respiratory Rate 08/12/19 09:25 Blood Pressure 108/57 L 08/12/19 09:25 O2 Sat by Pulse Oximetry (%) 92 L 08/11/19 22:00 Eyes: Yes: WNL, Conjunctiva Clear, EOM Intact HENT: Yes: WNL, Atraumatic, Normocephalic Neck: Yes: WNL, Supple, Trachea Midline Cardiovascular: Yes: WNL, Regular Rate and Rhythm, S1, S2 Respiratory: Yes: Rhonchi Gastrointestinal: Yes: WNL, Normal Bowel Sounds Genitourinary: Yes: WNL Musculoskeletal: Yes: WNL Extremities: Yes: WNL Edema: Yes Integumentary: Yes: WNL Neurological: Yes: WNL, Alert, Oriented ...Motor Strength: WNL Psychiatric: Yes: WNL Labs: CBC, BMP 08/07/19 06:41 08/07/19 06:41 Problem List - Problems (1) Acute on chronic systolic CHF (congestive heart failure) Code(s): I50.23 - ACUTE ON CHRONIC SYSTOLIC (CONGESTIVE) HEART FAILURE (2) Anxiety and depression Code(s): F41.9 - ANXIETY DISORDER, UNSPECIFIED; F32.9 - MAJOR DEPRESSIVE DISORDER, SINGLE EPISODE, UNSPECIFIED (3) Atelectasis of both lungs Code(s): J98.11 - ATELECTASIS (4) Breast CA Code(s): C50.919 - MALIGNANT NEOPLASM OF UNSP SITE OF UNSPECIFIED FEMALE BREAST (5) CAP (community acquired pneumonia) Code(s): J18.9 - PNEUMONIA, UNSPECIFIED ORGANISM Qualifiers: Laterality: left Lung location: lower lobe of lung Qualified Code(s): J18.9 - Pneumonia, unspecified organism (6) CHF exacerbation Code(s): I50.9 - HEART FAILURE, UNSPECIFIED Qualifiers: Heart failure type: unspecified Qualified Code(s): I50.9 - Heart failure, unspecified (7) Constipation Code(s): K59.00 - CONSTIPATION, UNSPECIFIED (8) Lower back pain Code(s): M54.5 - LOW BACK PAIN (9) NSVT (nonsustained ventricular tachycardia) Code(s): I47.2 - VENTRICULAR TACHYCARDIA (10) Pneumonia Code(s): J18.9 - PNEUMONIA, UNSPECIFIED ORGANISM (11) Afib Code(s): I48.91 - UNSPECIFIED ATRIAL FIBRILLATION Qualifiers: Atrial fibrillation type: chronic (12) Aortic stenosis Code(s): I35.0 - NONRHEUMATIC AORTIC (VALVE) STENOSIS Qualifiers: Cardiac valve disease etiology: nonrheumatic Qualified Code(s): I35.0 - Nonrheumatic aortic (valve) stenosis (13) CHF (congestive heart failure) Code(s): I50.9 - HEART FAILURE, UNSPECIFIED (14) COPD (chronic obstructive pulmonary disease) Code(s): J44.9 - CHRONIC OBSTRUCTIVE PULMONARY DISEASE, UNSPECIFIED Qualifiers: COPD type: unspecified COPD Qualified Code(s): J44.9 - Chronic obstructive pulmonary disease, unspecified (15) CVA (cerebral vascular accident) Code(s): I63.9 - CEREBRAL INFARCTION, UNSPECIFIED (16) Chronic systolic CHF (congestive heart failure) Code(s): I50.22 - CHRONIC SYSTOLIC (CONGESTIVE) HEART FAILURE (17) Diabetes mellitus Code(s): E11.9 - TYPE 2 DIABETES MELLITUS WITHOUT COMPLICATIONS (18) Gastritis Code(s): K29.70 - GASTRITIS, UNSPECIFIED, WITHOUT BLEEDING Qualifiers: Gastritis type: unspecified gastritis Chronicity: acute Gastritis bleeding: without bleeding Qualified Code(s): K29.00 - Acute gastritis without bleeding (19) Hematoma Code(s): T14.8 - OTHER INJURY OF UNSPECIFIED BODY REGION * DO NOT USE * (20) Hyperlipidemia Code(s): E78.5 - HYPERLIPIDEMIA, UNSPECIFIED Qualifiers: Hyperlipidemia type: pure hypercholesterolemia Qualified Code(s): E78.00 - Pure hypercholesterolemia, unspecified; E78.0 - Pure hypercholesterolemia (21) Lung cancer Code(s): C34.90 - MALIGNANT NEOPLASM OF UNSP PART OF UNSP BRONCHUS OR LUNG (22) Malaise and fatigue Code(s): R53.81 - OTHER MALAISE; R53.83 - OTHER FATIGUE (23) Mitral stenosis Code(s): I05.0 - RHEUMATIC MITRAL STENOSIS Qualifiers: Cardiac valve disease etiology: rheumatic Qualified Code(s): I05.0 - Rheumatic mitral stenosis (24) Osteoarthritis Code(s): M19.90 - UNSPECIFIED OSTEOARTHRITIS, UNSPECIFIED SITE (25) Sprain of right thumb Code(s): S63.601A - UNSPECIFIED SPRAIN OF RIGHT THUMB, INITIAL ENCOUNTER (26) Subtherapeutic anticoagulation Code(s): Z51.81 - ENCOUNTER FOR THERAPEUTIC DRUG LEVEL MONITORING; Z79.01 - RESIDENTIAL (CURRENT) USE OF ANTICOAGULANTS (27) Subtherapeutic international normalized ratio (INR) Code(s): R79.1 - ABNORMAL COAGULATION PROFILE (28) TIA (transient ischemic attack) Code(s): G45.9 - TRANSIENT CEREBRAL ISCHEMIC ATTACK, UNSPECIFIED (29) Vertigo Code(s): R42 - DIZZINESS AND GIDDINESS Assessment/Plan - Problems (1) Pneumonia Assessment/Plan: LLL pneumonia. Completed course of antibiotics. On steroids, bronchodilators. Code(s): J18.9 - PNEUMONIA, UNSPECIFIED ORGANISM (2) Afib Code(s): I48.91 - UNSPECIFIED ATRIAL FIBRILLATION Qualifiers: Atrial fibrillation type: chronic (3) Aortic stenosis Code(s): I35.0 - NONRHEUMATIC AORTIC (VALVE) STENOSIS Qualifiers: Cardiac valve disease etiology: nonrheumatic Qualified Code(s): I35.0 - Nonrheumatic aortic (valve) stenosis (4) Lung cancer Code(s): C34.90 - MALIGNANT NEOPLASM OF UNSP PART OF UNSP BRONCHUS OR LUNG (5) Mitral stenosis Code(s): I05.0 - RHEUMATIC MITRAL STENOSIS Qualifiers: Cardiac valve disease etiology: rheumatic Qualified Code(s): I05.0 - Rheumatic mitral stenosis (6) NSVT (nonsustained ventricular tachycardia) Assessment/Plan: Metoprolol ER 50 mg daily; enalapril 2.5 mg daily (increase as tolerated). Maintain electrolytes: Keep K 4.0-4.5, Mg 2.0-2.4, and PO4 2.5-4.9. Code(s): I47.2 - VENTRICULAR TACHYCARDIA (7) Acute on chronic systolic CHF (congestive heart failure) Assessment/Plan: On metoprololr ER.. On enalapril 2.5 mg daily (consider stopping amlodipine and increasing dose of enalapril (low-normal LVEF; hx NSVT) and/or metoprolol ER. On furosemide. F/u BUN/Cr, electrolytes, daily weight, Is and Os. Code(s): I50.23 - ACUTE ON CHRONIC SYSTOLIC (CONGESTIVE) HEART FAILURE (8) Anxiety and depression Assessment/Plan: On Lexapro. Code(s): F41.9 - ANXIETY DISORDER, UNSPECIFIED; F32.9 - MAJOR DEPRESSIVE DISORDER, SINGLE EPISODE, UNSPECIFIED (9) Vertigo Assessment/Plan: On meclizine prn. Code(s): R42 - DIZZINESS AND GIDDINESS (10) Constipation Assessment/Plan: On Senna. On Pepcid. Encourage high-fiber diet; fluids. Code(s): K59.00 - CONSTIPATION, UNSPECIFIED (11) Breast CA Code(s): C50.919 - MALIGNANT NEOPLASM OF UNSP SITE OF UNSPECIFIED FEMALE BREAST (12) Lower back pain Assessment/Plan: On roxycodone, Ultram, Tylenol, cyclobenzaprine; lidocaine patch changed to Fentanyl. Code(s): M54.5 - LOW BACK PAIN
--- NOTE | 2019-08-12 12:53 | PN ---
Progress Note, Physician History of Present Illness: pulmonary alert,oob-chair,had increasing sob earlier currently feeling better,+ back paim - Current Medication List Current Medications: Active Medications Acetaminophen (Tylenol -) 650 mg PO Q6H PRN PRN Reason: PAIN LEVEL 4 - 6 Last Admin: 08/12/19 00:04 Dose: 650 mg Albuterol/Ipratropium (Duoneb -) 1 amp NEB RQID [facility] Last Admin: 08/12/19 08:15 Dose: 1 amp Apixaban (Eliquis -) 5 mg PO BID [facility] Last Admin: 08/12/19 10:02 Dose: 5 mg Budesonide/Formoterol Fumarate (Symbicort 160/4.5mcg -) 2 puff IH BID [facility] Last Admin: 08/12/19 10:06 Dose: Not Given Cyclobenzaprine HCl (Cyclobenzaprine Hcl) 5 mg PO DAILY [facility] Last Admin: 08/12/19 10:02 Dose: 5 mg Docusate Sodium (Colace -) 100 mg PO Q8H PRN PRN Reason: CONSTIPATION Last Admin: 08/11/19 02:23 Dose: 100 mg Enalapril Maleate (Vasotec -) 2.5 mg PO DAILY [facility] Last Admin: 08/12/19 10:03 Dose: 2.5 mg Escitalopram Oxalate (Lexapro -) 5 mg PO DAILY [facility] Last Admin: 08/12/19 10:02 Dose: 5 mg Famotidine (Pepcid -) 20 mg PO BID PRN PRN Reason: GERD Last Admin: 08/11/19 09:35 Dose: 20 mg Fentanyl (Duragesic 25mcg Patch -) 1 patch TD Q72H [facility] Stop: 08/18/19 12:37 Last Admin: 08/11/19 13:28 Dose: 1 patch Furosemide (Lasix -) 40 mg PO DAILY [facility] Last Admin: 08/12/19 10:03 Dose: 40 mg Meclizine HCl (Antivert -) 12.5 mg PO Q6H PRN PRN Reason: VERTIGO Metoprolol Succinate (Toprol Xl -) 50 mg PO DAILY [facility] Last Admin: 08/12/19 10:08 Dose: 50 mg Miscellaneous (Duragesic Patch Waste) 1 each TD PRN PRN PRN Reason: PAIN Oxycodone HCl (Roxicodone -) 5 mg PO Q4H PRN PRN Reason: PAIN LEVEL 6-10 Last Admin: 08/11/19 22:03 Dose: 5 mg Promethazine HCl/Dextromethorphan (Phenergan-Dm Syrup -) 5 ml PO Q4H PRN PRN Reason: COUGH Senna (Senna -) 2 tab PO HS PRN PRN Reason: CONSTIPATION Zolpidem Tartrate (Ambien -) 5 mg PO HS PRN PRN Reason: INSOMNIA Last Admin: 08/12/19 01:17 Dose: 5 mg - Objective Vital Signs: Vital Signs Temperature 98.1 F 08/12/19 09:25 Pulse Rate 99 H 08/12/19 09:25 Respiratory Rate 20 08/12/19 09:25 Blood Pressure 108/57 L 08/12/19 09:25 O2 Sat by Pulse Oximetry (%) 92 L 08/11/19 22:00 Constitutional: Yes: Well Nourished, Calm Eyes: Yes: WNL HENT: Yes: WNL Neck: Yes: WNL Cardiovascular: Yes: Pulse Irregular, S1, S2 Respiratory: Yes: Rhonchi (few scattered rhonchi) Gastrointestinal: Yes: Normal Bowel Sounds, Soft Extremities: Yes: WNL Edema: Yes Labs: CBC, BMP 08/07/19 06:41 08/07/19 06:41 Assessment/Plan Problem List - Problems (1) Atelectasis of both lungs Code(s): J98.11 - ATELECTASIS (2) Acute on chronic systolic CHF (congestive heart failure) Code(s): I50.23 - ACUTE ON CHRONIC SYSTOLIC (CONGESTIVE) HEART FAILURE (3) CAP (community acquired pneumonia) Code(s): J18.9 - PNEUMONIA, UNSPECIFIED ORGANISM Qualifiers: Laterality: left Lung location: lower lobe of lung Qualified Code(s): J18.9 - Pneumonia, unspecified organism (4) CHF exacerbation Code(s): I50.9 - HEART FAILURE, UNSPECIFIED Qualifiers: Heart failure type: unspecified Qualified Code(s): I50.9 - Heart failure, unspecified (5) Pneumonia Code(s): J18.9 - PNEUMONIA, UNSPECIFIED ORGANISM (6) Afib Code(s): I48.91 - UNSPECIFIED ATRIAL FIBRILLATION Qualifiers: Atrial fibrillation type: chronic (7) Aortic stenosis Code(s): I35.0 - NONRHEUMATIC AORTIC (VALVE) STENOSIS Qualifiers: Cardiac valve disease etiology: etiology unspecified Qualified Code(s): I35.0 - Nonrheumatic aortic (valve) stenosis (8) CHF (congestive heart failure) Code(s): I50.9 - HEART FAILURE, UNSPECIFIED (9) COPD (chronic obstructive pulmonary disease) Code(s): J44.9 - CHRONIC OBSTRUCTIVE PULMONARY DISEASE, UNSPECIFIED Qualifiers: COPD type: unspecified COPD Qualified Code(s): J44.9 - Chronic obstructive pulmonary disease, unspecified (10) Chronic systolic CHF (congestive heart failure) Code(s): I50.22 - CHRONIC SYSTOLIC (CONGESTIVE) HEART FAILURE (11) Diabetes mellitus Code(s): E11.9 - TYPE 2 DIABETES MELLITUS WITHOUT COMPLICATIONS (12) Hyperlipidemia Code(s): E78.5 - HYPERLIPIDEMIA, UNSPECIFIED (13) Lung cancer Code(s): C34.90 - MALIGNANT NEOPLASM OF UNSP PART OF UNSP BRONCHUS OR LUNG (14) Malaise and fatigue Code(s): R53.81 - OTHER MALAISE; R53.83 - OTHER FATIGUE (15) Mitral stenosis Code(s): I05.0 - RHEUMATIC MITRAL STENOSIS Qualifiers: Cardiac valve disease etiology: rheumatic Qualified Code(s): I05.0 - Rheumatic mitral stenosis (16) Osteoarthritis Code(s): M19.90 - UNSPECIFIED OSTEOARTHRITIS, UNSPECIFIED SITE 17 COMPRESSION FX T12 Assessment/Plan Symbicort: 2 inhalations BID BD TX PRN Supplemental O2 as needed Incentive Spiroimetry No smoking was counseled Emeterio MCKINNON PFTs as an outpatient once stable pain meds DR MANUEL
[2019-08-12] MEDS: oxyCODONE HCL 5 MG TABLET PO PRN ×2 (16:31→21:55)
[2019-08-13] MEDS: ZOLPIDEM TARTRATE 5 MG TABLET PO PRN (00:11)
[2019-08-13] MEDS: ALBUTEROL SO4 2.5/IPRATROPIUM 0.5 INH SOL 3 ML VIAL.NEB. NEB SCH ×2 (07:30→11:30)
[2019-08-13] MEDS: FUROSEMIDE 40 MG TABLET (FP) PO SCH (10:23)
[2019-08-13] MEDS: APIXABAN 5 MG TABLET PO SCH (10:23)
[2019-08-13] MEDS: CYCLOBENZAPRINE HCL 5 MG TABLET PO SCH (10:23)
[2019-08-13] MEDS: oxyCODONE HCL 5 MG TABLET PO PRN (10:23)
[2019-08-13] MEDS: ESCITALOPRAM OXALATE 10 MG TABLET PO SCH (10:23)
[2019-08-13] MEDS: BUDESONIDE/FORMETEROL FUMARATE 160/4.5 mcg INHALER IH SCH (10:25)
[2019-08-13] MEDS ORDERED: PT OWN MED DRAWER 7, Y5N ONE (10:29)
[2019-08-13] MEDS: ENALAPRIL MALEATE 5 MG TABLET (FP) PO SCH (10:30)
--- NOTE | 2019-08-13 11:57 | PN ---
Progress Note (short form) - Note Progress Note: Coughing+ sounds productive sob better has pain in back when she coughs Vital Signs - 24 hr 08/12/19 08/12/19 08/12/19 15:00 18:00 20:52 Temperature 97.9 F 98.7 F 98.3 F Pulse Rate 105 H 83 80 Respiratory 20 20 20 Rate Blood Pressure 86/50 L 137/66 91/62 O2 Sat by Pulse Oximetry (%) 08/12/19 08/12/19 08/13/19 21:00 22:00 06:00 Temperature 98.9 F Pulse Rate 76 Respiratory 20 Rate Blood Pressure 133/83 O2 Sat by Pulse 93 L 93 L Oximetry (%) 08/13/19 08/13/19 09:00 10:00 Temperature 97.9 F Pulse Rate 96 H Respiratory 20 Rate Blood Pressure 121/70 O2 Sat by Pulse 95 93 L Oximetry (%) Current Medications Generic Name Dose Route Start Last Admin Trade Name Freq PRN Reason Stop Dose Admin Acetaminophen 650 mg 08/07/19 18:06 08/12/19 21:56 Tylenol - PO 650 mg Q6H PRN Administration PAIN LEVEL 4 - 6 Albuterol/Ipratropium 1 amp 08/09/19 16:00 08/13/19 11:30 Duoneb - NEB 1 amp RQID [facility] Administration Apixaban 5 mg 08/09/19 22:00 08/13/19 10:23 Eliquis - PO 5 mg BID [facility] Administration Budesonide/Formoterol Fumarate 2 puff 08/09/19 22:00 08/13/19 10:25 Symbicort 160/4.5mcg - IH Not Given BID [facility] Cyclobenzaprine HCl 5 mg 08/10/19 10:00 08/13/19 10:23 Cyclobenzaprine Hcl PO 5 mg DAILY [facility] Administration Docusate Sodium 100 mg 08/08/19 11:43 08/11/19 02:23 Colace - PO 100 mg Q8H PRN Administration CONSTIPATION Enalapril Maleate 2.5 mg 08/10/19 10:00 08/13/19 10:30 Vasotec - PO 2.5 mg DAILY [facility] Administration Escitalopram Oxalate 5 mg 08/10/19 10:00 08/13/19 10:23 Lexapro - PO 5 mg DAILY [facility] Administration Famotidine 20 mg 08/09/19 13:29 08/11/19 09:35 Pepcid - PO 20 mg BID PRN Administration GERD Fentanyl 1 patch 08/11/19 12:45 08/11/19 13:28 Duragesic 25mcg Patch - TD 08/18/19 12:37 1 patch Q72H [facility] Administration Furosemide 40 mg 08/11/19 10:00 08/13/19 10:23 Lasix - PO 40 mg DAILY [facility] Administration Meclizine HCl 12.5 mg 08/09/19 13:29 Antivert - PO Q6H PRN VERTIGO Metoprolol Succinate 50 mg 08/10/19 10:00 08/13/19 10:23 Toprol Xl - PO 50 mg DAILY [facility] Administration Miscellaneous 1 each 08/11/19 12:37 Duragesic Patch Waste TD PRN PRN PAIN Oxycodone HCl 5 mg 08/11/19 12:37 08/13/19 10:23 Roxicodone - PO 5 mg Q4H PRN Administration PAIN LEVEL 6-10 Promethazine HCl/Dextromethorphan 5 ml 08/09/19 13:29 Phenergan-Dm Syrup - PO Q4H PRN COUGH Senna 2 tab 08/09/19 13:29 Senna - PO HS PRN CONSTIPATION Zolpidem Tartrate 5 mg 08/09/19 13:29 08/13/19 00:11 Ambien - PO 5 mg HS PRN Administration INSOMNIA S1 S2 Irregular Lungs ronchi+ less Abd- soft, NT edema++ PLAN Pneumonia --completed iv antibiotics -better -- CT chest---LLL pneumonia -- urine antigens negative -- Influenza negative s/p medrol add Symbicort added phenergan elevated WBC due to steroids possibly Back pain --added Flexeril for back pain --stop lidocaine patch start fentanyl patch PT rolando spoke with pt today to consider STR Afib -- rate controlled -- on Eliquis CHF -- on lasix po -- monitor renal function Lung CA Breast CA --- she stopped oral chemo about 6 months ago-- does not want to follow up with oncologist at [facility] - she is refusing further chemo for lung CA family aware Problem List - Problems (1) Acute on chronic diastolic CHF (congestive heart failure) Code(s): I50.33 - ACUTE ON CHRONIC DIASTOLIC (CONGESTIVE) HEART FAILURE (2) CAP (community acquired pneumonia) Code(s): J18.9 - PNEUMONIA, UNSPECIFIED ORGANISM Qualifiers: Laterality: left Lung location: lower lobe of lung Qualified Code(s): J18.9 - Pneumonia, unspecified organism (3) Afib Code(s): I48.91 - UNSPECIFIED ATRIAL FIBRILLATION Qualifiers: Atrial fibrillation type: chronic (4) Aortic stenosis Code(s): I35.0 - NONRHEUMATIC AORTIC (VALVE) STENOSIS Qualifiers: Cardiac valve disease etiology: nonrheumatic Qualified Code(s): I35.0 - Nonrheumatic aortic (valve) stenosis (5) CHF (congestive heart failure) Code(s): I50.9 - HEART FAILURE, UNSPECIFIED (6) Lung cancer Code(s): C34.90 - MALIGNANT NEOPLASM OF UNSP PART OF UNSP BRONCHUS OR LUNG
--- NOTE | 2019-08-13 12:02 | PN ---
Progress Note (short form) - Note Progress Note: PULMONARY Some shortness of breath improved with nebulizers. Vital Signs Period Temp Pulse Resp BP Sys/Cifuentes Pulse Ox Last 24 Hr 97.9 F-98.9 F 76-105 20-20 86-137/50-83 93-93 Gen: NAD at rest Heart: RRR Lung: scattered rhonchi Abd: soft, nontender Ext: + edema CBC, BMP 08/07/19 06:41 08/07/19 06:41 Active Medications Acetaminophen (Tylenol -) 650 mg PO Q6H PRN PRN Reason: PAIN LEVEL 4 - 6 Last Admin: 08/12/19 21:56 Dose: 650 mg Albuterol/Ipratropium (Duoneb -) 1 amp NEB RQID [facility] Last Admin: 08/13/19 11:30 Dose: 1 amp Apixaban (Eliquis -) 5 mg PO BID [facility] Last Admin: 08/13/19 10:23 Dose: 5 mg Budesonide/Formoterol Fumarate (Symbicort 160/4.5mcg -) 2 puff IH BID [facility] Last Admin: 08/13/19 10:25 Dose: Not Given Cyclobenzaprine HCl (Cyclobenzaprine Hcl) 5 mg PO DAILY [facility] Last Admin: 08/13/19 10:23 Dose: 5 mg Docusate Sodium (Colace -) 100 mg PO Q8H PRN PRN Reason: CONSTIPATION Last Admin: 08/11/19 02:23 Dose: 100 mg Enalapril Maleate (Vasotec -) 2.5 mg PO DAILY [facility] Last Admin: 08/13/19 10:30 Dose: 2.5 mg Escitalopram Oxalate (Lexapro -) 5 mg PO DAILY [facility] Last Admin: 08/13/19 10:23 Dose: 5 mg Famotidine (Pepcid -) 20 mg PO BID PRN PRN Reason: GERD Last Admin: 08/11/19 09:35 Dose: 20 mg Fentanyl (Duragesic 25mcg Patch -) 1 patch TD Q72H [facility] Stop: 08/18/19 12:37 Last Admin: 08/11/19 13:28 Dose: 1 patch Furosemide (Lasix -) 40 mg PO DAILY [facility] Last Admin: 08/13/19 10:23 Dose: 40 mg Meclizine HCl (Antivert -) 12.5 mg PO Q6H PRN PRN Reason: VERTIGO Metoprolol Succinate (Toprol Xl -) 50 mg PO DAILY [facility] Last Admin: 08/13/19 10:23 Dose: 50 mg Miscellaneous (Duragesic Patch Waste) 1 each TD PRN PRN PRN Reason: PAIN Oxycodone HCl (Roxicodone -) 5 mg PO Q4H PRN PRN Reason: PAIN LEVEL 6-10 Last Admin: 08/13/19 10:23 Dose: 5 mg Promethazine HCl/Dextromethorphan (Phenergan-Dm Syrup -) 5 ml PO Q4H PRN PRN Reason: COUGH Senna (Senna -) 2 tab PO HS PRN PRN Reason: CONSTIPATION Zolpidem Tartrate (Ambien -) 5 mg PO HS PRN PRN Reason: INSOMNIA Last Admin: 08/13/19 00:11 Dose: 5 mg A/P Pneumonia Lung Cancer Acute on Chronic Systolic Heart Failure Atrial Fibrillation Aortic Stenosis Mitral Stenosis Anxiety/Depression - inhaled bronchodilators - completed antibiotics - continue lasix - monitor urine output, creatinine - rate controlled - continue anticoagulation - pain control
[2019-08-13 13:29] VITALS: BP 121/70; PULSE 96; TEMP 97.9
== END 2019-08-13 14:59 | DRG 291 ==
LOC: JER 23:00 → JERBED 07-25 00:41 → J4W 07-25 04:24 → J5S 08-09 11:03
PROVIDERS: ADMIT Internal Medicine; ATTEND Internal Medicine
DX: I11.0 Hypertensive heart disease with heart failure (principal); J18.9 Pneumonia, unspecified organism; J96.01 Acute respiratory failure with hypoxia; I47.2 Ventricular tachycardia; J98.11 Atelectasis; I48.19 Other persistent atrial fibrillation; M48.54XA Collapsed vertebra, not elsewhere classified, thoracic region, initial encounter for fracture; I50.23 Acute on chronic systolic (congestive) heart failure; E78.00 Pure hypercholesterolemia, unspecified; E11.9 Type 2 diabetes mellitus without complications; J44.9 Chronic obstructive pulmonary disease, unspecified; I35.0 Nonrheumatic aortic (valve) stenosis; I05.0 Rheumatic mitral stenosis; R42 Dizziness and giddiness; K59.00 Constipation, unspecified; F41.8 Other specified anxiety disorders; M54.5 Low back pain; Z86.73 Personal history of transient ischemic attack (TIA), and cerebral infarction without residual deficits; Z85.118 Personal history of other malignant neoplasm of bronchus and lung; Z85.3 Personal history of malignant neoplasm of breast
CPT/HCPCS: 36415; 71045-TC-FY; 71250-TC; 72100-TC-FY; 72148-TC; 80048; 80053; 80061; 81003; 82550; 83721; 83735; 83880; 84100; 84484; 85025; 85027; 87040; 87086; 87804; 87899; 93005; 93010; 93306-TC; 94010; 94640; 97116-GP; 99283-25

== ENCOUNTER 2020-08-22 18:31 | Inpatient (IN) | payer OTHER, MEDICARE ==
[2020-08-22] MEDS ORDERED: ACETAMINOPHEN 1000 MG/100 ML VIAL (NON FORMULARY) IVPB ONE (19:53)
[2020-08-22 21:07] LABS: BASO % 0.2 % (0-2.0); EOS % 1.2 % (0-4.5); HEMOGLOBIN 13.4 GM/dL (10.7-15.3); LYMPH % 9.1 % (8-40); MCH 32.4 pg (25.7-33.7); MCHC 34.4 g/dl (32.0-36.0); MEAN CELL VOLUME 94.2 fl (80-96); MONO % 4.1 % (3.8-10.2); NEUT % 85.4 % (42.8-82.8); RBC 4.14 M/mm3 (3.60-5.2); WHITE BLOOD COUNT 14.3 K/mm3 (4.0-10.0)
[2020-08-22 21:32] LABS: CHLORIDE 104 mmol/L (98-107); POTASSIUM 4.3 mmol/L (3.5-5.1); SODIUM 140 mmol/L (136-145)
[2020-08-22 21:35] LABS: ALBUMIN 3.2 g/dl (3.4-5.0); ANION GAP 6 MMOL/L (8-16); BLOOD UREA NITROGEN 14.9 mg/dL (7-18); CALCIUM 9.5 mg/dL (8.5-10.1); CO2 31 mmol/L (21-32); GLUCOSE,RANDOM 97 mg/dL (74-106); LIPASE 100 U/L (73-393)
[2020-08-22 21:37] LABS: PLATELET COUNT 370 K/MM3 (134-434); PLATELET ESTIMATE ADEQUATE
[2020-08-22 21:38] LABS: CREATININE 0.8 mg/dL (0.55-1.3); SGOT/AST 87 U/L (15-37); SGPT/ALT 44 U/L (13-61)
[2020-08-22 21:40] LABS: BILIRUBIN,TOTAL 1.8 mg/dL (0.2-1); TOT PROT 6.5 g/dl (6.4-8.2)
[2020-08-22 21:41] LABS: ALK PHOS 74 U/L (45-117)
[2020-08-22] MEDS ORDERED: CEFTRIAXONE 1,000 MG in DEXTROSE 5%-WATER - 50 ML IVPB ONE (22:13)
[2020-08-22] MEDS ORDERED: CEFTRIAXONE 1 GM/50 ML BAG ONE (22:17)
[2020-08-22] MEDS ORDERED: SODIUM CHLORIDE 250 ML IV STA (23:23)
[2020-08-22] MEDS ORDERED: ONDANSETRON 4 MG/2 ML VIAL IVPUSH PRN (23:33)
[2020-08-23] MEDS ORDERED: APIXABAN 5 MG TABLET ONE ×2 (00:06→08:03)
[2020-08-23] MEDS: APIXABAN 5 MG TABLET PO SCH ×3 (00:14→22:12)
[2020-08-23] MEDS ORDERED: LACTATED RINGERS SOLUTION 1000 ML INFUS.BAG IV ONE (00:16)
[2020-08-23] MEDS ORDERED: ESCITALOPRAM OXALATE 10 MG TABLET PO ONE (02:30)
[2020-08-23] MEDS ORDERED: ESCITALOPRAM OXALATE 10 MG TABLET ONE ×2 (03:48→08:04)
[2020-08-23 04:22] LABS: INR 1.46 (0.83-1.09); PROTHROMBIN TIME (PATIENT) 17.5 SEC (9.7-13.0)
[2020-08-23 04:25] LABS: ACTIVATED PTT 33.1 SECONDS (25.2-36.5)
[2020-08-23 05:23] LABS: EPI CELLS 12 /uL (0-25.1); HYALINE CASTS 0 /uL (0-3.1); PH,URINE 7.5 (5.0-8.0); URINE APPEARANCE CLEAR; URINE BACTERIA 95 /uL (0-1359); URINE BILIRUBIN NEGATIVE (NEGATIVE); URINE COLOR YELLOW; URINE GLUCOSE (UA) NEGATIVE (NEGATIVE); URINE KETONE NEGATIVE (NEGATIVE); URINE LEUK ESTERASE 1+ (NEGATIVE); URINE NITRITE NEGATIVE (NEGATIVE); URINE PROTEIN NEGATIVE (NEGATIVE); URINE RBC 8 /uL (0-23.9); URINE UROBILINOGEN 0.2 mg/dL (0.2-1.0); URINE WBC 24 /uL (0-25.8)
[2020-08-23] MEDS ORDERED: ACETAMINOPHEN 325 MG TABLET (FP) ONE ×2 (07:19→17:55)
[2020-08-23 07:20] LABS: BILIRUBIN,DIRECT 0.7 mg/dL (0.0-0.2)
[2020-08-23] MEDS: ACETAMINOPHEN 325 MG TABLET (FP) PO PRN ×3 (07:35→22:12)
[2020-08-23] MEDS ORDERED: metoPROLOL SUCCINATE 25 MG TAB.SR.24H (FP) ONE (08:03)
[2020-08-23] MEDS: metoPROLOL SUCCINATE 25 MG TAB.SR.24H (FP) PO SCH (09:16)
[2020-08-23] MEDS: ESCITALOPRAM OXALATE 10 MG TABLET PO SCH (09:16)
[2020-08-23] MEDS ORDERED: CEFTRIAXONE 1 GM in DEXTROSE 5%-WATER - 100 ML IVPB SCH (13:45)
[2020-08-23] MEDS: LIDOCAINE 5% TOPICAL PATCH TP SCH (13:53)
[2020-08-23] MEDS: LIDOCAINE PATCH REMOVAL MC SCH (22:11)
[2020-08-24] MEDS: ACETAMINOPHEN 325 MG TABLET (FP) PO PRN ×2 (05:28→10:22)
[2020-08-24 09:30] LABS: BASO % 0.6 % (0-2.0); EOS % 4.5 % (0-4.5); HEMATOCRIT 34.9 % (32.4-45.2); HEMOGLOBIN 11.8 GM/dL (10.7-15.3); LYMPH % 15.5 % (8-40); MCH 32.1 pg (25.7-33.7); MCHC 33.9 g/dl (32.0-36.0); MEAN CELL VOLUME 94.8 fl (80-96); MEAN PLT VOLUME 7.7 fl (7.5-11.1); MONO % 7.8 % (3.8-10.2); NEUT % 71.6 % (42.8-82.8); PLATELET COUNT 221 K/MM3 (134-434); RBC 3.68 M/mm3 (3.60-5.2); RDW 14.9 % (11.6-15.6); WHITE BLOOD COUNT 8.3 K/mm3 (4.0-10.0)
[2020-08-24] MEDS ORDERED: cefTRIAXone SODIUM 1 GM VIAL ONE (09:51)
[2020-08-24] MEDS ORDERED: DEXTROSE 5%-WATER - 50 ML IVPB ONE (09:51)
[2020-08-24 10:06] LABS: POTASSIUM 3.6 mmol/L (3.5-5.1)
[2020-08-24 10:11] LABS: ALBUMIN 2.7 g/dl (3.4-5.0); BLOOD UREA NITROGEN 8.5 mg/dL (7-18)
[2020-08-24] MEDS: APIXABAN 5 MG TABLET PO SCH ×2 (10:11→21:00)
[2020-08-24] MEDS: ESCITALOPRAM OXALATE 10 MG TABLET PO SCH (10:13)
[2020-08-24] MEDS: LIDOCAINE 5% TOPICAL PATCH TP SCH (10:13)
[2020-08-24 10:14] LABS: CREATININE 0.6 mg/dL (0.55-1.3)
[2020-08-24] MEDS: metoPROLOL SUCCINATE 25 MG TAB.SR.24H (FP) PO SCH (10:14)
[2020-08-24] MEDS: PANTOPRAZOLE 40 MG TABLET PO SCH (10:14)
[2020-08-24 10:15] LABS: BILIRUBIN,TOTAL 1.3 mg/dL (0.2-1)
[2020-08-24 10:16] LABS: TOT PROT 5.1 g/dl (6.4-8.2)
[2020-08-24 10:22] LABS: CALCIUM 8.3 mg/dL (8.5-10.1)
[2020-08-24] MEDS: CEFTRIAXONE 1 GM in DEXTROSE 5%-WATER - 50 ML IVPB SCH (12:45)
[2020-08-24] MEDS ORDERED: traMADol HCL 50 MG TABLET PO PRN (14:02)
[2020-08-24] MEDS ORDERED: ALPRAZolam 0.25 MG TABLET PO STA (20:44)
[2020-08-24] MEDS: LIDOCAINE PATCH REMOVAL MC SCH (21:00)
[2020-08-25] MEDS ORDERED: cefTRIAXone SODIUM 1 GM VIAL ONE (08:46)
[2020-08-25] MEDS ORDERED: DEXTROSE 5%-WATER - 50 ML IVPB ONE (08:46)
[2020-08-25] MEDS: CEFTRIAXONE 1 GM in DEXTROSE 5%-WATER - 50 ML IVPB SCH (09:04)
[2020-08-25] MEDS: APIXABAN 5 MG TABLET PO SCH ×2 (10:37→20:59)
[2020-08-25] MEDS: metoPROLOL SUCCINATE 25 MG TAB.SR.24H (FP) PO SCH (10:38)
[2020-08-25] MEDS: ESCITALOPRAM OXALATE 10 MG TABLET PO SCH (10:38)
[2020-08-25] MEDS: LIDOCAINE 5% TOPICAL PATCH TP SCH (10:38)
[2020-08-25] MEDS: PANTOPRAZOLE 40 MG TABLET PO SCH (10:38)
[2020-08-25] MEDS: ALPRAZolam 0.25 MG TABLET PO PRN (13:31)
[2020-08-25] MEDS: LIDOCAINE PATCH REMOVAL MC SCH (20:59)
[2020-08-26] MEDS: ALPRAZolam 0.25 MG TABLET PO PRN ×2 (01:40→23:37)
[2020-08-26] MEDS ORDERED: DEXTROSE 5%-WATER - 50 ML IVPB ONE (09:35)
[2020-08-26] MEDS ORDERED: cefTRIAXone SODIUM 1 GM VIAL ONE (09:35)
[2020-08-26 10:03] LABS: HEMATOCRIT 39.7 % (32.4-45.2); HEMOGLOBIN 13.1 GM/dL (10.7-15.3); MCH 31.8 pg (25.7-33.7); MEAN CELL VOLUME 96.3 fl (80-96); PLATELET COUNT 284 K/MM3 (134-434); RBC 4.12 M/mm3 (3.60-5.2); RDW 14.8 % (11.6-15.6); WHITE BLOOD COUNT 10.9 K/mm3 (4.0-10.0)
[2020-08-26] MEDS: CEFTRIAXONE 1 GM in DEXTROSE 5%-WATER - 50 ML IVPB SCH (10:03)
[2020-08-26] MEDS: APIXABAN 5 MG TABLET PO SCH ×2 (10:04→21:33)
[2020-08-26] MEDS: PANTOPRAZOLE 40 MG TABLET PO SCH (10:04)
[2020-08-26] MEDS: ESCITALOPRAM OXALATE 10 MG TABLET PO SCH (10:04)
[2020-08-26] MEDS: metoPROLOL SUCCINATE 25 MG TAB.SR.24H (FP) PO SCH (10:04)
[2020-08-26] MEDS: LIDOCAINE 5% TOPICAL PATCH TP SCH (10:04)
[2020-08-26 10:21] LABS: POTASSIUM 3.7 mmol/L (3.5-5.1)
[2020-08-26 10:46] LABS: ALBUMIN 3.2 g/dl (3.4-5.0); BLOOD UREA NITROGEN 9.7 mg/dL (7-18)
[2020-08-26 10:49] LABS: BILIRUBIN,TOTAL 0.9 mg/dL (0.2-1)
[2020-08-26 10:50] LABS: CREATININE 0.7 mg/dL (0.55-1.3); TOT PROT 6.2 g/dl (6.4-8.2)
[2020-08-26] MEDS: LIDOCAINE PATCH REMOVAL MC SCH (21:33)
[2020-08-27] MEDS ORDERED: cefTRIAXone SODIUM 1 GM VIAL ONE (08:43)
[2020-08-27] MEDS ORDERED: DEXTROSE 5%-WATER - 50 ML IVPB ONE (08:43)
[2020-08-27] MEDS: LIDOCAINE 5% TOPICAL PATCH TP SCH (09:24)
[2020-08-27] MEDS: ESCITALOPRAM OXALATE 10 MG TABLET PO SCH (09:24)
[2020-08-27] MEDS: PANTOPRAZOLE 40 MG TABLET PO SCH (09:24)
[2020-08-27] MEDS ORDERED: PT OWN MED DRAWER 7, Y5N ONE (09:26)
[2020-08-27] MEDS: APIXABAN 5 MG TABLET PO SCH ×2 (09:26→21:02)
[2020-08-27] MEDS: CEFTRIAXONE 1 GM in DEXTROSE 5%-WATER - 50 ML IVPB SCH (09:32)
[2020-08-27] MEDS: metoPROLOL SUCCINATE 25 MG TAB.SR.24H (FP) PO SCH (09:32)
[2020-08-27] MEDS: ALPRAZolam 0.25 MG TABLET PO PRN (21:02)
[2020-08-27] MEDS: LIDOCAINE PATCH REMOVAL MC SCH (21:03)
[2020-08-28] MEDS: ALPRAZolam 0.25 MG TABLET PO PRN ×2 (07:49→22:05)
[2020-08-28] MEDS ORDERED: cefTRIAXone SODIUM 1 GM VIAL ONE (09:12)
[2020-08-28] MEDS ORDERED: DEXTROSE 5%-WATER - 50 ML IVPB ONE (09:12)
[2020-08-28] MEDS: LIDOCAINE 5% TOPICAL PATCH TP SCH (09:46)
[2020-08-28] MEDS: CEFTRIAXONE 1 GM in DEXTROSE 5%-WATER - 50 ML IVPB SCH (09:47)
[2020-08-28] MEDS: PANTOPRAZOLE 40 MG TABLET PO SCH (09:47)
[2020-08-28] MEDS: ESCITALOPRAM OXALATE 10 MG TABLET PO SCH (09:48)
[2020-08-28] MEDS: APIXABAN 5 MG TABLET PO SCH ×2 (09:48→22:04)
[2020-08-28] MEDS: metoPROLOL SUCCINATE 25 MG TAB.SR.24H (FP) PO SCH (09:49)
[2020-08-28] MEDS ORDERED: TORSEMIDE 20 MG TABLET (FP) PO SCH (12:00)
[2020-08-28] MEDS: TORSEMIDE 20 MG TABLET (FP) PO SCH (13:15)
[2020-08-28] MEDS: metroNIDAZOLE 250 MG TABLET PO SCH ×2 (14:58→22:04)
[2020-08-28] MEDS: LIDOCAINE PATCH REMOVAL MC SCH (22:04)
[2020-08-29] MEDS ORDERED: PT OWN MED DRAWER 7, Y5N ONE (05:37)
[2020-08-29] MEDS: metroNIDAZOLE 250 MG TABLET PO SCH ×3 (05:50→21:26)
[2020-08-29] MEDS: TORSEMIDE 20 MG TABLET (FP) PO SCH ×2 (05:51→15:00)
[2020-08-29] MEDS ORDERED: cefTRIAXone SODIUM 1 GM VIAL ONE (09:26)
[2020-08-29] MEDS ORDERED: DEXTROSE 5%-WATER - 50 ML IVPB ONE (09:26)
[2020-08-29] MEDS: ESCITALOPRAM OXALATE 10 MG TABLET PO SCH (10:18)
[2020-08-29] MEDS: LIDOCAINE 5% TOPICAL PATCH TP SCH (10:18)
[2020-08-29] MEDS: APIXABAN 5 MG TABLET PO SCH ×2 (10:19→21:27)
[2020-08-29] MEDS: PANTOPRAZOLE 40 MG TABLET PO SCH (10:19)
[2020-08-29] MEDS: CEFTRIAXONE 1 GM in DEXTROSE 5%-WATER - 50 ML IVPB SCH (10:19)
[2020-08-29] MEDS: metoPROLOL SUCCINATE 25 MG TAB.SR.24H (FP) PO SCH (10:19)
[2020-08-29] MEDS ORDERED: FAMOTIDINE 20 MG TABLET PO PRN (14:21)
[2020-08-29] MEDS ORDERED: ACETAMINOPHEN 325 MG TABLET (FP) PO PRN (14:21)
[2020-08-29] MEDS ORDERED: MECLIZINE HCL 12.5 MG TABLET PO PRN (14:21)
[2020-08-29] MEDS ORDERED: ALPRAZolam 0.25 MG TABLET PO PRN (14:21)
[2020-08-29 15:27] VITALS: BMI 29.9
[2020-08-29] MEDS: LIDOCAINE PATCH REMOVAL MC SCH (21:27)
[2020-08-30] MEDS: ALPRAZolam 0.25 MG TABLET PO PRN ×2 (00:47→21:37)
[2020-08-30] MEDS: metroNIDAZOLE 250 MG TABLET PO SCH ×3 (07:05→21:36)
[2020-08-30] MEDS: TORSEMIDE 20 MG TABLET (FP) PO SCH ×2 (07:05→13:20)
[2020-08-30] MEDS ORDERED: DEXTROSE 5%-WATER - 50 ML IVPB ONE (09:28)
[2020-08-30] MEDS ORDERED: cefTRIAXone SODIUM 1 GM VIAL ONE (09:28)
[2020-08-30] MEDS: APIXABAN 5 MG TABLET PO SCH ×2 (09:33→21:37)
[2020-08-30] MEDS: PANTOPRAZOLE 40 MG TABLET PO SCH (09:33)
[2020-08-30] MEDS: CEFTRIAXONE 1 GM in DEXTROSE 5%-WATER - 50 ML IVPB SCH (09:33)
[2020-08-30] MEDS: ESCITALOPRAM OXALATE 20 MG TABLET PO SCH (09:33)
[2020-08-30] MEDS: LIDOCAINE 5% TOPICAL PATCH TP SCH (09:34)
[2020-08-30] MEDS: metoPROLOL SUCCINATE 25 MG TAB.SR.24H (FP) PO SCH (09:34)
[2020-08-30] MEDS: CHOLECALCIFEROL (VIT D3) 5000 UNITS (125 MCG) CAP PO SCH (09:34)
[2020-08-30] MEDS ORDERED: PT OWN MED DRAWER 7, Y5N ONE (13:07)
[2020-08-30] MEDS ORDERED: FLUCONAZOLE 150 MG TABLET PO ONE (14:15)
[2020-08-30] MEDS: ALBUTEROL SO4 2.5/IPRATROPIUM 0.5 INH SOL 3 ML VIAL.NEB. NEB PRN (20:52)
[2020-08-30] MEDS: LIDOCAINE PATCH REMOVAL MC SCH (21:37)
[2020-08-31] MEDS ORDERED: PT OWN MED DRAWER 7, Y5N ONE (05:34)
[2020-08-31] MEDS: TORSEMIDE 20 MG TABLET (FP) PO SCH ×2 (06:06→13:15)
[2020-08-31] MEDS: metroNIDAZOLE 250 MG TABLET PO SCH ×3 (06:06→21:44)
[2020-08-31] MEDS ORDERED: cefTRIAXone SODIUM 1 GM VIAL ONE (10:13)
[2020-08-31] MEDS ORDERED: DEXTROSE 5%-WATER - 50 ML IVPB ONE (10:13)
[2020-08-31] MEDS: CHOLECALCIFEROL (VIT D3) 5000 UNITS (125 MCG) CAP PO SCH (10:19)
[2020-08-31] MEDS: LIDOCAINE 5% TOPICAL PATCH TP SCH (10:20)
[2020-08-31] MEDS: ESCITALOPRAM OXALATE 20 MG TABLET PO SCH (10:20)
[2020-08-31] MEDS: PANTOPRAZOLE 40 MG TABLET PO SCH (10:20)
[2020-08-31] MEDS: CEFTRIAXONE 1 GM in DEXTROSE 5%-WATER - 50 ML IVPB SCH (10:20)
[2020-08-31] MEDS: metoPROLOL SUCCINATE 25 MG TAB.SR.24H (FP) PO SCH (10:20)
[2020-08-31] MEDS: APIXABAN 5 MG TABLET PO SCH ×2 (10:20→21:44)
[2020-08-31] MEDS: LIDOCAINE PATCH REMOVAL MC SCH (21:44)
[2020-08-31] MEDS: ALBUTEROL SO4 2.5/IPRATROPIUM 0.5 INH SOL 3 ML VIAL.NEB. NEB PRN (21:57)
[2020-09-01] MEDS: metroNIDAZOLE 250 MG TABLET PO SCH ×2 (05:32→14:26)
[2020-09-01] MEDS: TORSEMIDE 20 MG TABLET (FP) PO SCH ×2 (05:32→14:26)
[2020-09-01] MEDS ORDERED: DEXTROSE 5%-WATER - 50 ML IVPB ONE (09:43)
[2020-09-01] MEDS ORDERED: cefTRIAXone SODIUM 1 GM VIAL ONE (09:43)
[2020-09-01] MEDS: LIDOCAINE 5% TOPICAL PATCH TP SCH (10:28)
[2020-09-01] MEDS: ESCITALOPRAM OXALATE 20 MG TABLET PO SCH (10:31)
[2020-09-01] MEDS: PANTOPRAZOLE 40 MG TABLET PO SCH (10:31)
[2020-09-01] MEDS: APIXABAN 5 MG TABLET PO SCH (10:32)
[2020-09-01] MEDS: metoPROLOL SUCCINATE 25 MG TAB.SR.24H (FP) PO SCH (10:32)
[2020-09-01] MEDS: CHOLECALCIFEROL (VIT D3) 5000 UNITS (125 MCG) CAP PO SCH (10:32)
[2020-09-01] MEDS: CEFTRIAXONE 1 GM in DEXTROSE 5%-WATER - 50 ML IVPB SCH (11:38)
[2020-09-01 15:58] VITALS: BP 105/64; PULSE 76; TEMP 97.8
== END 2020-09-01 17:00 | disposition home health service (06) | DRG 444 ==
LOC: JER 18:31 → JERBED 23:13 → J5S 08-23 18:22
PROVIDERS: ADMIT Hospitalist; ATTEND Internal Medicine
DX: K80.00 Calculus of gallbladder with acute cholecystitis without obstruction (principal); J18.9 Pneumonia, unspecified organism; K80.42 Calculus of bile duct with acute cholecystitis without obstruction; I48.20 Chronic atrial fibrillation, unspecified; I50.22 Chronic systolic (congestive) heart failure; C34.90 Malignant neoplasm of unspecified part of unspecified bronchus or lung; M48.54XA Collapsed vertebra, not elsewhere classified, thoracic region, initial encounter for fracture; E11.9 Type 2 diabetes mellitus without complications; E78.5 Hyperlipidemia, unspecified; R91.8 Other nonspecific abnormal finding of lung field; R10.11 Right upper quadrant pain; I35.0 Nonrheumatic aortic (valve) stenosis; R59.0 Localized enlarged lymph nodes; D72.829 Elevated white blood cell count, unspecified; I11.0 Hypertensive heart disease with heart failure; F41.8 Other specified anxiety disorders; I27.20 Pulmonary hypertension, unspecified; Z95.2 Presence of prosthetic heart valve; Z86.73 Personal history of transient ischemic attack (TIA), and cerebral infarction without residual deficits; Z85.3 Personal history of malignant neoplasm of breast; Z85.118 Personal history of other malignant neoplasm of bronchus and lung
CPT/HCPCS: 36415; 71101-TC-RT-FY; 71250-TC; 76705-TC; 80053; 81003; 82248; 82550; 83690; 84484; 85025; 85027; 85610; 85730; 86850; 86900; 86901; 93005; 93010; 94640; 94761; 97116-GP; 97161-GP; 99285-25; C9803; U0003

== ENCOUNTER 2020-10-20 08:22 | Inpatient (IN) | payer OTHER, MEDICARE ==
[2020-10-20] MEDS ORDERED: ACETAMINOPHEN 325 MG TABLET (FP) PO ONE (08:53)
[2020-10-20] MEDS ORDERED: ACETAMINOPHEN 325 MG TABLET (FP) ONE (09:03)
[2020-10-20 12:59] LABS: ALBUMIN 3.6 g/dl (3.4-5.0); BLOOD UREA NITROGEN 14.8 mg/dL (7-18); CALCIUM 9.2 mg/dL (8.5-10.1)
[2020-10-20 13:02] LABS: CREATININE 0.6 mg/dL (0.55-1.3)
[2020-10-20 13:04] LABS: TOT PROT 6.7 g/dl (6.4-8.2)
[2020-10-20] MEDS ORDERED: morphine CARPU-JECT 4 MG/1 ML DISP.SYRIN IVPUSH ONE (13:25)
[2020-10-20 13:32] LABS: BASO % 0.4 % (0-2.0); EOS % 0.7 % (0-4.5); HEMATOCRIT 42.6 % (32.4-45.2); HEMOGLOBIN 14.6 GM/dL (10.7-15.3); LYMPH % 15.1 % (8-40); MCH 32.7 pg (25.7-33.7); MCHC 34.4 g/dl (32.0-36.0); MEAN CELL VOLUME 95.2 fl (80-96); MEAN PLT VOLUME 7.7 fl (7.5-11.1); MONO % 5.5 % (3.8-10.2); NEUT % 78.3 % (42.8-82.8); PLATELET COUNT 300 K/MM3 (134-434); RBC 4.47 M/mm3 (3.60-5.2); RDW 14.5 % (11.6-15.6); WHITE BLOOD COUNT 9.8 K/mm3 (4.0-10.0)
[2020-10-20] MEDS ORDERED: POTASSIUM CHLORIDE TABS 20 MEQ TABLET.ER (FP) PO ONE ×2 (13:35→14:20)
[2020-10-20 13:51] LABS: MAGNESIUM 2.1 mg/dL (1.8-2.4)
[2020-10-20] MEDS ORDERED: MECLIZINE HCL 12.5 MG TABLET PO PRN (13:53)
[2020-10-20] MEDS ORDERED: FAMOTIDINE 20 MG TABLET PO PRN (13:53)
[2020-10-20] MEDS: LIDOCAINE 5% TOPICAL PATCH TP SCH (14:22)
[2020-10-20 17:01] VITALS: BMI 29.0
[2020-10-20] MEDS: TORSEMIDE 20 MG TABLET (FP) PO SCH ×2 (17:46→17:47)
[2020-10-20] MEDS: LIDOCAINE PATCH REMOVAL MC SCH (21:28)
[2020-10-20] MEDS: ACETAMINOPHEN 325 MG TABLET (FP) PO PRN (21:29)
[2020-10-21] MEDS: TORSEMIDE 20 MG TABLET (FP) PO SCH ×2 (06:22→15:05)
[2020-10-21] MEDS ORDERED: ESCITALOPRAM OXALATE 10 MG TABLET ONE (08:46)
[2020-10-21] MEDS: ACETAMINOPHEN 325 MG TABLET (FP) PO PRN ×2 (08:49→17:01)
[2020-10-21] MEDS: LIDOCAINE 5% TOPICAL PATCH TP SCH (09:09)
[2020-10-21] MEDS: metoPROLOL SUCCINATE 25 MG TAB.SR.24H (FP) PO SCH (09:10)
[2020-10-21] MEDS: oxyCODONE HCL 5 MG TABLET PO PRN ×3 (09:25→21:57)
[2020-10-21] MEDS: DOCUSATE SODIUM 100 MG CAPSULE (FP) PO SCH (09:27)
[2020-10-21] MEDS ORDERED: PT OWN MED DRAWER 7, Y5N ONE (10:19)
[2020-10-21] MEDS: ESCITALOPRAM OXALATE 20 MG TABLET PO SCH (10:25)
[2020-10-21] MEDS: CHOLECALCIFEROL (VIT D3) 5000 UNITS (125 MCG) CAP PO SCH (11:37)
[2020-10-21] MEDS: APIXABAN 5 MG TABLET PO SCH (21:01)
[2020-10-21] MEDS: LIDOCAINE PATCH REMOVAL MC SCH (21:03)
[2020-10-22] MEDS: TORSEMIDE 20 MG TABLET (FP) PO SCH ×2 (05:43→13:20)
[2020-10-22] MEDS ORDERED: ESCITALOPRAM OXALATE 10 MG TABLET ONE (09:36)
[2020-10-22] MEDS: ALPRAZolam 0.25 MG TABLET PO PRN ×2 (09:38→23:38)
[2020-10-22] MEDS: LIDOCAINE 5% TOPICAL PATCH TP SCH (09:39)
[2020-10-22] MEDS: DOCUSATE SODIUM 100 MG CAPSULE (FP) PO SCH (09:39)
[2020-10-22] MEDS: ESCITALOPRAM OXALATE 20 MG TABLET PO SCH (09:39)
[2020-10-22] MEDS: metoPROLOL SUCCINATE 25 MG TAB.SR.24H (FP) PO SCH (09:39)
[2020-10-22] MEDS: APIXABAN 5 MG TABLET PO SCH (09:39)
[2020-10-22] MEDS: CHOLECALCIFEROL (VIT D3) 5000 UNITS (125 MCG) CAP PO SCH (11:20)
[2020-10-22] MEDS: oxyCODONE HCL 5 MG TABLET PO PRN ×2 (13:38→20:13)
[2020-10-22] MEDS: ACETAMINOPHEN 325 MG TABLET (FP) PO PRN ×2 (14:00→20:14)
[2020-10-22 16:37] LABS: BLOOD UREA NITROGEN 16.4 mg/dL (7-18); CALCIUM 8.6 mg/dL (8.5-10.1)
[2020-10-22 16:41] LABS: CREATININE 0.9 mg/dL (0.55-1.3)
[2020-10-22] MEDS: LIDOCAINE PATCH REMOVAL MC SCH (21:35)
[2020-10-22] MEDS: APIXABAN 2.5 MG TABLET PO SCH (21:35)
[2020-10-22] MEDS: POTASSIUM CHLORIDE TABS 20 MEQ TABLET.ER (FP) PO SCH (22:25)
[2020-10-23] MEDS: TORSEMIDE 20 MG TABLET (FP) PO SCH ×2 (06:06→13:35)
[2020-10-23 08:34] LABS: HEMATOCRIT 40.3 % (32.4-45.2); HEMOGLOBIN 14.1 GM/dL (10.7-15.3); MCHC 34.9 g/dl (32.0-36.0); MEAN CELL VOLUME 94.4 fl (80-96); MEAN PLT VOLUME 7.7 fl (7.5-11.1); PLATELET COUNT 301 K/MM3 (134-434); RBC 4.27 M/mm3 (3.60-5.2); RDW 14.4 % (11.6-15.6)
[2020-10-23 08:54] LABS: BLOOD UREA NITROGEN 15.8 mg/dL (7-18); CALCIUM 8.5 mg/dL (8.5-10.1)
[2020-10-23] MEDS ORDERED: POTASSIUM CHLORIDE TABS 20 MEQ TABLET.ER (FP) PO ONE (08:54)
[2020-10-23 08:57] LABS: CREATININE 0.8 mg/dL (0.55-1.3)
[2020-10-23] MEDS ORDERED: ESCITALOPRAM OXALATE 10 MG TABLET ONE (09:23)
[2020-10-23] MEDS: metoPROLOL SUCCINATE 25 MG TAB.SR.24H (FP) PO SCH (09:28)
[2020-10-23] MEDS: DOCUSATE SODIUM 100 MG CAPSULE (FP) PO SCH (09:29)
[2020-10-23] MEDS: APIXABAN 2.5 MG TABLET PO SCH ×2 (09:29→22:22)
[2020-10-23] MEDS: POTASSIUM CHLORIDE TABS 20 MEQ TABLET.ER (FP) PO SCH (09:29)
[2020-10-23] MEDS: ESCITALOPRAM OXALATE 20 MG TABLET PO SCH (09:29)
[2020-10-23] MEDS ORDERED: PT OWN MED DRAWER 7, Y5N ONE ×2 (09:33→11:04)
[2020-10-23] MEDS: CHOLECALCIFEROL (VIT D3) 5000 UNITS (125 MCG) CAP PO SCH (09:35)
[2020-10-23] MEDS: LIDOCAINE 5% TOPICAL PATCH TP SCH (09:44)
[2020-10-23] MEDS: oxyCODONE HCL 5 MG TABLET PO SCH ×3 (12:21→23:58)
[2020-10-23] MEDS: POLYETHYLENE GLYCOL 3350 119 GM BTL PO SCH (12:28)
[2020-10-23] MEDS: ACETAMINOPHEN 325 MG TABLET (FP) PO PRN (18:01)
[2020-10-23] MEDS ORDERED: SENNOSIDES 8.6MG TABLET (FP) PO PRN (22:02)
[2020-10-23] MEDS: LIDOCAINE PATCH REMOVAL MC SCH (22:22)
[2020-10-24] MEDS: oxyCODONE HCL 5 MG TABLET PO SCH ×3 (06:17→18:17)
[2020-10-24] MEDS: TORSEMIDE 20 MG TABLET (FP) PO SCH ×2 (06:18→13:48)
[2020-10-24] MEDS ORDERED: ESCITALOPRAM OXALATE 10 MG TABLET ONE (09:15)
[2020-10-24] MEDS: LIDOCAINE 5% TOPICAL PATCH TP SCH (09:20)
[2020-10-24] MEDS: metoPROLOL SUCCINATE 25 MG TAB.SR.24H (FP) PO SCH (09:21)
[2020-10-24] MEDS: ACETAMINOPHEN 325 MG TABLET (FP) PO PRN (09:21)
[2020-10-24] MEDS: POTASSIUM CHLORIDE TABS 20 MEQ TABLET.ER (FP) PO SCH (09:21)
[2020-10-24] MEDS: DOCUSATE SODIUM 100 MG CAPSULE (FP) PO SCH (09:21)
[2020-10-24] MEDS: APIXABAN 2.5 MG TABLET PO SCH ×2 (09:22→21:26)
[2020-10-24] MEDS: POLYETHYLENE GLYCOL 3350 119 GM BTL PO SCH (09:22)
[2020-10-24] MEDS: ESCITALOPRAM OXALATE 20 MG TABLET PO SCH (09:23)
[2020-10-24] MEDS ORDERED: PT OWN MED DRAWER 7, Y5N ONE (11:26)
[2020-10-24] MEDS: CHOLECALCIFEROL (VIT D3) 5000 UNITS (125 MCG) CAP PO SCH (11:27)
[2020-10-24] MEDS ORDERED: POTASSIUM CHLORIDE ORAL LIQUID 20 MEQ/15 ML PO ONE (13:30)
[2020-10-24] MEDS: LIDOCAINE PATCH REMOVAL MC SCH (21:26)
[2020-10-25] MEDS: oxyCODONE HCL 5 MG TABLET PO SCH ×4 (00:16→17:17)
[2020-10-25] MEDS: TORSEMIDE 20 MG TABLET (FP) PO SCH ×2 (05:30→14:46)
[2020-10-25] MEDS ORDERED: ESCITALOPRAM OXALATE 10 MG TABLET ONE (09:20)
[2020-10-25] MEDS ORDERED: PT OWN MED DRAWER 7, Y5N ONE (09:21)
[2020-10-25] MEDS: ESCITALOPRAM OXALATE 20 MG TABLET PO SCH (09:24)
[2020-10-25] MEDS: POTASSIUM CHLORIDE TABS 20 MEQ TABLET.ER (FP) PO SCH (09:24)
[2020-10-25] MEDS: APIXABAN 2.5 MG TABLET PO SCH ×2 (09:24→21:47)
[2020-10-25] MEDS: metoPROLOL SUCCINATE 25 MG TAB.SR.24H (FP) PO SCH (09:25)
[2020-10-25] MEDS: DOCUSATE SODIUM 100 MG CAPSULE (FP) PO SCH (09:25)
[2020-10-25] MEDS: LIDOCAINE 5% TOPICAL PATCH TP SCH (09:25)
[2020-10-25] MEDS: CHOLECALCIFEROL (VIT D3) 5000 UNITS (125 MCG) CAP PO SCH (09:26)
[2020-10-25] MEDS: POLYETHYLENE GLYCOL 3350 119 GM BTL PO SCH (09:57)
[2020-10-25] MEDS ORDERED: ACETAMINOPHEN 325 MG TABLET (FP) PO SCH (15:45)
[2020-10-25] MEDS: ACETAMINOPHEN 325 MG TABLET (FP) PO SCH ×2 (17:19→21:48)
[2020-10-25 18:05] LABS: HEMATOCRIT 41.9 % (32.4-45.2); MCH 32.3 pg (25.7-33.7); MCHC 33.5 g/dl (32.0-36.0); MEAN CELL VOLUME 96.4 fl (80-96); MEAN PLT VOLUME 7.9 fl (7.5-11.1); PLATELET COUNT 343 K/MM3 (134-434); RBC 4.35 M/mm3 (3.60-5.2); RDW 14.9 % (11.6-15.6); WHITE BLOOD COUNT 11.6 K/mm3 (4.0-10.0)
[2020-10-25 18:29] LABS: BLOOD UREA NITROGEN 23.8 mg/dL (7-18); CALCIUM 9.4 mg/dL (8.5-10.1)
[2020-10-25 18:30] LABS: MAGNESIUM 2.2 mg/dL (1.8-2.4)
[2020-10-25 18:33] LABS: CREATININE 0.8 mg/dL (0.55-1.3); PHOSPHOROUS 3.7 mg/dL (2.5-4.9)
[2020-10-25] MEDS: LIDOCAINE PATCH REMOVAL MC SCH (21:48)
[2020-10-26] MEDS: oxyCODONE HCL 5 MG TABLET PO SCH ×4 (01:00→17:20)
[2020-10-26] MEDS: ACETAMINOPHEN 325 MG TABLET (FP) PO SCH ×4 (04:05→21:12)
[2020-10-26] MEDS: TORSEMIDE 20 MG TABLET (FP) PO SCH ×2 (05:48→15:27)
[2020-10-26] MEDS ORDERED: ESCITALOPRAM OXALATE 10 MG TABLET ONE (09:22)
[2020-10-26] MEDS ORDERED: PT OWN MED DRAWER 7, Y5N ONE (09:22)
[2020-10-26] MEDS: ESCITALOPRAM OXALATE 20 MG TABLET PO SCH (09:29)
[2020-10-26] MEDS: APIXABAN 2.5 MG TABLET PO SCH ×2 (09:29→21:12)
[2020-10-26] MEDS: POTASSIUM CHLORIDE TABS 20 MEQ TABLET.ER (FP) PO SCH (09:29)
[2020-10-26] MEDS: LIDOCAINE 5% TOPICAL PATCH TP SCH (09:29)
[2020-10-26] MEDS: CHOLECALCIFEROL (VIT D3) 5000 UNITS (125 MCG) CAP PO SCH (09:29)
[2020-10-26] MEDS: metoPROLOL SUCCINATE 25 MG TAB.SR.24H (FP) PO SCH (09:30)
[2020-10-26] MEDS: POLYETHYLENE GLYCOL 3350 119 GM BTL PO SCH (09:30)
[2020-10-26] MEDS: DOCUSATE SODIUM 100 MG CAPSULE (FP) PO SCH (09:30)
[2020-10-26] MEDS: LIDOCAINE PATCH REMOVAL MC SCH (22:25)
[2020-10-27] MEDS: oxyCODONE HCL 5 MG TABLET PO SCH ×2 (00:10→06:07)
[2020-10-27] MEDS: ACETAMINOPHEN 325 MG TABLET (FP) PO SCH (03:30)
[2020-10-27 06:03] VITALS: BP 104/58; PULSE 68; TEMP 99
[2020-10-27] MEDS: TORSEMIDE 20 MG TABLET (FP) PO SCH (06:07)
[2020-10-27] MEDS ORDERED: APIXABAN 5 MG TABLET PO SCH (10:00)
== END 2020-10-27 09:51 | DRG 184 ==
LOC: JER 08:22 → JERBED 11:15 → J6S 15:23
PROVIDERS: ADMIT Internal Medicine; ATTEND Internal Medicine
DX: S22.41XA Multiple fractures of ribs, right side, initial encounter for closed fracture (principal); I50.32 Chronic diastolic (congestive) heart failure; C34.90 Malignant neoplasm of unspecified part of unspecified bronchus or lung; I11.0 Hypertensive heart disease with heart failure; S00.83XA Contusion of other part of head, initial encounter; S40.011A Contusion of right shoulder, initial encounter; E87.6 Hypokalemia; I48.91 Unspecified atrial fibrillation; I35.1 Nonrheumatic aortic (valve) insufficiency; E78.5 Hyperlipidemia, unspecified; J44.9 Chronic obstructive pulmonary disease, unspecified; F41.8 Other specified anxiety disorders; I05.0 Rheumatic mitral stenosis; F17.210 Nicotine dependence, cigarettes, uncomplicated; E11.9 Type 2 diabetes mellitus without complications; W18.39XA Other fall on same level, initial encounter; Z86.73 Personal history of transient ischemic attack (TIA), and cerebral infarction without residual deficits; Y92.098 Other place in other non-institutional residence as the place of occurrence of the external cause
CPT/HCPCS: 36415; 70450-TC; 70486-TC; 71045-TC-FY; 71111-TC-FY; 71250-TC; 72125-TC; 72170-TC-FY; 73030-TC-RT-FY; 73060-TC-RT-FY; 73590-TC-RT-FY; 80048; 80053; 83735; 84100; 85025; 85027; 93005; 93010; 97116-GP; 97161-GP; 99285-25; C9803; U0003; U0005

== ENCOUNTER 2021-01-27 19:37 | Inpatient (IN) | payer OTHER, MEDICARE ==
[2021-01-27 20:10] VITALS: BMI 27.4
[2021-01-27] MEDS ORDERED: ACETAMINOPHEN 325 MG TABLET (FP) PO ONE (20:38)
[2021-01-27 22:34] LABS: BASO % 0.6 % (0-2.0); EOS % 2.5 % (0-4.5); HEMATOCRIT 39.5 % (32.4-45.2); HEMOGLOBIN 13.3 GM/dL (10.7-15.3); LYMPH % 16.4 % (8-40); MCH 32.2 pg (25.7-33.7); MCHC 33.6 g/dl (32.0-36.0); MEAN CELL VOLUME 95.8 fl (80-96); MEAN PLT VOLUME 7.1 fl (7.5-11.1); MONO % 7.7 % (3.8-10.2); NEUT % 72.8 % (42.8-82.8); PLATELET COUNT 258 10^3/uL (134-434); RBC 4.12 M/mm3 (3.60-5.2); WHITE BLOOD COUNT 9.4 K/mm3 (4.0-10.0)
[2021-01-27 22:54] LABS: CHLORIDE 104 mmol/L (98-107); SODIUM 140 mmol/L (136-145)
[2021-01-27 22:57] LABS: ANION GAP 4 MMOL/L (8-16); BLOOD UREA NITROGEN 18.8 mg/dL (7-18); CALCIUM 8.7 mg/dL (8.5-10.1); CO2 32 mmol/L (21-32)
[2021-01-27 22:58] LABS: GLUCOSE,RANDOM 95 mg/dL (74-106)
[2021-01-27 23:00] LABS: CREATININE 0.8 mg/dL (0.55-1.3); SGPT/ALT 28 U/L (13-61)
[2021-01-27 23:01] LABS: SGOT/AST 35 U/L (15-37)
[2021-01-27 23:03] LABS: ALK PHOS 55 U/L (45-117)
[2021-01-27 23:05] LABS: N-TERMINAL BNP 2108.1 pg/ml (5-450)
[2021-01-27] MEDS ORDERED: FUROSEMIDE 40 MG/4 ML INJECTABLE VIAL IVPUSH ONE (23:19)
[2021-01-27] MEDS ORDERED: FUROSEMIDE 40 MG/4 ML INJECTABLE VIAL ONE (23:36)
[2021-01-28] MEDS ORDERED: LIDOCAINE 5% TOPICAL PATCH TP PRN (07:11)
[2021-01-28] MEDS ORDERED: DOCUSATE SODIUM 100 MG CAPSULE (FP) PO PRN (07:11)
[2021-01-28] MEDS ORDERED: SENNOSIDES 8.6MG TABLET (FP) PO PRN (07:11)
[2021-01-28] MEDS ORDERED: FAMOTIDINE 20 MG TABLET PO PRN (07:11)
[2021-01-28] MEDS ORDERED: ALPRAZolam 0.25 MG TABLET PO PRN (07:11)
[2021-01-28 08:19] LABS: BASO % 0.6 % (0-2.0); EOS % 1.8 % (0-4.5); HEMATOCRIT 42.1 % (32.4-45.2); HEMOGLOBIN 14.2 GM/dL (10.7-15.3); LYMPH % 18.1 % (8-40); MCH 32.3 pg (25.7-33.7); MCHC 33.8 g/dl (32.0-36.0); MEAN CELL VOLUME 95.7 fl (80-96); MEAN PLT VOLUME 7.2 fl (7.5-11.1); MONO % 7.8 % (3.8-10.2); NEUT % 71.7 % (42.8-82.8); PLATELET COUNT 239 10^3/uL (134-434); RDW 14.3 % (11.6-15.6); WHITE BLOOD COUNT 8.1 K/mm3 (4.0-10.0)
[2021-01-28 09:04] LABS: CALCIUM 8.7 mg/dL (8.5-10.1)
[2021-01-28 09:05] LABS: ALBUMIN 3.2 g/dl (3.4-5.0); BLOOD UREA NITROGEN 16.4 mg/dL (7-18); MAGNESIUM 2.2 mg/dL (1.8-2.4)
[2021-01-28 09:08] LABS: CREATININE 0.7 mg/dL (0.55-1.3)
[2021-01-28 09:09] LABS: TOT PROT 6.1 g/dl (6.4-8.2)
[2021-01-28] MEDS: APIXABAN 5 MG TABLET PO SCH ×2 (09:36→21:33)
[2021-01-28] MEDS: NYSTATIN POWDER 100,000 UNITS/GM - 15 GM TOPICAL POWDER TP SCH ×2 (09:36→21:34)
[2021-01-28] MEDS: ESCITALOPRAM OXALATE 20 MG TABLET PO SCH (09:36)
[2021-01-28] MEDS: metoPROLOL SUCCINATE 25 MG TAB.SR.24H (FP) PO SCH (09:36)
[2021-01-28] MEDS: POLYETHYLENE GLYCOL (HEALTHYLAX) 3350 17 GM PACKET PO SCH (09:38)
[2021-01-28] MEDS: TORSEMIDE 20 MG TABLET (FP) PO SCH (14:48)
[2021-01-28] MEDS ORDERED: POTASSIUM CHLORIDE TABS 20 MEQ TABLET.ER (FP) PO ONE (15:35)
[2021-01-28] MEDS ORDERED: ALPRAZolam 0.25 MG TABLET PO ONE (17:39)
[2021-01-28] MEDS: LIDOCAINE PATCH REMOVAL MC SCH (21:35)
[2021-01-29] MEDS ORDERED: MELATONIN 5 MG TABLETS PO ONE (01:10)
[2021-01-29] MEDS: TORSEMIDE 20 MG TABLET (FP) PO SCH ×2 (06:15→14:31)
[2021-01-29] MEDS: POLYETHYLENE GLYCOL (HEALTHYLAX) 3350 17 GM PACKET PO SCH (10:14)
[2021-01-29] MEDS: ESCITALOPRAM OXALATE 20 MG TABLET PO SCH (10:22)
[2021-01-29] MEDS: APIXABAN 5 MG TABLET PO SCH ×2 (10:22→22:10)
[2021-01-29] MEDS: POTASSIUM CHLORIDE TABS 20 MEQ TABLET.ER (FP) PO SCH (10:22)
[2021-01-29] MEDS: metoPROLOL SUCCINATE 25 MG TAB.SR.24H (FP) PO SCH (10:22)
[2021-01-29] MEDS: NYSTATIN POWDER 100,000 UNITS/GM - 15 GM TOPICAL POWDER TP SCH ×2 (10:24→22:11)
[2021-01-29] MEDS: LIDOCAINE PATCH REMOVAL MC SCH (22:11)
[2021-01-29] MEDS: ALPRAZolam 0.25 MG TABLET PO PRN (22:15)
[2021-01-30] MEDS: TORSEMIDE 20 MG TABLET (FP) PO SCH ×2 (05:55→14:18)
[2021-01-30] MEDS: APIXABAN 5 MG TABLET PO SCH ×2 (10:44→22:10)
[2021-01-30] MEDS: ESCITALOPRAM OXALATE 20 MG TABLET PO SCH (10:44)
[2021-01-30] MEDS: POTASSIUM CHLORIDE TABS 20 MEQ TABLET.ER (FP) PO SCH (10:44)
[2021-01-30] MEDS: metoPROLOL SUCCINATE 25 MG TAB.SR.24H (FP) PO SCH (10:44)
[2021-01-30] MEDS: POLYETHYLENE GLYCOL (HEALTHYLAX) 3350 17 GM PACKET PO SCH (11:14)
[2021-01-30] MEDS: NYSTATIN POWDER 100,000 UNITS/GM - 15 GM TOPICAL POWDER TP SCH ×2 (11:15→22:11)
[2021-01-30] MEDS ORDERED: PT OWN MED DRAWER 7, Y5N ONE (14:15)
[2021-01-30] MEDS: ENALAPRIL MALEATE 2.5 MG TABLET PO SCH (14:18)
[2021-01-30] MEDS: LIDOCAINE PATCH REMOVAL MC SCH (22:11)
[2021-01-31] MEDS: ALPRAZolam 0.25 MG TABLET PO PRN (03:21)
[2021-01-31] MEDS: TORSEMIDE 20 MG TABLET (FP) PO SCH ×2 (05:56→14:44)
[2021-01-31] MEDS ORDERED: PT OWN MED DRAWER 7, Y5N ONE (10:50)
[2021-01-31] MEDS: POTASSIUM CHLORIDE TABS 20 MEQ TABLET.ER (FP) PO SCH (10:54)
[2021-01-31] MEDS: APIXABAN 5 MG TABLET PO SCH (10:54)
[2021-01-31] MEDS: metoPROLOL SUCCINATE 25 MG TAB.SR.24H (FP) PO SCH (10:54)
[2021-01-31] MEDS: POLYETHYLENE GLYCOL (HEALTHYLAX) 3350 17 GM PACKET PO SCH (10:56)
[2021-01-31] MEDS: ESCITALOPRAM OXALATE 20 MG TABLET PO SCH (10:56)
[2021-01-31] MEDS: ENALAPRIL MALEATE 2.5 MG TABLET PO SCH (10:57)
[2021-01-31] MEDS: NYSTATIN POWDER 100,000 UNITS/GM - 15 GM TOPICAL POWDER TP SCH (12:38)
[2021-01-31] MEDS ORDERED: POTASSIUM CHLORIDE ORAL LIQUID 20 MEQ/15 ML PO ONE (12:45)
[2021-01-31 20:40] VITALS: BP 123/75; PULSE 84; TEMP 98.3
== END 2021-01-31 20:48 | DRG 563 ==
LOC: JER 19:37 → JERBED 21:51 → J4W 01-28 03:48
PROVIDERS: ADMIT Internal Medicine; ATTEND Internal Medicine
DX: S82.401A Unspecified fracture of shaft of right fibula, initial encounter for closed fracture (principal); I50.42 Chronic combined systolic (congestive) and diastolic (congestive) heart failure; I48.91 Unspecified atrial fibrillation; I50.9 Heart failure, unspecified; R21 Rash and other nonspecific skin eruption; E78.5 Hyperlipidemia, unspecified; J44.9 Chronic obstructive pulmonary disease, unspecified; Z79.01 Long term (current) use of anticoagulants; R29.6 Repeated falls; W19.XXXA Unspecified fall, initial encounter; Y93.89 Activity, other specified; Y92.008 Other place in unspecified non-institutional (private) residence as the place of occurrence of the external cause; Y99.8 Other external cause status; F41.9 Anxiety disorder, unspecified; F32.9 Major depressive disorder, single episode, unspecified; I35.0 Nonrheumatic aortic (valve) stenosis; E87.6 Hypokalemia; I25.10 Atherosclerotic heart disease of native coronary artery without angina pectoris; Z85.118 Personal history of other malignant neoplasm of bronchus and lung
CPT/HCPCS: 36415; 71045-TC-FY; 71250-TC; 73562-TC-RT-FY; 73590-TC-RT-FY; 73610-TC-RT-FY; 80053; 82550; 83735; 83880; 84484; 85025; 93005; 93010; 93970-TC; 97116-GP; 97161-GP; 99285-25; C9803; U0003; U0005

== ENCOUNTER 2021-04-02 09:04 | Inpatient (IN) | payer OTHER, MEDICARE ==
[2021-04-02 11:50] LABS: BASO % 0.9 % (0-2.0); EOS % 2.7 % (0-4.5); HEMATOCRIT 42.7 % (32.4-45.2); HEMOGLOBIN 14.6 GM/dL (10.7-15.3); LYMPH % 23.5 % (8-40); MCH 32.3 pg (25.7-33.7); MCHC 34.2 g/dl (32.0-36.0); MEAN CELL VOLUME 94.2 fl (80-96); MEAN PLT VOLUME 7.1 fl (7.5-11.1); MONO % 7.6 % (3.8-10.2); NEUT % 65.3 % (42.8-82.8); PLATELET COUNT 267 10^3/uL (134-434); RBC 4.53 M/mm3 (3.60-5.2); WHITE BLOOD COUNT 8.7 K/mm3 (4.0-10.0)
[2021-04-02 12:05] LABS: CHLORIDE 102 mmol/L (98-107); SODIUM 140 mmol/L (136-145)
[2021-04-02 12:07] LABS: ANION GAP 8 MMOL/L (8-16); CALCIUM 8.5 mg/dL (8.5-10.1); CO2 30 mmol/L (21-32)
[2021-04-02 12:08] LABS: ALBUMIN 3.4 g/dl (3.4-5.0); BLOOD UREA NITROGEN 15.2 mg/dL (7-18); GLUCOSE,RANDOM 90 mg/dL (74-106); MAGNESIUM 2.1 mg/dL (1.8-2.4)
[2021-04-02 12:12] LABS: CREATININE 0.7 mg/dL (0.55-1.3); SGOT/AST 20 U/L (15-37); SGPT/ALT 14 U/L (13-61); TOT PROT 7.3 g/dl (6.4-8.2)
[2021-04-02 12:15] LABS: ALK PHOS 65 U/L (45-117)
[2021-04-02 12:17] LABS: VENOUS BASE EXCESS 7.1 mmol/L (-2-2); VENOUS O2 SATURATION 61.6 % (70-80); VENOUS PCO2 44.8 mmHg (38-52); VENOUS PH 7.468 (7.310-7.410)
[2021-04-02 12:24] LABS: N-TERMINAL BNP 2354.7 pg/ml (5-450)
[2021-04-02] MEDS ORDERED: FUROSEMIDE 40 MG/4 ML INJECTABLE VIAL IVPUSH ONE (13:16)
[2021-04-02] MEDS ORDERED: FUROSEMIDE 40 MG/4 ML INJECTABLE VIAL ONE (13:50)
[2021-04-02] MEDS ORDERED: DOCUSATE SODIUM 100 MG CAPSULE (FP) PO PRN (14:53)
[2021-04-02] MEDS ORDERED: FAMOTIDINE 20 MG TABLET PO PRN (14:53)
[2021-04-02] MEDS ORDERED: POLYETHYLENE GLYCOL 3350 119 GM BTL PO PRN (14:53)
[2021-04-02] MEDS: LIDOCAINE 5% TOPICAL PATCH TP SCH (18:42)
[2021-04-02] MEDS ORDERED: APIXABAN 5 MG TABLET ONE (22:30)
[2021-04-02] MEDS: LIDOCAINE PATCH REMOVAL MC SCH (22:35)
[2021-04-02] MEDS: APIXABAN 5 MG TABLET PO SCH (22:35)
[2021-04-03] MEDS ORDERED: FUROSEMIDE 40 MG/4 ML INJECTABLE VIAL ONE ×2 (05:59→15:58)
[2021-04-03 06:04] LABS: BASO % 0.6 % (0-2.0); EOS % 3.2 % (0-4.5); HEMATOCRIT 40.7 % (32.4-45.2); LYMPH % 30.3 % (8-40); MCH 32.5 pg (25.7-33.7); MCHC 34.3 g/dl (32.0-36.0); MEAN CELL VOLUME 94.8 fl (80-96); MEAN PLT VOLUME 7.3 fl (7.5-11.1); MONO % 8.9 % (3.8-10.2); PLATELET COUNT 238 10^3/uL (134-434); RBC 4.29 M/mm3 (3.60-5.2); RDW 15.1 % (11.6-15.6); WHITE BLOOD COUNT 6.9 K/mm3 (4.0-10.0)
[2021-04-03] MEDS: FUROSEMIDE 40 MG/4 ML INJECTABLE VIAL IVPUSH SCH ×2 (06:06→17:47)
[2021-04-03 06:28] LABS: CALCIUM 8.7 mg/dL (8.5-10.1)
[2021-04-03 06:30] LABS: ALBUMIN 3.1 g/dl (3.4-5.0); BLOOD UREA NITROGEN 17.1 mg/dL (7-18)
[2021-04-03 06:32] LABS: CREATININE 0.8 mg/dL (0.55-1.3)
[2021-04-03 06:34] LABS: BILIRUBIN,TOTAL 1.2 mg/dL (0.2-1); TOT PROT 6.4 g/dl (6.4-8.2)
[2021-04-03] MEDS ORDERED: POTASSIUM CHLORIDE TABS 20 MEQ TABLET.ER (FP) PO ONE (09:28)
[2021-04-03] MEDS ORDERED: ESCITALOPRAM OXALATE 10 MG TABLET ONE (09:28)
[2021-04-03] MEDS ORDERED: APIXABAN 5 MG TABLET ONE (09:28)
[2021-04-03] MEDS ORDERED: metoPROLOL SUCCINATE 25 MG TAB.SR.24H (FP) ONE (09:28)
[2021-04-03] MEDS: APIXABAN 5 MG TABLET PO SCH ×2 (09:36→21:30)
[2021-04-03] MEDS: ESCITALOPRAM OXALATE 10 MG TABLET PO SCH (09:36)
[2021-04-03] MEDS: metoPROLOL SUCCINATE 25 MG TAB.SR.24H (FP) PO SCH (09:36)
[2021-04-03] MEDS: POTASSIUM CHLORIDE TABS 20 MEQ TABLET.ER (FP) PO SCH (09:37)
[2021-04-03] MEDS: LIDOCAINE 5% TOPICAL PATCH TP SCH (10:00)
[2021-04-03 19:46] VITALS: BMI 26.8
[2021-04-03] MEDS ORDERED: POLYETHYLENE GLYCOL (HEALTHYLAX) 3350 17 GM PACKET PO PRN (21:17)
[2021-04-03] MEDS: LIDOCAINE PATCH REMOVAL MC SCH (21:33)
[2021-04-04] MEDS: FUROSEMIDE 40 MG/4 ML INJECTABLE VIAL IVPUSH SCH ×2 (07:08→13:24)
[2021-04-04] MEDS: APIXABAN 5 MG TABLET PO SCH ×2 (09:11→20:59)
[2021-04-04] MEDS: POTASSIUM CHLORIDE TABS 20 MEQ TABLET.ER (FP) PO SCH (09:11)
[2021-04-04] MEDS: metoPROLOL SUCCINATE 25 MG TAB.SR.24H (FP) PO SCH (09:11)
[2021-04-04] MEDS: ESCITALOPRAM OXALATE 10 MG TABLET PO SCH ×2 (09:11→09:32)
[2021-04-04] MEDS: LIDOCAINE 5% TOPICAL PATCH TP SCH (09:12)
[2021-04-04] MEDS: ALPRAZolam 0.25 MG TABLET PO PRN ×2 (14:49→22:41)
[2021-04-04] MEDS: ACETAMINOPHEN 325 MG TABLET (FP) PO PRN (17:56)
[2021-04-04] MEDS: LIDOCAINE PATCH REMOVAL MC SCH (21:06)
[2021-04-04] MEDS: LIDOCAINE HCL 5% TOP OINTMENT 50 GM TUBE TP PRN (21:11)
[2021-04-05] MEDS: FUROSEMIDE 40 MG/4 ML INJECTABLE VIAL IVPUSH SCH ×2 (06:25→14:49)
[2021-04-05] MEDS: ESCITALOPRAM OXALATE 10 MG TABLET PO SCH (09:35)
[2021-04-05] MEDS: metoPROLOL SUCCINATE 25 MG TAB.SR.24H (FP) PO SCH (09:35)
[2021-04-05] MEDS: ALPRAZolam 0.25 MG TABLET PO PRN (09:39)
[2021-04-05] MEDS: LIDOCAINE HCL 5% TOP OINTMENT 50 GM TUBE TP PRN (09:40)
[2021-04-05] MEDS: LIDOCAINE 5% TOPICAL PATCH TP SCH (09:43)
[2021-04-05] MEDS ORDERED: ENOXAPARIN NA (PORCINE) 80 MG/0.8 ML DISP.SYRIN SQ SCH (10:00)
[2021-04-05] MEDS ORDERED: POTASSIUM CHLORIDE ORAL LIQUID 20 MEQ/15 ML PO SCH (10:00)
[2021-04-05] MEDS ORDERED: ZOLPIDEM TARTRATE 5 MG TABLET PO PRN (10:00)
[2021-04-05 12:22] LABS: HEMATOCRIT 40.3 % (32.4-45.2); HEMOGLOBIN 13.4 GM/dL (10.7-15.3); MCH 31.8 pg (25.7-33.7); MCHC 33.3 g/dl (32.0-36.0); MEAN CELL VOLUME 95.3 fl (80-96); MEAN PLT VOLUME 7.5 fl (7.5-11.1); PLATELET COUNT 309 10^3/uL (134-434); RBC 4.23 M/mm3 (3.60-5.2); RDW 15.1 % (11.6-15.6); WHITE BLOOD COUNT 10.4 K/mm3 (4.0-10.0)
[2021-04-05 12:38] LABS: CALCIUM 9.1 mg/dL (8.5-10.1)
[2021-04-05 12:42] LABS: CREATININE 0.6 mg/dL (0.55-1.3)
[2021-04-05 13:44] VITALS: BP 109/58; PULSE 83; TEMP 97.8
[2021-04-05] MEDS: ACETAMINOPHEN 325 MG TABLET (FP) PO PRN (14:45)
== END 2021-04-05 18:34 | disposition short-term general hospital (02) | DRG 306 ==
LOC: JER 09:04 → JERBED 13:41 → J4W 04-03 17:38
PROVIDERS: ADMIT Internal Medicine; ATTEND Internal Medicine
DX: I35.2 Nonrheumatic aortic (valve) stenosis with insufficiency (principal); I50.33 Acute on chronic diastolic (congestive) heart failure; I48.20 Chronic atrial fibrillation, unspecified; C79.51 Secondary malignant neoplasm of bone; C34.90 Malignant neoplasm of unspecified part of unspecified bronchus or lung; I11.0 Hypertensive heart disease with heart failure; E11.9 Type 2 diabetes mellitus without complications; E78.5 Hyperlipidemia, unspecified; I25.2 Old myocardial infarction; F41.9 Anxiety disorder, unspecified; E87.6 Hypokalemia; F41.8 Other specified anxiety disorders
CPT/HCPCS: 36415; 71045-TC-FY; 80048; 80053; 82803; 83735; 83880; 84484; 85025; 85027; 93005; 93010; 93306-TC; 93970-TC; 97116-GP; 97161-GP; 99285-25; C9803; U0003; U0005

== ENCOUNTER 2021-06-15 15:05 | Inpatient (IN) | payer OTHER, MEDICARE ==
[2021-06-15] MEDS ORDERED: FUROSEMIDE 40 MG/4 ML INJECTABLE VIAL IVPUSH ONE (16:05)
[2021-06-15] MEDS ORDERED: FUROSEMIDE 40 MG/4 ML INJECTABLE VIAL ONE (17:59)
[2021-06-15 18:31] LABS: BASO % 0.6 % (0-2.0); HEMATOCRIT 32.3 % (32.4-45.2); HEMOGLOBIN 10.9 GM/dL (10.7-15.3); MCH 31.5 pg (25.7-33.7); MCHC 33.7 g/dl (32.0-36.0); MEAN CELL VOLUME 93.4 fl (80-96); MEAN PLT VOLUME 6.8 fl (7.5-11.1); MONO % 8.5 % (3.8-10.2); NEUT % 67.9 % (42.8-82.8); PLATELET COUNT 264 10^3/uL (134-434); RBC 3.46 M/mm3 (3.60-5.2); RDW 15.7 % (11.6-15.6); WHITE BLOOD COUNT 7.8 K/mm3 (4.0-10.0)
[2021-06-15 18:33] LABS: CHLORIDE 98 mmol/L (98-107); SODIUM 140 mmol/L (136-145)
[2021-06-15 18:34] LABS: ALBUMIN 3.3 g/dl (3.4-5.0); CALCIUM 9.3 mg/dL (8.5-10.1); CO2 35 mmol/L (21-32); GLUCOSE,RANDOM 92 mg/dL (74-106); MAGNESIUM 2.5 mg/dL (1.8-2.4)
[2021-06-15 18:36] LABS: BLOOD UREA NITROGEN 14.8 mg/dL (7-18)
[2021-06-15 18:37] LABS: SGPT/ALT 19 U/L (13-61)
[2021-06-15 18:38] LABS: CREATININE 0.6 mg/dL (0.55-1.3); SGOT/AST 17 U/L (15-37)
[2021-06-15 18:40] LABS: BILIRUBIN,TOTAL 1.2 mg/dL (0.2-1); TOT PROT 6.7 g/dl (6.4-8.2)
[2021-06-15 18:41] LABS: ALK PHOS 65 U/L (45-117)
[2021-06-15 18:48] LABS: ANION GAP 7 MMOL/L (8-16)
[2021-06-15] MEDS ORDERED: POTASSIUM CHLORIDE TABS 20 MEQ TABLET.ER (FP) PO ONE ×4 (18:50→22:03)
[2021-06-15] MEDS ORDERED: ACETAMINOPHEN 325 MG TABLET (FP) PO PRN (20:08)
[2021-06-15] MEDS ORDERED: KCL 10 MEQ IVPB 10 MEQ/100 ML INFUS.BAG IVPB ONE (20:12)
[2021-06-15] MEDS ORDERED: SODIUM CHLORIDE 0.9%/KCL 10 MEQ/500 ML INFUS.BAG IV SCH (20:30)
[2021-06-16 01:04] LABS: CALCIUM 9.1 mg/dL (8.5-10.1)
[2021-06-16 01:05] LABS: BLOOD UREA NITROGEN 15.5 mg/dL (7-18)
[2021-06-16 01:08] LABS: CREATININE 0.7 mg/dL (0.55-1.3)
[2021-06-16] MEDS ORDERED: LIDOCAINE 5% TOPICAL PATCH TP PRN (02:33)
[2021-06-16] MEDS ORDERED: POLYETHYLENE GLYCOL (HEALTHYLAX) 3350 17 GM PACKET PO PRN (02:33)
[2021-06-16] MEDS ORDERED: SENNOSIDES 8.6MG TABLET (FP) PO PRN (02:33)
[2021-06-16] MEDS ORDERED: ZOLPIDEM TARTRATE 5 MG TABLET PO ONE (02:36)
[2021-06-16 03:19] VITALS: BMI 24.7
[2021-06-16] MEDS ORDERED: FAMOTIDINE 20 MG TABLET PO PRN (04:51)
[2021-06-16 07:50] LABS: BASO % 0.4 % (0-2.0); EOS % 5.3 % (0-4.5); HEMATOCRIT 38.5 % (32.4-45.2); LYMPH % 16.9 % (8-40); MCH 31.4 pg (25.7-33.7); MCHC 33.6 g/dl (32.0-36.0); MEAN CELL VOLUME 93.3 fl (80-96); MEAN PLT VOLUME 6.8 fl (7.5-11.1); NEUT % 69.4 % (42.8-82.8); PLATELET COUNT 310 10^3/uL (134-434); RBC 4.13 M/mm3 (3.60-5.2); RDW 15.5 % (11.6-15.6); WHITE BLOOD COUNT 9.4 K/mm3 (4.0-10.0)
[2021-06-16 08:43] LABS: CALCIUM 9.3 mg/dL (8.5-10.1)
[2021-06-16 08:45] LABS: BLOOD UREA NITROGEN 14.8 mg/dL (7-18)
[2021-06-16 08:48] LABS: CREATININE 0.6 mg/dL (0.55-1.3)
[2021-06-16] MEDS: APIXABAN 5 MG TABLET PO SCH ×2 (09:49→21:44)
[2021-06-16] MEDS: CHOLECALCIFEROL (VIT D3) 5000 UNITS (125 MCG) CAP PO SCH (09:50)
[2021-06-16] MEDS: ESCITALOPRAM OXALATE 10 MG TABLET PO SCH (09:50)
[2021-06-16] MEDS ORDERED: APIXABAN 5 MG TABLET PO SCH (10:00)
[2021-06-16] MEDS ORDERED: TORSEMIDE 20 MG TABLET (FP) PO SCH (10:00)
[2021-06-16] MEDS: ALPRAZolam 0.25 MG TABLET PO PRN (14:29)
[2021-06-16] MEDS: TORSEMIDE 20 MG TABLET (FP) PO SCH (14:30)
[2021-06-16] MEDS: ZOLPIDEM TARTRATE 5 MG TABLET PO PRN (22:31)
[2021-06-16] MEDS: LIDOCAINE PATCH REMOVAL MC SCH (22:32)
[2021-06-17] MEDS: TORSEMIDE 20 MG TABLET (FP) PO SCH ×2 (07:17→13:27)
[2021-06-17 08:59] LABS: BLOOD UREA NITROGEN 10.8 mg/dL (7-18); CALCIUM 8.9 mg/dL (8.5-10.1)
[2021-06-17 09:03] LABS: CREATININE 0.5 mg/dL (0.55-1.3)
[2021-06-17] MEDS: ALPRAZolam 0.25 MG TABLET PO PRN (09:27)
[2021-06-17] MEDS: ESCITALOPRAM OXALATE 10 MG TABLET PO SCH (09:28)
[2021-06-17] MEDS: APIXABAN 5 MG TABLET PO SCH ×2 (09:28→22:15)
[2021-06-17] MEDS: CHOLECALCIFEROL (VIT D3) 5000 UNITS (125 MCG) CAP PO SCH (09:28)
[2021-06-17] MEDS ORDERED: PT OWN MED DRAWER 7, Y5N ONE (12:29)
[2021-06-17] MEDS: POTASSIUM CHLORIDE TABS 20 MEQ TABLET.ER (FP) PO SCH (13:27)
[2021-06-17] MEDS: LIDOCAINE PATCH REMOVAL MC SCH (22:15)
[2021-06-17] MEDS: ZOLPIDEM TARTRATE 5 MG TABLET PO PRN (22:15)
[2021-06-18] MEDS: TORSEMIDE 20 MG TABLET (FP) PO SCH ×2 (06:22→14:25)
[2021-06-18] MEDS: APIXABAN 5 MG TABLET PO SCH ×2 (09:57→22:29)
[2021-06-18] MEDS: CHOLECALCIFEROL (VIT D3) 5000 UNITS (125 MCG) CAP PO SCH (09:57)
[2021-06-18] MEDS: ESCITALOPRAM OXALATE 10 MG TABLET PO SCH (09:57)
[2021-06-18] MEDS: POTASSIUM CHLORIDE TABS 20 MEQ TABLET.ER (FP) PO SCH (09:57)
[2021-06-18] MEDS: ALPRAZolam 0.25 MG TABLET PO PRN (12:31)
[2021-06-18] MEDS: LIDOCAINE PATCH REMOVAL MC SCH (22:29)
[2021-06-18] MEDS: ZOLPIDEM TARTRATE 5 MG TABLET PO PRN (22:29)
[2021-06-19] MEDS: TORSEMIDE 20 MG TABLET (FP) PO SCH ×2 (06:05→17:10)
[2021-06-19] MEDS: ESCITALOPRAM OXALATE 10 MG TABLET PO SCH (10:37)
[2021-06-19] MEDS: CHOLECALCIFEROL (VIT D3) 5000 UNITS (125 MCG) CAP PO SCH (10:37)
[2021-06-19] MEDS: POTASSIUM CHLORIDE TABS 20 MEQ TABLET.ER (FP) PO SCH (10:37)
[2021-06-19] MEDS: APIXABAN 5 MG TABLET PO SCH ×2 (10:38→21:09)
[2021-06-19] MEDS ORDERED: ZOLPIDEM TARTRATE 5 MG TABLET PO PRN (22:23)
[2021-06-19] MEDS: LIDOCAINE PATCH REMOVAL MC SCH (22:37)
[2021-06-20] MEDS: TORSEMIDE 20 MG TABLET (FP) PO SCH (06:53)
[2021-06-20] MEDS: POTASSIUM CHLORIDE TABS 20 MEQ TABLET.ER (FP) PO SCH (09:55)
[2021-06-20] MEDS: ESCITALOPRAM OXALATE 10 MG TABLET PO SCH (09:56)
[2021-06-20] MEDS: APIXABAN 5 MG TABLET PO SCH (09:56)
[2021-06-20] MEDS: CHOLECALCIFEROL (VIT D3) 5000 UNITS (125 MCG) CAP PO SCH (09:57)
[2021-06-20] MEDS ORDERED: PT OWN MED DRAWER 7, Y5N ONE (09:57)
[2021-06-20 14:45] VITALS: BP 131/66; PULSE 87; TEMP 98
== END 2021-06-20 15:00 | DRG 291 ==
LOC: JER 15:05 → JERBED 19:03 → J4W 22:58
PROVIDERS: ADMIT Internal Medicine; ATTEND Internal Medicine
DX: I11.0 Hypertensive heart disease with heart failure (principal); I50.33 Acute on chronic diastolic (congestive) heart failure; C34.90 Malignant neoplasm of unspecified part of unspecified bronchus or lung; C79.51 Secondary malignant neoplasm of bone; I48.91 Unspecified atrial fibrillation; I35.0 Nonrheumatic aortic (valve) stenosis; E11.9 Type 2 diabetes mellitus without complications; J44.9 Chronic obstructive pulmonary disease, unspecified; F41.0 Panic disorder [episodic paroxysmal anxiety]; E87.6 Hypokalemia; M54.50 Low back pain, unspecified; K59.00 Constipation, unspecified; E78.00 Pure hypercholesterolemia, unspecified; E66.9 Obesity, unspecified; Z68.24 Body mass index [BMI] 24.0-24.9, adult; Z86.73 Personal history of transient ischemic attack (TIA), and cerebral infarction without residual deficits; Z85.3 Personal history of malignant neoplasm of breast; I25.2 Old myocardial infarction; Z87.19 Personal history of other diseases of the digestive system; Z95.2 Presence of prosthetic heart valve
CPT/HCPCS: 36415; 71045-TC-FY; 71260-TC; 80048; 80053; 83735; 83880; 84484; 85025; 93005; 93010; 97116-GP; 97161-GP; 99285-25; C9803; Q9967; U0003; U0005

== ENCOUNTER 2021-12-27 03:38 | Inpatient (IN) | payer OTHER ==
[2021-12-27 04:04] VITALS: BMI 30.7
[2021-12-27] MEDS ORDERED: FUROSEMIDE 40 MG/4 ML INJECTABLE VIAL IVPUSH ONE (04:46)
[2021-12-27] MEDS ORDERED: FUROSEMIDE 40 MG/4 ML INJECTABLE VIAL ONE (05:45)
[2021-12-27 07:26] LABS: CALCIUM 9.1 mg/dL (8.5-10.1)
[2021-12-27 07:28] LABS: ALBUMIN 3.6 g/dl (3.4-5.0); BLOOD UREA NITROGEN 21.2 mg/dL (7-18); MAGNESIUM 2.6 mg/dL (1.8-2.4)
[2021-12-27 07:30] LABS: CREATININE 0.8 mg/dL (0.55-1.3)
[2021-12-27 07:31] LABS: BILIRUBIN,TOTAL 1.2 mg/dL (0.2-1)
[2021-12-27 07:33] LABS: TOT PROT 6.9 g/dl (6.4-8.2)
[2021-12-27 07:35] LABS: N-TERMINAL BNP 2198.1 pg/ml (5-450)
[2021-12-27 07:50] LABS: BASO % 0.4 % (0-2.0); EOS % 2.5 % (0-4.5); HEMATOCRIT 43.2 % (32.4-45.2); HEMOGLOBIN 14.3 GM/dL (10.7-15.3); LYMPH % 19.4 % (8-40); MCH 31.8 pg (25.7-33.7); MCHC 33.2 g/dl (32.0-36.0); MEAN CELL VOLUME 95.6 fl (80-96); MEAN PLT VOLUME 7.7 fl (7.5-11.1); MONO % 7.1 % (3.8-10.2); NEUT % 70.6 % (42.8-82.8); PLATELET COUNT 253 10^3/uL (134-434); RBC 4.51 M/mm3 (3.60-5.2); RDW 14.5 % (11.6-15.6); WHITE BLOOD COUNT 8.6 K/mm3 (4.0-10.0)
[2021-12-27 08:29] LABS: PHOSPHOROUS 3.6 mg/dL (2.5-4.9)
[2021-12-27 08:35] LABS: INR 1.32 (0.83-1.09); PROTHROMBIN TIME (PATIENT) 15.2 SEC (9.7-13.0)
[2021-12-27 08:38] LABS: ACTIVATED PTT 30.9 SECONDS (25.2-36.5)
[2021-12-27] MEDS ORDERED: ACETAMINOPHEN 1000 MG/100 ML BAG IVPB ONE (09:22)
[2021-12-27] MEDS ORDERED: ACETAMINOPHEN INJECTION 100 ML IVPB ONE (09:27)
[2021-12-27] MEDS ORDERED: DOCUSATE SODIUM 100 MG CAPSULE (FP) PO PRN (11:17)
[2021-12-27] MEDS ORDERED: LIDOCAINE 5% TOPICAL PATCH TP PRN (11:17)
[2021-12-27] MEDS ORDERED: SENNOSIDES 8.6MG TABLET (FP) PO PRN (11:17)
[2021-12-27] MEDS ORDERED: ALPRAZolam 0.25 MG TABLET PO PRN (11:17)
[2021-12-27] MEDS ORDERED: ACETAMINOPHEN 325 MG TABLET (FP) PO PRN (11:17)
[2021-12-27] MEDS ORDERED: ASPIRIN COATED 81 MG TABLET.EC ONE (18:10)
[2021-12-27] MEDS ORDERED: ALPRAZolam 0.25 MG TABLET ONE (18:11)
[2021-12-27] MEDS ORDERED: ACETAMINOPHEN 325 MG TABLET (FP) ONE (18:11)
[2021-12-27] MEDS ORDERED: APIXABAN 5 MG TABLET ONE (22:15)
[2021-12-27] MEDS ORDERED: LIDOCAINE 5% TOPICAL PATCH ONE (22:18)
[2021-12-27] MEDS: APIXABAN 5 MG TABLET PO SCH (22:18)
[2021-12-27] MEDS: LIDOCAINE PATCH REMOVAL MC SCH (22:32)
[2021-12-27] MEDS: ASPIRIN COATED 81 MG TABLET.EC PO SCH (23:51)
[2021-12-28] MEDS ORDERED: ZOLPIDEM TARTRATE 5 MG TABLET ONE (03:45)
[2021-12-28] MEDS: ZOLPIDEM TARTRATE 5 MG TABLET PO PRN ×2 (03:48→23:03)
[2021-12-28] MEDS ORDERED: POLYETHYLENE GLYCOL (HEALTHYLAX) 3350 17 GM PACKET ONE (11:47)
[2021-12-28] MEDS ORDERED: FUROSEMIDE 40 MG/4 ML INJECTABLE VIAL ONE (11:48)
[2021-12-28] MEDS ORDERED: ESCITALOPRAM OXALATE 10 MG TABLET ONE (11:48)
[2021-12-28] MEDS ORDERED: ASPIRIN COATED 81 MG TABLET.EC ONE (11:48)
[2021-12-28 13:01] LABS: BLOOD UREA NITROGEN 19.4 mg/dL (7-18); CALCIUM 9.5 mg/dL (8.5-10.1)
[2021-12-28 13:02] LABS: ALBUMIN 3.5 g/dl (3.4-5.0)
[2021-12-28 13:04] LABS: CREATININE 0.7 mg/dL (0.55-1.3)
[2021-12-28 13:06] LABS: BILIRUBIN,TOTAL 1.8 mg/dL (0.2-1); TOT PROT 6.6 g/dl (6.4-8.2)
[2021-12-28] MEDS: APIXABAN 5 MG TABLET PO SCH (21:26)
[2021-12-29] MEDS: FUROSEMIDE 40 MG/4 ML INJECTABLE VIAL IVPUSH SCH (10:12)
[2021-12-29] MEDS: ASPIRIN COATED 81 MG TABLET.EC PO SCH (10:12)
[2021-12-29] MEDS: APIXABAN 5 MG TABLET PO SCH ×2 (10:12→21:40)
[2021-12-29] MEDS: ESCITALOPRAM OXALATE 20 MG TABLET PO SCH (10:12)
[2021-12-29] MEDS: POLYETHYLENE GLYCOL (HEALTHYLAX) 3350 17 GM PACKET PO SCH (10:12)
[2021-12-29] MEDS: CHOLECALCIFEROL (VIT D3) 5000 UNITS (125 MCG) CAP PO SCH (11:28)
[2021-12-29 15:22] LABS: EPI CELLS 9 /uL (0-25.1); HYALINE CASTS 0 /uL (0-3.1); PH,URINE 7.5 (5.0-8.0); URINE APPEARANCE CLOUDY; URINE BACTERIA 223 /uL (0-1359); URINE BILIRUBIN NEGATIVE (NEGATIVE); URINE COLOR YELLOW; URINE GLUCOSE (UA) NEGATIVE (NEGATIVE); URINE KETONE NEGATIVE (NEGATIVE); URINE LEUK ESTERASE TRACE (NEGATIVE); URINE NITRITE NEGATIVE (NEGATIVE); URINE PROTEIN NEGATIVE (NEGATIVE); URINE RBC 3 /uL (0-23.9); URINE WBC 7 /uL (0-25.8)
[2021-12-29 15:49] LABS: URINE CRYSTALS AMORPHOUS URATE /hpf
[2021-12-29] MEDS: FAMOTIDINE 20 MG TABLET PO PRN (17:42)
[2021-12-29] MEDS: LIDOCAINE PATCH REMOVAL MC SCH (21:39)
[2021-12-30] MEDS: ZOLPIDEM TARTRATE 5 MG TABLET PO PRN ×2 (02:23→21:07)
[2021-12-30] MEDS: APIXABAN 5 MG TABLET PO SCH ×2 (09:10→21:06)
[2021-12-30] MEDS: POLYETHYLENE GLYCOL (HEALTHYLAX) 3350 17 GM PACKET PO SCH (09:10)
[2021-12-30] MEDS: ESCITALOPRAM OXALATE 20 MG TABLET PO SCH (09:10)
[2021-12-30] MEDS: ASPIRIN COATED 81 MG TABLET.EC PO SCH (09:10)
[2021-12-30] MEDS: FUROSEMIDE 40 MG/4 ML INJECTABLE VIAL IVPUSH SCH (09:13)
[2021-12-30] MEDS: CHOLECALCIFEROL (VIT D3) 5000 UNITS (125 MCG) CAP PO SCH (09:18)
[2021-12-30] MEDS: LIDOCAINE PATCH REMOVAL MC SCH (21:10)
[2021-12-31] MEDS: ASPIRIN COATED 81 MG TABLET.EC PO SCH ×2 (10:37→10:40)
[2021-12-31] MEDS: APIXABAN 5 MG TABLET PO SCH ×2 (10:37→21:18)
[2021-12-31] MEDS: POLYETHYLENE GLYCOL (HEALTHYLAX) 3350 17 GM PACKET PO SCH (10:37)
[2021-12-31] MEDS: FAMOTIDINE 20 MG TABLET PO PRN (10:37)
[2021-12-31] MEDS: CHOLECALCIFEROL (VIT D3) 5000 UNITS (125 MCG) CAP PO SCH ×2 (10:37→10:40)
[2021-12-31] MEDS: ESCITALOPRAM OXALATE 20 MG TABLET PO SCH ×2 (10:38→10:40)
[2021-12-31] MEDS: FUROSEMIDE 40 MG/4 ML INJECTABLE VIAL IVPUSH SCH ×2 (10:38→10:40)
[2021-12-31] MEDS: ZOLPIDEM TARTRATE 5 MG TABLET PO PRN (21:18)
[2021-12-31] MEDS: LIDOCAINE PATCH REMOVAL MC SCH (21:30)
[2022-01-01 04:06] VITALS: TEMP 99
[2022-01-01 05:44] VITALS: BP 115/70; PULSE 60
== END 2022-01-01 13:56 | disposition home or self-care (01) | DRG 917 ==
LOC: JER 03:38 → JERBED 04:46 → J4W 12-28 20:55
PROVIDERS: ADMIT Internal Medicine; ATTEND Internal Medicine
DX: T42.6X1A Poisoning by other antiepileptic and sedative-hypnotic drugs, accidental (unintentional), initial encounter (principal); I50.33 Acute on chronic diastolic (congestive) heart failure; I48.20 Chronic atrial fibrillation, unspecified; C34.90 Malignant neoplasm of unspecified part of unspecified bronchus or lung; Z79.01 Long term (current) use of anticoagulants; Z95.2 Presence of prosthetic heart valve; R53.81 Other malaise; F41.9 Anxiety disorder, unspecified; F32.A Depression, unspecified; E11.9 Type 2 diabetes mellitus without complications; R31.29 Other microscopic hematuria; Z85.3 Personal history of malignant neoplasm of breast; F19.90 Other psychoactive substance use, unspecified, uncomplicated; Y92.008 Other place in unspecified non-institutional (private) residence as the place of occurrence of the external cause
CPT/HCPCS: 36415; 71045-TC-FY; 80053; 81003; 83735; 83880; 84100; 84484; 85025; 85610; 85730; 93005; 93010; 93306-TC; 97116-GP; 97162-GP; 99285-25; C9803-CS; U0003; U0005

== ENCOUNTER 2022-03-09 11:23 | Inpatient (IN) | payer OTHER ==
[2022-03-09 13:12] LABS: VENOUS O2 SATURATION 26.9 % (70-80); VENOUS PCO2 62.3 mmHg (38-52); VENOUS PH 7.329 (7.310-7.410)
[2022-03-09 14:00] LABS: HEMATOCRIT 46.1 % (32.4-45.2); HEMOGLOBIN 15.4 GM/dL (10.7-15.3); MCH 32.1 pg (25.7-33.7); MCHC 33.3 g/dl (32.0-36.0); MEAN CELL VOLUME 96.4 fl (80-96); MEAN PLT VOLUME 6.9 fl (7.5-11.1); PLATELET COUNT 350 10^3/uL (134-434); RBC 4.78 M/mm3 (3.60-5.2); RDW 16.2 % (11.6-15.6); WHITE BLOOD COUNT 9.1 K/mm3 (4.0-10.0)
[2022-03-09 14:17] LABS: CALCIUM 9.4 mg/dL (8.5-10.1)
[2022-03-09 14:18] LABS: ALBUMIN 3.4 g/dl (3.4-5.0); BLOOD UREA NITROGEN 20.6 mg/dL (7-18); MAGNESIUM 2.2 mg/dL (1.8-2.4)
[2022-03-09 14:21] LABS: CREATININE 0.7 mg/dL (0.55-1.3)
[2022-03-09 14:23] LABS: BILIRUBIN,TOTAL 0.8 mg/dL (0.2-1); TOT PROT 6.9 g/dl (6.4-8.2)
[2022-03-09 14:26] LABS: N-TERMINAL BNP 6364.5 pg/ml (5-450)
[2022-03-09 14:47] LABS: ANISOCYTOSIS 0; HELMET CELLS 0; HOWELL-JOLLY BODIES 0; MACROCYTOSIS 0; OVALOCYTE 0; ROULEAU 0; SICKELED CELLS 0; TARGET CELLS 0; TEAR DROP CELLS 0; TOXIC GRANULATION 0
[2022-03-09 15:59] LABS: EPI CELLS 4 /uL (0-25.1); HYALINE CASTS 1 /uL (0-3.1); PH,URINE 5.5 (5.0-8.0); URINE APPEARANCE CLEAR; URINE BACTERIA 1 /uL (0-1359); URINE BILIRUBIN NEGATIVE (NEGATIVE); URINE COLOR YELLOW; URINE GLUCOSE (UA) NEGATIVE (NEGATIVE); URINE KETONE NEGATIVE (NEGATIVE); URINE LEUK ESTERASE NEGATIVE (NEGATIVE); URINE NITRITE NEGATIVE (NEGATIVE); URINE PROTEIN 2+ (NEGATIVE); URINE RBC 29 /uL (0-23.9); URINE UROBILINOGEN 0.2 mg/dL (0.2-1.0); URINE WBC 7 /uL (0-25.8)
[2022-03-09 17:39] LABS: URINE CRYSTALS FEW CALCIUM OXALATES /hpf
[2022-03-10] MEDS ORDERED: LIDOCAINE 5% TOPICAL PATCH TP ONE (05:43)
[2022-03-10] MEDS: FUROSEMIDE 40 MG/4 ML INJECTABLE VIAL IVPUSH SCH (09:21)
[2022-03-10] MEDS: metoPROLOL SUCCINATE 25 MG TAB.SR.24H (FP) PO SCH (09:21)
[2022-03-10] MEDS ORDERED: FUROSEMIDE 40 MG/4 ML INJECTABLE VIAL IVPUSH SCH (10:00)
[2022-03-10 11:39] LABS: BASO % 0.6 % (0-2.0); EOS % 0.7 % (0-4.5); HEMOGLOBIN 14.5 GM/dL (10.7-15.3); LYMPH % 13.1 % (8-40); MCH 31.4 pg (25.7-33.7); MCHC 32.3 g/dl (32.0-36.0); MEAN CELL VOLUME 97.2 fl (80-96); MEAN PLT VOLUME 6.9 fl (7.5-11.1); MONO % 7.2 % (3.8-10.2); NEUT % 78.4 % (42.8-82.8); PLATELET COUNT 322 10^3/uL (134-434); RBC 4.63 M/mm3 (3.60-5.2); RDW 16.1 % (11.6-15.6)
[2022-03-10 12:02] LABS: CALCIUM 9.1 mg/dL (8.5-10.1)
[2022-03-10 12:03] LABS: BLOOD UREA NITROGEN 23.2 mg/dL (7-18); MAGNESIUM 2.3 mg/dL (1.8-2.4)
[2022-03-10 12:06] LABS: CREATININE 0.7 mg/dL (0.55-1.3)
[2022-03-10 12:08] LABS: BILIRUBIN,TOTAL 0.8 mg/dL (0.2-1); TOT PROT 6.1 g/dl (6.4-8.2)
[2022-03-10] MEDS ORDERED: LIDOCAINE PATCH REMOVAL MC ONE (19:00)
[2022-03-10] MEDS ORDERED: POLYETHYLENE GLYCOL (HEALTHYLAX) 3350 17 GM PACKET PO PRN (23:24)
[2022-03-10] MEDS ORDERED: SENNOSIDES 8.6MG TABLET (FP) PO PRN (23:24)
[2022-03-10] MEDS ORDERED: DOCUSATE SODIUM 100 MG CAPSULE (FP) PO PRN (23:24)
[2022-03-10] MEDS: LIDOCAINE PATCH REMOVAL MC SCH (23:51)
[2022-03-10] MEDS: APIXABAN 5 MG TABLET PO SCH (23:51)
[2022-03-10] MEDS: ZOLPIDEM TARTRATE 5 MG TABLET PO PRN (23:51)
[2022-03-11] MEDS: ALPRAZolam 0.25 MG TABLET PO PRN ×2 (05:55→21:41)
[2022-03-11] MEDS: APIXABAN 5 MG TABLET PO SCH ×2 (09:28→21:04)
[2022-03-11] MEDS: FUROSEMIDE 40 MG/4 ML INJECTABLE VIAL IVPUSH SCH (09:28)
[2022-03-11] MEDS: metoPROLOL SUCCINATE 25 MG TAB.SR.24H (FP) PO SCH (09:28)
[2022-03-11] MEDS: CHOLECALCIFEROL (VIT D3) 5000 UNITS (125 MCG) CAP PO SCH (09:30)
[2022-03-11] MEDS: LIDOCAINE 5% TOPICAL PATCH TP SCH (09:31)
[2022-03-11] MEDS: FAMOTIDINE 20 MG TABLET PO SCH (09:31)
[2022-03-11] MEDS ORDERED: metoPROLOL SUCCINATE 25 MG TAB.SR.24H (FP) PO SCH (10:00)
[2022-03-11] MEDS ORDERED: FUROSEMIDE 40 MG TABLET (FP) PO SCH (10:00)
[2022-03-11] MEDS ORDERED: PIPERACILLIN/TAZOB 3.375 GM 3.375 GM in DEXTROSE 5%-WATER - 50 ML IVPB SCH (12:30)
[2022-03-11] MEDS: PIPERACILLIN/TAZOB 3.375 GM 3.375 GM in DEXTROSE 5%-WATER - 50 ML IVPB SCH ×2 (15:31→18:23)
[2022-03-11] MEDS ORDERED: MAGNESIUM HYDROX 2400MG/30ML ORAL SUSPENSION 30 ML CUP PO PRN (20:12)
[2022-03-11] MEDS: LIDOCAINE PATCH REMOVAL MC SCH (21:07)
[2022-03-11] MEDS: ZOLPIDEM TARTRATE 5 MG TABLET PO PRN (21:09)
[2022-03-11] MEDS ORDERED: PATIENT'S OWN MEDICATION (NON-FORMULARY) (Zolpidem Tartrate [Ambien] 10 MG Tablet) PO SCH (22:00)
[2022-03-11] MEDS ORDERED: LIDOCAINE 5% TOPICAL PATCH TP SCH (22:00)
[2022-03-12] MEDS: PIPERACILLIN/TAZOB 3.375 GM 3.375 GM in DEXTROSE 5%-WATER - 50 ML IVPB SCH ×2 (02:01→10:18)
[2022-03-12 08:21] LABS: HEMATOCRIT 41.4 % (32.4-45.2); HEMOGLOBIN 13.6 GM/dL (10.7-15.3); MCH 31.8 pg (25.7-33.7); MEAN CELL VOLUME 96.5 fl (80-96); MEAN PLT VOLUME 6.8 fl (7.5-11.1); PLATELET COUNT 268 10^3/uL (134-434); RBC 4.29 M/mm3 (3.60-5.2); RDW 16.3 % (11.6-15.6); WHITE BLOOD COUNT 9.6 K/mm3 (4.0-10.0)
[2022-03-12 08:49] LABS: CALCIUM 8.8 mg/dL (8.5-10.1)
[2022-03-12 08:50] LABS: ALBUMIN 2.6 g/dl (3.4-5.0); BLOOD UREA NITROGEN 21.5 mg/dL (7-18)
[2022-03-12 08:51] LABS: CREATININE 0.6 mg/dL (0.55-1.3)
[2022-03-12 08:53] LABS: BILIRUBIN,TOTAL 0.8 mg/dL (0.2-1); TOT PROT 5.2 g/dl (6.4-8.2)
[2022-03-12] MEDS: APIXABAN 5 MG TABLET PO SCH ×2 (10:20→21:20)
[2022-03-12] MEDS: FUROSEMIDE 40 MG/4 ML INJECTABLE VIAL IVPUSH SCH (10:20)
[2022-03-12] MEDS: CHOLECALCIFEROL (VIT D3) 5000 UNITS (125 MCG) CAP PO SCH (10:20)
[2022-03-12] MEDS: ESCITALOPRAM OXALATE 20 MG TABLET PO SCH (10:20)
[2022-03-12] MEDS: metoPROLOL SUCCINATE 25 MG TAB.SR.24H (FP) PO SCH (10:20)
[2022-03-12] MEDS: FAMOTIDINE 20 MG TABLET PO SCH (10:20)
[2022-03-12] MEDS: LIDOCAINE 5% TOPICAL PATCH TP SCH (10:21)
[2022-03-12 10:32] LABS: ANISOCYTOSIS 0; MACROCYTOSIS 0; PLATELET ESTIMATE NORMAL
[2022-03-12] MEDS: ALPRAZolam 0.25 MG TABLET PO PRN (21:19)
[2022-03-12] MEDS: LIDOCAINE PATCH REMOVAL MC SCH (21:21)
[2022-03-13] MEDS: LIDOCAINE 5% TOPICAL PATCH TP SCH (10:11)
[2022-03-13] MEDS: FUROSEMIDE 40 MG/4 ML INJECTABLE VIAL IVPUSH SCH (10:11)
[2022-03-13] MEDS: APIXABAN 5 MG TABLET PO SCH ×2 (10:12→21:21)
[2022-03-13] MEDS: ESCITALOPRAM OXALATE 20 MG TABLET PO SCH (10:12)
[2022-03-13] MEDS: metoPROLOL SUCCINATE 25 MG TAB.SR.24H (FP) PO SCH (10:12)
[2022-03-13] MEDS: FAMOTIDINE 20 MG TABLET PO SCH (10:12)
[2022-03-13] MEDS: CHOLECALCIFEROL (VIT D3) 5000 UNITS (125 MCG) CAP PO SCH (10:12)
[2022-03-13] MEDS: LIDOCAINE PATCH REMOVAL MC SCH (21:21)
[2022-03-13] MEDS: clonazePAM 0.5 MG TABLET PO PRN (21:22)
[2022-03-14] MEDS: ZOLPIDEM TARTRATE 5 MG TABLET PO PRN (00:20)
[2022-03-14] MEDS: metoPROLOL SUCCINATE 25 MG TAB.SR.24H (FP) PO SCH (09:48)
[2022-03-14] MEDS: APIXABAN 5 MG TABLET PO SCH ×2 (09:48→21:11)
[2022-03-14] MEDS: FUROSEMIDE 40 MG/4 ML INJECTABLE VIAL IVPUSH SCH (09:48)
[2022-03-14] MEDS: ESCITALOPRAM OXALATE 20 MG TABLET PO SCH (09:48)
[2022-03-14] MEDS: LIDOCAINE 5% TOPICAL PATCH TP SCH (09:48)
[2022-03-14] MEDS: FAMOTIDINE 20 MG TABLET PO SCH (09:48)
[2022-03-14] MEDS: CHOLECALCIFEROL (VIT D3) 5000 UNITS (125 MCG) CAP PO SCH (18:15)
[2022-03-14] MEDS: clonazePAM 0.5 MG TABLET PO PRN (21:11)
[2022-03-14] MEDS: LIDOCAINE PATCH REMOVAL MC SCH (21:12)
[2022-03-15] MEDS ORDERED: MELATONIN 5 MG TABLETS PO ONE (00:29)
[2022-03-15] MEDS: FUROSEMIDE 40 MG/4 ML INJECTABLE VIAL IVPUSH SCH (09:36)
[2022-03-15] MEDS: APIXABAN 5 MG TABLET PO SCH ×2 (09:36→21:13)
[2022-03-15] MEDS: metoPROLOL SUCCINATE 25 MG TAB.SR.24H (FP) PO SCH (09:36)
[2022-03-15] MEDS: ESCITALOPRAM OXALATE 20 MG TABLET PO SCH (09:36)
[2022-03-15] MEDS: FAMOTIDINE 20 MG TABLET PO SCH (09:36)
[2022-03-15] MEDS: LIDOCAINE 5% TOPICAL PATCH TP SCH (09:37)
[2022-03-15 09:43] LABS: CALCIUM 9.2 mg/dL (8.5-10.1)
[2022-03-15 09:44] LABS: BLOOD UREA NITROGEN 21.4 mg/dL (7-18)
[2022-03-15 09:47] LABS: CREATININE 0.6 mg/dL (0.55-1.3)
[2022-03-15] MEDS: CHOLECALCIFEROL (VIT D3) 5000 UNITS (125 MCG) CAP PO SCH (10:57)
[2022-03-15] MEDS ORDERED: DOCUSATE SODIUM 100 MG CAPSULE (FP) PO PRN (18:48)
[2022-03-15] MEDS ORDERED: LIDOCAINE 5% TOPICAL PATCH TP ONE (18:48)
[2022-03-15] MEDS ORDERED: SENNOSIDES 8.6MG TABLET (FP) PO PRN (18:48)
[2022-03-15] MEDS ORDERED: MAGNESIUM HYDROX 2400MG/30ML ORAL SUSPENSION 30 ML CUP PO PRN (18:48)
[2022-03-15] MEDS ORDERED: POLYETHYLENE GLYCOL (HEALTHYLAX) 3350 17 GM PACKET PO PRN (18:48)
[2022-03-15] MEDS: LIDOCAINE PATCH REMOVAL MC SCH (22:31)
[2022-03-15] MEDS: ZOLPIDEM TARTRATE 5 MG TABLET PO PRN (22:49)
[2022-03-16] MEDS: clonazePAM 0.5 MG TABLET PO PRN ×2 (02:48→21:24)
[2022-03-16] MEDS: APIXABAN 5 MG TABLET PO SCH ×2 (13:09→21:24)
[2022-03-16] MEDS: FAMOTIDINE 20 MG TABLET PO SCH (13:09)
[2022-03-16] MEDS: FUROSEMIDE 40 MG/4 ML INJECTABLE VIAL IVPUSH SCH (13:09)
[2022-03-16] MEDS: LIDOCAINE 5% TOPICAL PATCH TP SCH (13:09)
[2022-03-16] MEDS: ESCITALOPRAM OXALATE 20 MG TABLET PO SCH (13:10)
[2022-03-16] MEDS: metoPROLOL SUCCINATE 25 MG TAB.SR.24H (FP) PO SCH (13:10)
[2022-03-16] MEDS: CHOLECALCIFEROL (VIT D3) 5000 UNITS (125 MCG) CAP PO SCH ×2 (14:37→16:50)
[2022-03-16 15:49] VITALS: BMI 24.6
[2022-03-16] MEDS: LIDOCAINE PATCH REMOVAL MC SCH (23:08)
[2022-03-17] MEDS: LIDOCAINE 5% TOPICAL PATCH TP SCH (09:58)
[2022-03-17] MEDS: APIXABAN 5 MG TABLET PO SCH ×2 (09:58→22:31)
[2022-03-17] MEDS: FUROSEMIDE 40 MG/4 ML INJECTABLE VIAL IVPUSH SCH (09:59)
[2022-03-17] MEDS: ESCITALOPRAM OXALATE 20 MG TABLET PO SCH (10:00)
[2022-03-17] MEDS: FAMOTIDINE 20 MG TABLET PO SCH (10:00)
[2022-03-17] MEDS: metoPROLOL SUCCINATE 25 MG TAB.SR.24H (FP) PO SCH (10:01)
[2022-03-17] MEDS: CHOLECALCIFEROL (VIT D3) 5000 UNITS (125 MCG) CAP PO SCH (10:39)
[2022-03-17] MEDS: LIDOCAINE PATCH REMOVAL MC SCH (22:28)
[2022-03-17] MEDS: ZOLPIDEM TARTRATE 5 MG TABLET PO PRN ×2 (23:14)
[2022-03-18 09:14] LABS: BASO % 0.6 % (0-2.0); EOS % 0.6 % (0-4.5); HEMATOCRIT 43.5 % (32.4-45.2); HEMOGLOBIN 14.1 GM/dL (10.7-15.3); MCH 31.3 pg (25.7-33.7); MCHC 32.5 g/dl (32.0-36.0); MEAN CELL VOLUME 96.3 fl (80-96); MEAN PLT VOLUME 6.9 fl (7.5-11.1); MONO % 3.8 % (3.8-10.2); PLATELET COUNT 270 10^3/uL (134-434); RBC 4.52 M/mm3 (3.60-5.2); RDW 16.1 % (11.6-15.6); WHITE BLOOD COUNT 10.9 K/mm3 (4.0-10.0)
[2022-03-18 09:39] LABS: CALCIUM 8.8 mg/dL (8.5-10.1)
[2022-03-18 09:40] LABS: BLOOD UREA NITROGEN 23.4 mg/dL (7-18)
[2022-03-18 09:43] LABS: CREATININE 0.7 mg/dL (0.55-1.3)
[2022-03-18] MEDS: metoPROLOL SUCCINATE 25 MG TAB.SR.24H (FP) PO SCH (11:01)
[2022-03-18] MEDS: FAMOTIDINE 20 MG TABLET PO SCH (11:01)
[2022-03-18] MEDS: ESCITALOPRAM OXALATE 20 MG TABLET PO SCH (11:01)
[2022-03-18] MEDS: APIXABAN 5 MG TABLET PO SCH ×2 (11:02→21:40)
[2022-03-18] MEDS: FUROSEMIDE 40 MG/4 ML INJECTABLE VIAL IVPUSH SCH (11:02)
[2022-03-18] MEDS: LIDOCAINE 5% TOPICAL PATCH TP SCH (11:02)
[2022-03-18] MEDS: CHOLECALCIFEROL (VIT D3) 5000 UNITS (125 MCG) CAP PO SCH (11:03)
[2022-03-18] MEDS: LIDOCAINE PATCH REMOVAL MC SCH (21:40)
[2022-03-18] MEDS: ZOLPIDEM TARTRATE 5 MG TABLET PO PRN (23:08)
[2022-03-19] MEDS: LIDOCAINE 5% TOPICAL PATCH TP SCH (11:26)
[2022-03-19] MEDS: FAMOTIDINE 20 MG TABLET PO SCH (11:26)
[2022-03-19] MEDS: FUROSEMIDE 40 MG/4 ML INJECTABLE VIAL IVPUSH SCH (11:26)
[2022-03-19] MEDS: APIXABAN 5 MG TABLET PO SCH ×2 (11:27→22:12)
[2022-03-19] MEDS: ESCITALOPRAM OXALATE 20 MG TABLET PO SCH (11:27)
[2022-03-19] MEDS: metoPROLOL SUCCINATE 25 MG TAB.SR.24H (FP) PO SCH (11:27)
[2022-03-19] MEDS: CHOLECALCIFEROL (VIT D3) 5000 UNITS (125 MCG) CAP PO SCH (11:29)
[2022-03-19] MEDS: ZOLPIDEM TARTRATE 5 MG TABLET PO PRN (22:12)
[2022-03-19] MEDS: LIDOCAINE PATCH REMOVAL MC SCH (22:17)
[2022-03-20] MEDS: LIDOCAINE 5% TOPICAL PATCH TP SCH (10:38)
[2022-03-20] MEDS: FUROSEMIDE 40 MG/4 ML INJECTABLE VIAL IVPUSH SCH ×2 (10:39→11:29)
[2022-03-20] MEDS: FAMOTIDINE 20 MG TABLET PO SCH (10:39)
[2022-03-20] MEDS: CHOLECALCIFEROL (VIT D3) 5000 UNITS (125 MCG) CAP PO SCH (10:39)
[2022-03-20] MEDS: ESCITALOPRAM OXALATE 20 MG TABLET PO SCH (10:39)
[2022-03-20] MEDS: metoPROLOL SUCCINATE 25 MG TAB.SR.24H (FP) PO SCH (10:39)
[2022-03-20] MEDS: APIXABAN 5 MG TABLET PO SCH ×2 (10:39→21:34)
[2022-03-20] MEDS: LIDOCAINE PATCH REMOVAL MC SCH (21:34)
[2022-03-20] MEDS: ZOLPIDEM TARTRATE 5 MG TABLET PO PRN (23:05)
[2022-03-21] MEDS: metoPROLOL SUCCINATE 25 MG TAB.SR.24H (FP) PO SCH (12:35)
[2022-03-21] MEDS: APIXABAN 5 MG TABLET PO SCH ×2 (12:35→22:33)
[2022-03-21] MEDS: FAMOTIDINE 20 MG TABLET PO SCH (12:36)
[2022-03-21] MEDS: ESCITALOPRAM OXALATE 20 MG TABLET PO SCH (12:36)
[2022-03-21] MEDS: CHOLECALCIFEROL (VIT D3) 5000 UNITS (125 MCG) CAP PO SCH (12:36)
[2022-03-21] MEDS: LIDOCAINE 5% TOPICAL PATCH TP SCH (12:38)
[2022-03-21] MEDS: FUROSEMIDE 40 MG/4 ML INJECTABLE VIAL IVPUSH SCH (12:39)
[2022-03-21] MEDS: ZOLPIDEM TARTRATE 5 MG TABLET PO PRN (22:33)
[2022-03-22] MEDS ORDERED: clonazePAM 0.5 MG TABLET PO PRN (02:20)
[2022-03-22] MEDS ORDERED: ZOLPIDEM TARTRATE 5 MG TABLET PO PRN (02:24)
[2022-03-22] MEDS: LIDOCAINE PATCH REMOVAL MC SCH (04:34)
[2022-03-22 08:16] VITALS: RESP 20
[2022-03-22] MEDS ORDERED: ESCITALOPRAM OXALATE 10 MG TABLET ONE (09:20)
[2022-03-22] MEDS ORDERED: FUROSEMIDE 40 MG TABLET (FP) PO SCH (10:00)
[2022-03-22] MEDS: metoPROLOL SUCCINATE 25 MG TAB.SR.24H (FP) PO SCH (10:12)
[2022-03-22] MEDS: APIXABAN 5 MG TABLET PO SCH (10:12)
[2022-03-22] MEDS: FAMOTIDINE 20 MG TABLET PO SCH (10:12)
[2022-03-22] MEDS: ESCITALOPRAM OXALATE 20 MG TABLET PO SCH (10:12)
[2022-03-22] MEDS: LIDOCAINE 5% TOPICAL PATCH TP SCH (10:13)
[2022-03-22] MEDS: CHOLECALCIFEROL (VIT D3) 5000 UNITS (125 MCG) CAP PO SCH (10:13)
[2022-03-22 17:52] VITALS: BP 109/58; PULSE 79; TEMP 98.1
== END 2022-03-22 20:00 | disposition home or self-care (01) | DRG 291 ==
LOC: JER 11:23 → JERBED 15:09 → J4W 03-10 05:42 → J5S 03-15 19:12
PROVIDERS: ADMIT Internal Medicine; ATTEND Internal Medicine
DX: I11.0 Hypertensive heart disease with heart failure (principal); I50.33 Acute on chronic diastolic (congestive) heart failure; J18.9 Pneumonia, unspecified organism; J96.21 Acute and chronic respiratory failure with hypoxia; J96.22 Acute and chronic respiratory failure with hypercapnia; C34.90 Malignant neoplasm of unspecified part of unspecified bronchus or lung; I48.20 Chronic atrial fibrillation, unspecified; J44.1 Chronic obstructive pulmonary disease with (acute) exacerbation; J98.11 Atelectasis; J44.9 Chronic obstructive pulmonary disease, unspecified; E11.9 Type 2 diabetes mellitus without complications; E78.5 Hyperlipidemia, unspecified; E87.70 Fluid overload, unspecified
CPT/HCPCS: 36415; 71045-TC-FY; 80048; 80053; 81003; 82803; 83735; 83880; 84484; 85025; 87086; 87804; 87807; 87899; 93005; 93010; 94761; 97116-GP; 97162-GP; 99285-25; C9803-CS; U0003; U0005

== ENCOUNTER 2022-04-16 14:07 | Inpatient (IN) | payer OTHER, MEDICARE ==
[2022-04-16 18:15] LABS: BASO % 0.4 % (0-2.0); HEMATOCRIT 45.7 % (32.4-45.2); LYMPH % 11.2 % (8-40); MCH 32.5 pg (25.7-33.7); MCHC 32.8 g/dl (32.0-36.0); MEAN CELL VOLUME 99.1 fl (80-96); MEAN PLT VOLUME 6.9 fl (7.5-11.1); MONO % 7.5 % (3.8-10.2); NEUT % 79.9 % (42.8-82.8); PLATELET COUNT 230 10^3/uL (134-434); RBC 4.61 M/mm3 (3.60-5.2); RDW 17.4 % (11.6-15.6); WHITE BLOOD COUNT 8.2 K/mm3 (4.0-10.0)
[2022-04-16 18:38] LABS: CHLORIDE 107 mmol/L (98-107); SODIUM 149 mmol/L (136-145)
[2022-04-16 18:40] LABS: CALCIUM 9.3 mg/dL (8.5-10.1)
[2022-04-16 18:41] LABS: ALBUMIN 3.2 g/dl (3.4-5.0); ANION GAP 5 MMOL/L (8-16); BLOOD UREA NITROGEN 14.2 mg/dL (7-18); CO2 37 mmol/L (21-32); GLUCOSE,RANDOM 92 mg/dL (74-106)
[2022-04-16 18:44] LABS: CREATININE 0.6 mg/dL (0.55-1.3); SGOT/AST 20 U/L (15-37); SGPT/ALT 28 U/L (13-61)
[2022-04-16 18:45] LABS: TOT PROT 6.1 g/dl (6.4-8.2)
[2022-04-16 18:46] LABS: BILIRUBIN,TOTAL 1.5 mg/dL (0.2-1)
[2022-04-16 18:47] LABS: ALK PHOS 57 U/L (45-117)
[2022-04-16 18:49] LABS: N-TERMINAL BNP 4392.2 pg/ml (5-450)
[2022-04-16] MEDS ORDERED: ALPRAZolam 0.25 MG TABLET PO ONE (23:29)
[2022-04-17] MEDS ORDERED: FUROSEMIDE 20 MG TABLET (FP) PO ONE (00:16)
[2022-04-17] MEDS ORDERED: DOCUSATE SODIUM 100 MG CAPSULE (FP) PO PRN (00:19)
[2022-04-17] MEDS ORDERED: SENNOSIDES 8.6MG TABLET (FP) PO PRN (00:19)
[2022-04-17] MEDS ORDERED: FUROSEMIDE 40 MG/4 ML INJECTABLE VIAL IVPUSH ONE (00:20)
[2022-04-17] MEDS ORDERED: POLYETHYLENE GLYCOL (HEALTHYLAX) 3350 17 GM PACKET PO PRN (00:25)
[2022-04-17] MEDS ORDERED: FUROSEMIDE 40 MG/4 ML INJECTABLE VIAL ONE (01:18)
[2022-04-17] MEDS: APIXABAN 5 MG TABLET PO SCH ×3 (01:30→22:16)
[2022-04-17 07:39] LABS: EPI CELLS 14 /uL (0-25.1); HYALINE CASTS 1 /uL (0-3.1); PH,URINE 6.5 (5.0-8.0); URINE APPEARANCE CLEAR; URINE BACTERIA 11 /uL (0-1359); URINE BILIRUBIN NEGATIVE (NEGATIVE); URINE COLOR YELLOW; URINE GLUCOSE (UA) NEGATIVE (NEGATIVE); URINE KETONE NEGATIVE (NEGATIVE); URINE LEUK ESTERASE TRACE (NEGATIVE); URINE NITRITE NEGATIVE (NEGATIVE); URINE PROTEIN NEGATIVE (NEGATIVE); URINE RBC 23 /uL (0-23.9); URINE WBC 12 /uL (0-25.8)
[2022-04-17 07:55] LABS: BASO % 0.7 % (0-2.0); EOS % 0.9 % (0-4.5); HEMATOCRIT 42.7 % (32.4-45.2); HEMOGLOBIN 13.8 GM/dL (10.7-15.3); INR 1.72 (0.83-1.09); LYMPH % 13.4 % (8-40); MCH 31.8 pg (25.7-33.7); MCHC 32.2 g/dl (32.0-36.0); MEAN CELL VOLUME 98.6 fl (80-96); MEAN PLT VOLUME 7.2 fl (7.5-11.1); PLATELET COUNT 223 10^3/uL (134-434); PROTHROMBIN TIME (PATIENT) 19.9 SEC (9.7-13.0); RBC 4.33 M/mm3 (3.60-5.2); RDW 17.3 % (11.6-15.6); WHITE BLOOD COUNT 7.9 K/mm3 (4.0-10.0)
[2022-04-17 07:58] LABS: ACTIVATED PTT 33.6 SECONDS (25.2-36.5)
[2022-04-17 08:13] LABS: BLOOD UREA NITROGEN 12.2 mg/dL (7-18); CALCIUM 8.9 mg/dL (8.5-10.1)
[2022-04-17 08:14] LABS: MAGNESIUM 2.2 mg/dL (1.8-2.4)
[2022-04-17 08:16] LABS: CREATININE 0.5 mg/dL (0.55-1.3)
[2022-04-17 08:17] LABS: PHOSPHOROUS 3.4 mg/dL (2.5-4.9)
[2022-04-17] MEDS ORDERED: FAMOTIDINE 20 MG TABLET ONE (10:17)
[2022-04-17] MEDS ORDERED: APIXABAN 5 MG TABLET ONE ×2 (10:17→21:39)
[2022-04-17] MEDS ORDERED: ESCITALOPRAM OXALATE 10 MG TABLET ONE ×2 (10:18→21:40)
[2022-04-17] MEDS ORDERED: LIDOCAINE 5% TOPICAL PATCH ONE (10:18)
[2022-04-17] MEDS ORDERED: metoPROLOL SUCCINATE 25 MG TAB.SR.24H (FP) PO ONE (10:18)
[2022-04-17] MEDS: LIDOCAINE 5% TOPICAL PATCH TP SCH (10:31)
[2022-04-17] MEDS: ESCITALOPRAM OXALATE 10 MG TABLET PO SCH (10:31)
[2022-04-17] MEDS: metoPROLOL SUCCINATE 25 MG TAB.SR.24H (FP) PO SCH (10:32)
[2022-04-17] MEDS: CHOLECALCIFEROL (VIT D3) 5000 UNITS (125 MCG) CAP PO SCH (10:32)
[2022-04-17] MEDS: FAMOTIDINE 20 MG TABLET PO SCH (10:32)
[2022-04-17] MEDS ORDERED: ACETAMINOPHEN 1000 MG/100 ML BAG IVPB PRN (11:10)
[2022-04-17] MEDS ORDERED: ZOLPIDEM TARTRATE 5 MG TABLET PO PRN (14:03)
[2022-04-17] MEDS ORDERED: ALPRAZolam 0.25 MG TABLET ONE ×2 (15:36→21:39)
[2022-04-17] MEDS: ALPRAZolam 0.25 MG TABLET PO SCH ×2 (16:40→22:16)
[2022-04-17] MEDS ORDERED: ACETAMINOPHEN INJECTION 100 ML IVPB ONE (20:10)
[2022-04-17] MEDS ORDERED: ZOLPIDEM TARTRATE 5 MG TABLET ONE (21:39)
[2022-04-18] MEDS: LIDOCAINE PATCH REMOVAL MC SCH ×2 (00:20→21:53)
[2022-04-18] MEDS: CHOLECALCIFEROL (VIT D3) 5000 UNITS (125 MCG) CAP PO SCH (11:00)
[2022-04-18] MEDS: metoPROLOL SUCCINATE 25 MG TAB.SR.24H (FP) PO SCH (11:07)
[2022-04-18] MEDS: ALPRAZolam 0.25 MG TABLET PO SCH ×2 (11:07→21:52)
[2022-04-18] MEDS: FAMOTIDINE 20 MG TABLET PO SCH (11:07)
[2022-04-18] MEDS: ESCITALOPRAM OXALATE 10 MG TABLET PO SCH (11:07)
[2022-04-18] MEDS: APIXABAN 5 MG TABLET PO SCH ×2 (11:08→21:52)
[2022-04-18] MEDS: DRONABINOL 5 MG CAPSULE PO SCH (11:08)
[2022-04-18] MEDS: LIDOCAINE 5% TOPICAL PATCH TP SCH (11:08)
[2022-04-18] MEDS ORDERED: FUROSEMIDE 40 MG/4 ML INJECTABLE VIAL IVPUSH ONE (14:15)
[2022-04-19] MEDS: AMINO ACIDS/PROTEIN HYDROLYS 30 ML LIQUID.PKT PO SCH (08:12)
[2022-04-19] MEDS ORDERED: FUROSEMIDE 40 MG/4 ML INJECTABLE VIAL IVPUSH SCH (10:00)
[2022-04-19 11:00] LABS: BLOOD UREA NITROGEN 16.9 mg/dL (7-18); CALCIUM 9.3 mg/dL (8.5-10.1)
[2022-04-19 11:04] LABS: CREATININE 0.5 mg/dL (0.55-1.3)
[2022-04-19] MEDS: APIXABAN 5 MG TABLET PO SCH ×2 (11:19→21:49)
[2022-04-19] MEDS: ESCITALOPRAM OXALATE 10 MG TABLET PO SCH (11:20)
[2022-04-19] MEDS: LIDOCAINE 5% TOPICAL PATCH TP SCH (11:21)
[2022-04-19] MEDS: FAMOTIDINE 20 MG TABLET PO SCH (11:21)
[2022-04-19] MEDS: DRONABINOL 5 MG CAPSULE PO SCH (11:21)
[2022-04-19] MEDS: metoPROLOL SUCCINATE 25 MG TAB.SR.24H (FP) PO SCH (11:22)
[2022-04-19] MEDS: ALPRAZolam 0.25 MG TABLET PO SCH (11:22)
[2022-04-19] MEDS: CHOLECALCIFEROL (VIT D3) 5000 UNITS (125 MCG) CAP PO SCH (11:23)
[2022-04-19] MEDS: ASCORBIC ACID 250 MG TABLET (FP) PO SCH (17:16)
[2022-04-19] MEDS: MULTIVITAMINS (DAILY MVI) TABLET (FP) PO SCH (17:16)
[2022-04-19] MEDS: ZINC SULFATE 220 MG CAPSULE (FP) PO SCH (17:16)
[2022-04-19] MEDS ORDERED: ACETAMINOPHEN 1000 MG/100 ML BAG IVPB PRN (19:19)
[2022-04-19] MEDS: LIDOCAINE PATCH REMOVAL MC SCH (21:56)
[2022-04-19] MEDS: ZOLPIDEM TARTRATE 5 MG TABLET PO PRN (22:30)
[2022-04-20] MEDS: AMINO ACIDS/PROTEIN HYDROLYS 30 ML LIQUID.PKT PO SCH (08:51)
[2022-04-20] MEDS: ZINC SULFATE 220 MG CAPSULE (FP) PO SCH (09:41)
[2022-04-20] MEDS: MULTIVITAMINS (DAILY MVI) TABLET (FP) PO SCH (09:41)
[2022-04-20] MEDS: FUROSEMIDE 40 MG TABLET (FP) PO SCH (09:41)
[2022-04-20] MEDS: APIXABAN 5 MG TABLET PO SCH ×2 (09:41→21:06)
[2022-04-20] MEDS: ESCITALOPRAM OXALATE 10 MG TABLET PO SCH (09:41)
[2022-04-20] MEDS: metoPROLOL SUCCINATE 25 MG TAB.SR.24H (FP) PO SCH (09:41)
[2022-04-20] MEDS: DRONABINOL 5 MG CAPSULE PO SCH (09:42)
[2022-04-20] MEDS: CHOLECALCIFEROL (VIT D3) 5000 UNITS (125 MCG) CAP PO SCH (09:42)
[2022-04-20] MEDS: LIDOCAINE 5% TOPICAL PATCH TP SCH (09:42)
[2022-04-20] MEDS: FAMOTIDINE 20 MG TABLET PO SCH (09:42)
[2022-04-20] MEDS: ASCORBIC ACID 250 MG TABLET (FP) PO SCH (09:42)
[2022-04-20] MEDS: oxyCODONE HCL 5 MG TABLET PO PRN (20:36)
[2022-04-20] MEDS: ZOLPIDEM TARTRATE 5 MG TABLET PO PRN (21:06)
[2022-04-20] MEDS: LIDOCAINE PATCH REMOVAL MC SCH (21:07)
[2022-04-21] MEDS: MULTIVITAMINS (DAILY MVI) TABLET (FP) PO SCH (10:00)
[2022-04-21] MEDS: FAMOTIDINE 20 MG TABLET PO SCH (10:00)
[2022-04-21] MEDS: DRONABINOL 5 MG CAPSULE PO SCH (10:01)
[2022-04-21] MEDS: ESCITALOPRAM OXALATE 10 MG TABLET PO SCH (10:01)
[2022-04-21] MEDS: AMINO ACIDS/PROTEIN HYDROLYS 30 ML LIQUID.PKT PO SCH (10:01)
[2022-04-21] MEDS: metoPROLOL SUCCINATE 25 MG TAB.SR.24H (FP) PO SCH (10:01)
[2022-04-21] MEDS: ZINC SULFATE 220 MG CAPSULE (FP) PO SCH (10:01)
[2022-04-21] MEDS: APIXABAN 5 MG TABLET PO SCH ×2 (10:01→21:15)
[2022-04-21] MEDS: CHOLECALCIFEROL (VIT D3) 5000 UNITS (125 MCG) CAP PO SCH (10:01)
[2022-04-21] MEDS: FUROSEMIDE 40 MG TABLET (FP) PO SCH (10:01)
[2022-04-21] MEDS: ASCORBIC ACID 250 MG TABLET (FP) PO SCH (10:01)
[2022-04-21] MEDS: LIDOCAINE 5% TOPICAL PATCH TP SCH (10:02)
[2022-04-21] MEDS: oxyCODONE HCL 5 MG TABLET PO PRN ×2 (13:52→20:46)
[2022-04-21] MEDS: ALPRAZolam 0.25 MG TABLET PO PRN (20:46)
[2022-04-21] MEDS: ZOLPIDEM TARTRATE 5 MG TABLET PO PRN (20:49)
[2022-04-21] MEDS: LIDOCAINE PATCH REMOVAL MC SCH (21:16)
[2022-04-21 22:57] VITALS: RESP 18
[2022-04-22] MEDS: oxyCODONE HCL 5 MG TABLET PO PRN ×3 (05:24→20:56)
[2022-04-22] MEDS: AMINO ACIDS/PROTEIN HYDROLYS 30 ML LIQUID.PKT PO SCH (08:18)
[2022-04-22] MEDS: DRONABINOL 5 MG CAPSULE PO SCH (09:58)
[2022-04-22] MEDS: MULTIVITAMINS (DAILY MVI) TABLET (FP) PO SCH (09:58)
[2022-04-22] MEDS: ZINC SULFATE 220 MG CAPSULE (FP) PO SCH (09:58)
[2022-04-22] MEDS: metoPROLOL SUCCINATE 25 MG TAB.SR.24H (FP) PO SCH (09:58)
[2022-04-22] MEDS: ESCITALOPRAM OXALATE 10 MG TABLET PO SCH (09:58)
[2022-04-22] MEDS: ASCORBIC ACID 250 MG TABLET (FP) PO SCH (09:58)
[2022-04-22] MEDS: FAMOTIDINE 20 MG TABLET PO SCH (09:58)
[2022-04-22] MEDS: APIXABAN 5 MG TABLET PO SCH ×2 (09:58→21:05)
[2022-04-22] MEDS: FUROSEMIDE 40 MG TABLET (FP) PO SCH (09:58)
[2022-04-22] MEDS: LIDOCAINE 5% TOPICAL PATCH TP SCH (09:59)
[2022-04-22] MEDS: CHOLECALCIFEROL (VIT D3) 5000 UNITS (125 MCG) CAP PO SCH (10:10)
[2022-04-22] MEDS: ALPRAZolam 0.25 MG TABLET PO PRN (20:56)
[2022-04-22] MEDS: ZOLPIDEM TARTRATE 5 MG TABLET PO PRN (20:57)
[2022-04-22] MEDS: LIDOCAINE PATCH REMOVAL MC SCH (21:05)
[2022-04-23] MEDS: oxyCODONE HCL 5 MG TABLET PO PRN ×3 (03:16→18:21)
[2022-04-23] MEDS: AMINO ACIDS/PROTEIN HYDROLYS 30 ML LIQUID.PKT PO SCH (09:09)
[2022-04-23] MEDS: ZINC SULFATE 220 MG CAPSULE (FP) PO SCH (09:09)
[2022-04-23] MEDS: FUROSEMIDE 40 MG TABLET (FP) PO SCH (09:09)
[2022-04-23] MEDS: ESCITALOPRAM OXALATE 10 MG TABLET PO SCH (09:09)
[2022-04-23] MEDS: metoPROLOL SUCCINATE 25 MG TAB.SR.24H (FP) PO SCH (09:09)
[2022-04-23] MEDS: DRONABINOL 5 MG CAPSULE PO SCH (09:09)
[2022-04-23] MEDS: ASCORBIC ACID 250 MG TABLET (FP) PO SCH (09:09)
[2022-04-23] MEDS: CHOLECALCIFEROL (VIT D3) 5000 UNITS (125 MCG) CAP PO SCH (09:09)
[2022-04-23] MEDS: APIXABAN 5 MG TABLET PO SCH ×2 (09:09→21:58)
[2022-04-23] MEDS: LIDOCAINE 5% TOPICAL PATCH TP SCH (09:10)
[2022-04-23] MEDS: FAMOTIDINE 20 MG TABLET PO SCH (09:10)
[2022-04-23] MEDS: MULTIVITAMINS (DAILY MVI) TABLET (FP) PO SCH (09:10)
[2022-04-23 11:02] VITALS: BMI 25.1
[2022-04-23 11:56] LABS: CALCIUM 9.4 mg/dL (8.5-10.1)
[2022-04-23 11:57] LABS: BLOOD UREA NITROGEN 23.7 mg/dL (7-18)
[2022-04-23 12:00] LABS: CREATININE 0.5 mg/dL (0.55-1.3)
[2022-04-23] MEDS: LIDOCAINE PATCH REMOVAL MC SCH (21:58)
[2022-04-24] MEDS: oxyCODONE HCL 5 MG TABLET PO PRN ×3 (00:40→21:33)
[2022-04-24] MEDS: ZOLPIDEM TARTRATE 5 MG TABLET PO PRN (00:58)
[2022-04-24] MEDS: AMINO ACIDS/PROTEIN HYDROLYS 30 ML LIQUID.PKT PO SCH (08:08)
[2022-04-24] MEDS: ESCITALOPRAM OXALATE 10 MG TABLET PO SCH (10:03)
[2022-04-24] MEDS: DRONABINOL 5 MG CAPSULE PO SCH (10:03)
[2022-04-24] MEDS: ZINC SULFATE 220 MG CAPSULE (FP) PO SCH (10:03)
[2022-04-24] MEDS: FUROSEMIDE 40 MG TABLET (FP) PO SCH (10:03)
[2022-04-24] MEDS: MULTIVITAMINS (DAILY MVI) TABLET (FP) PO SCH (10:03)
[2022-04-24] MEDS: metoPROLOL SUCCINATE 25 MG TAB.SR.24H (FP) PO SCH (10:03)
[2022-04-24] MEDS: FAMOTIDINE 20 MG TABLET PO SCH (10:03)
[2022-04-24] MEDS: CHOLECALCIFEROL (VIT D3) 5000 UNITS (125 MCG) CAP PO SCH (10:04)
[2022-04-24] MEDS: ASCORBIC ACID 250 MG TABLET (FP) PO SCH (10:07)
[2022-04-24] MEDS: LIDOCAINE 5% TOPICAL PATCH TP SCH (10:18)
[2022-04-24] MEDS: APIXABAN 5 MG TABLET PO SCH ×2 (11:06→21:34)
[2022-04-24] MEDS: ALPRAZolam 0.25 MG TABLET PO PRN (18:07)
[2022-04-24] MEDS: LIDOCAINE PATCH REMOVAL MC SCH (21:37)
[2022-04-25] MEDS: ZOLPIDEM TARTRATE 5 MG TABLET PO PRN (02:03)
[2022-04-25] MEDS: oxyCODONE HCL 5 MG TABLET PO PRN (06:37)
[2022-04-25] MEDS: AMINO ACIDS/PROTEIN HYDROLYS 30 ML LIQUID.PKT PO SCH (08:25)
[2022-04-25] MEDS: FUROSEMIDE 40 MG TABLET (FP) PO SCH (10:05)
[2022-04-25] MEDS: APIXABAN 5 MG TABLET PO SCH (10:05)
[2022-04-25] MEDS: ESCITALOPRAM OXALATE 10 MG TABLET PO SCH (10:05)
[2022-04-25] MEDS: metoPROLOL SUCCINATE 25 MG TAB.SR.24H (FP) PO SCH (10:05)
[2022-04-25] MEDS: DRONABINOL 5 MG CAPSULE PO SCH (10:05)
[2022-04-25] MEDS: ASCORBIC ACID 250 MG TABLET (FP) PO SCH (10:05)
[2022-04-25] MEDS: CHOLECALCIFEROL (VIT D3) 5000 UNITS (125 MCG) CAP PO SCH (10:05)
[2022-04-25] MEDS: ZINC SULFATE 220 MG CAPSULE (FP) PO SCH (10:05)
[2022-04-25] MEDS: FAMOTIDINE 20 MG TABLET PO SCH (10:05)
[2022-04-25] MEDS: MULTIVITAMINS (DAILY MVI) TABLET (FP) PO SCH (10:05)
[2022-04-25] MEDS: LIDOCAINE 5% TOPICAL PATCH TP SCH (10:05)
[2022-04-25 11:59] VITALS: BP 128/81; PULSE 88; TEMP 97.5
== END 2022-04-25 13:03 | disposition home or self-care (01) | DRG 291 ==
LOC: JER 14:07 → JERBED 19:34 → J6S 04-17 22:45
PROVIDERS: ADMIT Internal Medicine; ATTEND Internal Medicine
DX: I11.0 Hypertensive heart disease with heart failure (principal); I50.43 Acute on chronic combined systolic (congestive) and diastolic (congestive) heart failure; C34.90 Malignant neoplasm of unspecified part of unspecified bronchus or lung; I48.20 Chronic atrial fibrillation, unspecified; M48.56XA Collapsed vertebra, not elsewhere classified, lumbar region, initial encounter for fracture; R62.7 Adult failure to thrive; E78.5 Hyperlipidemia, unspecified
CPT/HCPCS: 0241U-QW; 36415; 70450-TC; 71045-TC-FY; 72170-TC-FY; 73521-TC-FY; 80048; 80053; 81003; 82962; 83735; 83880; 84100; 84484; 85025; 85610; 85730; 87086; 93005; 93010; 99285-25; E0372